=== PATIENT | male | born 1950 | race Two or more races ===

== ENCOUNTER 2020-03-29 15:58 | Inpatient (IN) | payer OTHER ==
[~2020-03-29] VITALS: Ht 185.4 cm; Wt 78.9 kg
[2020-03-29] MEDS ORDERED: SODIUM CHLORIDE 0.9% 500 ML IVB ONE (16:30)
[2020-03-29] MEDS ORDERED: PANTOPRAZOLE 40 MG/10 ML VIAL INJ IV ONE (16:30)
[2020-03-29 17:29] LABS: Basophils # (auto) 0.1 10 ^3/uL (0-0.2); Basophils % (auto) 0.7 % (0.0-2.0); Eosinophils # (auto) 0.1 10 ^3/uL (0-0.8); Eosinophils % (auto) 0.5 % (0.0-7.0); Hematocrit 28.4 % (41.0-53.0); Hemoglobin 9.3 g/dL (13.5-17.5); Lymphocytes % (auto) 16.5 % (10.0-50.0); Mean Corpuscular Hemoglobin 28.7 pg (28.0-32.0); Mean Corpuscular Hgb Conc. 32.9 g/dL (32.0-36.0); Mean Corpuscular Volume 87.1 fL (80.0-100.0); Monocytes # (auto) 0.8 10 ^3/uL (0-1.3); Monocytes % (auto) 6.4 % (0.0-12.0); Neutrophils % (auto) 75.9 % (37.0-80.0); Nucleated Red Blood Cells % 0.1 %; Platelet Count (auto) 258 10^3/uL (140-450); Red Blood Cells 3.26 10^6/uL (4.5-5.90); Red Cell Distribution Width 14.3 % (11.8-14.3); White Blood Cell 11.9 10^3/uL (4.4-10.8)
[2020-03-29 18:20] LABS: Albumin 2.9 g/dL (3.4-5.0); Calcium 10.2 mg/dL (8.5-10.1); Potassium 3.1 mmol/L (3.5-5.1)
[2020-03-29 18:24] LABS: BUN/Creatinine Ratio 24.5; Bilirubin, Total 0.5 mg/dL (0.2-1.0); Total Protein 7.7 g/dL (6.4-8.2)
[2020-03-29] MEDS ORDERED: NITROGLYCERIN 0.4 MG SL TAB SL PRN (20:30)
[2020-03-29] MEDS ORDERED: LABETALOL HCL 5 MG/ML 4ML SYRINGE IV PRN (20:30)
[2020-03-29] MEDS ORDERED: LORazepam 2MG/ML-1ML VIAL IV PRN (20:30)
[2020-03-29] MEDS ORDERED: ONDANSETRON HCL 4 MG/2 ML VIAL IV PRN (20:30)
[2020-03-29] MEDS ORDERED: MORPHINE SULF INJ 2 MG/ML SYRINGE 1ML IV PRN (20:30)
[2020-03-29] MEDS: SODIUM CHLORIDE 0.9% 1,000 ML IV SCH (21:46)
[2020-03-29] MEDS ORDERED: PANTOPRAZOLE 40 MG/10 ML VIAL INJ IV SCH (22:00)
[2020-03-29] MEDS: POTASSIUM CHL 20MEQ/100ML 100 ML IV SCH (23:03)
[2020-03-30 00:32] LABS: Hematocrit 23.9 % (41.0-53.0)
[2020-03-30] MEDS: POTASSIUM CHL 20MEQ/100ML 100 ML IV SCH (01:03)
[2020-03-30 02:29] LABS: Hemoglobin 7.7 g/dL (13.5-17.5)
[2020-03-30 02:31] LABS: Hematocrit 22.4 % (41.0-53.0)
[2020-03-30 03:52] VITALS: BP 142/78
[2020-03-30] MEDS ORDERED: ATOR20TA50 PO (05:06)
[2020-03-30] MEDS ORDERED: LISI-646 PO (05:06)
[2020-03-30] MEDS ORDERED: MELO1TAB56 PO (05:06)
[2020-03-30] MEDS ORDERED: MULT-228 PO (05:06)
[2020-03-30] MEDS ORDERED: METF-370 PO (05:06)
[2020-03-30] MEDS ORDERED: GLIP10TA9 PO (05:06)
[2020-03-30] MEDS ORDERED: PILO7.5T3 PO (05:06)
[2020-03-30] MEDS: SODIUM CHLORIDE 0.9% 1,000 ML IV SCH ×2 (06:30→18:00)
[2020-03-30 07:56] LABS: Eosinophils # (auto) 0.1 10 ^3/uL (0-0.8); Eosinophils % (auto) 0.8 % (0.0-7.0); Monocytes # (auto) 0.8 10 ^3/uL (0-1.3); Monocytes % (auto) 8.5 % (0.0-12.0); Nucleated Red Blood Cells % 0.1 %; Red Blood Cells 2.67 10^6/uL (4.5-5.90)
[2020-03-30 07:57] LABS: Basophils # (auto) 0 10 ^3/uL (0-0.2); Basophils % (auto) 0.4 % (0.0-2.0); Hemoglobin 7.8 g/dL (13.5-17.5); Lymphocytes # (auto) 3.7 10 ^3/uL (0.4-5.4); Lymphocytes % (auto) 38.8 % (10.0-50.0); Mean Corpuscular Hemoglobin 29.2 pg (28.0-32.0); Mean Corpuscular Volume 85.9 fL (80.0-100.0); Neutrophils # (auto) 4.9 10 ^3/uL (1.6-8.6); Neutrophils % (auto) 51.5 % (37.0-80.0); Platelet Count (auto) 203 10^3/uL (140-450); Red Cell Distribution Width 14.4 % (11.8-14.3); White Blood Cell 9.5 10^3/uL (4.4-10.8)
[2020-03-30 08:12] LABS: Potassium 3.6 mmol/L (3.5-5.1)
[2020-03-30 08:24] LABS: Albumin 2.7 g/dL (3.4-5.0); BUN/Creatinine Ratio 43.8; Bilirubin, Total 0.3 mg/dL (0.2-1.0); Calcium 9.4 mg/dL (8.5-10.1); Total Protein 7.1 g/dL (6.4-8.2)
[2020-03-30 08:25] LABS: INR 1.08 (0.9-1.15); Partial Thromboplastin Time 24.2 sec (23.0-31.2)
[2020-03-30 08:37] LABS: Urine Bacteria FEW /hpf (None Seen); Urine Blood Negative /uL (Negative); Urine Hyaline Cast FEW /lpf (0 - 2); Urine Specific Gravity 1.017 (1.001-1.035); Urine WBC <1 /hpf (0 - 3)
[2020-03-30 09:00] VITALS: BP 137/74
[2020-03-30] MEDS ORDERED: DEXTROSE (50%) 50ML SYRG IV PRN (09:00)
[2020-03-30] MEDS: ACCU-CHEK COMFORT CURVE STRIP VI SCH ×2 (11:40→18:00)
[2020-03-30] MEDS: InsuLIN REG 1unit/0.01ml Soln (100units/ml) SC SCH ×2 (11:41→18:00)
[2020-03-30 13:00] LABS: Hematocrit 22.2 % (41.0-53.0); Hemoglobin 7.4 g/dL (13.5-17.5)
[2020-03-30 16:00] VITALS: BP 118/71
[2020-03-30 21:23] LABS: Hemoglobin 7.1 g/dL (13.5-17.5)
[2020-03-30 21:25] LABS: Hematocrit 21.5 % (41.0-53.0)
[2020-03-30 22:00] VITALS: BP 124/70
[2020-03-31] MEDS: ACCU-CHEK COMFORT CURVE STRIP VI SCH ×5 (00:01→23:14)
[2020-03-31] MEDS: InsuLIN REG 1unit/0.01ml Soln (100units/ml) SC SCH ×5 (00:02→23:15)
[2020-03-31] MEDS ORDERED: CHOL20007 PO (01:38)
[2020-03-31] MEDS ORDERED: VITA100T3 PO (01:38)
[2020-03-31] MEDS: SODIUM CHLORIDE 0.9% 1,000 ML IV SCH ×3 (02:30→22:30)
[2020-03-31 05:35] VITALS: BP 122/70
[2020-03-31 07:17] LABS: Basophils # (auto) 0 10 ^3/uL (0-0.2); Basophils % (auto) 0.6 % (0.0-2.0); Eosinophils # (auto) 0.2 10 ^3/uL (0-0.8); Hemoglobin 7.2 g/dL (13.5-17.5)
[2020-03-31 07:20] LABS: Eosinophils % (auto) 2.2 % (0.0-7.0); Hematocrit 21.3 % (41.0-53.0); Lymphocytes # (auto) 2.4 10 ^3/uL (0.4-5.4); Lymphocytes % (auto) 35.1 % (10.0-50.0); Mean Corpuscular Hemoglobin 29.3 pg (28.0-32.0); Mean Corpuscular Hgb Conc. 33.6 g/dL (32.0-36.0); Mean Corpuscular Volume 87.3 fL (80.0-100.0); Monocytes # (auto) 0.6 10 ^3/uL (0-1.3); Monocytes % (auto) 8.1 % (0.0-12.0); Neutrophils # (auto) 3.8 10 ^3/uL (1.6-8.6); Platelet Count (auto) 202 10^3/uL (140-450); Red Blood Cells 2.44 10^6/uL (4.5-5.90); Red Cell Distribution Width 14.3 % (11.8-14.3)
[2020-03-31 08:00] VITALS: BP 147/79
[2020-03-31] MEDS ORDERED: LIDOCAINE VISCOUS 2% 15ML UD ONE (13:13)
[2020-03-31] MEDS ORDERED: diphenhdrAMINE HCL 50 MG/1 ML VL ONE (13:13)
[2020-03-31] MEDS ORDERED: SODIUM CHLORIDE LOCK 10 ML ONE (13:14)
[2020-03-31] MEDS: fentaNYL CITRATE 100 MCG/2 ML VL ONE ×2 (13:31→13:34)
[2020-03-31] MEDS: MIDAZOLAM HCL 5 MG/ML-1ML VIAL ONE ×3 (13:31→13:37)
[2020-03-31 16:26] VITALS: BP 150/83
[2020-03-31 18:24] LABS: Hemoglobin 7.8 g/dL (13.5-17.5)
[2020-03-31 18:25] LABS: Hematocrit 23.1 % (41.0-53.0)
[2020-03-31 21:50] VITALS: BP 150/73
[2020-04-01] MEDS: MORPHINE SULF INJ 2 MG/ML SYRINGE 1ML IV PRN ×2 (03:55→10:46)
[2020-04-01] MEDS: ACCU-CHEK COMFORT CURVE STRIP VI SCH ×4 (05:03→21:52)
[2020-04-01] MEDS: InsuLIN REG 1unit/0.01ml Soln (100units/ml) SC SCH ×4 (05:07→21:51)
[2020-04-01 05:08] VITALS: BP 164/73
[2020-04-01 08:00] VITALS: BP 158/82
[2020-04-01] MEDS: SODIUM CHLORIDE 0.9% 1,000 ML IV SCH (08:30)
[2020-04-01 12:42] LABS: Basophils # (auto) 0 10 ^3/uL (0-0.2); Eosinophils # (auto) 0.1 10 ^3/uL (0-0.8); Eosinophils % (auto) 1.3 % (0.0-7.0); Hemoglobin 7.7 g/dL (13.5-17.5); Lymphocytes # (auto) 1.9 10 ^3/uL (0.4-5.4); Mean Corpuscular Volume 87.5 fL (80.0-100.0); Monocytes # (auto) 0.7 10 ^3/uL (0-1.3)
[2020-04-01 12:45] LABS: Basophils % (auto) 0.4 % (0.0-2.0); Hematocrit 23.1 % (41.0-53.0); Lymphocytes % (auto) 29.5 % (10.0-50.0); Mean Corpuscular Hemoglobin 29.4 pg (28.0-32.0); Mean Corpuscular Hgb Conc. 33.6 g/dL (32.0-36.0); Monocytes % (auto) 10.5 % (0.0-12.0); Neutrophils # (auto) 3.9 10 ^3/uL (1.6-8.6); Neutrophils % (auto) 58.3 % (37.0-80.0); Platelet Count (auto) 198 10^3/uL (140-450); Red Blood Cells 2.63 10^6/uL (4.5-5.90); Red Cell Distribution Width 14.3 % (11.8-14.3); White Blood Cell 6.6 10^3/uL (4.4-10.8)
[2020-04-01] MEDS ORDERED: LISINOPRIL 20 MG TAB PO ONE (14:45)
[2020-04-01] MEDS ORDERED: DEXTROSE (50%) 50ML SYRG IV PRN (14:45)
[2020-04-01] MEDS ORDERED: hydrALAZINE HCL 20 MG/ML VL IV PRN (14:45)
[2020-04-01 16:00] VITALS: BP 163/89
[2020-04-01 16:02] LABS: Potassium 3.2 mmol/L (3.5-5.1)
[2020-04-01 16:11] LABS: BUN/Creatinine Ratio 8.2; Calcium 7.8 mg/dL (8.5-10.1)
[2020-04-01] MEDS: SUCRALFATE 1 GM/10 ML ORAL SUSP PO SCH ×2 (19:05→21:46)
[2020-04-01 20:00] VITALS: BP 131/61
[2020-04-01 23:49] VITALS: BP 131/61
[2020-04-02] MEDS: MORPHINE SULF INJ 2 MG/ML SYRINGE 1ML IV PRN (04:06)
[2020-04-02 05:00] VITALS: BP 163/88
[2020-04-02] MEDS: SUCRALFATE 1 GM/10 ML ORAL SUSP PO SCH ×4 (05:37→21:05)
[2020-04-02 05:56] LABS: Basophils # (auto) 0 10 ^3/uL (0-0.2); Basophils % (auto) 0.4 % (0.0-2.0); Eosinophils # (auto) 0.1 10 ^3/uL (0-0.8); Eosinophils % (auto) 1.3 % (0.0-7.0); Hematocrit 26.8 % (41.0-53.0); Lymphocytes # (auto) 1.9 10 ^3/uL (0.4-5.4); Lymphocytes % (auto) 21.2 % (10.0-50.0); Mean Corpuscular Hemoglobin 29.4 pg (28.0-32.0); Mean Corpuscular Hgb Conc. 33.7 g/dL (32.0-36.0); Mean Corpuscular Volume 87.1 fL (80.0-100.0); Monocytes # (auto) 0.7 10 ^3/uL (0-1.3); Monocytes % (auto) 8.6 % (0.0-12.0); Neutrophils % (auto) 68.5 % (37.0-80.0); Nucleated Red Blood Cells % 0.1 %; Platelet Count (auto) 255 10^3/uL (140-450); Red Blood Cells 3.07 10^6/uL (4.5-5.90); Red Cell Distribution Width 14.4 % (11.8-14.3); White Blood Cell 8.7 10^3/uL (4.4-10.8)
[2020-04-02] MEDS: InsuLIN REG 1unit/0.01ml Soln (100units/ml) SC SCH ×4 (06:04→21:03)
[2020-04-02] MEDS: ACCU-CHEK COMFORT CURVE STRIP VI SCH ×4 (06:04→21:05)
[2020-04-02 06:23] LABS: INR 1.05 (0.9-1.15); Partial Thromboplastin Time 25.7 sec (23.0-31.2)
[2020-04-02 06:25] LABS: Potassium 3.7 mmol/L (3.5-5.1)
[2020-04-02 06:38] LABS: BUN/Creatinine Ratio 4.5; Calcium 8.2 mg/dL (8.5-10.1); Magnesium 1.3 mg/dL (1.6-2.6)
[2020-04-02 09:00] VITALS: BP 151/91
[2020-04-02] MEDS ORDERED: EZ-GAS II GRANULES (RADIOLOGY USE) PO ONE ×3 (10:17→14:35)
[2020-04-02] MEDS ORDERED: READI-CAT 2 (BARIUM SULF)(VANILLA SMOOTHIE) 450ML ONE (10:17)
[2020-04-02] MEDS ORDERED: BARIUM SULFATE 98% 340 GM PWDR ONE (10:19)
[2020-04-02] MEDS ORDERED: GASTROGRAFIN 120 ML SOL ONE ×2 (11:14→14:30)
[2020-04-02 12:00] VITALS: BP 151/87
[2020-04-02] MEDS: LISINOPRIL 20 MG TAB PO SCH (12:15)
[2020-04-02 17:00] VITALS: BP 158/82
[2020-04-02 22:00] VITALS: BP 148/88
[2020-04-03 05:00] VITALS: BP 151/92
[2020-04-03] MEDS: SUCRALFATE 1 GM/10 ML ORAL SUSP PO SCH ×2 (05:57→10:01)
[2020-04-03] MEDS: InsuLIN REG 1unit/0.01ml Soln (100units/ml) SC SCH (06:08)
[2020-04-03] MEDS: ACCU-CHEK COMFORT CURVE STRIP VI SCH (06:08)
[2020-04-03] MEDS: MORPHINE SULF INJ 2 MG/ML SYRINGE 1ML IV PRN (07:02)
[2020-04-03 07:56] LABS: Basophils # (auto) 0 10 ^3/uL (0-0.2); Basophils % (auto) 0.4 % (0.0-2.0); Eosinophils # (auto) 0.1 10 ^3/uL (0-0.8); Eosinophils % (auto) 0.9 % (0.0-7.0); Hematocrit 27.3 % (41.0-53.0); Hemoglobin 9.2 g/dL (13.5-17.5); Lymphocytes # (auto) 1.3 10 ^3/uL (0.4-5.4); Lymphocytes % (auto) 17.4 % (10.0-50.0); Mean Corpuscular Hemoglobin 29.4 pg (28.0-32.0); Mean Corpuscular Hgb Conc. 33.8 g/dL (32.0-36.0); Monocytes # (auto) 1.1 10 ^3/uL (0-1.3); Monocytes % (auto) 14.2 % (0.0-12.0); Neutrophils % (auto) 67.1 % (37.0-80.0); Platelet Count (auto) 281 10^3/uL (140-450); Red Blood Cells 3.14 10^6/uL (4.5-5.90); Red Cell Distribution Width 14.8 % (11.8-14.3); White Blood Cell 7.4 10^3/uL (4.4-10.8)
[2020-04-03 08:00] VITALS: BP 145/86
[2020-04-03] MEDS: LISINOPRIL 20 MG TAB PO SCH (10:07)
[2020-04-03 10:26] VITALS: BP 145/81
== END 2020-04-03 12:30 | disposition home or self-care (01) | DRG 378 ==
LOC: ER 15:58 → EDBD 15:58 → TELE 15:59 → TELE-CENTR 03-30 03:52
PROVIDERS: ADMIT Family Medicine; ATTEND Internal Medicine Geriatric Medicine
PROC: 0DB88ZX Excision of Small Intestine, Via Natural or Artificial Opening Endoscopic, Diagnostic (ICD-10-PCS; 2020-03-31)
PROC: 0DB68ZX Excision of Stomach, Via Natural or Artificial Opening Endoscopic, Diagnostic (ICD-10-PCS; principal; 2020-03-31 13:23)
PROC: BD15YZZ Fluoroscopy of Upper GI using Other Contrast (ICD-10-PCS; 2020-04-02)
DX: K25.4 Chronic or unspecified gastric ulcer with hemorrhage (principal); N17.9 Acute kidney failure, unspecified; D62 Acute posthemorrhagic anemia; K29.80 Duodenitis without bleeding; K29.70 Gastritis, unspecified, without bleeding; K44.9 Diaphragmatic hernia without obstruction or gangrene; K80.20 Calculus of gallbladder without cholecystitis without obstruction; E11.65 Type 2 diabetes mellitus with hyperglycemia; Z20.822 Contact with and (suspected) exposure to COVID-19; K26.9 Duodenal ulcer, unspecified as acute or chronic, without hemorrhage or perforation; E87.6 Hypokalemia; I10 Essential (primary) hypertension; K21.9 Gastro-esophageal reflux disease without esophagitis; B96.81 Helicobacter pylori [H. pylori] as the cause of diseases classified elsewhere; F17.210 Nicotine dependence, cigarettes, uncomplicated; Z90.49 Acquired absence of other specified parts of digestive tract; I95.89 Other hypotension
CPT/HCPCS: 36415; 71045; 74176; 74246; 80048; 80053; 81001; 82962; 83036; 83690; 83735; 85014; 85018; 85025; 85610; 85730; 86850; 86900; 86901; 87086; 87426; 93005; 96360; 96361; G0378; J1815; J2250; J2405; J3480; J3490

== ENCOUNTER 2024-06-04 05:40 | Inpatient (IN) | payer OTHER ==
[~2024-06-04] VITALS: Ht 185.4 cm; Wt 81.8 kg
[2024-06-04] VITALS (16 sets, daily range): BP systolic 68–125; BP diastolic 38–64; PULSE 78–100; RESP 13–24; TEMP 95.9–98.1; O2SAT 100
[2024-06-04] MEDS: OCTREOTIDE ACETATE 100 MCG/ML VL ONE (05:31)
[~2024-06-04 05:40] MED LIST: ATOR20TA50 PO; CEPH500C PO; CHOL20007 PO; GLIP10TA9 PO; LISI20TA56 PO; MELO15TA29 PO; METF-370 PO; MULT-228 PO; PILO7.5T3 PO; VITA100T3 PO
[2024-06-04] MEDS ORDERED: SODIUM CHLORIDE 0.9% 500 ML IV ONE (06:00)
--- NOTE | 2024-06-04 06:01 | PRN ---
Misceleneous Note Note Note RAPID MEDICAL ASSESSMENT NOTE: 73-year-old male presents with rectal bleeding. Possible history of liver cirrhosis. Physical exam: General: Awake, alert No acute distress. Skin: Skin appears jaundice. HEENT: The head is normocephalic and atraumatic. Conjunctivae are clear without exudates or hemorrhage. Sclera is non-icteric. Neck: Normal range of motion. No JVD. Cardiac: Regular rate Abdomen: Appears distended Respiratory: No signs of respiratory distress. No Stridor. Neurological: The patient is awake, alert Plan: Lab studies, stool occult Sign out to oncoming provider pending full evaluation and re-assessment. DARRELL KNOX MD Jun 04, 2024 06:01
[2024-06-04] MEDS: PANTOPRAZOLE 40 MG/10 ML VIAL INJ IV ONE (06:34)
[2024-06-04] MEDS: OCTREOTIDE ACETATE 100 MCG in SODIUM CHL 0.9% 50 ML IV ONE (06:37)
--- NOTE | 2024-06-04 06:39 | ED.PDOC ---
GI ASSESSMENT HPI Comments Vitals Temp: 98.4F BP: 74/45 HR: 93 RR: 16 spO2: 98% Past Medical History: DM, HTN, HLD, Gastric Ulcers Past Surgical History: Appendectomy, Tonsillectomy Social History: Smokes cigarettes, denies ETOH or drug use. Allergies: NKDA HPI: Poor Historian. 73 year old male WILLIAM presents to the ED with chief complaint of rectal bleeding and abdominal pain. Patient reports that he has been experiencing rectal bleeding for the past 6 hours with associated epigastric pain. Patient relays that he has history of gastric ulcers in the past. Patient states he has never been transfused with blood before. Patient denies any N/V/D, hematemesis, fever, chills, or dizziness. REVIEW OF SYSTEMS: CONSTITUTIONAL: Denies acute: fever, diaphoresis, chills, HEAD: Denies acute: headache, photophobia Eyes: Denies acute: Double vision, vision loss, eye pain, eye discharge. EARS: Denies acute: tinnitus, hearing loss, ear discharge, ear pain, THROAT: Denies acute: sore throat, swelling, difficulty swallowing , pain with swallowing, change in voice. NECK: Denies acute: neck pain, neck swelling, stiff neck. HEART: Denies acute : chest pain, palpitations, LUNGS: Denies acute: SOB, wheezing, cough, hemoptysis ABDOMEN: Denies acute: Nausea, Vomiting, diarrhea, melena , hematemesis, SKIN: Denies acute: rash, redness, lesions, itchiness. EXTREMITIES: Denies acute: calf pain, numbness, tingling, weakness, denies pain in extremity. Denies acute: Low back pain. Neuro: Denies acute: focal neurological deficit, motor or sensory focal neurological deficit, tremors, seizure like activity, confusion, dizziness, change in mental status, loss of bowel or bladder function, cauda equina like symptoms. : Denies acute: dysuria, hematuria, flank pain, increase in urinary frequency. PSYCH: Denies acute: hallucination, suicidal ideation, homicidal ideation. PHYSICAL EXAM: General: no acute distress, awake and alert. Head: normocephalic, atraumatic. Neck: supple, trachea is midline, no swelling. Throat: Normal phonation. Eyes:, no erythema, no purulent discharge, no proptosis, no icterus. Heart: regular rate, regular rhythm, no significant murmur appreciated. Lungs: no apparent respiratory distress, Able to speak in full sentences. No wheezing, no rhonchi, no crackles. No stridors Clear to auscultation bilaterally. Abdomen: Epigastric tender to palpation, non distended, soft, no guarding, no rebound, + bowel sounds. Neuro: Awake, Alert, oriented to name, self, situation, follows commands GCS=15. Speech is normal. Skin: no petechia, no purpura, no cyanosis, noted-pale, not jaundice. Lower extremities: --no - Pitting edema no deformity, no focal swelling, no calf TTP. Makes eye contact. moves all four extremities. Face: no apparent facial droop. ED COURSE: Chief Complaint: GI Bleed Time Seen by MD: 06:20 Primary Care Provider: MAYKEL Reviewed Notes: Nurses Notes, Medications, Allergies Allergies: Coded Allergies: NO KNOWN ALLERGIES (Unverified , 03/29/20) Home Meds Active Scripts Cephalexin Monohydrate (Cephalexin) 500 Mg Cap, 1 CAP PO QID, #32 CAP Prov:ESTEFANÍA JORDAN 06/18/23 Reported Medications Cholecalciferol (VITAMIN D3) 2,000 Unit Tab, 1 TAB PO DAILY, #30 TAB 5 Refills 03/31/20 Alpha Tocopheryl Acid Succinat (VITAMIN E) 100 Unit Tab, 670 MG PO, TAB 03/31/20 Pilocarpine HCl (Oral) (Pilocarpine Hydrochloride) 7.5 Mg Tab, 5 MG PO TID, TAB 03/30/20 Multiple Vitamin (Multi-Day Vitamins) Vitamins Tab, 1 TAB PO DAILY, #30 TAB 03/30/20 Meloxicam (Meloxicam) 15 Mg Tab, 1 TAB PO DAILY, #30 TAB 2 Refills 03/30/20 Glipizide (Glipizide) 10 Mg Tab, 10 MG PO BID for 30 Days, MG 03/30/20 Atorvastatin Calcium (ATORVASTATIN CALCIUM) 20 Mg Tab, 1 TAB PO HS, #30 TAB 5 Refills 03/30/20 Metformin Hydrochloride (Metformin Hcl) 500 Mg Tab, 1000 MG PO BID for 30 Days, MG 03/30/20 Lisinopril (Lisinopril) 20 Mg Tab, 20 MG PO DAILY for 30 Days, MG 03/30/20 Information Source: Patient Mode of Arrival: Ambulatory Was a procedure done? Was a procedure done?: No GI differential Dx Differential Diagnosis: Other (Diverticulitis, colitis, fistula, neoplasm, hemorrhoids, anal fissures, constipation, Crohn's disease, ulcerative colitis) X-Ray, Labs, Meds, VS Vital Signs Date Time Temp Pulse Resp B/P (MAP) Pulse Ox O2 Delivery O2 Flow Rate FiO2 06/04/24 16:45 98.0 78 16 130/59 (82) 98 98.0 06/04/24 14:45 98.2 81 12 124/58 (80) 98 98.2 06/04/24 12:45 98.0 83 12 122/59 (80) 98 98.0 06/04/24 12:30 98.0 82 13 118/64 98.0 06/04/24 10:45 97.1 81 20 104/45 (64) 98 97.1 06/04/24 10:35 97.1 84 18 104/45 97.1 06/04/24 10:30 84 20 113/49 (70) 98 06/04/24 10:15 84 20 103/50 (67) 97 06/04/24 10:09 97.1 83 18 103/50 97.1 06/04/24 10:07 97.0 82 18 102/47 97.0 06/04/24 10:00 78 20 98/47 (64) 97 06/04/24 09:57 97.1 81 16 106/51 97.1 06/04/24 09:45 97.1 83 20 98/48 (65) 94 97.1 06/04/24 09:14 98.6 87 20 92/68 (76) 94 98.6 06/04/24 09:00 82 14 80/28 (45) 100 06/04/24 08:46 96.3 80 24 68/44 96.3 06/04/24 08:30 80 15 80/47 (58) 100 06/04/24 08:24 95.9 82 20 80/47 95.9 06/04/24 08:15 96.6 82 15 76/37 (50) 100 96.6 06/04/24 08:01 98.1 93 18 87/50 (62) 94 98.1 06/04/24 08:00 80 16 59/35 (43) 100 06/04/24 07:30 96.6 82 16 87/45 (59) 100 96.6 06/04/24 07:30 82 16 100 Nasal Cannula* 4 36 06/04/24 05:40 98.4 93 16 74/45 (55) 98 98.4 Lab Test 06/04/24 14:13 06/04/24 14:00 06/04/24 07:23 06/04/24 06:08 Range/Units Troponin I High Sensitivity 502 *H 89 *H 82 *H </=54 ng/L Lactic Acid Level 1.3 0.4-2.0 mmol/L Hemoglobin 3.9 *L 4.4 *L 13.5-17.5 g/dL Hematocrit 12.5 #L 14.3 L 41.0-53.0 % White Blood Count 12.8 H 4.4-10.8 10^3/uL Red Blood Count 1.70 L 4.5-5.90 10^6/uL Mean Corpuscular Volume 83.7 80.0-100.0 fL Mean Corpuscular Hemoglobin 25.6 L 28.0-32.0 pg Mean Corpuscular Hemoglobin Concent 30.6 L 32.0-36.0 g/dL Red Cell Distribution Width 16.3 H 11.8-14.3 % Platelet Count 178 140-450 10^3/uL Mean Platelet Volume 7.1 6.9-10.8 fL Neutrophils (%) (Auto) 75.7 37.0-80.0 % Lymphocytes (%) (Auto) 14.6 10.0-50.0 % Monocytes (%) (Auto) 9.0 0.0-12.0 % Eosinophils (%) (Auto) 0.2 0.0-7.0 % Basophils (%) (Auto) 0.5 0.0-2.0 % Neutrophils # (Auto) 9.7 H 1.6-8.6 10 ^3/uL Lymphocytes # (Auto) 1.9 0.4-5.4 10 ^3/uL Monocytes # (Auto) 1.1 0-1.3 10 ^3/uL Eosinophils # (Auto) 0 0-0.8 10 ^3/uL Basophils # (Auto) 0.1 0-0.2 10 ^3/uL Nucleated Red Blood Cells 0.1 % Platelet Estimate Adequate Hypochromasia (manual) Slight Prothrombin Time 12.4 H 9.3-11.8 sec Prothrombin Time INR 1.19 H 0.9-1.15 Activated Partial Thromboplast Time 24.2 L 24.5-34.5 SEC Sodium Level 139 136-145 mmol/L Potassium Level 4.6 3.5-5.1 mmol/L Chloride Level 107 98-107 mmol/L Carbon Dioxide Level 15 L 20-31 mmol/L Anion Gap 17 H 5-15 Blood Urea Nitrogen 48 H 9-23 mg/dL Creatinine 1.67 H 0.700-1.30 mg/dL Glomerular Filtration Rate Calc 42 >90 mL/min BUN/Creatinine Ratio 28.7 H 10.0-20.0 Serum Glucose 133 H 74-106 mg/dL Calcium Level 8.5 L 8.7-10.4 mg/dL Magnesium Level 1.8 1.6-2.6 mg/dL Total Bilirubin 0.3 0.2-1.0 mg/dL Aspartate Amino Transferase (AST) 27 13-40 U/L Alanine Aminotransferase (ALT) 24 7-40 U/L Alkaline Phosphatase 76 46-116 U/L Ammonia 45 H 11-32 umol/L Total Protein 5.9 5.7-8.2 g/dL Albumin 2.6 L 3.2-4.8 g/dL Lipase 104 H 12-53 U/L Current Medications Medications (Trade) Dose Ordered Sig/Pj Route Start Time Stop Time Status Last Admin Pantoprazole Sodium (Protonix) 40 mg ONCE ONCE IV 06/04/24 06:30 06/04/24 06:31 DC 06/04/24 06:34 Octreotide Acetate 100 mcg/ Sodium Chloride 51 ml @ 204 mls/hr ONCE ONCE IV 06/04/24 06:30 06/04/24 06:44 DC 06/04/24 06:37 Albumin Human 100 ml @ 100 mls/hr ONCE ONCE IV 06/04/24 08:30 06/04/24 09:29 DC 06/04/24 09:35 Ceftriaxone Sodium/Dextrose 50 ml @ 50 mls/hr ONCE ONCE IV 06/04/24 10:00 06/04/24 10:59 DC 06/04/24 10:42 Octreotide Acetate 500 mcg/ Sodium Chloride 100 ml @ 10 mls/hr Q10H IV 06/04/24 10:00 06/04/24 12:39 Pantoprazole Sodium 50 ml @ 10 mls/hr Q5H ONCE IV 06/04/24 10:00 06/04/24 14:59 DC 06/04/24 11:47 [place] [id number] Ph: [phone] DIAGNOSTIC IMAGING Diagnostic Imaging Report : [id number] Signed PATIENT: YOSEPH LEI ACCT: [id number] UNIT: [id number] : 1950 LOC: ER ROOM / BED: / AGE / SEX: 73 / M ADM STATUS: REG ER SERVICE 0708 ORDERING PHYSICIAN: ABHIJIT JAMA DO PROCEDURE(s): ABPL - CT AB PEL WO CON-NO ORAL OR IV REASON: abd pain, gi bleed, ORDER NUMBER(s): [id number], ACCESSION NUMBER(s): [id number] EXAM: CT Abdomen and Pelvis Without Intravenous Contrast CLINICAL INDICATION: abd pain, gi bleed, TECHNIQUE: Axial computed tomography images of the abdomen and pelvis without intravenous contrast. This CT exam was performed using one or more of the following dose reduction techniques: automated exposure control, adjustment of the mA and/or kV according to patient size, and/or use of iterative reconstruct ion technique. CONTRAST: RADIATION DOSE: CTDIvol = 18.17 mGy, DLP = 1129.14 mGy-cm COMPARISON: CT ABD PELVIS WO CONTRAST on DOS: 03/29/20 FINDINGS: LUNG BASES: Lung emphysema. No consolidation. ABDOMEN: LIVER: Cirrhosis with ascites. GALLBLADDER AND BILE DUCTS: Cholelithiasis. No ductal dilation. PANCREAS: Unremarkable. No ductal dilation. SPLEEN: Unremarkable. No splenomegaly. ADRENALS: Unremarkable. No mass. KIDNEYS AND URETERS: Unremarkable. No obstructing stones. No hydronephrosis. STOMACH AND BOWEL: Unremarkable. No obstruction. No mucosal thickening. PELVIS: APPENDIX: No findings to suggest acute appendicitis. BLADDER: Unremarkable. No stones. REPRODUCTIVE: Unremarkable as visualized. ABDOMEN and PELVIS: INTRAPERITONEAL SPACE: See above. BONES/JOINTS: Severe degenerative changes and disc disease L3-4. No acute fracture. No dislocation. SOFT TISSUES: Unremarkable. VASCULATURE: Scattered calcified atherosclerotic disease of aorta. Descending aorta measures up to 3.6 cm in diameter. No abdominal aortic aneurysm. LYMPH NODES: Unremarkable. No enlarged lymph nodes. OTHER FINDINGS: . IMPRESSION: 1. Cirrhosis with ascites. 2. Cholelithiasis. ATED BY: NOHEMI MCNEIL MD DICTATED DATE/TIME: 06/04/24800 SIGNED BY: NOHEMI MCNEIL MD SIGNED DATE/TIME: 06/04/24800 CC: Images Reviewed?: Images reviewed and evaluated by me Time of 1ST Reevaluation: 07:20 Reevaluation 1ST: Unchanged Time of 2ND Reevaluation: 15:53 (The case was discussed with the cardiology team (HPI, physical exam, labs and diagnostic tests that were available at the time of disposition, ED course, treatment plan) on the phone. They agreed to follow up with the patient in consult. No further recommendations. Dr. Davey) Patient Education/Counseling: Diagnosis, Treatment Family Education/Counseling: No Family Present Comments Patient presented with the above HPI.---GI bleed---workup was initiated. patient was found with the above mentioned diagnosis. the following medications were ordered: please refer to order lists of meds and tests obtained by myself Dr. Jama. Patient ED course and VS have been stabilized. Patient has been reassessed in the ED and remained in a stable condition. Pertinent incidental findings were discussed with the patient and/or family. Patient/family voices understanding and is agreeable with plan. Patient has been observed in the ED adequate length of time to insure improvement/stability. Escalation of care considered: Consideration of escalation to observation or admission Patient was ADMITTED to the medicine team for further evaluation and treatment of their presentation. GI consult was placed. Cardiology was consulted. Patient has active GI bleeding. Anticoagulation is contraindicated. The elevated troponin is likely demand ischemia. Patient was consented for blood transfusion received at least 2 units of packed red blood cells. Patient was hypotensive but improved significantly with blood transfusion and albumin. Sepsis protocol was initiated. All the reports of any imaging studies that were ordered by myself were reviewed by myself. Departure 1 Departure Time of Disposition: 06:40 Impression: Primary Impression: GI bleed Additional Impressions: Symptomatic anemia Elevated troponin Elevated lipase Hemorrhagic shock Hypoalbuminemia Liver cirrhosis Ascites Disposition: ADMITTED INPATIENT Admit to: Tele Condition: Guarded Discharged With: Self Critical Care Note Critical Care Time?: Yes (90 min-critical care time only) I personally scribed for ABHIJIT JAMA DO ([email or web address]) on 06/04/24 at 06:39. Electronically submitted by Royer Sheikh ([email or web address]). I personally scribed for ABHIJIT JAMA DO ([email or web address]) on 06/04/24 at 06:47. Electronically submitted by Royer Sheikh ([email or web address]). I personally scribed for ABHIJIT JAMA DO ([email or web address]) on 06/04/24 at 08:18. Electronically submitted by Royer Sheikh ([email or web address]). ABHIJIT JAMA DO Jun 04, 2024 06:39
[2024-06-04 06:50] LABS: INR 1.19 (0.9-1.15); Magnesium 1.8 mg/dL (1.6-2.6); Partial Thromboplastin Time 24.2 SEC (24.5-34.5); Prothrombin Time 12.4 sec (9.3-11.8)
[2024-06-04 07:01] LABS: Basophils # (auto) 0.1 10 ^3/uL (0-0.2); Basophils % (auto) 0.5 % (0.0-2.0); Eosinophils # (auto) 0 10 ^3/uL (0-0.8); Eosinophils % (auto) 0.2 % (0.0-7.0); Hematocrit 14.3 % (41.0-53.0); Lymphocytes # (auto) 1.9 10 ^3/uL (0.4-5.4); Lymphocytes % (auto) 14.6 % (10.0-50.0); Mean Corpuscular Hemoglobin 25.6 pg (28.0-32.0); Mean Corpuscular Hgb Conc. 30.6 g/dL (32.0-36.0); Mean Corpuscular Volume 83.7 fL (80.0-100.0); Monocytes # (auto) 1.1 10 ^3/uL (0-1.3); Neutrophils # (auto) 9.7 10 ^3/uL (1.6-8.6); Neutrophils % (auto) 75.7 % (37.0-80.0); Nucleated Red Blood Cells % 0.1 %; Platelet Count (auto) 178 10^3/uL (140-450); Red Cell Distribution Width 16.3 % (11.8-14.3); White Blood Cell 12.8 10^3/uL (4.4-10.8)
[2024-06-04 07:05] LABS: Hemoglobin 4.4 g/dL (13.5-17.5)
[2024-06-04 07:42] LABS: Hematocrit 12.5 % (41.0-53.0)
[2024-06-04 07:48] LABS: Hemoglobin 3.9 g/dL (13.5-17.5)
[2024-06-04 07:58] LABS: Alanine Aminotransferase 24 U/L (7-40); Alkaline Phosphatase 76 U/L (46-116); Anion Gap 17 (5-15); Potassium 4.6 mmol/L (3.5-5.1); Sodium 139 mmol/L (136-145); Total Protein 5.9 g/dL (5.7-8.2)
[2024-06-04 07:59] LABS: Aspartate Aminotransferase 27 U/L (13-40); BUN/Creatinine Ratio 28.7 (10.0-20.0); Bilirubin, Total 0.3 mg/dL (0.2-1.0)
[2024-06-04] MEDS: NOREPINEPHRINE 8 MG/250ML KIT 250 ML IV SCH (08:00)
[2024-06-04 08:02] LABS: Albumin 2.6 g/dL (3.2-4.8); Blood Urea Nitrogen 48 mg/dL (9-23); Calcium 8.5 mg/dL (8.7-10.4); Carbon Dioxide 15 mmol/L (20-31); Chloride 107 mmol/L (98-107); Glucose 133 mg/dL (74-106)
--- NOTE | 2024-06-04 08:04 | DVH ---
EXAM: CT Abdomen and Pelvis Without Intravenous Contrast CLINICAL INDICATION: abd pain, gi bleed, TECHNIQUE: Axial computed tomography images of the abdomen and pelvis without intravenous contrast. This CT exam was performed using one or more of the following dose reduction techniques: automated exposure control, adjustment of the mA and/or kV according to patient size, and/or use of iterative r econstruction technique. CONTRAST: RADIATION DOSE: CTDIvol = 18.17 mGy, DLP = 1129.14 mGy-cm COMPARISON: CT ABD PELVIS WO CONTRAST on DOS: 03/29/20 FINDINGS: LUNG BASES: Lung emphysema. No consolidation. ABDOMEN: LIVER: Cirrhosis with ascites. GALLBLADDER AND BILE DUCTS: Cholelithiasis. No ductal dilation. PANCREAS: Unremarkable. No ductal dilation. SPLEEN: Unremarkable. No splenomegaly. ADRENALS: Unremarkable. No mass. KIDNEYS AND URETERS: Unremarkable. No obstructing stones. No hydronephrosis. STOMACH AND BOWEL: Unremarkable. No obstruction. No mucosal thickening. PELVIS: APPENDIX: No findings to suggest acute appendicitis. BLADDER: Unremarkable. No stones. REPRODUCTIVE: Unremarkable as visualized. ABDOMEN and PELVIS: INTRAPERITONEAL SPACE: See above. BONES/JOINTS: Severe degenerative changes and disc disease L3-4. No acute fracture. No dislocatio n. SOFT TISSUES: Unremarkable. VASCULATURE: Scattered calcified atherosclerotic disease of aorta. Descending aorta measures up to 3.6 cm in diameter. No abdominal aortic aneurysm. LYMPH NODES: Unremarkable. No enlarged lymph nodes. OTHER FINDINGS: . IMPRESSION: 1. Cirrhosis with ascites. 2. Cholelithiasis.
[2024-06-04 09:19] LABS: Platelet Estimate Adequate
[2024-06-04 09:20] LABS: Hypochromia Slight
[2024-06-04] MEDS: ALBUMIN 25% 100 ML IV ONE (09:35)
[2024-06-04] MEDS: cefTRIAXone 2GM/50ML D5W 50 ML IV ONE (10:42)
[2024-06-04] MEDS: PANTOPRAZOLE 40mg/50ML NS AE 50 ML IV ONE (11:47)
[2024-06-04] MEDS: OCTREOTIDE ACETATE 500 MCG in SODIUM CHL 0.9% 99 ML IV SCH (12:39)
--- NOTE | 2024-06-04 18:18 | DVHSR ---
APPROVED REPORT EXAM: Two-dimensional and M-mode echocardiogram with Doppler and color Doppler. Blood Pressure: 124/58 mmHg INDICATION Elevated trop RISK FACTORS Height: 6'1", Weight: 169 DIMENSIONS LVDd4.6 (3.8-5.7cm)LA (2D)4.3 (1.9-4.0cm)Aortic Root4.3 (2.0-3.7cm) LVDs3.3 (2.5-4.0cm)LA (MM) (1.9-4.0cm)Aortic Cusp Exc0.9 (1.5-2.0cm) EF (%) 60.0 (55-70%)Rt. Atrium4.2 (1.9-4.0cm)Asc. Aorta3.6 cm IVSd1.4 (0.7-1.1cm)RV (D)3.5 (1.8-2.4cm) PWd1.4 (0.7-1.1cm) Mitral Valve MitralMitral Stenosis E wave1.10m/sMV Mean GR.4mmHg A wave1.48m/sMV Peak GR.9mmHg E/A ratio0.72D MVAcm2 DECEL [id number] 1/2 [id number] IVRTmsDop MVA1.74cm2 Aortic Valve Aortic ValveAortic Stenosis V11.07m/Cyndie Mean GR.20mmHg V23.03m/Cyndie Peak GR.37mmHg LVOT Diameter2.4 (1.8-2.4cm)Doppler AVA1.60cm2 2D AVA1.76cm2 AI P 1/2 Tgrq286.77ms Pulmonic Valve V21.36m/s Tricuspid Valve TR Velocity2.86m/s [id number] Other Information Technically limited study due to body habitus. Conclusion 1. MILD LVH AND MILD LV DIASTOLIC DYSFUNCTION LV EJECTION FRACTION IS 65% 2. MODERATELY DILATED DILATED LA 3. POSTERIOR MV CALCIFIED 4. MODERATE DEGREE MR 5. MODERATE DEGREE AORTIC STENOSIS PEAK GRADIENT ACROSS AORTIC VALVE IS 37 MM OF HG MODERATE DEGREE AORTIC REGURGITATION 6. MODERATE DEGREE MR 7. NO EFFUSION 8.SLIGHTLY DILATED RV AND RA 9. MILD PULMONARY HYPERTENSION
[2024-06-04] MEDS ORDERED: ACETAMINOPHEN 325 MG TAB PO PRN (19:00)
[2024-06-04] MEDS ORDERED: ONDANSETRON HCL 4 MG/2 ML VIAL IV PRN (19:00)
[2024-06-04] MEDS ORDERED: DEXTROSE (50%) 50ML SYRG IV PRN (19:00)
[2024-06-04] MEDS ORDERED: HYDROcodone-ACET 5/325MG TAB PO PRN (19:00)
[2024-06-04] MEDS ORDERED: HYDROmorphone HCL 2 MG/ML VL/or syr IV PRN (19:00)
--- NOTE | 2024-06-04 19:06 | DVHHP2 ---
History of Present Illness HPI: Poor Historian. 73 year old male WILLIAM presents to the ED with chief complaint of rectal bleeding and abdominal pain. Patient reports that he has been experiencing rectal bleeding for the past 6 hours with associated epigastric pain. Patient relays that he has history of gastric ulcers in the past. Patient states he has never been transfused with blood before. Patient denies any N/V/D, hematemesis, fever, chills, or dizziness. Past Medical History: DM, HTN, HLD, Gastric Ulcers Past Surgical History: Appendectomy, Tonsillectomy Social History: Smokes cigarettes, denies ETOH or drug use. Allergies: NKDA REVIEW OF SYSTEMS: CONSTITUTIONAL: Denies acute: fever, diaphoresis, chills, HEAD: Denies acute: headache, photophobia Eyes: Denies acute: Double vision, vision loss, eye pain, eye discharge. EARS: Denies acute: tinnitus, hearing loss, ear discharge, ear pain, THROAT: Denies acute: sore throat, swelling, difficulty swallowing , pain with swallow ing, change in voice. NECK: Denies acute: neck pain, neck swelling, stiff neck. HEART: Denies acute : chest pain, palpitations, LUNGS: Denies acute: SOB, wheezing, cough, hemoptysis ABDOMEN: Denies acute: Nausea, Vomiting, diarrhea, melena , hematemesis, SKIN: Denies acute: rash, redness, lesions, itchiness. EXTREMITIES: Denies acute: calf pain, numbness, tingling, weakness, denies pain in extremity. Denies acute: Low back pain. Neuro: Denies acute: focal neurological deficit, motor or sensory focal neurological deficit, tremors, seizure like activity, confusion, dizziness, change in mental status, loss of bowel or bladder function, cauda equina like symptoms. : Denies acute: dysuria, hematuria, flank pain, increase in urinary frequency. PSYCH: Denies acute: hallucination, suicidal ideation, homicidal ideation. Patient Family History: Patient reports no known family medical history. Allergies: Coded Allergies: NO KNOWN ALLERGIES (Unverified , 03/29/20) Home Meds Active Scripts Cephalexin Monohydrate (Cephalexin) 500 Mg Cap, 1 CAP PO QID, #32 CAP Prov:ESTEFANÍA JORDAN 06/18/23 Reported Medications Cholecalciferol (VITAMIN D3) 2,000 Unit Tab, 1 TAB PO DAILY, #30 TAB 5 Refills 03/31/20 Alpha Tocopheryl Acid Succinat (VITAMIN E) 100 Unit Tab, 670 MG PO, TAB 03/31/20 Pilocarpine HCl (Oral) (Pilocarpine Hydrochloride) 7.5 Mg Tab, 5 MG PO TID, TAB 03/30/20 Multiple Vitamin (Multi-Day Vitamins) Vitamins Tab, 1 TAB PO DAILY, #30 TAB 03/30/20 Meloxicam (Meloxicam) 15 Mg Tab, 1 TAB PO DAILY, #30 TAB 2 Refills 03/30/20 Glipizide (Glipizide) 10 Mg Tab, 10 MG PO BID for 30 Days, MG 03/30/20 Atorvastatin Calcium (ATORVASTATIN CALCIUM) 20 Mg Tab, 1 TAB PO HS, #30 TAB 5 Refills 03/30/20 Metformin Hydrochloride (Metformin Hcl) 500 Mg Tab, 1000 MG PO BID for 30 Days, MG 03/30/20 Lisinopril (Lisinopril) 20 Mg Tab, 20 MG PO DAILY for 30 Days, MG 03/30/20 Current Medications Current Medications Medications (Trade) Dose Ordered Sig/Pj Route PRN Reason Start Time Stop Time Status Last Admin Norepinephrine Bitartrate 250 ml @ 3.75 mls/hr Q24H IV 06/04/24 08:00 Octreotide Acetate 500 mcg/ Sodium Chloride 100 ml @ 10 mls/hr Q10H IV 06/04/24 10:00 06/04/24 12:39 Vital Signs Vital Signs Date Time Temp Pulse Resp B/P (MAP) Pulse Ox O2 Delivery O2 Flow Rate FiO2 06/04/24 18:00 98.3 78 17 132/57 (82) 100 98.3 06/04/24 07:30 Nasal Cannula* 4 36 Physical Exam 73 years old male, well nourished well developed. No apparent distress HEENT-atraumatic normocephalic . Sclera anicteric Heart-regular rate and rhythm Lungs clear to auscultate Abdomen soft, tender epigastrium, nondistended Musculoskeletal-plus two edema bilateral lower extremity. Left lateral foot ulcer. Neuro-AO x3, no focal deficits Results Labs Test 06/04/24 19:00 06/04/24 14:13 06/04/24 14:00 06/04/24 06:08 Range/Units Troponin I High Sensitivity 502 *H </=54 ng/L Lactic Acid Level 1.3 0.4-2.0 mmol/L Eosinophils (%) (Auto) 0.2 0.0-7.0 % Eosinophils # (Auto) 0 0-0.8 10 ^3/uL Basophils # (Auto) 0.1 0-0.2 10 ^3/uL Nucleated Red Blood Cells 0.1 % Platelet Estimate Adequate Hypochromasia (manual) Slight Prothrombin Time 12.4 H 9.3-11.8 sec Prothrombin Time INR 1.19 H 0.9-1.15 Activated Partial Thromboplast Time 24.2 L 24.5-34.5 SEC Magnesium Level 1.8 1.6-2.6 mg/dL Ammonia 45 H 11-32 umol/L Lipase 104 H 12-53 U/L Primary Diagnosis Severe symptomatic anemia Upper GI bleed Liver cirrhosis Elevated troponin rule out ACS CULLEN on CKD versus CULLEN Plan Hypotensive on admission Started on Levophed map goal greater than 65 Vanco and Zosyn for GI bleed and left lower extremity cellulitis Wound care consult Check blood culture, wound culture GI consulted for upper GI bleed Protonix drip, octreotide drip Elevated troponin. Trend troponin until plateau Cardiology consult in ED. Check echo of the heart rule out ACS Nephrology consult for CULLEN on CKD versus CKD Check urine sodium, urine creatinine Renal ultrasound Trend hemoglobin Hemoglobin goal greater than seven Monitor pain Monitor for BM Full code SCD for DVT prophylaxis PPI for GI prophylaxis NPO except meds Plan discussed with: Patient Date of Service: Jun 04, 2024 Billing Provider: SHERI AVILA MD Common Visit Codes: 86124-[id number] CARE 30-74 MIN, [id number] CARE-EACH +30MIN SHERI AVILA MD Jun 04, 2024 19:06
[2024-06-04 19:14] LABS: Basophils # (auto) 0 10 ^3/uL (0-0.2); Eosinophils # (auto) 0 10 ^3/uL (0-0.8); Hematocrit 19.5 % (41.0-53.0); Mean Corpuscular Volume 81.9 fL (80.0-100.0); Neutrophils # (auto) 7.1 10 ^3/uL (1.6-8.6); Red Blood Cells 2.39 10^6/uL (4.5-5.90)
[2024-06-04 19:15] LABS: Basophils % (auto) 0.3 % (0.0-2.0); Eosinophils % (auto) 0.3 % (0.0-7.0); Lymphocytes % (auto) 19.5 % (10.0-50.0); Mean Corpuscular Hemoglobin 27.8 pg (28.0-32.0); Mean Corpuscular Hgb Conc. 33.9 g/dL (32.0-36.0); Monocytes % (auto) 9.9 % (0.0-12.0); Nucleated Red Blood Cells % 0.1 %; Platelet Count (auto) 156 10^3/uL (140-450); Red Cell Distribution Width 15.4 % (11.8-14.3); White Blood Cell 10.2 10^3/uL (4.4-10.8)
[2024-06-04 19:33] LABS: Alanine Aminotransferase 26 U/L (7-40); Alkaline Phosphatase 65 U/L (46-116); Anion Gap 7 (5-15); BUN/Creatinine Ratio 36.6 (10.0-20.0); Bilirubin, Total 0.5 mg/dL (0.2-1.0); Carbon Dioxide 21 mmol/L (20-31); Hemoglobin 6.6 g/dL (13.5-17.5); Potassium 4.7 mmol/L (3.5-5.1); Sodium 141 mmol/L (136-145); Total Protein 6.1 g/dL (5.7-8.2)
[2024-06-04 19:40] LABS: Albumin 2.9 g/dL (3.2-4.8); Aspartate Aminotransferase 45 U/L (13-40); Blood Urea Nitrogen 53 mg/dL (9-23); Calcium 8.4 mg/dL (8.7-10.4); Chloride 113 mmol/L (98-107); Glucose 155 mg/dL (74-106)
[2024-06-04] MEDS: PIPERACILLIN-TAZOB 3.375GM 100 ML IV SCH (19:48)
--- NOTE | 2024-06-04 19:55 | DVH ---
EXAM: US KIDNEY INDICATION: shantelle vs shantelle on ckd TECHNIQUE: Multiple real-time sonographic images of the kidneys and bladder were obtained. COMPARISON: None Findings: Right kidney measures 9.1 cm with normal contours, increased echotexture, and normal cortical thickne ss. No evidence of hydronephrosis, calculi, cystic or solid lesions. Left kidney measures 11.0 cm with normal contours, increased echotexture, and normal cortical thickne ss. No evidence of hydronephrosis, calculi, cystic or solid lesions. Urinary bladder is unremarkable without evidence of abnormal wall thickening, mass, or calculi. Prevo id volume 921 mL. Postvoid volume was not obtained. Bilateral upper quadrant ascites. Impression: 1. Unremarkable sonographic study of the urinary bladder. 2. Mildly increased echogenicity of bilateral kidneys. Correlate for medical renal disease. 3. Bilateral upper quadrant ascites.
[2024-06-04] MEDS: PANTOPRAZOLE 40mg/50ML NS AE 50 ML IV SCH (20:40)
[2024-06-04] MEDS: OCTREOTIDE ACETATE 500 MCG/ML VL ONE (21:47)
[2024-06-04] MEDS: InsuLIN REG 1unit/0.01ml Soln (100units/ml) SC SCH (22:00)
[2024-06-04] MEDS: SODIUM CHLOR 0.9% PF (SALINE LOCK) 10ML VIAL/SYR IV SCH (22:10)
[2024-06-04] MEDS: ACCU-CHEK COMFORT CURVE STRIP VI SCH (22:12)
[2024-06-04] MEDS: ATORVASTATIN 20 MG TAB PO SCH (22:17)
--- NOTE | 2024-06-04 23:27 | DVHINCON2 ---
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 Patient states he has never received a blood transfusion. HGB 434. HCT 14.3, WBC 12.8, CO2 15, BUN 48, [employer] 1.67, CA 8.5, Ammonia 45, lipase 104. Troponin 82 > 89 > 502 > 987. CT ABD PEL shows cirrhosis with ascites and cholelithiasis. Renal US showed unremarkable sonographic study of the urinary bladder. Mildly increased echogenicity of bilateral kidneys. Bilateral upper quadrant ascites. Patient was admitted to the hospital. I am asked to consult on this patient. Family History: Patient reports no known family medical history. Allergies: Coded Allergies: NO KNOWN ALLERGIES (Unverified , 03/29/20) Home Meds Active Scripts Cephalexin Monohydrate (Cephalexin) 500 Mg Cap, 1 CAP PO QID, #32 CAP Prov:ESTEFANÍA JORDAN 06/18/23 Reported Medications Cholecalciferol (VITAMIN D3) 2,000 Unit Tab, 1 TAB PO DAILY, #30 TAB 5 Refills 03/31/20 Alpha Tocopheryl Acid Succinat (VITAMIN E) 100 Unit Tab, 670 MG PO, TAB 03/31/20 Pilocarpine HCl (Oral) (Pilocarpine Hydrochloride) 7.5 Mg Tab, 5 MG PO TID, TAB 03/30/20 Multiple Vitamin (Multi-Day Vitamins) Vitamins Tab, 1 TAB PO DAILY, #30 TAB 03/30/20 Meloxicam (Meloxicam) 15 Mg Tab, 1 TAB PO DAILY, #30 TAB 2 Refills 03/30/20 Glipizide (Glipizide) 10 Mg Tab, 10 MG PO BID for 30 Days, MG 03/30/20 Atorvastatin Calcium (ATORVASTATIN CALCIUM) 20 Mg Tab, 1 TAB PO HS, #30 TAB 5 Refills 03/30/20 Metformin Hydrochloride (Metformin Hcl) 500 Mg Tab, 1000 MG PO BID for 30 Days, MG 03/30/20 Lisinopril (Lisinopril) 20 Mg Tab, 20 MG PO DAILY for 30 Days, MG 03/30/20 Current Medications Current Medications Medications (Trade) Dose Ordered Sig/Pj Route PRN Reason Start Time Stop Time Status Last Admin Norepinephrine Bitartrate 250 ml @ 3.75 mls/hr Q24H IV 06/04/24 08:00 Octreotide Acetate 500 mcg/ Sodium Chloride 100 ml @ 10 mls/hr Q10H IV 06/04/24 10:00 06/04/24 21:45 Atorvastatin Calcium (Lipitor) 20 mg HS PO 06/04/24 22:00 06/04/24 22:17 Multivitamins (Mvi Tab) 1 tab DAILY PO 06/05/24 10:00 Cholecalciferol (Vitamin D3 Tablet) 2,000 unit DAILY PO 06/05/24 10:00 Diagnostic Test (Pha) (Accu-Chek Comfort Curve T) 1 strip ACHS 06/04/24 22:00 06/04/24 22:12 Insulin Human Regular (InsuLIN R) ACHS SC 06/04/24 22:00 Dextrose 50 ml UD PRN IV Blood Sugar LESS THAN 60 06/04/24 19:00 Piperacillin Sod/ Tazobactam Sod 100 ml @ 100 mls/hr Q8H IV 06/04/24 19:00 06/04/24 19:48 Pantoprazole Sodium 50 ml @ 10 mls/hr Q5H IV 06/04/24 19:00 06/04/24 20:40 Sodium Chloride (Saline Lock Ns) 10 ml Q8HR IV 06/04/24 22:00 06/04/24 22:10 Acetaminophen (Tylenol Tablet) 650 mg Q6HP PRN PO PAIN SCALE 1-3 OR TEMP>100.4 06/04/24 19:00 Acetaminophen/ Hydrocodone Bitart ([place] 5/325MG Tab) 1 tab Q4HP PRN PO MODERATE PAIN (4-6 PAIN SCALE) 06/04/24 19:00 Hydromorphone HCl (Dilaudid Injection) 0.5 mg Q4HP PRN IV SEVERE PAIN (7-10 PAIN SCALE) 06/04/24 19:00 Ondansetron HCl (Zofran) 4 mg Q4HP PRN IV NAUSEA / VOMITING 06/04/24 19:00 Review of Systems CONSTITUTIONAL: Denies acute: fever, diaphoresis, chills, HEAD:Denies acute: headache, photophobia Eyes:Denies acute: Double vision, vision loss, eye pain, eye discharge. EARS: Denies acute: tinnitus, hearing loss, ear discharge, ear pain, THROAT: Denies acute: sore throat, swelling, difficulty swallowing , pain with swallowing, change in voice. NECK:Denies acute: neck pain, neck swelling, stiff neck. HEART:Denies acute : chest pain, palpitations, LUNGS:Denies acute: SOB, wheezing, cough, hemoptysis ABDOMEN:Denies acute: Nausea, Vomiting, diarrhea, melena , hematemesis, SKIN:Denies acute: rash, redness, lesions, itchiness. EXTREMITIES:Denies acute: calf pain, numbness, tingling, weakness, denies pain in extremity.Denies acute: Low back pain. Neuro:Denies acute: focal neurological deficit, motor or sensory focal neurological deficit, tremors, seizure like activity, confusion, dizziness, change in mental status, loss of bowel or bladder function, cauda equina like symptoms. : Denies acute: dysuria, hematuria, flank pain, increase in urinary frequency. PSYCH: Denies acute: hallucination, suicidal ideation, homicidal ideation. Vital Signs Vital Signs Date Time Temp Pulse Resp B/P (MAP) Pulse Ox O2 Delivery O2 Flow Rate FiO2 06/04/24 22:30 98.0 83 18 101/39 98.0 06/04/24 22:00 100 06/04/24 19:30 Nasal Cannula* 2 28 Physical Exam GENERAL: Awake, alert, oriented. HEENT: Sclera anicteric. LUNGS: Clear. CARDIOVASCULAR: Heart sounds are good. ABDOMEN: Soft. Epigastric TTP. EXT: BLE edema. Left lateral foot ulcer. Labs/Diagnostic Data Labs Test 06/04/24 22:14 06/04/24 19:26 06/04/24 19:00 06/04/24 06:08 Range/Units POC Glucose 134 H 70-106 mg/dl Lactic Acid Level 1.1 0.4-2.0 mmol/L Troponin I High Sensitivity 987 *H </=54 ng/L White Blood Count 10.2 4.4-10.8 10^3/uL Red Blood Count 2.39 L 4.5-5.90 10^6/uL Hemoglobin 6.6 #*L 13.5-17.5 g/dL Hematocrit 19.5 #L 41.0-53.0 % Mean Corpuscular Volume 81.9 80.0-100.0 fL Mean Corpuscular Hemoglobin 27.8 L 28.0-32.0 pg Mean Corpuscular Hemoglobin Concent 33.9 32.0-36.0 g/dL Red Cell Distribution Width 15.4 H 11.8-14.3 % Platelet Count 156 140-450 10^3/uL Mean Platelet Volume 6.4 L 6.9-10.8 fL Neutrophils (%) (Auto) 70.0 37.0-80.0 % Lymphocytes (%) (Auto) 19.5 10.0-50.0 % Monocytes (%) (Auto) 9.9 0.0-12.0 % Eosinophils (%) (Auto) 0.3 0.0-7.0 % Basophils (%) (Auto) 0.3 0.0-2.0 % Neutrophils # (Auto) 7.1 1.6-8.6 10 ^3/uL Lymphocytes # (Auto) 2.0 0.4-5.4 10 ^3/uL Monocytes # (Auto) 1.0 0-1.3 10 ^3/uL Eosinophils # (Auto) 0 0-0.8 10 ^3/uL Basophils # (Auto) 0 0-0.2 10 ^3/uL Nucleated Red Blood Cells 0.1 % Sodium Level 141 136-145 mmol/L Potassium Level 4.7 3.5-5.1 mmol/L Chloride Level 113 H 98-107 mmol/L Carbon Dioxide Level 21 20-31 mmol/L Anion Gap 7 5-15 Blood Urea Nitrogen 53 H 9-23 mg/dL Creatinine 1.45 H 0.700-1.30 mg/dL Glomerular Filtration Rate Calc 50 >90 mL/min BUN/Creatinine Ratio 36.6 H 10.0-20.0 Serum Glucose 155 H 74-106 mg/dL Calcium Level 8.4 L 8.7-10.4 mg/dL Total Bilirubin 0.5 0.2-1.0 mg/dL Aspartate Amino Transferase (AST) 45 H 13-40 U/L Alanine Aminotransferase (ALT) 26 7-40 U/L Alkaline Phosphatase 65 46-116 U/L Total Protein 6.1 5.7-8.2 g/dL Albumin 2.9 L 3.2-4.8 g/dL Platelet Estimate Adequate Hypochromasia (manual) Slight Prothrombin Time 12.4 H 9.3-11.8 sec Prothrombin Time INR 1.19 H 0.9-1.15 Activated Partial Thromboplast Time 24.2 L 24.5-34.5 SEC Magnesium Level 1.8 1.6-2.6 mg/dL Ammonia 45 H 11-32 umol/L Lipase 104 H 12-53 U/L Assessment Severe symptomatic anemia. Upper GI bleed. Liver cirrhosis. Elevated troponin. CULLEN. Plan/Recommendation I agree with your ongoing assessment and care of plan. Echocardiogram. Dilaudid and [place] for pain management. Lipitor. Vasopressors for hemodynamic support. IV antibiotics as ordered. GI prophylactics. Additional plan as per the hospital course. Critical care time of 90 minutes provided to include time spent evaluation of patient at bedside, when appropriate patient/family education for diagnosis, treatment plan, review of pertinent medical information and discussion of care with specialty providers and PCP. Plan discussed with: Patient RAJI MARTIN MD Jun 04, 2024 23:02
[2024-06-05 00:15] VITALS: BP 107/58; PULSE 84; RESP 18; TEMP 98
[2024-06-05 01:41] VITALS: BP 112/68; PULSE 77; RESP 16; TEMP 99
[2024-06-05 02:30] VITALS: BP 110/66; PULSE 83; RESP 18; TEMP 98.4
[2024-06-05 02:40] VITALS: BP 110/72; PULSE 80; RESP 18; TEMP 98.2
[2024-06-05 03:29] VITALS: BP 119/51; PULSE 86; RESP 18; TEMP 98
[2024-06-05 05:26] LABS: Eosinophils # (auto) 0.1 10 ^3/uL (0-0.8); Hemoglobin 8.3 g/dL (13.5-17.5); Lymphocytes # (auto) 1.8 10 ^3/uL (0.4-5.4); Monocytes # (auto) 0.9 10 ^3/uL (0-1.3); Nucleated Red Blood Cells % 0.1 %
[2024-06-05 05:29] LABS: Basophils # (auto) 0 10 ^3/uL (0-0.2); Basophils % (auto) 0.6 % (0.0-2.0); Eosinophils % (auto) 1.3 % (0.0-7.0); Hematocrit 24.6 % (41.0-53.0); Lymphocytes % (auto) 23.1 % (10.0-50.0); Mean Corpuscular Hemoglobin 27.8 pg (28.0-32.0); Mean Corpuscular Hgb Conc. 33.7 g/dL (32.0-36.0); Mean Corpuscular Volume 82.5 fL (80.0-100.0); Monocytes % (auto) 11.3 % (0.0-12.0); Neutrophils % (auto) 63.7 % (37.0-80.0); Platelet Count (auto) 142 10^3/uL (140-450); Red Blood Cells 2.98 10^6/uL (4.5-5.90); Red Cell Distribution Width 15.6 % (11.8-14.3); White Blood Cell 7.8 10^3/uL (4.4-10.8)
[2024-06-05 05:40] LABS: Urine Bacteria None Seen /hpf (None Seen)
[2024-06-05 05:41] LABS: Alanine Aminotransferase 32 U/L (7-40); Alkaline Phosphatase 63 U/L (46-116); Anion Gap 7 (5-15); BUN/Creatinine Ratio 38.5 (10.0-20.0); Bilirubin, Total 0.7 mg/dL (0.2-1.0); Carbon Dioxide 22 mmol/L (20-31); Magnesium 1.7 mg/dL (1.6-2.6); Potassium 4.6 mmol/L (3.5-5.1); Sodium 142 mmol/L (136-145)
[2024-06-05 05:49] LABS: Albumin 2.7 g/dL (3.2-4.8); Aspartate Aminotransferase 47 U/L (13-40); Blood Urea Nitrogen 55 mg/dL (9-23); Calcium 8.1 mg/dL (8.7-10.4); Chloride 113 mmol/L (98-107); Glucose 127 mg/dL (74-106); Total Protein 5.7 g/dL (5.7-8.2)
[2024-06-05 06:11] LABS: Urine Blood Negative /uL (Negative); Urine Clarity Clear (Clear); Urine Color Light-Yellow (Yellow); Urine Mucus FEW (None Seen); Urine Protein, UAD Negative (Negative); Urine Specific Gravity 1.018 (1.001-1.035); Urine Squamous Epithelial Cell None Seen /hpf (<5); Urine Urobilinogen Normal (Negative); Urine WBC 1 /HPF (0-3); Urine pH 5.5 (5.0-9.0)
[2024-06-05] MEDS: OCTREOTIDE ACETATE 500 MCG/ML VL ONE (06:13)
[2024-06-05 06:18] LABS: Creatinine, Urine 73.56 mg/dL (30.0-125.0)
--- NOTE | 2024-06-05 06:21 | ECG ---
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
[2024-06-05 08:34] VITALS: PULSE 74; RESP 14; O2SAT 100
[2024-06-05] MEDS ORDERED: VANCOMYCIN PER PHARMACY 0 MG IV SCH (08:45)
[2024-06-05] MEDS ORDERED: VANCOMYCIN 1.25GM/250ML 250 ML IV ONE (09:00)
[2024-06-05] MEDS: VANCOMYCIN 1GM/250ML KIT 250 ML IV ONE (09:49)
[2024-06-05] MEDS: MULTIPLE VITAMIN TAB PO SCH (10:14)
[2024-06-05] MEDS: CHOLECALCIFEROL (VITD3) 1,000UNIT=25mCg TAB PO SCH (10:14)
--- NOTE | 2024-06-05 10:31 | DVHINCON2 ---
Date of service: Jun 05, [address] Tillman Reason for Consultation Acute kidney injury History of Present Illness Mr. Camilo is a 73-year-old male with presentation in the hospital notable for melena. He was noted to be profoundly anemic and has received packed RBC transfusions. Current consultation requested due to elevated serum creatinine to the mid to upper one range. He was seen in the emergency department awake alert conversant and in no acute distress. He states that his will be in a little bit later today. His primary care physician is Dr. Chao Zaragoza per his report. Past Medical History DM, HTN, HLD, Gastric Ulcers Past Surgical History Appendectomy, Tonsillectomy Allergies: Coded Allergies: NO KNOWN ALLERGIES (Unverified , 03/29/20) Home Meds Active Scripts Cephalexin Monohydrate (Cephalexin) 500 Mg Cap, 1 CAP PO QID, #32 CAP Prov:ESTEFANÍA JORDAN 06/18/23 Reported Medications Cholecalciferol (VITAMIN D3) 2,000 Unit Tab, 1 TAB PO DAILY, #30 TAB 5 Refills 03/31/20 Alpha Tocopheryl Acid Succinat (VITAMIN E) 100 Unit Tab, 670 MG PO, TAB 03/31/20 Pilocarpine HCl (Oral) (Pilocarpine Hydrochloride) 7.5 Mg Tab, 5 MG PO TID, TAB 03/30/20 Multiple Vitamin (Multi-Day Vitamins) Vitamins Tab, 1 TAB PO DAILY, #30 TAB 03/30/20 Meloxicam (Meloxicam) 15 Mg Tab, 1 TAB PO DAILY, #30 TAB 2 Refills 03/30/20 Glipizide (Glipizide) 10 Mg Tab, 10 MG PO BID for 30 Days, MG 03/30/20 Atorvastatin Calcium (ATORVASTATIN CALCIUM) 20 Mg Tab, 1 TAB PO HS, #30 TAB 5 Refills 03/30/20 Metformin Hydrochloride (Metformin Hcl) 500 Mg Tab, 1000 MG PO BID for 30 Days, MG 03/30/20 Lisinopril (Lisinopril) 20 Mg Tab, 20 MG PO DAILY for 30 Days, MG 03/30/20 Current Medications Current Medications Medications (Trade) Dose Ordered Sig/Jp Route PRN Reason Start Time Stop Time Status Last Admin Atorvastatin Calcium (Lipitor) 20 mg HS PO 06/04/24 22:00 06/04/24 22:17 Multivitamins (Mvi Tab) 1 tab DAILY PO 06/05/24 10:00 06/05/24 10:14 Cholecalciferol (Vitamin D3 Tablet) 2,000 unit DAILY PO 06/05/24 10:00 06/05/24 10:14 Diagnostic Test (Pha) (Accu-Chek Comfort Curve T) 1 strip ACHS 06/04/24 22:00 06/05/24 07:06 Insulin Human Regular (InsuLIN R) ACHS SC 06/04/24 22:00 Dextrose 50 ml UD PRN IV Blood Sugar LESS THAN 60 06/04/24 19:00 Piperacillin Sod/ Tazobactam Sod 100 ml @ 100 mls/hr Q8H IV 06/04/24 19:00 06/05/24 04:00 Pantoprazole Sodium 50 ml @ 10 mls/hr Q5H IV 06/04/24 19:00 06/05/24 10:00 Sodium Chloride (Saline Lock Ns) 10 ml Q8HR IV 06/04/24 22:00 06/05/24 06:04 Acetaminophen (Tylenol Tablet) 650 mg Q6HP PRN PO PAIN SCALE 1-3 OR TEMP>100.4 06/04/24 19:00 Acetaminophen/ Hydrocodone Bitart ([place] 5/325MG Tab) 1 tab Q4HP PRN PO MODERATE PAIN (4-6 PAIN SCALE) 06/04/24 19:00 Hydromorphone HCl (Dilaudid Injection) 0.5 mg Q4HP PRN IV SEVERE PAIN (7-10 PAIN SCALE) 06/04/24 19:00 Ondansetron HCl (Zofran) 4 mg Q4HP PRN IV NAUSEA / VOMITING 06/04/24 19:00 Vancomycin HCl 0 ml @ 0 mls/hr UD IV 06/05/24 08:45 UNV Family History: Patient reports no known family medical history. Review of Systems As per history of present illness otherwise all systems were reviewed and are noncontributory H&P Exam Vital Signs/I&O Vital Sign Date Time Temp Pulse Resp B/P (MAP) Pulse Ox O2 Delivery O2 Flow Rate FiO2 06/05/24 08:34 74 14 100 Nasal Cannula* 3 32 06/05/24 08:00 98.1 118/58 (78) 98.1 Intake and Output 06/04/24 06/05/24 19:00 07:00 Intake Total 1500 ml 1650 ml Output Total 0 ml 0 ml Balance 1500 ml 1650 ml Intake Oral 0 ml 0 ml IV Total 450 ml Tube Feeding 0 ml Blood Product 1200 ml 1200 ml Other 300 ml 0 ml Output Urine Total 0 ml 0 ml Physical Exam Gen: nad, thin heent: nc/at, mmm lungs: cta anteriorly cvs: no rub abd: soft, bowel sounds audible ext: no edema skin: no rash neuro: alert and oriented Labs/Diagnostic Data Labs/Diagnostic Data Laboratory Tests Test 06/05/24 07:10 06/05/24 05:38 06/05/24 05:15 06/04/24 22:14 Range/Units Troponin I High Sensitivity 931 *H 916 *H </=54 ng/L Urine Color Light-yellow Yellow Urine Clarity Clear Clear Urine pH 5.5 5.0-9.0 Urine Specific [place] 1.018 1.001-1.035 Urine Protein Negative Negative Urine Ketones Negative Negative Urine Blood Negative Negative /uL Urine Nitrite Negative Negative Urine Bilirubin Negative Negative Urine Urobilinogen Normal Negative mg/dL Urine Leukocyte Esterase Negative Negative /uL Urine RBC None seen 0 - 3 /hpf Urine Microscopic WBC 1 0-3 /HPF Urine Squamous Epithelial Cells None seen <5 /hpf Urine Bacteria None seen None Seen /hpf Urine Mucus Few None Seen Urine Creatinine 73.56 30.0-125.0 mg/dL Urine Sodium 42 40-220 mmol/L Urine Glucose Normal Normal mg/dL White Blood Count 7.8 4.4-10.8 10^3/uL Red Blood Count 2.98 L 4.5-5.90 10^6/uL Hemoglobin 8.3 #L 13.5-17.5 g/dL Hematocrit 24.6 #L 41.0-53.0 % Mean Corpuscular Volume 82.5 80.0-100.0 fL Mean Corpuscular Hemoglobin 27.8 L 28.0-32.0 pg Mean Corpuscular Hemoglobin Concent 33.7 32.0-36.0 g/dL Red Cell Distribution Width 15.6 H 11.8-14.3 % Platelet Count 142 140-450 10^3/uL Mean Platelet Volume 6.2 L 6.9-10.8 fL Neutrophils (%) (Auto) 63.7 37.0-80.0 % Lymphocytes (%) (Auto) 23.1 10.0-50.0 % Monocytes (%) (Auto) 11.3 0.0-12.0 % Eosinophils (%) (Auto) 1.3 0.0-7.0 % Basophils (%) (Auto) 0.6 0.0-2.0 % Neutrophils # (Auto) 5.0 1.6-8.6 10 ^3/uL Lymphocytes # (Auto) 1.8 0.4-5.4 10 ^3/uL Monocytes # (Auto) 0.9 0-1.3 10 ^3/uL Eosinophils # (Auto) 0.1 0-0.8 10 ^3/uL Basophils # (Auto) 0 0-0.2 10 ^3/uL Nucleated Red Blood Cells 0.1 % Sodium Level 142 136-145 mmol/L Potassium Level 4.6 3.5-5.1 mmol/L Chloride Level 113 H 98-107 mmol/L Carbon Dioxide Level 22 20-31 mmol/L Anion Gap 7 5-15 Blood Urea Nitrogen 55 H 9-23 mg/dL Creatinine 1.43 H 0.700-1.30 mg/dL Glomerular Filtration Rate Calc 51 >90 mL/min BUN/Creatinine Ratio 38.5 H 10.0-20.0 Serum Glucose 127 H 74-106 mg/dL Calcium Level 8.1 L 8.7-10.4 mg/dL Magnesium Level 1.7 1.6-2.6 mg/dL Total Bilirubin 0.7 0.2-1.0 mg/dL Aspartate Amino Transferase (AST) 47 H 13-40 U/L Alanine Aminotransferase (ALT) 32 7-40 U/L Alkaline Phosphatase 63 46-116 U/L Total Protein 5.7 5.7-8.2 g/dL Albumin 2.7 L 3.2-4.8 g/dL POC Glucose 134 H 70-106 mg/dl Test 06/04/24 19:26 06/04/24 19:00 06/04/24 14:13 06/04/24 14:00 Range/Units Lactic Acid Level 1.1 1.3 0.4-2.0 mmol/L Troponin I High Sensitivity 987 *H 502 *H </=54 ng/L White Blood Count 10.2 4.4-10.8 10^3/uL Red Blood Count 2.39 L 4.5-5.90 10^6/uL Hemoglobin 6.6 #*L 13.5-17.5 g/dL Hematocrit 19.5 #L 41.0-53.0 % Mean Corpuscular Volume 81.9 80.0-100.0 fL Mean Corpuscular Hemoglobin 27.8 L 28.0-32.0 pg Mean Corpuscular Hemoglobin Concent 33.9 32.0-36.0 g/dL Red Cell Distribution Width 15.4 H 11.8-14.3 % Platelet Count 156 140-450 10^3/uL Mean Platelet Volume 6.4 L 6.9-10.8 fL Neutrophils (%) (Auto) 70.0 37.0-80.0 % Lymphocytes (%) (Auto) 19.5 10.0-50.0 % Monocytes (%) (Auto) 9.9 0.0-12.0 % Eosinophils (%) (Auto) 0.3 0.0-7.0 % Basophils (%) (Auto) 0.3 0.0-2.0 % Neutrophils # (Auto) 7.1 1.6-8.6 10 ^3/uL Lymphocytes # (Auto) 2.0 0.4-5.4 10 ^3/uL Monocytes # (Auto) 1.0 0-1.3 10 ^3/uL Eosinophils # (Auto) 0 0-0.8 10 ^3/uL Basophils # (Auto) 0 0-0.2 10 ^3/uL Nucleated Red Blood Cells 0.1 % Sodium Level 141 136-145 mmol/L Potassium Level 4.7 3.5-5.1 mmol/L Chloride Level 113 H 98-107 mmol/L Carbon Dioxide Level 21 20-31 mmol/L Anion Gap 7 5-15 Blood Urea Nitrogen 53 H 9-23 mg/dL Creatinine 1.45 H 0.700-1.30 mg/dL Glomerular Filtration Rate Calc 50 >90 mL/min BUN/Creatinine Ratio 36.6 H 10.0-20.0 Serum Glucose 155 H 74-106 mg/dL Calcium Level 8.4 L 8.7-10.4 mg/dL Total Bilirubin 0.5 0.2-1.0 mg/dL Aspartate Amino Transferase (AST) 45 H 13-40 U/L Alanine Aminotransferase (ALT) 26 7-40 U/L Alkaline Phosphatase 65 46-116 U/L Total Protein 6.1 5.7-8.2 g/dL Albumin 2.9 L 3.2-4.8 g/dL Test 06/04/24 07:23 06/04/24 06:08 Range/Units Hemoglobin 3.9 *L 4.4 *L 13.5-17.5 g/dL Hematocrit 12.5 #L 14.3 L 41.0-53.0 % Troponin I High Sensitivity 89 *H 82 *H </=54 ng/L White Blood Count 12.8 H 4.4-10.8 10^3/uL Red Blood Count 1.70 L 4.5-5.90 10^6/uL Mean Corpuscular Volume 83.7 80.0-100.0 fL Mean Corpuscular Hemoglobin 25.6 L 28.0-32.0 pg Mean Corpuscular Hemoglobin Concent 30.6 L 32.0-36.0 g/dL Red Cell Distribution Width 16.3 H 11.8-14.3 % Platelet Count 178 140-450 10^3/uL Mean Platelet Volume 7.1 6.9-10.8 fL Neutrophils (%) (Auto) 75.7 37.0-80.0 % Lymphocytes (%) (Auto) 14.6 10.0-50.0 % Monocytes (%) (Auto) 9.0 0.0-12.0 % Eosinophils (%) (Auto) 0.2 0.0-7.0 % Basophils (%) (Auto) 0.5 0.0-2.0 % Neutrophils # (Auto) 9.7 H 1.6-8.6 10 ^3/uL Lymphocytes # (Auto) 1.9 0.4-5.4 10 ^3/uL Monocytes # (Auto) 1.1 0-1.3 10 ^3/uL Eosinophils # (Auto) 0 0-0.8 10 ^3/uL Basophils # (Auto) 0.1 0-0.2 10 ^3/uL Nucleated Red Blood Cells 0.1 % Platelet Estimate Adequate Hypochromasia (manual) Slight Prothrombin Time 12.4 H 9.3-11.8 sec Prothrombin Time INR 1.19 H 0.9-1.15 Activated Partial Thromboplast Time 24.2 L 24.5-34.5 SEC Sodium Level 139 136-145 mmol/L Potassium Level 4.6 3.5-5.1 mmol/L Chloride Level 107 98-107 mmol/L Carbon Dioxide Level 15 L 20-31 mmol/L Anion Gap 17 H 5-15 Blood Urea Nitrogen 48 H 9-23 mg/dL Creatinine 1.67 H 0.700-1.30 mg/dL Glomerular Filtration Rate Calc 42 >90 mL/min BUN/Creatinine Ratio 28.7 H 10.0-20.0 Serum Glucose 133 H 74-106 mg/dL Calcium Level 8.5 L 8.7-10.4 mg/dL Magnesium Level 1.8 1.6-2.6 mg/dL Total Bilirubin 0.3 0.2-1.0 mg/dL Aspartate Amino Transferase (AST) 27 13-40 U/L Alanine Aminotransferase (ALT) 24 7-40 U/L Alkaline Phosphatase 76 46-116 U/L Ammonia 45 H 11-32 umol/L Total Protein 5.9 5.7-8.2 g/dL Albumin 2.6 L 3.2-4.8 g/dL Lipase 104 H 12-53 U/L Assessment IMP: 1) Hemodynamically mediated CULLEN/VMN in setting of hypotension, outpatient NSAIDs, concurrent NICK inhibition. 2) CKD stage IIIa? 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 - discontinuation of outpatient NSAIDs - gastroenterology evaluation - IV fluids at maintenance during time course of patient being NPO - we will continue to follow closely with you. Thank you for the consultation. Plan discussed with: Patient TY QUINN MD Jun 05, 2024 10:31
[2024-06-05] MEDS: SOD CHL 0.45% 1,000 ML IV SCH (12:56)
--- NOTE | 2024-06-05 15:18 | DVHINCON2 ---
Date of service: Jun 05, [address] Tillman Reason for Consultation This 72-year-old female with complaints of rectal bleeding abdominal pain History of Present Illness This 72-year-old male presented to the emergency room with complaints of rectal bleeding abdominal pain. Patient the pain was in the epigastric area and some nausea no hemato but had some blood in the stools Patient was found to be hypotensive and anemic and has getting transfused and was on vasopressors till now when the blood pressure slightly better in the hemoglobin is staying good at around 8.6 Patient has history of gastric ulcers apparently He is currently on octreotide and Protonix Past Medical History History of diabetes hypertension hyperlipidemia gastric ulcers Past Surgical History Appendectomy tonsillectomy Family History: Patient reports no known family medical history. Social History Denies smoking drinking Allergies: Coded Allergies: NO KNOWN ALLERGIES (Unverified , 03/29/20) Home Meds Active Scripts Cephalexin Monohydrate (Cephalexin) 500 Mg Cap, 1 CAP PO QID, #32 CAP Prov:ESTEFANÍA JORDAN 06/18/23 Reported Medications Cholecalciferol (VITAMIN D3) 2,000 Unit Tab, 1 TAB PO DAILY, #30 TAB 5 Refills 03/31/20 Alpha Tocopheryl Acid Succinat (VITAMIN E) 100 Unit Tab, 670 MG PO, TAB 03/31/20 [place] HCl (Oral) ([place] Hydrochloride) 7.5 Mg Tab, 5 MG PO TID, TAB 03/30/20 Multiple Vitamin (Multi-Day Vitamins) Vitamins Tab, 1 TAB PO DAILY, #30 TAB 03/30/20 Meloxicam (Meloxicam) 15 Mg Tab, 1 TAB PO DAILY, #30 TAB 2 Refills 03/30/20 Glipizide (Glipizide) 10 Mg Tab, 10 MG PO BID for 30 Days, MG 03/30/20 Atorvastatin Calcium (ATORVASTATIN CALCIUM) 20 Mg Tab, 1 TAB PO HS, #30 TAB 5 Refills 03/30/20 Metformin Hydrochloride (Metformin Hcl) 500 Mg Tab, 1000 MG PO BID for 30 Days, MG 03/30/20 Lisinopril (Lisinopril) 20 Mg Tab, 20 MG PO DAILY for 30 Days, MG 03/30/20 Current Medications Current Medications Medications (Trade) Dose Ordered Sig/Pj Route PRN Reason Start Time Stop Time Status Last Admin Atorvastatin Calcium (Lipitor) 20 mg HS PO 06/04/24 22:00 06/04/24 22:17 Multivitamins (Mvi Tab) 1 tab DAILY PO 06/05/24 10:00 06/05/24 10:14 Cholecalciferol (Vitamin D3 Tablet) 2,000 unit DAILY PO 06/05/24 10:00 06/05/24 10:14 Diagnostic Test (Pha) (Accu-Chek Comfort Curve T) 1 strip ACHS 06/04/24 22:00 06/05/24 11:30 Insulin Human Regular (InsuLIN R) ACHS SC 06/04/24 22:00 Dextrose 50 ml UD PRN IV Blood Sugar LESS THAN 60 06/04/24 19:00 Piperacillin Sod/ Tazobactam Sod 100 ml @ 100 mls/hr Q8H IV 06/04/24 19:00 06/05/24 12:06 Pantoprazole Sodium 50 ml @ 10 mls/hr Q5H IV 06/04/24 19:00 06/05/24 10:00 Sodium Chloride (Saline Lock Ns) 10 ml Q8HR IV 06/04/24 22:00 06/05/24 14:03 Acetaminophen (Tylenol Tablet) 650 mg Q6HP PRN PO PAIN SCALE 1-3 OR TEMP>100.4 06/04/24 19:00 Acetaminophen/ Hydrocodone Bitart ([place] 5/325MG Tab) 1 tab Q4HP PRN PO MODERATE PAIN (4-6 PAIN SCALE) 06/04/24 19:00 Hydromorphone HCl (Dilaudid Injection) 0.5 mg Q4HP PRN IV SEVERE PAIN (7-10 PAIN SCALE) 06/04/24 19:00 Ondansetron HCl (Zofran) 4 mg Q4HP PRN IV NAUSEA / VOMITING 06/04/24 19:00 Vancomycin HCl 0 ml @ 0 mls/hr UD IV 06/05/24 08:45 UNV Sodium Chloride 1,000 ml @ 75 mls/hr [id number] IV 06/05/24 10:45 06/05/24 12:56 Review of Systems Noncontributory Vital Signs Vital Signs Date Time Temp Pulse Resp B/P (MAP) Pulse Ox O2 Delivery O2 Flow Rate FiO2 06/05/24 14:00 67 15 133/58 (83) 100 06/05/24 12:00 97.9 97.9 06/05/24 08:34 Nasal Cannula* 3 32 Physical Exam Originally built and nourished male in no acute distress vitals are stable now blood pressure slightly low HEENT examination mild pallor no icterus Lungs clear Vascular unremarkable Abdomen soft mild nonspecific tenderness tenderness upper quadrants no rigidity no guarding no masses Neurological grossly intact Extremities edema with a small little food ulcer in the left leg Labs/Diagnostic Data Labs Test 06/05/24 12:03 06/05/24 07:10 06/05/24 05:38 06/05/24 05:15 Range/Units POC Glucose 127 H 70-106 mg/dl Troponin I High Sensitivity 931 *H </=54 ng/L Urine Color Light-yellow Yellow Urine Clarity Clear Clear Urine pH 5.5 5.0-9.0 Urine Specific [place] 1.018 1.001-1.035 Urine Protein Negative Negative Urine Ketones Negative Negative Urine Blood Negative Negative /uL Urine Nitrite Negative Negative Urine Bilirubin Negative Negative Urine Urobilinogen Normal Negative mg/dL Urine Leukocyte Esterase Negative Negative /uL Urine RBC None seen 0 - 3 /hpf Urine Microscopic WBC 1 0-3 /HPF Urine Squamous Epithelial Cells None seen <5 /hpf Urine Bacteria None seen None Seen /hpf Urine Mucus Few None Seen Urine Creatinine 73.56 30.0-125.0 mg/dL Urine Sodium 42 40-220 mmol/L Urine Glucose Normal Normal mg/dL White Blood Count 7.8 4.4-10.8 10^3/uL Red Blood Count 2.98 L 4.5-5.90 10^6/uL Hemoglobin 8.3 #L 13.5-17.5 g/dL Hematocrit 24.6 #L 41.0-53.0 % Mean Corpuscular Volume 82.5 80.0-100.0 fL Mean Corpuscular Hemoglobin 27.8 L 28.0-32.0 pg Mean Corpuscular Hemoglobin Concent 33.7 32.0-36.0 g/dL Red Cell Distribution Width 15.6 H 11.8-14.3 % Platelet Count 142 140-450 10^3/uL Mean Platelet Volume 6.2 L 6.9-10.8 fL Neutrophils (%) (Auto) 63.7 37.0-80.0 % Lymphocytes (%) (Auto) 23.1 10.0-50.0 % Monocytes (%) (Auto) 11.3 0.0-12.0 % Eosinophils (%) (Auto) 1.3 0.0-7.0 % Basophils (%) (Auto) 0.6 0.0-2.0 % Neutrophils # (Auto) 5.0 1.6-8.6 10 ^3/uL Lymphocytes # (Auto) 1.8 0.4-5.4 10 ^3/uL Monocytes # (Auto) 0.9 0-1.3 10 ^3/uL Eosinophils # (Auto) 0.1 0-0.8 10 ^3/uL Basophils # (Auto) 0 0-0.2 10 ^3/uL Nucleated Red Blood Cells 0.1 % Sodium Level 142 136-145 mmol/L Potassium Level 4.6 3.5-5.1 mmol/L Chloride Level 113 H 98-107 mmol/L Carbon Dioxide Level 22 20-31 mmol/L Anion Gap 7 5-15 Blood Urea Nitrogen 55 H 9-23 mg/dL Creatinine 1.43 H 0.700-1.30 mg/dL Glomerular Filtration Rate Calc 51 >90 mL/min BUN/Creatinine Ratio 38.5 H 10.0-20.0 Serum Glucose 127 H 74-106 mg/dL Calcium Level 8.1 L 8.7-10.4 mg/dL Magnesium Level 1.7 1.6-2.6 mg/dL Total Bilirubin 0.7 0.2-1.0 mg/dL Aspartate Amino Transferase (AST) 47 H 13-40 U/L Alanine Aminotransferase (ALT) 32 7-40 U/L Alkaline Phosphatase 63 46-116 U/L Total Protein 5.7 5.7-8.2 g/dL Albumin 2.7 L 3.2-4.8 g/dL Test 06/04/24 19:26 06/04/24 06:08 Range/Units Lactic Acid Level 1.1 0.4-2.0 mmol/L Platelet Estimate Adequate Hypochromasia (manual) Slight Prothrombin Time 12.4 H 9.3-11.8 sec Prothrombin Time INR 1.19 H 0.9-1.15 Activated Partial Thromboplast Time 24.2 L 24.5-34.5 SEC Ammonia 45 H 11-32 umol/L Lipase 104 H 12-53 U/L Microbiology Date/Time Source Procedure Growth Status 06/04/24 14:13 Blood Blood Culture - Preliminary NO GROWTH AFTER 24 HOURS OF INCUBATION. Resulted Assessment 72-year-old with complaints of abdominal pain so rectal bleeding abdominal discomfort is mostly in the epigastric area with history of gastric ulcers in the past patient was found to be anemic and has been transfused he was hypotensive and he is getting better with the Protonix octreotide as well as vasopressors Patient had history of ulcers in the past apparently no gross hematemesis and the bleeding apparently has stopped today Hemoglobin Stable around 8.6 Lipase is high ammonia level is borderline high Clinical impression possible ulcer disease other etiology like varices or other pathology also can not be excluded Plan/Recommendation We will recommend to follow the hemoglobin closely and the blood pressure If he is stabilized later may need EGD evaluation to evaluate the source of the bleeding and further workup accordingly We will recommend to follow the liver enzymes and lipase which were high as well as ammonia level We will be away tomorrow and Dr. Webb will be covering and will discuss because Dr. Webb to arrange for the same when convenient for her If there is any emergency GI bleeding we will need emergency endoscopic evaluation Thank you D Plan discussed with: Patient KAR CENTENO MD Jun 05, 2024 15:18
--- NOTE | 2024-06-05 15:35 | DVHPN2 ---
Subjective The patient is seen and examined at bedside. No complaint today. No vomiting blood or melena. Reviewed: Care Plan, H&P, Labs, Medications, Previous Orders, Radiology Changes from previous H/P or p: No Changes Objective Vitals Vital Signs Date Time Temp Pulse Resp B/P (MAP) Pulse Ox O2 Delivery O2 Flow Rate FiO2 06/05/24 14:00 67 15 133/58 (83) 100 06/05/24 12:00 97.9 97.9 06/05/24 08:34 Nasal Cannula* 3 32 Intake/Output Intake and Output 06/05/24 07:00 Intake Total 3150 ml Output Total 0 ml Balance 3150 ml Intake Oral 0 ml IV Total 450 ml Tube Feeding 0 ml Blood Product 2400 ml Other 300 ml Output Urine Total 0 ml General Appearance: Alert, Cooperative, No acute distress HEENT: Atraumatic, PERRLA, EOMI, Mucous membr. moist/pink Neck: Supple Lungs: Clear to auscultation, Normal air movement Cardiovascular: Regular rate, Normal S1, Normal S2, No murmurs, Gallops, Rubs Abdomen: Normal bowel sounds, Soft, No tenderness Neuro: Cranial nerves 3-12 NL Psych/Mental Status: Mental status NL Medications Current Medications Medications Dose Ordered Sig/Jp Route Start Time Stop Time Status Last Admin Dose Admin Octreotide Acetate 500 mcg/ Sodium Chloride 100 ml @ 10 mls/hr Q10H IV 06/04/24 10:00 06/05/24 06:12 10 MLS/HR Atorvastatin Calcium 20 mg HS PO 06/04/24 22:00 06/04/24 22:17 20 MG Multivitamins 1 tab DAILY PO 06/05/24 10:00 06/05/24 10:14 1 TAB Cholecalciferol 2,000 unit DAILY PO 06/05/24 10:00 06/05/24 10:14 2,000 UNIT Diagnostic Test (Pha) 1 strip ACHS 06/04/24 22:00 06/05/24 11:30 1 STRIP Insulin Human Regular ACHS SC 06/04/24 22:00 Dextrose 50 ml UD PRN IV 06/04/24 19:00 Piperacillin Sod/ Tazobactam Sod 100 ml @ 100 mls/hr Q8H IV 06/04/24 19:00 06/05/24 12:06 100 MLS/HR Pantoprazole Sodium 50 ml @ 10 mls/hr Q5H IV 06/04/24 19:00 06/05/24 10:00 10 MLS/HR Sodium Chloride 10 ml Q8HR IV 06/04/24 22:00 06/05/24 14:03 10 ML Acetaminophen 650 mg Q6HP PRN PO 06/04/24 19:00 Acetaminophen/ Hydrocodone Bitart 1 tab Q4HP PRN PO 06/04/24 19:00 Hydromorphone HCl 0.5 mg Q4HP PRN IV 06/04/24 19:00 Ondansetron HCl 4 mg Q4HP PRN IV 06/04/24 19:00 Vancomycin HCl 0 ml @ 0 mls/hr UD IV 06/05/24 08:45 UNV Sodium Chloride 1,000 ml @ 75 mls/hr [id number] IV 06/05/24 10:45 06/05/24 12:56 75 MLS/HR Laboratory Results Laboratory Tests 06/05/24 05:15 Chemistry Test 06/04/24 19:00 06/05/24 05:15 Albumin 2.9 g/dL (3.2-4.8) L 2.7 g/dL (3.2-4.8) L Calcium Level 8.4 mg/dL (8.7-10.4) L 8.1 mg/dL (8.7-10.4) L Total Protein 6.1 g/dL (5.7-8.2) 5.7 g/dL (5.7-8.2) Magnesium Level 1.7 mg/dL (1.6-2.6) LFT Test 06/04/24 19:00 06/05/24 05:15 Alanine Aminotransferase (ALT) 26 U/L (7-40) 32 U/L (7-40) Alkaline Phosphatase 65 U/L (46-116) 63 U/L (46-116) Aspartate Amino Transferase (AST) 45 U/L (13-40) H 47 U/L (13-40) H Total Bilirubin 0.5 mg/dL (0.2-1.0) 0.7 mg/dL (0.2-1.0) Urinalysis Test 06/05/24 05:38 Urine Color Light-yellow (Yellow) Urine Clarity Clear (Clear) Urine pH 5.5 (5.0-9.0) Urine Specific [place] 1.018 (1.001-1.035) Urine Protein Negative (Negative) Urine Ketones Negative (Negative) Urine Blood Negative /uL (Negative) Urine Nitrite Negative (Negative) Urine Bilirubin Negative (Negative) Urine Urobilinogen Normal mg/dL (Negative) Urine Leukocyte Esterase Negative /uL (Negative) Urine RBC None seen /hpf (0 - 3) Urine Microscopic WBC 1 /HPF (0-3) Urine Squamous Epithelial Cells None seen /hpf (<5) Urine Bacteria None seen /hpf (None Seen) Urine Mucus Few (None Seen) Urine Creatinine 73.56 mg/dL (30.0-125.0) Urine Sodium 42 mmol/L (40-220) Urine Glucose Normal mg/dL (Normal) Microbiology Microbiology Date/Time Source Procedure Growth Status 06/04/24 14:13 Blood Blood Culture - Preliminary NO GROWTH AFTER 24 HOURS OF INCUBATION. Resulted Labs and/or images reviewed: Labs reviewed by me Assessment/Plan Assessment/Plan Severe symptomatic anemia Upper GI bleed Liver cirrhosis Elevated troponin rule out ACS CULLEN on CKD versus CULLEN Nonhealing wound on the left lower extremity Elevation of troponin level Plan Continuing current management. Continuing with Levophed map goal greater than 65 Vanco and Zosyn for left lower extremity cellulitis Waiting for Wound care consult We will follow up blood culture, wound culture Waiting for GI consulted for upper GI bleed Continuing Protonix drip, octreotide drip Waiting for Cardiology . Check echo of the heart rule out ACS Waiting for Nephrology consult for CULLEN on CKD versus CKD Check urine sodium, urine creatinine Renal ultrasound Trend hemoglobin Hemoglobin goal greater than seven Monitor pain Monitor for BM Full code SCD for DVT prophylaxis PPI for GI prophylaxis NPO except meds This medical document was created using an electronic medical record system with [employer] direct computerized dictation system. Although this document has been carefully reviewed, there may still be some phonetic and typographical errors. These areas are purely typographical due to imperfections of the software programs, and do not reflect any compromise in the patient's medical care. Plan discussed with: Patient, Spouse My Orders Orders - CONSTANTINO CISSE MD Procedure Category Date Status Time Cleanse Wound With RIGO 06/05/24 In Process Wound Clean 11:36 Date of Service: Jun 05, 2024 Billing Provider: CONSTANTINO CISSE MD Common Visit Codes: [id number] INP/OBS CARE(HIGH) CONSTANTINO CISSE MD Jun 05, 2024 15:35
--- NOTE | 2024-06-05 19:41 | DVHPN2 ---
Progress Note - Dictate Date Seen: Jun 05, 2024 Medical Necessity Reason Pt with a Central, PICC or Fol: No Subjective Patient was seen and evaluated in follow up in the ICU. Patient is complaining of LLE pain. HGB 8.3, HCT 24.6, BUN 55, AIRWORTH[employer] SAF[employer]Y INSPECTOR 1.43, CA 8.1. Troponin 916 > 931. Patient on Octreotide drip. UA is negative for infection.Echocardiogram shows an EF of 65%, mild LVH and LV diastolic dysfunction, moderately dilatated LA, moderate degree MR, moderate degree aortic sclerosis, moderate degree aortic regurgitation, mild pulmonary HTN. vital signs Vital Sign Date Time Temp Pulse Resp B/P (MAP) Pulse Ox O2 Delivery O2 Flow Rate FiO2 06/05/24 18:02 69 14 150/55 (86) 100 06/05/24 16:01 98.2 98.2 06/05/24 08:34 Nasal Cannula* 3 32 Total Intake and Output 06/04/24 06/04/24 06/05/24 15:00 23:00 07:00 Intake Total 1500 ml 530 ml 1120 ml Output Total 0 ml 0 ml Balance 1500 ml 530 ml 1120 ml medications Current Medications Medications Dose Ordered Sig/Pj Route Start Time Stop Time Status Last Admin Dose Admin Octreotide Acetate 500 mcg/ Sodium Chloride 100 ml @ 10 mls/hr Q10H IV 06/04/24 10:00 06/05/24 16:50 10 MLS/HR Atorvastatin Calcium 20 mg HS PO 06/04/24 22:00 06/04/24 22:17 20 MG Multivitamins 1 tab DAILY PO 06/05/24 10:00 06/05/24 10:14 1 TAB Cholecalciferol 2,000 unit DAILY PO 06/05/24 10:00 06/05/24 10:14 2,000 UNIT Diagnostic Test (Pha) 1 strip ACHS 06/04/24 22:00 06/05/24 17:04 1 STRIP Insulin Human Regular ACHS SC 06/04/24 22:00 Dextrose 50 ml UD PRN IV 06/04/24 19:00 Piperacillin Sod/ Tazobactam Sod 100 ml @ 100 mls/hr Q8H IV 06/04/24 19:00 06/05/24 12:06 100 MLS/HR Pantoprazole Sodium 50 ml @ 10 mls/hr Q5H IV 06/04/24 19:00 06/05/24 15:37 10 MLS/HR Sodium Chloride 10 ml Q8HR IV 06/04/24 22:00 06/05/24 14:03 10 ML Acetaminophen 650 mg Q6HP PRN PO 06/04/24 19:00 Acetaminophen/ Hydrocodone Bitart 1 tab Q4HP PRN PO 06/04/24 19:00 Hydromorphone HCl 0.5 mg Q4HP PRN IV 06/04/24 19:00 Ondansetron HCl 4 mg Q4HP PRN IV 06/04/24 19:00 Vancomycin HCl 0 ml @ 0 mls/hr UD IV 06/05/24 08:45 Sodium Chloride 1,000 ml @ 75 mls/hr [id number] IV 06/05/24 10:45 06/05/24 12:56 75 MLS/HR objective GENERAL: Awake, alert, oriented. HEENT: Sclera anicteric. LUNGS: Clear. CARDIOVASCULAR: Heart sounds are good. ABDOMEN: Soft. Epigastric TTP. EXT: BLE edema. Left lateral foot ulcer. laboratory and microbiology Laboratory Tests 06/05/24 05:15 Test 06/05/24 05:15 Range/Units Serum Glucose 127 H 74-106 mg/dL Problem List Severe symptomatic anemia. Upper GI bleed. Liver cirrhosis. Elevated troponin. CULLEN. Assessment/Plan Continued all current supportive medical care. Dilaudid and [place] for pain management. Lipitor. IV antibiotics as ordered. GI prophylactics. Additional plan as per the hospital course. Critical care time of 45 minutes provided to include time spent evaluation of patient at bedside, when appropriate patient/family education for diagnosis, treatment plan, review of pertinent medical information and discussion of care with specialty providers and PCP. Dietary Evaluation Review Comments: 1) If patient is NPO for > 7 days, consider EN/TPN to meet at least 75% estimated daily needs 2) Initiate vitamin C @ 500 mg bid and zinc sulfate @ 220 mg qd for 7-10 days 3) Advance to clear liquid diet and upgrade to 60g CCHO 2g Na hepatic diet order when medically feasible, pending MANAGER RESPIRATORY approval 4) F/u with gastroenterology, hepatology, and nephrology Expected Outcomes/Goals: 1) patient to receive nutrition within 7 days 2) diet to advance 3) labs to improve 4) f/u in 3 days Plan discussed with: Patient CC Plasma Assessment Blood Product Administration S: [id number] RAJI MARTIN MD Jun 05, 2024 18:23
[2024-06-06] VITALS (16 sets, daily range): BP systolic 116–169; BP diastolic 59–81; PULSE 62–78; RESP 12–17; TEMP 97.8–98.5; O2SAT 95–100
[2024-06-06] MEDS: OCTREOTIDE ACETATE 500 MCG/ML VL ONE (01:36)
[2024-06-06 04:01] LABS: Basophils # (auto) 0.1 10 ^3/uL (0-0.2); Basophils % (auto) 0.9 % (0.0-2.0); Eosinophils # (auto) 0.2 10 ^3/uL (0-0.8); Eosinophils % (auto) 2.8 % (0.0-7.0); Hematocrit 25.3 % (41.0-53.0); Hemoglobin 8.5 g/dL (13.5-17.5); Lymphocytes # (auto) 1.4 10 ^3/uL (0.4-5.4); Lymphocytes % (auto) 19.8 % (10.0-50.0); Mean Corpuscular Hemoglobin 27.9 pg (28.0-32.0); Mean Corpuscular Hgb Conc. 33.8 g/dL (32.0-36.0); Mean Corpuscular Volume 82.6 fL (80.0-100.0); Monocytes # (auto) 0.8 10 ^3/uL (0-1.3); Monocytes % (auto) 11.8 % (0.0-12.0); Neutrophils # (auto) 4.6 10 ^3/uL (1.6-8.6); Neutrophils % (auto) 64.7 % (37.0-80.0); Platelet Count (auto) 126 10^3/uL (140-450); Red Blood Cells 3.06 10^6/uL (4.5-5.90); Red Cell Distribution Width 15.8 % (11.8-14.3); White Blood Cell 7.1 10^3/uL (4.4-10.8)
[2024-06-06 04:20] LABS: Alanine Aminotransferase 31 U/L (7-40); Alkaline Phosphatase 64 U/L (46-116); Anion Gap 8 (5-15); BUN/Creatinine Ratio 30.2 (10.0-20.0); Bilirubin, Total 0.9 mg/dL (0.2-1.0); Carbon Dioxide 21 mmol/L (20-31); Sodium 141 mmol/L (136-145)
[2024-06-06 04:23] LABS: Albumin 2.8 g/dL (3.2-4.8); Aspartate Aminotransferase 45 U/L (13-40); Blood Urea Nitrogen 35 mg/dL (9-23); Calcium 8.3 mg/dL (8.7-10.4); Chloride 112 mmol/L (98-107); Glucose 126 mg/dL (74-106); Magnesium 1.5 mg/dL (1.6-2.6)
[2024-06-06] MEDS ORDERED: VANCOMYCIN 1GM/250ML KIT 250 ML IV SCH (10:00)
[2024-06-06] MEDS ORDERED: METF-370 PO (10:06)
[2024-06-06] MEDS ORDERED: MAGN400T40 PO (10:06)
[2024-06-06] MEDS ORDERED: FAMO-12 PO (10:06)
[2024-06-06] MEDS ORDERED: VITA200C27 PO (10:06)
[2024-06-06] MEDS ORDERED: GLIP10TA9 PO (10:06)
[2024-06-06] MEDS ORDERED: ATOR10TA PO (10:06)
[2024-06-06] MEDS ORDERED: CHOL25CH3 PO (10:06)
[2024-06-06] MEDS ORDERED: FINA5TAB4 PO (10:06)
[2024-06-06] MEDS ORDERED: VITALIQ10 XX (10:06)
[2024-06-06] MEDS ORDERED: SITA100T7 PO (10:06)
[2024-06-06 10:09] LABS: Hematocrit 25.9 % (41.0-53.0); Hemoglobin 8.6 g/dL (13.5-17.5)
--- NOTE | 2024-06-06 10:22 | DVHPN2 ---
Progress Note Date Seen: Jun 06, 2024 Resident Creating Document: DAISHA VASQUEZ RESIDENT Medical Necessity Reason Pt with a Central, PICC or Fol: No Subjective Review of Systems history of ulcers in the past no gross hematemesis bleeding apparently has stopped today Per patient last bowel movement was 2 weeks ago Hemoglobin Stable around 9.1 Lipase is high ammonia level is borderline high Objective vital signs Vital Sign Date Time Temp Pulse Resp B/P (MAP) Pulse Ox O2 Delivery O2 Flow Rate FiO2 06/06/24 09:42 68 06/06/24 07:29 15 98 Room Air* 0 21 06/06/24 07:00 121/67 (85) 06/05/24 20:00 98.3 98.3 Total Intake and Output 06/05/24 06/05/24 06/06/24 15:00 23:00 07:00 Intake Total 430 ml 295 ml 665 ml Output Total 400 ml 900 ml 425 ml Balance 30 ml -605 ml 240 ml medications Current Medications Medications Dose Ordered Sig/Pj Route Start Time Stop Time Status Last Admin Dose Admin Octreotide Acetate 500 mcg/ Sodium Chloride 100 ml @ 10 mls/hr Q10H IV 06/04/24 10:00 06/06/24 02:42 10 MLS/HR Atorvastatin Calcium 20 mg HS PO 06/04/24 22:00 06/05/24 21:53 20 MG Multivitamins 1 tab DAILY PO 06/05/24 10:00 06/05/24 10:14 1 TAB Cholecalciferol 2,000 unit DAILY PO 06/05/24 10:00 06/05/24 10:14 2,000 UNIT Diagnostic Test (Pha) 1 strip ACHS 06/04/24 22:00 06/06/24 06:45 1 STRIP Insulin Human Regular ACHS SC 06/04/24 22:00 Dextrose 50 ml UD PRN IV 06/04/24 19:00 Piperacillin Sod/ Tazobactam Sod 100 ml @ 100 mls/hr Q8H IV 06/04/24 19:00 06/06/24 03:08 100 MLS/HR Pantoprazole Sodium 50 ml @ 10 mls/hr Q5H IV 06/04/24 19:00 06/06/24 08:24 10 MLS/HR Sodium Chloride 10 ml Q8HR IV 06/04/24 22:00 06/06/24 05:57 10 ML Acetaminophen 650 mg Q6HP PRN PO 06/04/24 19:00 Acetaminophen/ Hydrocodone Bitart 1 tab Q4HP PRN PO 06/04/24 19:00 Hydromorphone HCl 0.5 mg Q4HP PRN IV 06/04/24 19:00 Ondansetron HCl 4 mg Q4HP PRN IV 06/04/24 19:00 Vancomycin HCl 0 ml @ 0 mls/hr UD IV 06/05/24 08:45 Sodium Chloride 1,000 ml @ 75 mls/hr [id number] IV 06/05/24 10:45 06/06/24 00:09 75 MLS/HR Examination General Appearance: Alert, Cooperative, No acute distress HEENT: Atraumatic, slightly icteric conjunctiva, EOMI, Mucous membr. moist/pink Neck: Supple Lungs: Clear to auscultation, Normal air movement Cardiovascular: Regular rate, Normal S1, Normal S2, No murmurs, Gallops, Rubs Abdomen: Normal bowel sounds, Soft but distended abdomen, midepigastric tenderness to palpation Neuro: Cranial nerves 3-12 NL Psych/Mental Status: Mental status NL Extremities: Left foot ulcer noted on the lateral aspect laboratory and microbiology Laboratory Tests 06/06/24 09:47 06/06/24 03:43 Test 06/06/24 03:43 Range/Units Serum Glucose 126 H 74-106 mg/dL Microbiology Date/Time Source Procedure Growth Status 06/04/24 14:13 Blood Blood Culture - Preliminary NO GROWTH AFTER 24 HOURS OF INCUBATION. Resulted Labs and/or images reviewed: Labs reviewed by me, Image(s) reviewed by me Problem List/Assessment/Plan Problem List/Assessment/Plan Anemia. s/p 4 pRBC transfusion rectal bleeding History of gastric ulcers on EGD performed 4 years ago other etiology like variceal bleed cannot be excluded Left lower extremity ulcer, possible cellulitis Plan/Recommendation Scheduled for EGD tomorrow Taper and discontinue octreotide We will recommend to follow H&H Continue to follow the liver enzymes, lipase and ammonia level clear liquid diet Plan discussed with Dr. Webb Plan discussed with: Patient, Other (RN) Dietary Evaluation Review Comments: 1) If patient is NPO for > 7 days, consider EN/TPN to meet at least 75% estimated daily needs 2) Initiate vitamin C @ 500 mg bid and zinc sulfate @ 220 mg qd for 7-10 days 3) Advance to clear liquid diet and upgrade to 60g CCHO 2g Na hepatic diet order when medically feasible, pending ELECT[employer]SEMBLER approval 4) F/u with gastroenterology, hepatology, and nephrology Expected Outcomes/Goals: 1) patient to receive nutrition within 7 days 2) diet to advance 3) labs to improve 4) f/u in 3 days CC Plasma Assessment Blood Product Administration S: 23:30 DAISHA VASQUEZ RESIDENT Jun 06, 2024 10:22
--- NOTE | 2024-06-06 10:36 | DVHINCON2 ---
Date Seen: Jun 06, 2024 Reason for Consultation Left leg wound History of Present Illness Poor Historian. 73 year old male WILLIAM presents to the ED with chief complaint of rectal bleeding and abdominal pain. Patient reports that he has been experiencing rectal bleeding for the past 6 hours with associated epigastric p ain. Patient relays that he has history of gastric ulcers in the past. Patient states he has never been transfused with blood before. Patient denies any N/V/D, hematemesis, fever, chills, or dizziness. Past Medical History See H&P Past Surgical History See H&P Family History: Patient reports no known family medical history. Allergies: Coded Allergies: NO KNOWN ALLERGIES (Unverified , 03/29/20) Home Meds Active Scripts Cephalexin Monohydrate (Cephalexin) 500 Mg Cap, 1 CAP PO QID, #32 CAP Prov:ESTEFANÍA JORDAN PA 06/18/23 Reported Medications Cholecalciferol (D3) 25 Mcg Chw, 25 MCG PO DAILY, TAB.CHEW 06/06/24 Magnesium Oxide (MAGNESIUM OXIDE) 400 Mg Tab, 1 TAB PO DAILY, #30 TAB 5 Refills 06/06/24 Tocopheryl Acetate, Dl-Alpha ( (Vitamin E) 90 Mg Cap, 1000 MG PO DAILY, CAP 06/06/24 Tocopherol, Dl-Alpha (Vitamin E) Liq, 1 XX, LIQ 06/06/24 Atorvastatin Calcium (Lipitor) 10 Mg Tab, 1 MG PO DAILY, #90 TAB 1 Refill 06/06/24 Glipizide (Glipizide) 10 Mg Tab, 10 MG PO DAILY for 30 Days, MG 06/06/24 Famotidine (Famotidine) 20 Mg Tab, 20 MG PO DAILY for 30 Days, MG 06/06/24 Finasteride (Finasteride) 5 Mg Tab, 5 MG PO DAILY for 30 Days, MG 06/06/24 Sitagliptin Phosphate (Januvia) 100 Mg Tab, 1 TAB PO DAILY, #30 TAB 5 Refills 06/06/24 Metformin Hydrochloride (Metformin Hcl) 500 Mg Tab, 1000 MG PO DAILY for 30 Days, MG 06/06/24 Lisinopril (Lisinopril) 20 Mg Tab, 20 MG PO DAILY for 30 Days, MG 06/06/24 Multiple Vitamin (Multi-Day Vitamins) Vitamins Tab, 1 TAB PO DAILY, #30 TAB 03/30/20 Discontinued Reported Medications Cholecalciferol (VITAMIN D3) 2,000 Unit Tab, 1 TAB PO DAILY, #30 TAB 5 Refills 03/31/20 Alpha Tocopheryl Acid Succinat (VITAMIN E) 100 Unit Tab, 670 MG PO, TAB 03/31/20 [place] HCl (Oral) (P[place] Hydrochloride) 7.5 Mg Tab, 5 MG PO TID, TAB 03/30/20 Meloxicam (Meloxicam) 15 Mg Tab, 1 TAB PO DAILY, #30 TAB 2 Refills 03/30/20 Glipizide (Glipizide) 10 Mg Tab, 10 MG PO BID for 30 Days, MG 03/30/20 Atorvastatin Calcium (ATORVASTATIN CALCIUM) 20 Mg Tab, 1 TAB PO HS, #30 TAB 5 Refills 03/30/20 Metformin Hydrochloride (Metformin Hcl) 500 Mg Tab, 1000 MG PO BID for 30 Days, MG 03/30/20 Lisinopril (Lisinopril) 20 Mg Tab, 20 MG PO DAILY for 30 Days, MG 03/30/20 Current Medications Current Medications Medications (Trade) Dose Ordered Sig/Pj Route PRN Reason Start Time Stop Time Status Last Admin Sodium Chloride 1,000 ml @ 75 mls/hr [id number] IV 06/05/24 10:45 06/06/24 00:09 Vancomycin HCl 250 ml @ 250 mls/hr DAILY IV 06/06/24 10:00 06/05/24 17:44 DC Vital Signs Vital Signs Date Time Temp Pulse Resp B/P (MAP) Pulse Ox O2 Delivery O2 Flow Rate FiO2 06/06/24 09:42 68 06/06/24 07:29 15 98 Room Air* 0 21 06/06/24 07:00 121/67 (85) 06/05/24 20:00 98.3 98.3 Physical Exam DERMATOLOGIC EXAM: - Skin is dry and cool to the touch dry bilaterally. - Nails 1-5 of the bilateral foot are thickened, discolored, dystrophic, and tender to palpate with subungual debris - Hair loss noted to bilateral feet - left lateral leg wound with mixed fibrotic granular tissue VASCULAR EXAM: - DP and PT pulses are palpable bilaterally. 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 - Feet are cool to touch compared to lower legs bilaterally. NEUROLOGIC EXAM: - Normal light touch sensation to the superficial peroneal, deep peroneal, sural, saphenous, and tibial nerve branches. - Protective sensation is diminished as tested with a 5.07 10g [place] bilaterally. MUSCULOSKELETAL EXAM: - No gross deformities - Muscle strength is 5/5 and active motion is pain-free and symmetrical bilaterally - No pain or crepitation with passive range of motion bilaterally to all major pedal joints Labs/Diagnostic Data Labs Test 06/06/24 09:47 06/06/24 06:44 06/06/24 03:43 06/05/24 07:10 Range/Units Hemoglobin 8.6 L 13.5-17.5 g/dL Hematocrit 25.9 L 41.0-53.0 % POC Glucose 114 H 70-106 mg/dl White Blood Count 7.1 4.4-10.8 10^3/uL Red Blood Count 3.06 L 4.5-5.90 10^6/uL Mean Corpuscular Volume 82.6 80.0-100.0 fL Mean Corpuscular Hemoglobin 27.9 L 28.0-32.0 pg Mean Corpuscular Hemoglobin Concent 33.8 32.0-36.0 g/dL Red Cell Distribution Width 15.8 H 11.8-14.3 % Platelet Count 126 L 140-450 10^3/uL Mean Platelet Volume 6.0 L 6.9-10.8 fL Neutrophils (%) (Auto) 64.7 37.0-80.0 % Lymphocytes (%) (Auto) 19.8 10.0-50.0 % Monocytes (%) (Auto) 11.8 0.0-12.0 % Eosinophils (%) (Auto) 2.8 0.0-7.0 % Basophils (%) (Auto) 0.9 0.0-2.0 % Neutrophils # (Auto) 4.6 1.6-8.6 10 ^3/uL Lymphocytes # (Auto) 1.4 0.4-5.4 10 ^3/uL Monocytes # (Auto) 0.8 0-1.3 10 ^3/uL Eosinophils # (Auto) 0.2 0-0.8 10 ^3/uL Basophils # (Auto) 0.1 0-0.2 10 ^3/uL Nucleated Red Blood Cells 0.0 % Sodium Level 141 136-145 mmol/L Potassium Level 4.0 3.5-5.1 mmol/L Chloride Level 112 H 98-107 mmol/L Carbon Dioxide Level 21 20-31 mmol/L Anion Gap 8 5-15 Blood Urea Nitrogen 35 #H 9-23 mg/dL Creatinine 1.16 0.700-1.30 mg/dL Glomerular Filtration Rate Calc 66 >90 mL/min BUN/Creatinine Ratio 30.2 H 10.0-20.0 Serum Glucose 126 H 74-106 mg/dL Calcium Level 8.3 L 8.7-10.4 mg/dL Magnesium Level 1.5 L 1.6-2.6 mg/dL Total Bilirubin 0.9 0.2-1.0 mg/dL Aspartate Amino Transferase (AST) 45 H 13-40 U/L Alanine Aminotransferase (ALT) 31 7-40 U/L Alkaline Phosphatase 64 46-116 U/L Total Protein 6.0 5.7-8.2 g/dL Albumin 2.8 L 3.2-4.8 g/dL Random Vancomycin Level 9.0 5-10 ug/mL Troponin I High Sensitivity 931 *H </=54 ng/L Test 06/05/24 05:38 06/04/24 19:26 06/04/24 06:08 Range/Units Urine Color Light-yellow Yellow Urine Clarity Clear Clear Urine pH 5.5 5.0-9.0 Urine Specific [place] 1.018 1.001-1.035 Urine Protein Negative Negative Urine Ketones Negative Negative Urine Blood Negative Negative /uL Urine Nitrite Negative Negative Urine Bilirubin Negative Negative Urine Urobilinogen Normal Negative mg/dL Urine Leukocyte Esterase Negative Negative /uL Urine RBC None seen 0 - 3 /hpf Urine Microscopic WBC 1 0-3 /HPF Urine Squamous Epithelial Cells None seen <5 /hpf Urine Bacteria None seen None Seen /hpf Urine Mucus Few None Seen Urine Creatinine 73.56 30.0-125.0 mg/dL Urine Sodium 42 40-220 mmol/L Urine Glucose Normal Normal mg/dL Lactic Acid Level 1.1 0.4-2.0 mmol/L Platelet Estimate Adequate Hypochromasia (manual) Slight Prothrombin Time 12.4 H 9.3-11.8 sec Prothrombin Time INR 1.19 H 0.9-1.15 Activated Partial Thromboplast Time 24.2 L 24.5-34.5 SEC Ammonia 45 H 11-32 umol/L Lipase 104 H 12-53 U/L Microbiology Date/Time Source Procedure Growth Status 06/04/24 14:13 Blood Blood Culture - Preliminary NO GROWTH AFTER 24 HOURS OF INCUBATION. Resulted Problems(with codes): (1) Cholelithiasis (2) Anemia (3) Generalized weakness (4) Hypotension (5) Intractable abdominal pain (6) Blister of right thumb (7) Ascites (8) Liver cirrhosis (9) Hemorrhagic shock (10) Hypoalbuminemia (11) GI bleed (12) Elevated troponin (13) Elevated lipase (14) Symptomatic anemia Plan/Recommendation ASSESSMENT: Patient is a 73-year-old male seen in the ER for a worsening leg wound PLAN: - The patients chart was reviewed, clinical findings were discussed with the patient, the etiologies of the conditions were discussed in detail, and a treatment plan was agreed to at this time, with both oral and written ins tructions provided. - recommend that we get an x-ray as well as CT of the left lower extremity to rule out any deeper infection - keep the wound clean dry and intact - can use Betadine gauze on the wound - we will take the patient to the OR if concern for deeper infection - if not patient can benefit from wound care All questions were answered and concerns addressed to the patient's satisfaction. The patient was given the phone number to the clinic and was told how to make contact with the clinic should any concerns or questions arise. Patient understands that if any questions or concerns arise prior to the next appointment, we should be contacted immediately. FOLLOW-UP: Continue to follow while inpatient Plan discussed with: Patient Date of Service: Jun 06, 2024 Billing Provider: ANYI ADKINS DPM Common Visit Codes: CONSULT ONLY Consultation Codes: [id number] CONSULT <80MIN ANYI ADKINS DPM Jun 06, 2024 10:36
--- NOTE | 2024-06-06 11:49 | DVHPN2 ---
Progress Note - Dictate Date Seen: Jun 06, 2024 Medical Necessity Reason Pt with a Central, PICC or Fol: No Subjective Patient was seen and evaluated in follow up in the ICU. Patient is complaining of left lower ext pain. Patient is continued on Octreotide drip. Patient is scheduled for EGD tomorrow. CT LLE is pending. HGB 8.6, HCT 25.9, BUN 35, MG 1.5, AST 45. Prelim blood cultures show no growth. vital signs Vital Sign Date Time Temp Pulse Resp B/P (MAP) Pulse Ox O2 Delivery O2 Flow Rate FiO2 06/06/24 10:00 62 06/06/24 07:29 15 98 Room Air* 0 21 06/06/24 07:00 121/67 (85) 06/05/24 20:00 98.3 98.3 Total Intake and Output 06/05/24 06/05/24 06/06/24 15:00 23:00 07:00 Intake Total 430 ml 295 ml 665 ml Output Total 400 ml 900 ml 425 ml Balance 30 ml -605 ml 240 ml medications Current Medications Medications Dose Ordered Sig/Pj Route Start Time Stop Time Status Last Admin Dose Admin Octreotide Acetate 500 mcg/ Sodium Chloride 100 ml @ 10 mls/hr Q10H IV 06/04/24 10:00 06/06/24 02:42 10 MLS/HR Atorvastatin Calcium 20 mg HS PO 06/04/24 22:00 06/05/24 21:53 20 MG Multivitamins 1 tab DAILY PO 06/05/24 10:00 06/06/24 10:49 1 TAB Cholecalciferol 2,000 unit DAILY PO 06/05/24 10:00 06/06/24 10:49 2,000 UNIT Diagnostic Test (Pha) 1 strip ACHS 06/04/24 22:00 06/06/24 06:45 1 STRIP Insulin Human Regular ACHS SC 06/04/24 22:00 Dextrose 50 ml UD PRN IV 06/04/24 19:00 Piperacillin Sod/ Tazobactam Sod 100 ml @ 100 mls/hr Q8H IV 06/04/24 19:00 06/06/24 10:50 100 MLS/HR Pantoprazole Sodium 50 ml @ 10 mls/hr Q5H IV 06/04/24 19:00 06/06/24 08:24 10 MLS/HR Sodium Chloride 10 ml Q8HR IV 06/04/24 22:00 06/06/24 05:57 10 ML Acetaminophen 650 mg Q6HP PRN PO 06/04/24 19:00 Acetaminophen/ Hydrocodone Bitart 1 tab Q4HP PRN PO 06/04/24 19:00 Hydromorphone HCl 0.5 mg Q4HP PRN IV 06/04/24 19:00 Ondansetron HCl 4 mg Q4HP PRN IV 06/04/24 19:00 Vancomycin HCl 0 ml @ 0 mls/hr UD IV 06/05/24 08:45 Sodium Chloride 1,000 ml @ 75 mls/hr [id number] IV 06/05/24 10:45 06/06/24 00:09 75 MLS/HR objective GENERAL: Awake, alert, oriented. HEENT: Sclera anicteric. LUNGS: Clear. CARDIOVASCULAR: Heart sounds are good. ABDOMEN: Soft. Epigastric TTP. EXT: BLE edema. Left lateral foot ulcer. laboratory and microbiology Laboratory Tests 06/06/24 09:47 06/06/24 03:43 Test 06/06/24 03:43 Range/Units Serum Glucose 126 H 74-106 mg/dL Problem List Severe symptomatic anemia. Upper GI bleed. Liver cirrhosis. Elevated troponin. CULLEN. Assessment/Plan Continued all current supportive medical care. Dilaudid and [place] for pain management. Lipitor. IV antibiotics as ordered. GI prophylactics. Additional plan as per the hospital course. Critical care time of 45 minutes provided to include time spent evaluation of patient at bedside, when appropriate patient/family education for diagnosis, treatment plan, review of pertinent medical information and discussion of care with specialty providers and PCP. Dietary Evaluation Review Comments: 1) If patient is NPO for > 7 days, consider EN/TPN to meet at least 75% estimated daily needs 2) Initiate vitamin C @ 500 mg bid and zinc sulfate @ 220 mg qd for 7-10 days 3) Advance to clear liquid diet and upgrade to 60g CCHO 2g Na hepatic diet order when medically feasible, pending LIFTER/DRIVER approval 4) F/u with gastroenterology, hepatology, and nephrology Expected Outcomes/Goals: 1) patient to receive nutrition within 7 days 2) diet to advance 3) labs to improve 4) f/u in 3 days Plan discussed with: Patient CC Plasma Assessment Blood Product Administration S: 23:30 RAJI MARTIN MD Jun 06, 2024 11:49
--- NOTE | 2024-06-06 11:53 | DVH ---
INDICATION: r/o abscess / OM COMPARISON: None TECHNIQUE: CT of the left lower extremity was performed without contrast. Volume transverse images we re obtained and reconstructed in multiple planes using bone and soft tissue algorithms. Radiation Dose Information: CT Dose: CTDI volume is 7.75 mGy. Dose-length product is 281.69 mGy*cm FINDINGS: The alignment is normal. The joint spaces are normal. There is no fracture, dislocation or aggressive osseous lesion. There is no joint effusion. Diffuse subcutaneous soft-tissue edema and swelling. Soft-tissue ulceration at the distal lateral ej f. IMPRESSION: Probable cellulitis and possible soft-tissue ulceration at the lateral aspect of the distal calf. No fluid collection or abscess. No acute fracture or dislocation. All CT scans at this medical facility are performed using dose modulation techniques as appropriate t o a performed exam including the following: Automated exposure control was utilized; adjustment of th e MA and/or KV according to patient size; and use of iterative reconstruction technique.
[2024-06-06] MEDS ORDERED: DEXTROSE (50%) 50ML SYRG IV PRN (12:30)
--- NOTE | 2024-06-06 12:32 | DVHPN2 ---
Progress Note Date Seen: Jun 06, 2024 Medical Necessity Reason Pt with a Central, PICC or Fol: No Subjective Patient reports: No new complaints Review of Systems: HEENT:Normal, CVS:Normal, RESPIRATORY:Normal, GI:Normal, :Normal, MSK:Normal, NEURO:Normal Objective vital signs Vital Sign Date Time Temp Pulse Resp B/P (MAP) Pulse Ox O2 Delivery O2 Flow Rate FiO2 06/06/24 11:00 77 14 162/75 (104) 97 06/06/24 08:00 97.8 97.8 06/06/24 07:29 Room Air* 0 21 Total Intake and Output 06/05/24 06/05/24 06/06/24 15:00 23:00 07:00 Intake Total 430 ml 295 ml 665 ml Output Total 400 ml 900 ml 425 ml Balance 30 ml -605 ml 240 ml medications Current Medications Medications Dose Ordered Sig/Pj Route Start Time Stop Time Status Last Admin Dose Admin Octreotide Acetate 500 mcg/ Sodium Chloride 100 ml @ 10 mls/hr Q10H IV 06/04/24 10:00 06/06/24 02:42 10 MLS/HR Atorvastatin Calcium 20 mg HS PO 06/04/24 22:00 06/05/24 21:53 20 MG Multivitamins 1 tab DAILY PO 06/05/24 10:00 06/06/24 10:49 1 TAB Cholecalciferol 2,000 unit DAILY PO 06/05/24 10:00 06/06/24 10:49 2,000 UNIT Diagnostic Test (Pha) 1 strip ACHS 06/04/24 22:00 06/06/24 06:45 1 STRIP Insulin Human Regular ACHS SC 06/04/24 22:00 Dextrose 50 ml UD PRN IV 06/04/24 19:00 Piperacillin Sod/ Tazobactam Sod 100 ml @ 100 mls/hr Q8H IV 06/04/24 19:00 06/06/24 10:50 100 MLS/HR Pantoprazole Sodium 50 ml @ 10 mls/hr Q5H IV 06/04/24 19:00 06/06/24 08:24 10 MLS/HR Sodium Chloride 10 ml Q8HR IV 06/04/24 22:00 06/06/24 05:57 10 ML Acetaminophen 650 mg Q6HP PRN PO 06/04/24 19:00 Acetaminophen/ Hydrocodone Bitart 1 tab Q4HP PRN PO 06/04/24 19:00 Hydromorphone HCl 0.5 mg Q4HP PRN IV 06/04/24 19:00 Ondansetron HCl 4 mg Q4HP PRN IV 06/04/24 19:00 Vancomycin HCl 0 ml @ 0 mls/hr UD IV 06/05/24 08:45 Sodium Chloride 1,000 ml @ 75 mls/hr [id number] IV 06/05/24 10:45 06/06/24 00:09 75 MLS/HR Examination: GENERAL:Normal, HEENT:Normal, NECK:Normal, LUNGS:Normal, CVS:Normal, ABDOMEN:Normal, ABDOMEN:Abnormal (?ASCITES), MSK:Normal, SKIN:Normal, NEURO:Normal, :Normal laboratory and microbiology Laboratory Tests 06/06/24 09:47 06/06/24 03:43 Test 06/06/24 03:43 Range/Units Serum Glucose 126 H 74-106 mg/dL Microbiology Date/Time Source Procedure Growth Status 06/04/24 14:13 Blood Blood Culture - Preliminary NO GROWTH AFTER 24 HOURS OF INCUBATION. Resulted Problem List/Assessment/Plan Problem List/Assessment/Plan #1 gi bleed s/p multiple transfusions: gi eval, ppi drip, egd in am #2 liver cirrhosis: check hep panel #3 dm: ssi #4 acute renal failure ?vasomotor nephropathy #5 h/o gastric ulcers #6 gallstones #7 left leg ulcer/cellulitis ?sepsis #8 thrombocytopenia Plan discussed with: Patient My Orders My Orders Orders - LANDRY MACDONALD MD Procedure Category Date Status Time Glucose Blood PHA 06/06/24 Logged (Accu-Chek Comfort 18:00 Insulin R (Human) PHA 06/06/24 Logged (Insulin R) 18:00 Dextrose 50% Syringe PHA 06/06/24 Logged 12:30 Complete Blood Count LAB 06/07/24 Verified 06:00 Comprehensive LAB 06/07/24 Verified Metabolic Panel 06:00 Acute Hepatitis Panel LAB 06/06/24 Logged 12:22 Chest Portable XY 06/06/24 Logged 12:22 Transfer Orders XFER 06/06/24 Transmitted 12:22 Dietary Evaluation Review Comments: 1) If patient is NPO for > 7 days, consider EN/TPN to meet at least 75% estimated daily needs 2) Initiate vitamin C @ 500 mg bid and zinc sulfate @ 220 mg qd for 7-10 days 3) Advance to clear liquid diet and upgrade to 60g CCHO 2g Na hepatic diet order when medically feasible, pending SLOT MACHINE KEY PERSON approval 4) F/u with gastroenterology, hepatology, and nephrology Expected Outcomes/Goals: 1) patient to receive nutrition within 7 days 2) diet to advance 3) labs to improve 4) f/u in 3 days Critical Care Time (mins): 37 (critical care time 37 mins) Date of Service: Jun 06, 2024 Billing Provider: LANDRY MACDONALD MD Common Visit Codes: [id number] CARE 30-74 MIN CC Plasma Assessment Blood Product Administration S: 23:30 LANDRY MACDONALD MD Jun 06, 2024 12:32
[2024-06-06 13:32] LABS: Hepatitis A Ab IgM Negative; Hepatitis B Core IgM Negative (Negative); Hepatitis B Surface Antigen Negative (Negative); Hepatitis C Antibody Negative (Negative)
--- NOTE | 2024-06-06 13:35 | DVH ---
EXAM: XY CHEST PORTABLE Indication: HTN, pain Technique: Single frontal view of the chest was obtained Comparison: CHEST PORTABLE on DOS: 03/29/20 FINDINGS: Lines and Tubes: None Lungs: No focal consolidation. Mild pulmonary vascular congestion. Pleura: No effusion. No pneumothorax. Cardiomediastinal contours: Unremarkable. Atherosclerotic vascular calcifications of the thoracic ao rta are noted. Bones: No acute osseous abnormality. IMPRESSION: No acute cardiopulmonary disease.
[2024-06-06 15:25] LABS: Hematocrit 27.6 % (41.0-53.0); Hemoglobin 9.1 g/dL (13.5-17.5)
[2024-06-06] MEDS: VANCOMYCIN 1.25GM/250ML 250 ML IV SCH (17:02)
[2024-06-06] MEDS: InsuLIN REG 1unit/0.01ml Soln (100units/ml) SC SCH (18:00)
[2024-06-06] MEDS: ACCU-CHEK COMFORT CURVE STRIP VI SCH (18:18)
--- NOTE | 2024-06-06 19:45 | DVHPN2 ---
Progress Note Date Seen: Jun 06, 2024 Medical Necessity Reason Pt with a Central, PICC or Fol: No Subjective Patient reports: No new complaints, Feels better Review of Systems: Deferred Objective vital signs Vital Sign Date Time Temp Pulse Resp B/P (MAP) Pulse Ox O2 Delivery O2 Flow Rate FiO2 06/06/24 18:24 73 06/06/24 18:00 12 153/75 (101) 96 06/06/24 16:00 98.5 98.5 06/06/24 07:29 Room Air* 0 21 Total Intake and Output 06/05/24 06/05/24 06/06/24 15:00 23:00 07:00 Intake Total 430 ml 295 ml 760 ml Output Total 400 ml 900 ml 425 ml Balance 30 ml -605 ml 335 ml medications Current Medications Medications Dose Ordered Sig/Pj Route Start Time Stop Time Status Last Admin Dose Admin Piperacillin Sod/ Tazobactam Sod 100 ml @ 100 mls/hr Q8H IV 06/04/24 19:00 06/06/24 10:50 100 MLS/HR Pantoprazole Sodium 50 ml @ 10 mls/hr Q5H IV 06/04/24 19:00 06/06/24 13:51 10 MLS/HR Sodium Chloride 10 ml Q8HR IV 06/04/24 22:00 06/06/24 16:01 10 ML Acetaminophen 650 mg Q6HP PRN PO 06/04/24 19:00 Acetaminophen/ Hydrocodone Bitart 1 tab Q4HP PRN PO 06/04/24 19:00 Hydromorphone HCl 0.5 mg Q4HP PRN IV 06/04/24 19:00 Ondansetron HCl 4 mg Q4HP PRN IV 06/04/24 19:00 Vancomycin HCl 0 ml @ 0 mls/hr UD IV 06/05/24 08:45 Sodium Chloride 1,000 ml @ 75 mls/hr [id number] IV 06/05/24 10:45 06/06/24 00:09 75 MLS/HR Diagnostic Test (Pha) 1 strip Q6HR 06/06/24 18:00 06/06/24 18:18 1 STRIP Insulin Human Regular Q6HR SC 06/06/24 18:00 Dextrose 50 ml UD PRN IV 06/06/24 12:30 Vancomycin HCl 250 ml @ 200 mls/hr Q24H IV 06/06/24 17:00 06/06/24 17:02 200 MLS/HR Examination: GENERAL:Normal, HEENT:Normal, NECK:Normal, LUNGS:Normal, CVS:Normal, ABDOMEN:Normal, MSK:Normal, SKIN:Normal, NEURO:Normal, :Normal laboratory and microbiology Laboratory Tests 06/06/24 14:52 06/06/24 03:43 Test 06/06/24 03:43 Range/Units Serum Glucose 126 H 74-106 mg/dL Microbiology Date/Time Source Procedure Growth Status 06/05/24 11:42 Leg Left Gram Stain Pending Resulted 06/05/24 11:42 Leg Left Wound Culture - Preliminary Resulted 06/04/24 14:13 Blood Blood Culture - Preliminary NO GROWTH AFTER 48 HOURS OF INCUBATION. Resulted Problem List/Assessment/Plan Problem List/Assessment/Plan 1) Hemodynamically mediated CULLEN/VMN in setting of lowhb/gi bleed /hypotension, ++outpatient NSAIDs, concurrent NICK . 2) CKD stage IIIa? Baseline creatinine unknown to this casualty underwriter 3) acute blood loss anemia/ GI hemorrhage 4) hypertension recs Improved renal function On half NS GI eval Plan discussed with: Patient Dietary Evaluation Review Comments: 1) If patient is NPO for > 7 days, consider EN/TPN to meet at least 75% estimated daily needs 2) Initiate vitamin C @ 500 mg bid and zinc sulfate @ 220 mg qd for 7-10 days 3) Advance to clear liquid diet and upgrade to 60g CCHO 2g Na hepatic diet order when medically feasible, pending CHEESEMAKING LABORER approval 4) F/u with gastroenterology, hepatology, and nephrology Expected Outcomes/Goals: 1) patient to receive nutrition within 7 days 2) diet to advance 3) labs to improve 4) f/u in 3 days CC Plasma Assessment Blood Product Administration S: 23:30 PARISH PERKINS MD Jun 06, 2024 19:44
[2024-06-06] MEDS: cloNIDine HCL 0.1 MG TAB PO ONE (20:18)
[2024-06-07] VITALS (8 sets, daily range): BP systolic 117–158; BP diastolic 63–83; PULSE 62–72; RESP 15–19; TEMP 97.8–98.2; O2SAT 94–100
[2024-06-07 05:58] LABS: Basophils # (auto) 0.1 10 ^3/uL (0-0.2); Basophils % (auto) 0.9 % (0.0-2.0); Eosinophils # (auto) 0.2 10 ^3/uL (0-0.8); Eosinophils % (auto) 2.8 % (0.0-7.0); Hematocrit 25.5 % (41.0-53.0); Hemoglobin 8.5 g/dL (13.5-17.5); Lymphocytes # (auto) 1.2 10 ^3/uL (0.4-5.4); Lymphocytes % (auto) 19.2 % (10.0-50.0); Mean Corpuscular Hemoglobin 27.8 pg (28.0-32.0); Mean Corpuscular Hgb Conc. 33.3 g/dL (32.0-36.0); Mean Corpuscular Volume 83.5 fL (80.0-100.0); Monocytes # (auto) 0.7 10 ^3/uL (0-1.3); Monocytes % (auto) 10.8 % (0.0-12.0); Neutrophils # (auto) 4.1 10 ^3/uL (1.6-8.6); Neutrophils % (auto) 66.3 % (37.0-80.0); Nucleated Red Blood Cells % 0.1 %; Platelet Count (auto) 118 10^3/uL (140-450); Red Blood Cells 3.05 10^6/uL (4.5-5.90); Red Cell Distribution Width 15.8 % (11.8-14.3); White Blood Cell 6.2 10^3/uL (4.4-10.8)
[2024-06-07 06:14] LABS: INR 1.15 (0.9-1.15); Partial Thromboplastin Time 27.6 SEC (24.5-34.5)
[2024-06-07 06:17] LABS: Alanine Aminotransferase 27 U/L (7-40); Alkaline Phosphatase 65 U/L (46-116); Anion Gap 7 (5-15); BUN/Creatinine Ratio 17.9 (10.0-20.0); Blood Urea Nitrogen 20 mg/dL (9-23); Carbon Dioxide 22 mmol/L (20-31); Potassium 3.9 mmol/L (3.5-5.1); Sodium 139 mmol/L (136-145); Total Protein 5.9 g/dL (5.7-8.2)
[2024-06-07 06:19] LABS: Bilirubin, Total 0.9 mg/dL (0.2-1.0)
[2024-06-07 06:31] LABS: Albumin 2.6 g/dL (3.2-4.8); Aspartate Aminotransferase 40 U/L (13-40); Calcium 8.2 mg/dL (8.7-10.4); Chloride 110 mmol/L (98-107); Glucose 106 mg/dL (74-106); Magnesium 1.4 mg/dL (1.6-2.6)
[2024-06-07] MEDS ORDERED: LIDOCAINE VISCOUS 2% 15ML UD ONE (08:43)
[2024-06-07] MEDS ORDERED: SODIUM CHLORIDE LOCK 0 ML ONE (08:43)
[2024-06-07] MEDS ORDERED: diphenhdrAMINE HCL 50 MG/1 ML VL ONE (08:44)
[2024-06-07] MEDS ORDERED: MIDAZOLAM HCL 5 MG/ML-1ML VIAL ONE (08:44)
[2024-06-07] MEDS ORDERED: fentaNYL CITRATE 100 MCG/2 ML VL ONE ×2 (08:44→15:25)
--- NOTE | 2024-06-07 12:48 | DVHPN2 ---
Progress Note Date Seen: Jun 07, 2024 Medical Necessity Reason Pt with a Central, PICC or Fol: No Subjective Patient reports: No new complaints Review of Systems: HEENT:Normal, CVS:Normal, RESPIRATORY:Normal, GI:Normal, :Normal, MSK:Normal, NEURO:Normal Objective vital signs Vital Sign Date Time Temp Pulse Resp B/P (MAP) Pulse Ox O2 Delivery O2 Flow Rate FiO2 06/07/24 09:00 97.8 65 15 126/70 (88) 99 97.8 06/07/24 08:00 Room Air* 0 21 Total Intake and Output 06/06/24 06/06/24 06/07/24 15:00 23:00 07:00 Intake Total 1020 ml 1140 ml 650 ml Output Total 650 ml Balance 1020 ml 490 ml 650 ml medications Current Medications Medications Dose Ordered Sig/Pj Route Start Time Stop Time Status Last Admin Dose Admin Piperacillin Sod/ Tazobactam Sod 100 ml @ 100 mls/hr Q8H IV 06/04/24 19:00 06/07/24 03:00 100 MLS/HR Pantoprazole Sodium 50 ml @ 10 mls/hr Q5H IV 06/04/24 19:00 06/07/24 06:23 10 MLS/HR Sodium Chloride 10 ml Q8HR IV 06/04/24 22:00 06/07/24 05:59 10 ML Acetaminophen 650 mg Q6HP PRN PO 06/04/24 19:00 Acetaminophen/ Hydrocodone Bitart 1 tab Q4HP PRN PO 06/04/24 19:00 Hydromorphone HCl 0.5 mg Q4HP PRN IV 06/04/24 19:00 Ondansetron HCl 4 mg Q4HP PRN IV 06/04/24 19:00 Vancomycin HCl 0 ml @ 0 mls/hr UD IV 06/05/24 08:45 Sodium Chloride 1,000 ml @ 75 mls/hr [id number] IV 06/05/24 10:45 06/07/24 03:03 75 MLS/HR Diagnostic Test (Pha) 1 strip Q6HR 06/06/24 18:00 06/07/24 05:59 1 STRIP Insulin Human Regular Q6HR SC 06/06/24 18:00 06/06/24 23:35 3 UNITS Dextrose 50 ml UD PRN IV 06/06/24 12:30 Vancomycin HCl 250 ml @ 200 mls/hr Q24H IV 06/06/24 17:00 06/06/24 17:02 200 MLS/HR Examination: GENERAL:Normal, HEENT:Normal, NECK:Normal, LUNGS:Normal, CVS:Normal, ABDOMEN:Normal, MSK:Normal, SKIN:Normal, NEURO:Normal, :Normal laboratory and microbiology Laboratory Tests 06/07/24 05:44 Test 06/07/24 05:44 Range/Units Serum Glucose 106 74-106 mg/dL Microbiology Date/Time Source Procedure Growth Status 06/05/24 11:42 Leg Left Gram Stain Pending Resulted 06/05/24 11:42 Wound Culture - Preliminary Escherichia coli Resulted 06/04/24 14:13 Blood Blood Culture - Preliminary NO GROWTH AFTER 48 HOURS OF INCUBATION. Resulted Problem List/Assessment/Plan Problem List/Assessment/Plan #1 gi bleed s/p multiple transfusions: ppi drip, egd today #2 liver cirrhosis: check hep panel #3 dm: ssi #4 acute renal failure ?vasomotor nephropathy #5 h/o gastric ulcers #6 gallstones #7 left leg ulcer/cellulitis ?sepsis #8 thrombocytopenia advance care planning- full code- time spent 19 mins Plan discussed with: Patient My Orders My Orders Orders - LANDRY MACDONALD MD Procedure Category Date Status Time Basic Metabolic Panel LAB 06/08/24 Verified 06:00 Complete Blood Count LAB 06/08/24 Verified 06:00 Dietary Evaluation Review Comments: 1) If patient is NPO for > 7 days, consider EN/TPN to meet at least 75% estimated daily needs 2) Initiate vitamin C @ 500 mg bid and zinc sulfate @ 220 mg qd for 7-10 days 3) Advance to clear liquid diet and upgrade to 60g CCHO 2g Na hepatic diet order when medically feasible, pending [employer] approval 4) F/u with gastroenterology, hepatology, and nephrology Expected Outcomes/Goals: 1) patient to receive nutrition within 7 days 2) diet to advance 3) labs to improve 4) f/u in 3 days Date of Service: Jun 07, 2024 Billing Provider: LANDRY MACDONALD MD Common Visit Codes: [id number] INP/OBS CARE(HIGH) Secondary Visit Codes: [id number] CARE PLAN 30 MINUTES CC Plasma Assessment Blood Product Administration S: 23:30 LANDRY MACDONALD MD Jun 07, 2024 12:48
[2024-06-07] MEDS ORDERED: MIDAZOLAM HCL 2MG/2ML 2ml VIAL (1mg/ml) ONE (15:25)
--- NOTE | 2024-06-07 15:28 | DVHPN2 ---
Progress Note Date Seen: Jun 07, 2024 Medical Necessity Reason Pt with a Central, PICC or Fol: No Subjective Patient reports: No new complaints, Feels better Review of Systems: HEENT:Normal, CVS:Normal, RESPIRATORY:Normal, GI:Normal, :Normal, MSK:Normal, NEURO:Normal Objective vital signs Vital Sign Date Time Temp Pulse Resp B/P (MAP) Pulse Ox O2 Delivery O2 Flow Rate FiO2 06/07/24 13:00 98.0 63 17 158/83 (108) 97 98.0 06/07/24 08:00 Room Air* 0 21 Total Intake and Output 06/06/24 06/06/24 06/07/24 15:00 23:00 07:00 Intake Total 1020 ml 1140 ml 650 ml Output Total 650 ml Balance 1020 ml 490 ml 650 ml medications Current Medications Medications Dose Ordered Sig/Pj Route Start Time Stop Time Status Last Admin Dose Admin Piperacillin Sod/ Tazobactam Sod 100 ml @ 100 mls/hr Q8H IV 06/04/24 19:00 06/07/24 13:30 100 MLS/HR Pantoprazole Sodium 50 ml @ 10 mls/hr Q5H IV 06/04/24 19:00 06/07/24 13:30 10 MLS/HR Sodium Chloride 10 ml Q8HR IV 06/04/24 22:00 06/07/24 05:59 10 ML Acetaminophen 650 mg Q6HP PRN PO 06/04/24 19:00 Acetaminophen/ Hydrocodone Bitart 1 tab Q4HP PRN PO 06/04/24 19:00 Hydromorphone HCl 0.5 mg Q4HP PRN IV 06/04/24 19:00 Ondansetron HCl 4 mg Q4HP PRN IV 06/04/24 19:00 Vancomycin HCl 0 ml @ 0 mls/hr UD IV 06/05/24 08:45 Sodium Chloride 1,000 ml @ 75 mls/hr [id number] IV 06/05/24 10:45 06/07/24 03:03 75 MLS/HR Diagnostic Test (Pha) 1 strip Q6HR 06/06/24 18:00 06/07/24 05:59 1 STRIP Insulin Human Regular Q6HR SC 06/06/24 18:00 06/06/24 23:35 3 UNITS Dextrose 50 ml UD PRN IV 06/06/24 12:30 Vancomycin HCl 250 ml @ 200 mls/hr Q24H IV 06/06/24 17:00 06/06/24 17:02 200 MLS/HR laboratory and microbiology Laboratory Tests 06/07/24 05:44 Test 06/07/24 05:44 Range/Units Serum Glucose 106 74-106 mg/dL Microbiology Date/Time Source Procedure Growth Status 06/05/24 11:42 Leg Left Gram Stain - Final Resulted 06/05/24 11:42 Wound Culture - Preliminary Escherichia coli Resulted 06/04/24 14:13 Blood Blood Culture - Preliminary NO GROWTH AFTER 72 HOURS OF INCUBATION. Resulted Problem List/Assessment/Plan Problem List/Assessment/Plan 1) Hemodynamically mediated CULLEN/VMN in setting of lowhb/gi bleed /hypotension, ++outpatient NSAIDs, concurrent NICK . 2) CKD stage IIIa? 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 3) acute blood loss anemia/ GI hemorrhage 4) hypertension recs Improved renal function dc half NS GI eval-egd today Plan discussed with: Patient Dietary Evaluation Review Comments: 1) If patient is NPO for > 7 days, consider EN/TPN to meet at least 75% estimated daily needs 2) Initiate vitamin C @ 500 mg bid and zinc sulfate @ 220 mg qd for 7-10 days 3) Advance to clear liquid diet and upgrade to 60g CCHO 2g Na hepatic diet order when medically feasible, pending [facility] approval 4) F/u with gastroenterology, hepatology, and nephrology Expected Outcomes/Goals: 1) patient to receive nutrition within 7 days 2) diet to advance 3) labs to improve 4) f/u in 3 days CC Plasma Assessment Blood Product Administration S: 23:30 PARISH PERKINS MD Jun 07, 2024 15:28
[2024-06-07] MEDS ORDERED: PROPOFOL 10 MG/ML 20 ML IV ONE (15:31)
[2024-06-07] MEDS ORDERED: DexAMETHasone SOD PHOS 10MG/1ML VIAL INJ ONE (15:31)
--- NOTE | 2024-06-07 16:56 | DVHOP2 ---
Operative Report DATE OF OPERATION: 06/07/24 PROCEDURE: Upper Endoscopy with biopsy. PREOPERATIVE INDICATION: The patient is a 73 -year-old male undergoing endoscopy for GI bleed and melena and anemia POSTOPERATIVE DIAGNOSES: 1. Patient had a large 3 cm pyloroduodenal channel ulcer with two visible red dots but no visible vessel and no active GI bleeding. There was some surrounding ntwzslyu-xl-voxano duodenitis 2. Patient had teoggzyb-sb-kdicbj gastropathy with hyperemia erythema more prominent in the proximal stomach 3. Trace to 1+ distal esophageal varices which flattened with insufflation and did not have any stigmata of recent bleeding 4. Otherwise essentially completely normal endoscopy examination up to the 2nd and 3rd part of the duodenum with no fresh or old blood in the upper GI tract at this time PROCEDURE PERFORMED BY: Bev Webb GI NURSE: Josue SCOPE: Olympus videoendoscope. ASA CLASS: 3. PREOPERATIVE MEDICATIONS: Mac Dr. Bor miller PROCEDURE IN DETAIL: After obtaining an informed consent, the patient was placed on left lateral decubitus position. The patient was then sedated with the above medications. A bite block was placed between his teeth. The endoscope was then passed through the oropharynx, into the esophagus, and through the stomach and pylorus up to the second and third part of the duodenum. The endoscope was then withdrawn. The 2nd and 3rd part of the duodenal were normal and the duodenal bulb and postbulbar area were abnormal with severe duodenitis There was a large 3 cm pyloroduodenal channel ulcer on the anterior superior surface of the duodenal bulb with two visible red dots but no visible vessel or active bleeding There was no fresh or old blood in the upper GI tract. Duodenal biopsies were obtained. The pre-pyloric area antrum and body showed moderate gastritis with hyperemia erythema On retroflexion there was lhanlcxi-qs-gfpspt gastropathy involving the proximal stomach . Gastric biopsies were obtained. The endoscope was then withdrawn into the distal esophagus Patient had a slightly irregular squamocolumnar junction and grade 1 distal esophageal varices which flattened with insufflation The patient tolerated the procedure well without difficulty. COMPLICATIONS : None SPECIMENS: Duodenal biopsies Gastric biopsies DISPOSITION: Transfer back to the floor Stable PLAN: 1. Await for biopsy result 2. Will place pt on Protonix 40 mg bid IV 3. Carafate 1 g p.o. 4 times a day 4. DC aspirin NSAIDs smoking alcohol 5. Start clear liquid diet advance to full liquid BEV WEBB MD Jun 07, 2024 16:56
[2024-06-07] MEDS: SUCRALFATE 1 GM/10 ML ORAL SUSP PO SCH (17:48)
--- NOTE | 2024-06-07 22:16 | DVHPN2 ---
Progress Note - Dictate Date Seen: Jun 07, 2024 Medical Necessity Reason Pt with a Central, PICC or Fol: No Subjective Patient was seen and evaluated in follow up. The patient has been downgraded. Patient reported feeling better today. Patient underwent EGD which showed large 3 cm pyloroduodenal channel ulcer with two visible red dots but no visible vessel and no active GI bleeding, surrounding wcsvcnfi-fl-kwdefk duodenitis, imvocjoq-fn-qtrueb gastropathy with hyperemia erythema more prominent in the proximal stomach, trace to 1+ distal esophageal varices which flattened with insufflation and did not have any stigmata of recent bleeding. Otherwise essentially completely normal endoscopy examination up to the 2nd and 3rd part of the duodenum with no fresh or old blood in the upper GI tract at this time. HGB 8.5, HCT 25.5, MG 1.4. Telemetry reviewed. vital signs Vital Sign Date Time Temp Pulse Resp B/P (MAP) Pulse Ox O2 Delivery O2 Flow Rate FiO2 06/07/24 21:00 98.1 65 18 147/68 (94) 98 98.1 06/07/24 08:00 Room Air* 0 21 Total Intake and Output 06/06/24 06/06/24 06/07/24 15:00 23:00 07:00 Intake Total 1020 ml 1140 ml 650 ml Output Total 650 ml Balance 1020 ml 490 ml 650 ml medications Current Medications Medications Dose Ordered Sig/Pj Route Start Time Stop Time Status Last Admin Dose Admin Piperacillin Sod/ Tazobactam Sod 100 ml @ 100 mls/hr Q8H IV 06/04/24 19:00 06/07/24 19:47 100 MLS/HR Pantoprazole Sodium 50 ml @ 10 mls/hr Q5H IV 06/04/24 19:00 06/07/24 21:17 10 MLS/HR Sodium Chloride 10 ml Q8HR IV 06/04/24 22:00 06/07/24 21:19 10 ML Acetaminophen 650 mg Q6HP PRN PO 06/04/24 19:00 Acetaminophen/ Hydrocodone Bitart 1 tab Q4HP PRN PO 06/04/24 19:00 Hydromorphone HCl 0.5 mg Q4HP PRN IV 06/04/24 19:00 Ondansetron HCl 4 mg Q4HP PRN IV 06/04/24 19:00 Vancomycin HCl 0 ml @ 0 mls/hr UD IV 06/05/24 08:45 Diagnostic Test (Pha) 1 strip Q6HR 06/06/24 18:00 06/07/24 18:44 1 STRIP Insulin Human Regular Q6HR SC 06/06/24 18:00 06/06/24 23:35 3 UNITS Dextrose 50 ml UD PRN IV 06/06/24 12:30 Vancomycin HCl 250 ml @ 200 mls/hr Q24H IV 06/06/24 17:00 06/07/24 17:47 200 MLS/HR Sucralfate 1 gm QID@0600,1130,1700,2200 PO 06/07/24 17:00 06/07/24 21:17 1 GM objective GENERAL: Awake, alert, oriented. HEENT: Sclera anicteric. LUNGS: Clear. CARDIOVASCULAR: Heart sounds are good. ABDOMEN: Soft. Epigastric TTP. EXT: BLE edema. Left lateral foot ulcer. laboratory and microbiology Laboratory Tests 06/07/24 05:44 Test 06/07/24 05:44 Range/Units Serum Glucose 106 74-106 mg/dL Problem List Severe symptomatic anemia. Upper GI bleed. Liver cirrhosis. Elevated troponin. CULLEN. Assessment/Plan Continued all current supportive medical care. Dilaudid and [place] for pain management. Lipitor. IV antibiotics as ordered. GI prophylactics. Additional plan as per the hospital course. Dietary Evaluation Review Comments: 1) If patient is NPO for > 7 days, consider EN/TPN to meet at least 75% estimated daily needs 2) Initiate vitamin C @ 500 mg bid and zinc sulfate @ 220 mg qd for 7-10 days 3) Advance to clear liquid diet and upgrade to 60g CCHO 2g Na hepatic diet order when medically feasible, pending [employer] approval 4) F/u with gastroenterology, hepatology, and nephrology Expected Outcomes/Goals: 1) patient to receive nutrition within 7 days 2) diet to advance 3) labs to improve 4) f/u in 3 days Plan discussed with: Patient CC Plasma Assessment Blood Product Administration S: 23:30 RAJI MARTIN MD Jun 07, 2024 22:16
[2024-06-08] VITALS (7 sets, daily range): BP systolic 113–146; BP diastolic 54–81; PULSE 61–70; RESP 15–18; TEMP 97.5–98.5; O2SAT 98–99
[2024-06-08 07:03] LABS: Alanine Aminotransferase 26 U/L (7-40); Alkaline Phosphatase 60 U/L (46-116); Anion Gap 7 (5-15); Aspartate Aminotransferase 36 U/L (13-40); BUN/Creatinine Ratio 16.8 (10.0-20.0); Blood Urea Nitrogen 17 mg/dL (9-23); Carbon Dioxide 21 mmol/L (20-31); Potassium 4.1 mmol/L (3.5-5.1); Sodium 138 mmol/L (136-145)
[2024-06-08 07:04] LABS: Bilirubin, Total 0.7 mg/dL (0.2-1.0)
[2024-06-08 07:06] LABS: Albumin 2.7 g/dL (3.2-4.8); Calcium 8.3 mg/dL (8.7-10.4); Chloride 110 mmol/L (98-107); Glucose 165 mg/dL (74-106); Magnesium 1.4 mg/dL (1.6-2.6)
[2024-06-08 07:15] LABS: Basophils # (auto) 0 10 ^3/uL (0-0.2); Basophils % (auto) 0.3 % (0.0-2.0); Eosinophils # (auto) 0 10 ^3/uL (0-0.8); Eosinophils % (auto) 0.1 % (0.0-7.0); Hematocrit 24.5 % (41.0-53.0); Hemoglobin 8.2 g/dL (13.5-17.5); Lymphocytes # (auto) 0.8 10 ^3/uL (0.4-5.4); Lymphocytes % (auto) 17.5 % (10.0-50.0); Mean Corpuscular Hemoglobin 28.2 pg (28.0-32.0); Mean Corpuscular Hgb Conc. 33.5 g/dL (32.0-36.0); Mean Corpuscular Volume 84.3 fL (80.0-100.0); Monocytes # (auto) 0.4 10 ^3/uL (0-1.3); Neutrophils # (auto) 3.2 10 ^3/uL (1.6-8.6); Neutrophils % (auto) 73.1 % (37.0-80.0); Platelet Count (auto) 102 10^3/uL (140-450); Red Cell Distribution Width 16.3 % (11.8-14.3); White Blood Cell 4.4 10^3/uL (4.4-10.8)
--- NOTE | 2024-06-08 10:41 | DVHPN2 ---
Subjective Poor Historian. 73 year old male WILLIAM presents to the ED with chief complaint of rectal bleeding and abdominal pain. Patient reports that he has been experiencing rectal bleeding for the past 6 hours with associated epigastric pain. Patient relays that he has history of gastric ulcers in the past. Patient states he has never been transfused with blood before. Patient denies any N/V/D, hematemesis, fever, chills, or dizziness. Reviewed: Care Plan, H&P, Labs, Medications, Previous Orders, Radiology Changes from previous H/P or p: No Changes Objective Vitals Vital Signs Date Time Temp Pulse Resp B/P (MAP) Pulse Ox O2 Delivery O2 Flow Rate FiO2 06/08/24 09:00 97.8 64 16 119/79 (92) 99 97.8 06/07/24 20:00 Room Air* 0 21 Intake/Output Intake and Output 06/08/24 07:00 Intake Total 990 ml Balance 990 ml Intake Oral 490 ml IV Total 500 ml # Voids 5 Exam DERMATOLOGIC EXAM: - Skin is dry and cool to the touch dry bilaterally. - Nails 1-5 of the bilateral foot are thickened, discolored, dystrophic, and tender to palpate with subungual debris - Hair loss noted to bilateral feet - left lateral leg wound with mixed fibrotic granular tissue VASCULAR EXAM: - DP and PT pulses are palpable bilaterally. - TECHNICAL FELLOW is brisk to all digits. - Feet are cool to touch compared to lower legs bilaterally. NEUROLOGIC EXAM: - Normal light touch sensation to the superficial peroneal, deep peroneal, sural, saphenous, and tibial nerve branches. - Protective sensation is diminished as tested with a 5.07 10g [place] bilaterally. MUSCULOSKELETAL EXAM: - No gross deformities - Muscle strength is 5/5 and active motion is pain-free and symmetrical bilaterally - No pain or crepitation with passive range of motion bilaterally to all major pedal joints General Appearance: Alert, Cooperative, No acute distress HEENT: Atraumatic, PERRLA, EOMI, Mucous membr. moist/pink Neck: Supple Lungs: Clear to auscultation, Normal air movement Cardiovascular: Regular rate, Normal S1, Normal S2, No murmurs, Gallops, Rubs Abdomen: Normal bowel sounds, Soft, No tenderness Neuro: Cranial nerves 3-12 NL Psych/Mental Status: Mental status NL Medications Current Medications Medications Dose Ordered Sig/Pj Route Start Time Stop Time Status Last Admin Dose Admin Piperacillin Sod/ Tazobactam Sod 100 ml @ 100 mls/hr Q8H IV 06/04/24 19:00 06/08/24 02:57 100 MLS/HR Pantoprazole Sodium 50 ml @ 10 mls/hr Q5H IV 06/04/24 19:00 06/08/24 10:17 10 MLS/HR Sodium Chloride 10 ml Q8HR IV 06/04/24 22:00 06/08/24 05:44 10 ML Acetaminophen 650 mg Q6HP PRN PO 06/04/24 19:00 Acetaminophen/ Hydrocodone Bitart 1 tab Q4HP PRN PO 06/04/24 19:00 Hydromorphone HCl 0.5 mg Q4HP PRN IV 06/04/24 19:00 Ondansetron HCl 4 mg Q4HP PRN IV 06/04/24 19:00 Vancomycin HCl 0 ml @ 0 mls/hr UD IV 06/05/24 08:45 Diagnostic Test (Pha) 1 strip Q6HR 06/06/24 18:00 06/08/24 05:54 1 STRIP Insulin Human Regular Q6HR SC 06/06/24 18:00 06/08/24 05:53 3 UNITS Dextrose 50 ml UD PRN IV 06/06/24 12:30 Vancomycin HCl 250 ml @ 200 mls/hr Q24H IV 06/06/24 17:00 06/07/24 17:47 200 MLS/HR Sucralfate 1 gm QID@0600,1130,1700,2200 PO 06/07/24 17:00 06/08/24 05:50 1 GM Laboratory Results Laboratory Tests 06/08/24 05:03 Chemistry Test 06/08/24 05:03 Albumin 2.7 g/dL (3.2-4.8) L Calcium Level 8.3 mg/dL (8.7-10.4) L Magnesium Level 1.4 mg/dL (1.6-2.6) L Total Protein 6.0 g/dL (5.7-8.2) LFT Test 06/08/24 05:03 Alanine Aminotransferase (ALT) 26 U/L (7-40) Alkaline Phosphatase 60 U/L (46-116) Aspartate Amino Transferase (AST) 36 U/L (13-40) Total Bilirubin 0.7 mg/dL (0.2-1.0) Urinalysis Test 06/05/24 05:38 Urine Color Light-yellow (Yellow) Urine Clarity Clear (Clear) Urine pH 5.5 (5.0-9.0) Urine Specific [place] 1.018 (1.001-1.035) Urine Protein Negative (Negative) Urine Ketones Negative (Negative) Urine Blood Negative /uL (Negative) Urine Nitrite Negative (Negative) Urine Bilirubin Negative (Negative) Urine Urobilinogen Normal mg/dL (Negative) Urine Leukocyte Esterase Negative /uL (Negative) Urine RBC None seen /hpf (0 - 3) Urine Microscopic WBC 1 /HPF (0-3) Urine Squamous Epithelial Cells None seen /hpf (<5) Urine Bacteria None seen /hpf (None Seen) Urine Mucus Few (None Seen) Urine Creatinine 73.56 mg/dL (30.0-125.0) Urine Sodium 42 mmol/L (40-220) Urine Glucose Normal mg/dL (Normal) Microbiology Microbiology Date/Time Source Procedure Growth Status 06/05/24 11:42 Leg Left Gram Stain - Final Complete 06/05/24 11:42 Wound Culture - Final Staphylococcus aureus Escherichia coli Complete 06/04/24 14:13 Blood Blood Culture - Preliminary NO GROWTH AFTER 72 HOURS OF INCUBATION. Resulted Assessment/Plan Assessment/Plan ASSESSMENT: Patient is a 73-year-old male seen on the floor for a worsening leg wound PLAN: - The patients chart was reviewed, clinical findings were discussed with the patient, the etiologies of the conditions were discussed in detail, and a treatment plan was agreed to at this time, with both oral and written instructions provided. - reviewed the CT of the lower extremity - does not appear to be a deeper infection - wound care can manage at this point - if patient has been seeing a wig stylist can follow up with me in a week after discharge - wound appears to be stable at this point All questions were answered and concerns addressed to the patient's satisfaction. The patient was given the phone number to the clinic and was told how to make contact with the clinic should any concerns or questions arise. Patient understands that if any questions or concerns arise prior to the next appointment, we should be contacted immediately. FOLLOW-UP: Continue to follow while inpatient Plan discussed with: Patient Problem List: (1) Ascites (2) Liver cirrhosis (3) Hemorrhagic shock (4) Hypoalbuminemia (5) GI bleed (6) Elevated troponin (7) Elevated lipase (8) Symptomatic anemia (9) Cholelithiasis (10) Anemia (11) Generalized weakness (12) Hypotension (13) Intractable abdominal pain (14) Blister of right thumb Date of Service: Jun 08, 2024 Billing Provider: ANYI ADKINS DPM Common Visit Codes: [id number] INP/OBS CARE(MOD) ANYI ADKINS DPM Jun 08, 2024 10:41
[2024-06-08] MEDS: DOCUSATE SOD 100 MG CAP PO ONE (11:45)
[2024-06-08] MEDS: POLYETHYLENE GLYCOL 17 GM PWDR PO ONE (11:45)
--- NOTE | 2024-06-08 12:23 | DVHPN2 ---
Progress Note Date Seen: Jun 08, 2024 Resident Creating Document: DAISHA VASQUEZ RESIDENT Medical Necessity Reason Pt with a Central, PICC or Fol: No Subjective Review of Systems Denies any further bleeding since being admitted to the hospital Denies any nausea or vomiting Reports good appetite Last bowel movement at 2:00 p.m., watery Objective vital signs Vital Sign Date Time Temp Pulse Resp B/P (MAP) Pulse Ox O2 Delivery O2 Flow Rate FiO2 06/08/24 09:00 97.8 64 16 119/79 (92) 99 97.8 06/07/24 20:00 Room Air* 0 21 Total Intake and Output 06/07/24 06/07/24 06/08/24 15:00 23:00 07:00 Intake Total 630 ml 360 ml Balance 630 ml 360 ml medications Current Medications Medications Dose Ordered Sig/Pj Route Start Time Stop Time Status Last Admin Dose Admin Piperacillin Sod/ Tazobactam Sod 100 ml @ 100 mls/hr Q8H IV 06/04/24 19:00 06/08/24 11:45 100 MLS/HR Pantoprazole Sodium 50 ml @ 10 mls/hr Q5H IV 06/04/24 19:00 06/08/24 10:17 10 MLS/HR Sodium Chloride 10 ml Q8HR IV 06/04/24 22:00 06/08/24 11:48 10 ML Acetaminophen 650 mg Q6HP PRN PO 06/04/24 19:00 Acetaminophen/ Hydrocodone Bitart 1 tab Q4HP PRN PO 06/04/24 19:00 Hydromorphone HCl 0.5 mg Q4HP PRN IV 06/04/24 19:00 Ondansetron HCl 4 mg Q4HP PRN IV 06/04/24 19:00 Vancomycin HCl 0 ml @ 0 mls/hr UD IV 06/05/24 08:45 Diagnostic Test (Pha) 1 strip Q6HR 06/06/24 18:00 06/08/24 11:56 1 STRIP Insulin Human Regular Q6HR SC 06/06/24 18:00 06/08/24 12:08 3 UNITS Dextrose 50 ml UD PRN IV 06/06/24 12:30 Vancomycin HCl 250 ml @ 200 mls/hr Q24H IV 06/06/24 17:00 06/07/24 17:47 200 MLS/HR Sucralfate 1 gm QID@0600,1130,1700,2200 PO 06/07/24 17:00 06/08/24 11:46 1 GM Examination General Appearance: Alert, Cooperative, No acute distress HEENT: Atraumatic, slightly icteric conjunctiva, EOMI, Mucous membr. moist/pink Neck: Supple Lungs: Clear to auscultation, Normal air movement Cardiovascular: Regular rate, Normal S1, Normal S2, No murmurs, Gallops, Rubs Abdomen: Normal bowel sounds, Soft but distended abdomen, midepigastric tenderness to palpation Neuro: Cranial nerves 3-12 NL Psych/Mental Status: Mental status NL Extremities: Left foot ulcer noted on the lateral aspect laboratory and microbiology Laboratory Tests 06/08/24 05:03 Test 06/08/24 05:03 Range/Units Serum Glucose 165 H 74-106 mg/dL Microbiology Date/Time Source Procedure Growth Status 06/05/24 11:42 Leg Left Gram Stain - Final Complete 06/05/24 11:42 Wound Culture - Final Staphylococcus aureus Escherichia coli Complete 06/04/24 14:13 Blood Blood Culture - Preliminary NO GROWTH AFTER 72 HOURS OF INCUBATION. Resulted Labs and/or images reviewed: Labs reviewed by me, Image(s) reviewed by me Problem List/Assessment/Plan Problem List/Assessment/Plan Anemia. s/p 4 pRBC transfusion rectal bleeding Large 3 cm pyloroduodenal channel ulcer with 2 visible red dots but no visible vessels and no active GI bleeding Moderate to severe duodenitis Moderate to severe gastropathy with hyperemia erythema more prominent in the proximal stomach Trace to 1+ distal esophageal varices History of gastric ulcers on EGD performed 4 years ago other etiology like variceal bleed cannot be excluded Left lower extremity ulcer, possible cellulitis Constipation, improving Plan/Recommendation Patient completed EGD yesterday; await for biopsy result Protonix 40 mg IV b.i.d. Carafate 1 g p.o. q.i.d. Discontinue aspirin, NSAIDs, smoking and alcohol Taper and discontinue octreotide clear liquid diet, advance as tolerated to full liquid diet Colace, MiraLax Follow up with GI in the outpatient clinic in 4-6 weeks Plan discussed with Dr. Webb Plan discussed with: Patient, Other (RN) Dietary Evaluation Review Comments: 1) If patient is NPO for > 7 days, consider EN/TPN to meet at least 75% estimated daily needs 2) Initiate vitamin C @ 500 mg bid and zinc sulfate @ 220 mg qd for 7-10 days 3) Advance to clear liquid diet and upgrade to 60g CCHO 2g Na hepatic diet order when medically feasible, pending [employer] approval 4) F/u with gastroenterology, hepatology, and nephrology Expected Outcomes/Goals: 1) patient to receive nutrition within 7 days 2) diet to advance 3) labs to improve 4) f/u in 3 days CC Plasma Assessment Blood Product Administration S: 23:30 DAISHA VASQUEZ RESIDENT Jun 08, 2024 12:23
--- NOTE | 2024-06-08 12:53 | ECG ---
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
--- NOTE | 2024-06-08 15:40 | DVHPN2 ---
Progress Note - Dictate Date Seen: Jun 08, 2024 Medical Necessity Reason Pt with a Central, PICC or Fol: No Subjective Patient was seen and evaluated in follow up. Patient had a watery BM this afternoon. HGB 8.2, HCT 24.5, CL 110, CA 8.3. Per Dr. Shehean, the patient is unstable for transfer at this time. Telemetry reviewed. vital signs Vital Sign Date Time Temp Pulse Resp B/P (MAP) Pulse Ox O2 Delivery O2 Flow Rate FiO2 06/08/24 09:00 97.8 64 16 119/79 (92) 99 97.8 06/07/24 20:00 Room Air* 0 21 Total Intake and Output 06/07/24 06/07/24 06/08/24 15:00 23:00 07:00 Intake Total 630 ml 360 ml Balance 630 ml 360 ml medications Current Medications Medications Dose Ordered Sig/Pj Route Start Time Stop Time Status Last Admin Dose Admin Piperacillin Sod/ Tazobactam Sod 100 ml @ 100 mls/hr Q8H IV 06/04/24 19:00 06/08/24 11:45 100 MLS/HR Pantoprazole Sodium 50 ml @ 10 mls/hr Q5H IV 06/04/24 19:00 06/08/24 10:17 10 MLS/HR Sodium Chloride 10 ml Q8HR IV 06/04/24 22:00 06/08/24 11:48 10 ML Acetaminophen 650 mg Q6HP PRN PO 06/04/24 19:00 Acetaminophen/ Hydrocodone Bitart 1 tab Q4HP PRN PO 06/04/24 19:00 Hydromorphone HCl 0.5 mg Q4HP PRN IV 06/04/24 19:00 Ondansetron HCl 4 mg Q4HP PRN IV 06/04/24 19:00 Vancomycin HCl 0 ml @ 0 mls/hr UD IV 06/05/24 08:45 Diagnostic Test (Pha) 1 strip Q6HR 06/06/24 18:00 06/08/24 11:56 1 STRIP Insulin Human Regular Q6HR SC 06/06/24 18:00 06/08/24 12:08 3 UNITS Dextrose 50 ml UD PRN IV 06/06/24 12:30 Vancomycin HCl 250 ml @ 200 mls/hr Q24H IV 06/06/24 17:00 06/07/24 17:47 200 MLS/HR Sucralfate 1 gm QID@0600,1130,1700,2200 PO 06/07/24 17:00 06/08/24 11:46 1 GM objective GENERAL: Awake, alert, oriented. HEENT: Sclera anicteric. LUNGS: Clear. CARDIOVASCULAR: Heart sounds are good. ABDOMEN: Soft. Epigastric TTP. EXT: BLE edema. Left lateral foot ulcer. laboratory and microbiology Laboratory Tests 06/08/24 05:03 Test 06/08/24 05:03 Range/Units Serum Glucose 165 H 74-106 mg/dL Problem List Severe symptomatic anemia. Upper GI bleed. Liver cirrhosis. Elevated troponin. CULLEN. Assessment/Plan Continued all current supportive medical care. Dilaudid and [place] for pain management. Lipitor. IV antibiotics as ordered. GI prophylactics. Additional plan as per the hospital course. Dietary Evaluation Review Comments: 1) If patient is NPO for > 7 days, consider EN/TPN to meet at least 75% estimated daily needs 2) Initiate vitamin C @ 500 mg bid and zinc sulfate @ 220 mg qd for 7-10 days 3) Advance to clear liquid diet and upgrade to 60g CCHO 2g Na hepatic diet order when medically feasible, pending MATERNITY FLOOR SUPERVISOR approval 4) F/u with gastroenterology, hepatology, and nephrology Expected Outcomes/Goals: 1) patient to receive nutrition within 7 days 2) diet to advance 3) labs to improve 4) f/u in 3 days Plan discussed with: Patient CC Plasma Assessment Blood Product Administration S: 23:30 RAJI MARTIN MD Jun 08, 2024 14:07
--- NOTE | 2024-06-08 15:50 | DVHDS2 ---
Discharge Summary Date of Admission Jun 04, 2024 at 18:59 Date of Discharge: Jun 08, 2024 Labs/Diagnostic Data: Laboratory Results Test 06/08/24 11:58 06/08/24 05:03 06/07/24 05:44 06/06/24 03:43 POC Glucose 162 mg/dl (70-106) White Blood Count 4.4 10^3/uL (4.4-10.8) Red Blood Count 2.90 10^6/uL (4.5-5.90) Hemoglobin 8.2 g/dL (13.5-17.5) Hematocrit 24.5 % (41.0-53.0) Mean Corpuscular Volume 84.3 fL (80.0-100.0) Mean Corpuscular Hemoglobin 28.2 pg (28.0-32.0) Mean Corpuscular Hemoglobin Concent 33.5 g/dL (32.0-36.0) Red Cell Distribution Width 16.3 % (11.8-14.3) Platelet Count 102 10^3/uL (140-450) Mean Platelet Volume 6.7 fL (6.9-10.8) Neutrophils (%) (Auto) 73.1 % (37.0-80.0) Lymphocytes (%) (Auto) 17.5 % (10.0-50.0) Monocytes (%) (Auto) 9.0 % (0.0-12.0) Eosinophils (%) (Auto) 0.1 % (0.0-7.0) Basophils (%) (Auto) 0.3 % (0.0-2.0) Neutrophils # (Auto) 3.2 10 ^3/uL (1.6-8.6) Lymphocytes # (Auto) 0.8 10 ^3/uL (0.4-5.4) Monocytes # (Auto) 0.4 10 ^3/uL (0-1.3) Eosinophils # (Auto) 0 10 ^3/uL (0-0.8) Basophils # (Auto) 0 10 ^3/uL (0-0.2) Nucleated Red Blood Cells 0.0 % Sodium Level 138 mmol/L (136-145) Potassium Level 4.1 mmol/L (3.5-5.1) Chloride Level 110 mmol/L (98-107) Carbon Dioxide Level 21 mmol/L (20-31) Anion Gap 7 (5-15) Blood Urea Nitrogen 17 mg/dL (9-23) Creatinine 1.01 mg/dL (0.700-1.30) Glomerular Filtration Rate Calc 78 mL/min (>90) BUN/Creatinine Ratio 16.8 (10.0-20.0) Serum Glucose 165 mg/dL (74-106) Calcium Level 8.3 mg/dL (8.7-10.4) Magnesium Level 1.4 mg/dL (1.6-2.6) Total Bilirubin 0.7 mg/dL (0.2-1.0) Aspartate Amino Transferase (AST) 36 U/L (13-40) Alanine Aminotransferase (ALT) 26 U/L (7-40) Alkaline Phosphatase 60 U/L (46-116) Total Protein 6.0 g/dL (5.7-8.2) Albumin 2.7 g/dL (3.2-4.8) Prothrombin Time 12.0 sec (9.3-11.8) Prothrombin Time INR 1.15 (0.9-1.15) Activated Partial Thromboplast Time 27.6 SEC (24.5-34.5) Random Vancomycin Level 9.0 ug/mL (5-10) Hepatitis A IgM Antibody Negative Hepatitis B Surface Antigen Negative (Negative) Hepatitis B Core IgM Antibody Negative (Negative) Hepatitis C Antibody Negative (Negative) Test 06/05/24 07:10 06/05/24 05:38 06/04/24 19:26 06/04/24 06:08 Troponin I High Sensitivity 931 ng/L (</=54) Urine Color Light-yellow (Yellow) Urine Clarity Clear (Clear) Urine pH 5.5 (5.0-9.0) Urine Specific [place] 1.018 (1.001-1.035) Urine Protein Negative (Negative) Urine Ketones Negative (Negative) Urine Blood Negative /uL (Negative) Urine Nitrite Negative (Negative) Urine Bilirubin Negative (Negative) Urine Urobilinogen Normal mg/dL (Negative) Urine Leukocyte Esterase Negative /uL (Negative) Urine RBC None seen /hpf (0 - 3) Urine Microscopic WBC 1 /HPF (0-3) Urine Squamous Epithelial Cells None seen /hpf (<5) Urine Bacteria None seen /hpf (None Seen) Urine Mucus Few (None Seen) Urine Creatinine 73.56 mg/dL (30.0-125.0) Urine Sodium 42 mmol/L (40-220) Urine Glucose Normal mg/dL (Normal) Lactic Acid Level 1.1 mmol/L (0.4-2.0) Platelet Estimate Adequate Hypochromasia (manual) Slight Ammonia 45 umol/L (11-32) Lipase 104 U/L (12-53) Other Laboratory Tests 06/08/24 05:03 Brief Hx & Hospital Course: see dictated note Condition at Discharge: Fair Final Diagnosis/Problems List gi bleed Discharge Disposition: Acute Care Facility Discharge Instruct/Medications Diet: See Comment Diet comment: clear liquid diet Activity: No Restrictions, As Tolerated Follow [facility] Medications: per may Discharge Statement: "Patient was advised to return to the ER or call 911 if any headaches, dizziness, shortness of breath, chest pain, abdominal pain, bleeding, fevers, or worsening of medical condition. Patient was counseled about treatment plan, medications, possible side effects, patientverbalized understanding. All questions were answered to the best of my ability. This discharge took greater then 30 minutes in planning, reviewing documentation, counseling the patient, and discussing with other team members." ASSESSMENT ASSESSMENT Assessment gi bleed Date of Service: Jun 08, 2024 Billing Provider: LANDRY MACDONALD MD Common Visit Codes: 41329-ORL/OBS DISCH DAY >30min LANDRY MACDONALD MD Jun 08, 2024 15:50
--- NOTE | 2024-06-08 16:16 | DVHDS ---
DATE OF DISCHARGE: 06/08/2024 TRANSFER SUMMARY DATE OF TRANSFER: 06/08/2024 HISTORY OF PRESENT ILLNESS: The patient is a 73-year-old gentleman who was admitted with history of rectal bleeding and abdominal pain and has history of gastric ulcers, diabetes, hypertension, and hyperlipidemia. HOSPITAL COURSE: The patient had a CT of abdomen and pelvis that showed evidence of liver cirrhosis with ascites and cholelithiasis. He was transfused a total of 4 units of blood. The patient's hemoglobin was 3.9 at admission. He was seen in GI consult by Dr. Jessica Webb. The patient underwent upper endoscopy that showed evidence of a 3 cm pyloric duodenal channel ulcer as well as moderate to severe gastropathy, 1+ distal esophageal varices. Biopsies were obtained. The patient had a wound culture on the left side that grew Staphylococcus aureus and Escherichia coli. The patient's hemoglobin at the time of transfer is 8.2 with a platelet of 102. He will be transferred to the [facility] for further management. FINAL DIAGNOSES: Therefore, * Gastrointestinal bleeding with a gastric ulcer and gastropathy, status post multiple transfusions. * Liver cirrhosis. * Diabetes mellitus. * Acute renal failure, questionable vasomotor nephropathy. * Gallstones. * Left leg ulcer with cellulitis secondary to Staphylococcus aureus and Escherichia coli. * Thrombocytopenia. * Moderate protein malnutrition. Time spent in discharge planning and review of plan with the patient, nursing and paperwork was 41 minutes. MD JOSEPH Trevino/CYNTHIA TID: [id number] RECEIPT: [id number]
--- NOTE | 2024-06-08 17:23 | DVHPN2 ---
Progress Note Date Seen: Jun 08, 2024 Medical Necessity Reason Pt with a Central, PICC or Fol: No Subjective Patient reports: No new complaints Review of Systems: Deferred Objective vital signs Vital Sign Date Time Temp Pulse Resp B/P (MAP) Pulse Ox O2 Delivery O2 Flow Rate FiO2 06/08/24 09:00 97.8 64 16 119/79 (92) 99 97.8 06/07/24 20:00 Room Air* 0 21 Total Intake and Output 06/07/24 06/07/24 06/08/24 15:00 23:00 07:00 Intake Total 630 ml 360 ml Balance 630 ml 360 ml medications Current Medications Medications Dose Ordered Sig/Pj Route Start Time Stop Time Status Last Admin Dose Admin Sodium Chloride 10 ml Q8HR IV 06/04/24 22:00 06/08/24 11:48 10 ML Acetaminophen 650 mg Q6HP PRN PO 06/04/24 19:00 Acetaminophen/ Hydrocodone Bitart 1 tab Q4HP PRN PO 06/04/24 19:00 Hydromorphone HCl 0.5 mg Q4HP PRN IV 06/04/24 19:00 Ondansetron HCl 4 mg Q4HP PRN IV 06/04/24 19:00 Diagnostic Test (Pha) 1 strip Q6HR 06/06/24 18:00 06/08/24 11:56 1 STRIP Insulin Human Regular Q6HR SC 06/06/24 18:00 06/08/24 12:08 3 UNITS Dextrose 50 ml UD PRN IV 06/06/24 12:30 Sucralfate 1 gm QID@0600,1130,1700,2200 PO 06/07/24 17:00 06/08/24 11:46 1 GM Pantoprazole Sodium 40 mg BID IV 06/08/24 22:00 Cefazolin Sodium 50 ml @ 100 mls/hr Q8HR IV 06/08/24 22:00 laboratory and microbiology Laboratory Tests 06/08/24 05:03 Test 06/08/24 05:03 Range/Units Serum Glucose 165 H 74-106 mg/dL Microbiology Date/Time Source Procedure Growth Status 06/05/24 11:42 Leg Left Gram Stain - Final Complete 06/05/24 11:42 Wound Culture - Final Staphylococcus aureus Escherichia coli Complete 06/04/24 14:13 Blood Blood Culture - Preliminary NO GROWTH AFTER 72 HOURS OF INCUBATION. Resulted Problem List/Assessment/Plan Problem List/Assessment/Plan 1) Hemodynamically mediated CULLEN/VMN in setting of lowhb/gi bleed /hypotension, ++outpatient NSAIDs, concurrent NICK . 2) CKD stage IIIa? Baseline creatinine unknown to this writer technical publications 3) acute blood loss anemia/ GI hemorrhage 4) hypertension recs Improved renal function dc half NS WILL SIGN OFF THE CASE/OUTPT F/U Plan discussed with: Patient Dietary Evaluation Review Comments: 1) If patient is NPO for > 7 days, consider EN/TPN to meet at least 75% estimated daily needs 2) Initiate vitamin C @ 500 mg bid and zinc sulfate @ 220 mg qd for 7-10 days 3) Advance to clear liquid diet and upgrade to 60g CCHO 2g Na hepatic diet order when medically feasible, pending STEEL POST INSTALLER approval 4) F/u with gastroenterology, hepatology, and nephrology Expected Outcomes/Goals: 1) patient to receive nutrition within 7 days 2) diet to advance 3) labs to improve 4) f/u in 3 days CC Plasma Assessment Blood Product Administration S: 23:30 PARISH PERKINS MD Jun 08, 2024 17:23
[2024-06-08] MEDS: PANTOPRAZOLE 40 MG/10 ML VIAL INJ IV SCH (22:27)
[2024-06-08] MEDS: ceFAZolin 1GM/50ML 50 ML IV SCH (22:27)
[2024-06-09] VITALS (7 sets, daily range): BP systolic 119–140; BP diastolic 65–82; PULSE 67–89; RESP 16–18; TEMP 97.7–99.1; O2SAT 97–100
[2024-06-09 06:17] LABS: Basophils # (auto) 0 10 ^3/uL (0-0.2); Basophils % (auto) 0.5 % (0.0-2.0); Eosinophils # (auto) 0.3 10 ^3/uL (0-0.8); Eosinophils % (auto) 3.4 % (0.0-7.0); Hematocrit 25.6 % (41.0-53.0); Hemoglobin 8.5 g/dL (13.5-17.5); Lymphocytes % (auto) 27.5 % (10.0-50.0); Mean Corpuscular Hemoglobin 27.9 pg (28.0-32.0); Mean Corpuscular Hgb Conc. 33.4 g/dL (32.0-36.0); Mean Corpuscular Volume 83.5 fL (80.0-100.0); Monocytes # (auto) 0.8 10 ^3/uL (0-1.3); Monocytes % (auto) 11.2 % (0.0-12.0); Neutrophils # (auto) 4.2 10 ^3/uL (1.6-8.6); Neutrophils % (auto) 57.4 % (37.0-80.0); Nucleated Red Blood Cells % 0.1 %; Platelet Count (auto) 123 10^3/uL (140-450); Red Blood Cells 3.07 10^6/uL (4.5-5.90); Red Cell Distribution Width 16.4 % (11.8-14.3); White Blood Cell 7.3 10^3/uL (4.4-10.8)
[2024-06-09 06:44] LABS: Alanine Aminotransferase 38 U/L (7-40); Alkaline Phosphatase 66 U/L (46-116); Anion Gap 7 (5-15); BUN/Creatinine Ratio 10.3 (10.0-20.0); Blood Urea Nitrogen 10 mg/dL (9-23); Carbon Dioxide 23 mmol/L (20-31); Glucose 84 mg/dL (74-106); Sodium 139 mmol/L (136-145)
[2024-06-09 06:46] LABS: Bilirubin, Total 0.5 mg/dL (0.2-1.0)
[2024-06-09 06:47] LABS: Albumin 2.7 g/dL (3.2-4.8); Aspartate Aminotransferase 56 U/L (13-40); Calcium 8.3 mg/dL (8.7-10.4); Chloride 109 mmol/L (98-107); Magnesium 1.4 mg/dL (1.6-2.6); Potassium 3.3 mmol/L (3.5-5.1)
--- NOTE | 2024-06-09 11:20 | DVHPN2 ---
Progress Note Date Seen: Jun 09, 2024 Resident Creating Document: DAISHA VASQUEZ RESIDENT Medical Necessity Reason Pt with a Central, PICC or Fol: No Subjective Review of Systems Patient is a 73-year-old male with past medical history of HTN, HLD, DM, gastric ulcers, who was brought in by ambulance to the ED due to rectal bleeding and abdominal pain. Per patient, he has been experiencing rectal bleeding for the last 6 hours associated with the epigastric pain. Patient received 4 PRBC transfusions. Denies any active ongoing bleeding since being hospitalized. Completed EGD on 06/08/2024. Denies any nausea or vomiting. Reports good appetite Last bowel movement at 2:00 p.m., watery. Per patient, BM was black, however. H&H remains stable. Objective vital signs Vital Sign Date Time Temp Pulse Resp B/P (MAP) Pulse Ox O2 Delivery O2 Flow Rate FiO2 06/09/24 09:30 97.7 70 18 140/73 (95) 98 97.7 06/08/24 20:00 Room Air* 0 21 Total Intake and Output 06/08/24 06/08/24 06/09/24 15:00 23:00 07:00 Intake Total 100 ml 675 ml 600 ml Balance 100 ml 675 ml 600 ml medications Current Medications Medications Dose Ordered Sig/Pj Route Start Time Stop Time Status Last Admin Dose Admin Sodium Chloride 10 ml Q8HR IV 06/04/24 22:00 06/09/24 05:57 10 ML Acetaminophen 650 mg Q6HP PRN PO 06/04/24 19:00 Acetaminophen/ Hydrocodone Bitart 1 tab Q4HP PRN PO 06/04/24 19:00 Hydromorphone HCl 0.5 mg Q4HP PRN IV 06/04/24 19:00 Ondansetron HCl 4 mg Q4HP PRN IV 06/04/24 19:00 Diagnostic Test (Pha) 1 strip Q6HR 06/06/24 18:00 06/09/24 00:29 1 STRIP Insulin Human Regular Q6HR SC 06/06/24 18:00 06/09/24 00:29 2 UNITS Dextrose 50 ml UD PRN IV 06/06/24 12:30 Sucralfate 1 gm QID@0600,1130,1700,2200 PO 06/07/24 17:00 06/09/24 10:58 1 GM Pantoprazole Sodium 40 mg BID IV 06/08/24 22:00 06/09/24 10:58 40 MG Cefazolin Sodium 50 ml @ 100 mls/hr Q8HR IV 06/08/24 22:00 06/09/24 05:57 100 MLS/HR Examination General Appearance: Alert, Cooperative, No acute distress HEENT: Atraumatic, slightly icteric conjunctiva, EOMI, Mucous membr. moist/pink Neck: Supple Lungs: Clear to auscultation, Normal air movement Cardiovascular: Regular rate, Normal S1, Normal S2, No murmurs, Gallops, Rubs Abdomen: Normal bowel sounds, Soft but distended abdomen, midepigastric tenderness to palpation Neuro: Cranial nerves 3-12 NL Psych/Mental Status: Mental status NL Extremities: Left foot ulcer noted on the lateral aspect laboratory and microbiology Laboratory Tests 06/09/24 04:27 Test 06/09/24 04:27 Range/Units Serum Glucose 84 74-106 mg/dL Microbiology Date/Time Source Procedure Growth Status 06/05/24 11:42 Leg Left Gram Stain - Final Complete 06/05/24 11:42 Wound Culture - Final Staphylococcus aureus Escherichia coli Complete 06/04/24 14:13 Blood Blood Culture - Preliminary NO GROWTH AFTER 72 HOURS OF INCUBATION. Resulted Problem List/Assessment/Plan Problem List/Assessment/Plan Anemia. s/p 4 pRBC transfusion rectal bleeding Large 3 cm pyloroduodenal channel ulcer with 2 visible red dots but no visible vessels and no active GI bleeding Moderate to severe duodenitis Moderate to severe gastropathy with hyperemia erythema more prominent in the proximal stomach Trace to 1+ distal esophageal varices History of gastric ulcers on EGD performed 4 years ago other etiology like variceal bleed cannot be excluded Left lower extremity ulcer, possible cellulitis Constipation, improving Plan/Recommendation Patient completed EGD yesterday; await for biopsy result Protonix 40 mg IV b.i.d. Carafate 1 g p.o. q.i.d. Stable H&H Discontinue aspirin, NSAIDs, smoking and alcohol Taper and discontinue octreotide Placed on full liquid diet, advanced to pureed diet as tolerated Colace, MiraLax Follow up with GI in the outpatient clinic in 4-6 weeks Cleared for discharge from GI perspective Plan discussed with Dr. Webb Plan discussed with: Patient, Other (RN) Dietary Evaluation Review Comments: 1) If patient is NPO for > 7 days, consider EN/TPN to meet at least 75% estimated daily needs 2) Initiate vitamin C @ 500 mg bid and zinc sulfate @ 220 mg qd for 7-10 days 3) Advance to clear liquid diet and upgrade to 60g CCHO 2g Na hepatic diet order when medically feasible, pending PROCUREMENT BUYER approval 4) F/u with gastroenterology, hepatology, and nephrology Expected Outcomes/Goals: 1) patient to receive nutrition within 7 days 2) diet to advance 3) labs to improve 4) f/u in 3 days CC Plasma Assessment Blood Product Administration S: 23:30 DAISHA VASQUEZ RESIDENT Jun 09, 2024 11:20
[2024-06-09 14:21] LABS: Hematocrit 28.7 % (41.0-53.0); Hemoglobin 9.3 g/dL (13.5-17.5)
[2024-06-09] MEDS: POTASSIUM CHL 20 Meq TABLET PO ONE (17:34)
[2024-06-09] MEDS: CEPHALEXIN 250 MG CAP PO SCH (21:47)
[2024-06-10 01:00] VITALS: BP 115/71; PULSE 74; RESP 18; TEMP 98.1; O2SAT 97
[2024-06-10 05:00] VITALS: BP 133/79; PULSE 81; RESP 17; TEMP 98; O2SAT 98
[2024-06-10 06:03] LABS: Basophils # (auto) 0.1 10 ^3/uL (0-0.2); Basophils % (auto) 0.9 % (0.0-2.0); Eosinophils # (auto) 0.2 10 ^3/uL (0-0.8); Eosinophils % (auto) 2.6 % (0.0-7.0); Hematocrit 26.3 % (41.0-53.0); Hemoglobin 8.7 g/dL (13.5-17.5); Lymphocytes # (auto) 1.3 10 ^3/uL (0.4-5.4); Lymphocytes % (auto) 22.2 % (10.0-50.0); Mean Corpuscular Hemoglobin 27.7 pg (28.0-32.0); Mean Corpuscular Volume 84.1 fL (80.0-100.0); Monocytes # (auto) 0.7 10 ^3/uL (0-1.3); Monocytes % (auto) 11.9 % (0.0-12.0); Neutrophils # (auto) 3.7 10 ^3/uL (1.6-8.6); Neutrophils % (auto) 62.4 % (37.0-80.0); Nucleated Red Blood Cells % 0.1 %; Platelet Count (auto) 121 10^3/uL (140-450); Red Blood Cells 3.13 10^6/uL (4.5-5.90); Red Cell Distribution Width 17.1 % (11.8-14.3); White Blood Cell 5.9 10^3/uL (4.4-10.8)
[2024-06-10 06:34] LABS: Carbon Dioxide 22 mmol/L (20-31)
[2024-06-10 06:35] LABS: Calcium 8.8 mg/dL (8.7-10.4)
[2024-06-10 06:40] LABS: BUN/Creatinine Ratio 7.2 (10.0-20.0); Glucose 93 mg/dL (74-106)
[2024-06-10 06:41] LABS: Blood Urea Nitrogen 6 mg/dL (9-23)
[2024-06-10 06:42] LABS: Anion Gap 9 (5-15); Chloride 109 mmol/L (98-107); Potassium 3.3 mmol/L (3.5-5.1); Sodium 140 mmol/L (136-145)
[2024-06-10 08:00] VITALS: PULSE 93
[2024-06-10 09:00] VITALS: BP 143/81; PULSE 96; RESP 17; TEMP 97.4; O2SAT 97
--- NOTE | 2024-06-10 11:22 | DVHPN2 ---
Progress Note - Dictate Date Seen: Jun 09, 2024 Medical Necessity Reason Pt with a Central, PICC or Fol: No Subjective Patient was seen and evaluated in follow up. Patient is having copious amounts of sanguinous drainage from his left ankle wound. Patient had BM this afternoon, per patient was dark in color. HGB 8.5, HCT 25.6, K 3.3, CL 109, AST 56. Telemetry reviewed. vital signs Vital Sign Date Time Temp Pulse Resp B/P (MAP) Pulse Ox O2 Delivery O2 Flow Rate FiO2 06/09/24 09:30 97.7 70 18 140/73 (95) 98 97.7 06/08/24 20:00 Room Air* 0 21 Total Intake and Output 06/08/24 06/08/24 06/09/24 15:00 23:00 07:00 Intake Total 100 ml 675 ml 600 ml Balance 100 ml 675 ml 600 ml medications Current Medications Medications Dose Ordered Sig/Pj Route Start Time Stop Time Status Last Admin Dose Admin Sodium Chloride 10 ml Q8HR IV 06/04/24 22:00 06/09/24 05:57 10 ML Acetaminophen 650 mg Q6HP PRN PO 06/04/24 19:00 Acetaminophen/ Hydrocodone Bitart 1 tab Q4HP PRN PO 06/04/24 19:00 Hydromorphone HCl 0.5 mg Q4HP PRN IV 06/04/24 19:00 Ondansetron HCl 4 mg Q4HP PRN IV 06/04/24 19:00 Diagnostic Test (Pha) 1 strip Q6HR 06/06/24 18:00 06/09/24 11:27 1 STRIP Insulin Human Regular Q6HR SC 06/06/24 18:00 06/09/24 11:35 2 UNITS Dextrose 50 ml UD PRN IV 06/06/24 12:30 Sucralfate 1 gm QID@0600,1130,1700,2200 PO 06/07/24 17:00 06/09/24 10:58 1 GM Pantoprazole Sodium 40 mg BID IV 06/08/24 22:00 06/09/24 10:58 40 MG Cefazolin Sodium 50 ml @ 100 mls/hr Q8HR IV 06/08/24 22:00 06/09/24 05:57 100 MLS/HR objective GENERAL: Awake, alert, oriented. HEENT: Sclera anicteric. LUNGS: Clear. CARDIOVASCULAR: Heart sounds are good. ABDOMEN: Soft. Epigastric TTP. EXT: BLE edema. Left lateral foot ulcer. laboratory and microbiology Laboratory Tests 06/09/24 04:27 Test 06/09/24 04:27 Range/Units Serum Glucose 84 74-106 mg/dL Problem List Severe symptomatic anemia. Upper GI bleed. Liver cirrhosis. Elevated troponin. CULLEN. Assessment/Plan Continued all current supportive medical care. Dilaudid and [place] for pain management. Lipitor. IV antibiotics as ordered. GI prophylactics. Additional plan as per the hospital course. Dietary Evaluation Review Comments: 1) If patient is NPO for > 7 days, consider EN/TPN to meet at least 75% estimated daily needs 2) Initiate vitamin C @ 500 mg bid and zinc sulfate @ 220 mg qd for 7-10 days 3) Advance to clear liquid diet and upgrade to 60g CCHO 2g Na hepatic diet order when medically feasible, pending OIL SEAL ASSEMBLER approval 4) F/u with gastroenterology, hepatology, and nephrology Expected Outcomes/Goals: 1) patient to receive nutrition within 7 days 2) diet to advance 3) labs to improve 4) f/u in 3 days Plan discussed with: Patient CC Plasma Assessment Blood Product Administration S: 23:30 RAJI MARTIN MD Jun 09, 2024 13:11
--- NOTE | 2024-06-10 11:53 | DVHPN2 ---
Reviewed: Care Plan, H&P, Labs, Medications, Previous Orders, Radiology Changes from previous H/P or p: No Changes Objective Vitals Vital Signs Date Time Temp Pulse Resp B/P (MAP) Pulse Ox O2 Delivery O2 Flow Rate FiO2 06/10/24 09:00 97.4 96 17 143/81 (101) 97 97.4 06/10/24 08:00 Room Air* 0 21 Intake/Output Intake and Output 06/10/24 07:00 Intake Total 1300 ml Balance 1300 ml Intake Oral 1300 ml # Voids 4 General Appearance: Alert, Cooperative, No acute distress HEENT: Atraumatic, PERRLA, EOMI, Mucous membr. moist/pink Neck: Supple Lungs: Clear to auscultation, Normal air movement Cardiovascular: Regular rate, Normal S1, Normal S2, No murmurs, Gallops, Rubs Abdomen: Normal bowel sounds, Soft, No tenderness Neuro: Cranial nerves 3-12 NL Psych/Mental Status: Mental status NL Medications Current Medications Medications Dose Ordered Sig/Pj Route Start Time Stop Time Status Last Admin Dose Admin Sodium Chloride 10 ml Q8HR IV 06/04/24 22:00 06/10/24 05:52 10 ML Acetaminophen 650 mg Q6HP PRN PO 06/04/24 19:00 Acetaminophen/ Hydrocodone Bitart 1 tab Q4HP PRN PO 06/04/24 19:00 Hydromorphone HCl 0.5 mg Q4HP PRN IV 06/04/24 19:00 Ondansetron HCl 4 mg Q4HP PRN IV 06/04/24 19:00 Diagnostic Test (Pha) 1 strip Q6HR 06/06/24 18:00 06/10/24 11:19 1 STRIP Insulin Human Regular Q6HR SC 06/06/24 18:00 06/10/24 11:33 2 UNITS Dextrose 50 ml UD PRN IV 06/06/24 12:30 Sucralfate 1 gm QID@0600,1130,1700,2200 PO 06/07/24 17:00 06/10/24 10:37 1 GM Pantoprazole Sodium 40 mg BID IV 06/08/24 22:00 06/10/24 10:37 40 MG Cephalexin 500 mg TID PO 06/09/24 22:00 06/10/24 06:22 500 MG Laboratory Results Laboratory Tests 06/10/24 05:10 Chemistry Test 06/10/24 05:10 Calcium Level 8.8 mg/dL (8.7-10.4) Urinalysis Test 06/05/24 05:38 Urine Color Light-yellow (Yellow) Urine Clarity Clear (Clear) Urine pH 5.5 (5.0-9.0) Urine Specific [place] 1.018 (1.001-1.035) Urine Protein Negative (Negative) Urine Ketones Negative (Negative) Urine Blood Negative /uL (Negative) Urine Nitrite Negative (Negative) Urine Bilirubin Negative (Negative) Urine Urobilinogen Normal mg/dL (Negative) Urine Leukocyte Esterase Negative /uL (Negative) Urine RBC None seen /hpf (0 - 3) Urine Microscopic WBC 1 /HPF (0-3) Urine Squamous Epithelial Cells None seen /hpf (<5) Urine Bacteria None seen /hpf (None Seen) Urine Mucus Few (None Seen) Urine Creatinine 73.56 mg/dL (30.0-125.0) Urine Sodium 42 mmol/L (40-220) Urine Glucose Normal mg/dL (Normal) Microbiology Microbiology Date/Time Source Procedure Growth Status 06/05/24 11:42 Leg Left Gram Stain - Final Complete 06/05/24 11:42 Wound Culture - Final Staphylococcus aureus Escherichia coli Complete 06/04/24 14:13 Blood Blood Culture - Final NO GROWTH AFTER 5 DAYS OF INCUBATION. Complete Labs and/or images reviewed: Labs reviewed by me, Image(s) reviewed by me Assessment/Plan Assessment/Plan GI bleed Hemoglobin mproved from 3.9 to 8.0 after 4 units of blood transfusion [place] discharge the patient Patient is examined today stable Willing to go home Plan discussed with: Patient My Orders Orders - KELLY RICHARD MD Procedure Category Date Status Time Discharge DISCHARGE 06/10/24 Verified 11:50 Date of Service: Jun 10, 2024 Billing Provider: KELLY RICHARD MD Common Visit Codes: [id number] INP/OBS CARE(HIGH) KELLY RICHARD MD Jun 10, 2024 11:53
[2024-06-10] MEDS ORDERED: SUCR1TAB31 PO (12:29)
[2024-06-10] MEDS ORDERED: PANT40T PO (12:29)
[2024-06-10] MEDS ORDERED: CEPH500C PO (12:29)
[2024-06-10 12:49] VITALS: BP 143/81; PULSE 96; RESP 17; TEMP 97.4; O2SAT 97
[2024-06-10 12:57] VITALS: BP 150/82; PULSE 83; RESP 17; TEMP 98; O2SAT 98
--- NOTE | 2024-06-10 13:33 | DVHPN2 ---
Progress Note Date Seen: Jun 10, 2024 Resident Creating Document: DAISHA VASQUEZ RESIDENT Medical Necessity Reason Pt with a Central, PICC or Fol: No Subjective Review of Systems Patient is a 73-year-old male with past medical history of HTN, HLD, DM, gastric ulcers, who was brought in by ambulance to the ED due to rectal bleeding and abdominal pain. Per patient, he has been experiencing rectal bleeding for the last 6 hours associated with the epigastric pain. Patient received 4 PRBC transfusions. Denies any active ongoing bleeding since being hospitalized. Completed EGD on 06/08/2024. Denies any nausea or vomiting. Reports good appetite Last bowel movement was yesterday at 2:00 p.m., watery. Per patient, BM was black, however. H&H remains stable. Currently reports feeling well, denies any nausea vomiting, melena or hematochezia. Objective vital signs Vital Sign Date Time Temp Pulse Resp B/P (MAP) Pulse Ox O2 Delivery O2 Flow Rate FiO2 06/10/24 12:57 98.0 83 17 150/82 (104) 98 98.0 06/10/24 08:00 Room Air* 0 21 Total Intake and Output 06/09/24 06/09/24 06/10/24 15:00 23:00 07:00 Intake Total 50 ml 600 ml 700 ml Balance 50 ml 600 ml 700 ml medications Current Medications Medications Dose Ordered Sig/Pj Route Start Time Stop Time Status Last Admin Dose Admin Sodium Chloride 10 ml Q8HR IV 06/04/24 22:00 06/10/24 05:52 10 ML Acetaminophen 650 mg Q6HP PRN PO 06/04/24 19:00 Acetaminophen/ Hydrocodone Bitart 1 tab Q4HP PRN PO 06/04/24 19:00 Hydromorphone HCl 0.5 mg Q4HP PRN IV 06/04/24 19:00 Ondansetron HCl 4 mg Q4HP PRN IV 06/04/24 19:00 Diagnostic Test (Pha) 1 strip Q6HR 06/06/24 18:00 06/10/24 11:19 1 STRIP Insulin Human Regular Q6HR SC 06/06/24 18:00 06/10/24 11:33 2 UNITS Dextrose 50 ml UD PRN IV 06/06/24 12:30 Sucralfate 1 gm QID@0600,1130,1700,2200 PO 06/07/24 17:00 06/10/24 10:37 1 GM Pantoprazole Sodium 40 mg BID IV 06/08/24 22:00 06/10/24 10:37 40 MG Cephalexin 500 mg TID PO 06/09/24 22:00 06/10/24 06:22 500 MG Examination General Appearance: Alert, Cooperative, No acute distress HEENT: Atraumatic, slightly icteric conjunctiva, EOMI, Mucous membr. moist/pink Neck: Supple Lungs: Clear to auscultation, Normal air movement Cardiovascular: Regular rate, Normal S1, Normal S2, No murmurs, Gallops, Rubs Abdomen: Normal bowel sounds, Soft but distended abdomen, midepigastric tenderness to palpation Neuro: Cranial nerves 3-12 NL Psych/Mental Status: Mental status NL Extremities: Left foot ulcer noted on the lateral aspect laboratory and microbiology Laboratory Tests 06/10/24 05:10 Test 06/10/24 05:10 Range/Units Serum Glucose 93 74-106 mg/dL Microbiology Date/Time Source Procedure Growth Status 06/05/24 11:42 Leg Left Gram Stain - Final Complete 06/05/24 11:42 Wound Culture - Final Staphylococcus aureus Escherichia coli Complete 06/04/24 14:13 Blood Blood Culture - Final NO GROWTH AFTER 5 DAYS OF INCUBATION. Complete Problem List/Assessment/Plan Problem List/Assessment/Plan Anemia. s/p 4 pRBC transfusion rectal bleeding Large 3 cm pyloroduodenal channel ulcer with 2 visible red dots but no visible vessels and no active GI bleeding Moderate to severe duodenitis Moderate to severe gastropathy with hyperemia erythema more prominent in the proximal stomach Trace to 1+ distal esophageal varices History of gastric ulcers on EGD performed 4 years ago other etiology like variceal bleed cannot be excluded Left lower extremity ulcer, possible cellulitis Constipation, improving Plan/Recommendation Patient completed EGD yesterday; await for biopsy result Protonix 40 mg IV b.i.d. Carafate 1 g p.o. q.i.d. Stable H&H Discontinue aspirin, NSAIDs, smoking and alcohol Taper and discontinue octreotide Placed on full liquid diet, advanced to pureed diet as tolerated Colace, MiraLax Follow up with GI in the outpatient clinic in 4-6 weeks Cleared for discharge from GI perspective Plan discussed with Dr. Webb Plan discussed with: Patient, Other (RN) Dietary Evaluation Review Comments: 1) If patient is NPO for > 7 days, consider EN/TPN to meet at least 75% estimated daily needs 2) Initiate vitamin C @ 500 mg bid and zinc sulfate @ 220 mg qd for 7-10 days 3) Advance to clear liquid diet and upgrade to 60g CCHO 2g Na hepatic diet order when medically feasible, pending TRIAGE NURSE approval 4) F/u with gastroenterology, hepatology, and nephrology Expected Outcomes/Goals: 1) patient to receive nutrition within 7 days 2) diet to advance 3) labs to improve 4) f/u in 3 days CC Plasma Assessment Blood Product Administration S: 23:30 DAISHA VASQUEZ RESIDENT Jun 10, 2024 13:33
--- NOTE | 2024-06-10 15:35 | DVHPN2 ---
Progress Note - Dictate Date Seen: Jun 10, 2024 Medical Necessity Reason Pt with a Central, PICC or Fol: No Subjective Patient was seen and evaluated in follow up. HGB 8.7, HCT 26.3, K 3.3, CL 109. Patient denies any cardiac symptoms. Patient is cardiac stable for discharge. Telemetry reviewed. vital signs Vital Sign Date Time Temp Pulse Resp B/P (MAP) Pulse Ox O2 Delivery O2 Flow Rate FiO2 06/10/24 09:00 97.4 96 17 143/81 (101) 97 97.4 06/10/24 08:00 Room Air* 0 21 Total Intake and Output 06/09/24 06/09/24 06/10/24 15:00 23:00 07:00 Intake Total 50 ml 600 ml 700 ml Balance 50 ml 600 ml 700 ml medications Current Medications Medications Dose Ordered Sig/Pj Route Start Time Stop Time Status Last Admin Dose Admin Sodium Chloride 10 ml Q8HR IV 06/04/24 22:00 06/10/24 05:52 10 ML Acetaminophen 650 mg Q6HP PRN PO 06/04/24 19:00 Acetaminophen/ Hydrocodone Bitart 1 tab Q4HP PRN PO 06/04/24 19:00 Hydromorphone HCl 0.5 mg Q4HP PRN IV 06/04/24 19:00 Ondansetron HCl 4 mg Q4HP PRN IV 06/04/24 19:00 Diagnostic Test (Pha) 1 strip Q6HR 06/06/24 18:00 06/10/24 11:19 1 STRIP Insulin Human Regular Q6HR SC 06/06/24 18:00 06/10/24 11:33 2 UNITS Dextrose 50 ml UD PRN IV 06/06/24 12:30 Sucralfate 1 gm QID@0600,1130,1700,2200 PO 06/07/24 17:00 06/10/24 10:37 1 GM Pantoprazole Sodium 40 mg BID IV 06/08/24 22:00 06/10/24 10:37 40 MG Cephalexin 500 mg TID PO 06/09/24 22:00 06/10/24 06:22 500 MG objective GENERAL: Awake, alert, oriented. HEENT: Sclera anicteric. LUNGS: Clear. CARDIOVASCULAR: Heart sounds are good. ABDOMEN: Soft. Epigastric TTP. EXT: BLE edema. Left lateral foot ulcer. laboratory and microbiology Laboratory Tests 06/10/24 05:10 Test 06/10/24 05:10 Range/Units Serum Glucose 93 74-106 mg/dL Problem List Severe symptomatic anemia. Upper GI bleed. Liver cirrhosis. Elevated troponin. CULLEN. Assessment/Plan Continued all current supportive medical care. Dilaudid and [place] for pain management. Lipitor. IV antibiotics as ordered. GI prophylactics. Additional plan as per the hospital course. Dietary Evaluation Review Comments: 1) If patient is NPO for > 7 days, consider EN/TPN to meet at least 75% estimated daily needs 2) Initiate vitamin C @ 500 mg bid and zinc sulfate @ 220 mg qd for 7-10 days 3) Advance to clear liquid diet and upgrade to 60g CCHO 2g Na hepatic diet order when medically feasible, pending PROFESSOR OF ECONOMICS approval 4) F/u with gastroenterology, hepatology, and nephrology Expected Outcomes/Goals: 1) patient to receive nutrition within 7 days 2) diet to advance 3) labs to improve 4) f/u in 3 days Plan discussed with: Patient CC Plasma Assessment Blood Product Administration S: 23:30 RAJI MARTIN MD Jun 10, 2024 12:48
== END 2024-06-10 13:55 | disposition home or self-care (01) | DRG 377 ==
LOC: EDBD 05:40 → ER 05:40 → OVERFLOW 18:59 → TELE-WESTW 06-06 18:36
PROVIDERS: ADMIT Family Medicine; ATTEND Family Medicine
PROC: 30233N1 Transfusion of Nonautologous Red Blood Cells into Peripheral Vein, Percutaneous Approach (ICD-10-PCS; principal; 2024-06-04)
PROC: 0DB98ZX Excision of Duodenum, Via Natural or Artificial Opening Endoscopic, Diagnostic (ICD-10-PCS; 2024-06-07)
PROC: 0DB68ZX Excision of Stomach, Via Natural or Artificial Opening Endoscopic, Diagnostic (ICD-10-PCS; 2024-06-07)
DX: K25.4 Chronic or unspecified gastric ulcer with hemorrhage (principal); I21.A1 Myocardial infarction type 2; N17.0 Acute kidney failure with tubular necrosis; R57.8 Other shock; D62 Acute posthemorrhagic anemia; L03.116 Cellulitis of left lower limb; R18.8 Other ascites; E44.0 Moderate protein-calorie malnutrition; L97.929 Non-pressure chronic ulcer of unspecified part of left lower leg with unspecified severity; I85.10 Secondary esophageal varices without bleeding; K74.60 Unspecified cirrhosis of liver; K80.20 Calculus of gallbladder without cholecystitis without obstruction; E88.09 Other disorders of plasma-protein metabolism, not elsewhere classified; F17.210 Nicotine dependence, cigarettes, uncomplicated; I12.9 Hypertensive chronic kidney disease with stage 1 through stage 4 chronic kidney disease, or unspecified chronic kidney disease; E11.22 Type 2 diabetes mellitus with diabetic chronic kidney disease; N18.9 Chronic kidney disease, unspecified; K31.9 Disease of stomach and duodenum, unspecified; B96.20 Unspecified Escherichia coli [E. coli] as the cause of diseases classified elsewhere; E78.5 Hyperlipidemia, unspecified; K29.70 Gastritis, unspecified, without bleeding; K29.80 Duodenitis without bleeding; D69.6 Thrombocytopenia, unspecified; Z79.2 Long term (current) use of antibiotics; Z79.899 Other long term (current) drug therapy; Z79.84 Long term (current) use of oral hypoglycemic drugs; Z68.22 Body mass index [BMI] 22.0-22.9, adult
CPT/HCPCS: 36415; 36430; 71045; 73700; 74176; 76775; 80048; 80053; 80074; 80202; 81001; 82140; 82570; 82962; 83605; 83690; 83735; 84300; 84484; 85014; 85018; 85025; 85610; 85730; 86850; 86900; 86901; 86920; 87040; 87077; 87186; 87205; 93005; 93306; 96365; 96375; 97163; 99291; 99292; G0378; J1100; J1815; J2250; J2470; J2543; J2704; P9047

== ENCOUNTER 2024-06-20 18:36 | Inpatient (IN) | payer OTHER ==
[~2024-06-20] VITALS: Ht 185.4 cm; Wt 80.6 kg
[~2024-06-20 18:36] MED LIST changes: +ATOR10TA PO; -ATOR20TA50 PO; -CHOL20007 PO; +CHOL25CH3 PO; +FAMO-12 PO; +FINA5TAB4 PO; +MAGN400T40 PO; -MELO15TA29 PO; +PANT40T PO; -PILO7.5T3 PO; +SITA100T7 PO; +SUCR1TAB31 PO; -VITA100T3 PO; +VITA200C27 PO; +VITALIQ10 XX
[2024-06-20 19:35] LABS: Basophils # (auto) 0 10 ^3/uL (0-0.2); Basophils % (auto) 0.7 % (0.0-2.0); Eosinophils # (auto) 0.1 10 ^3/uL (0-0.8); Eosinophils % (auto) 1.3 % (0.0-7.0); Hematocrit 29.2 % (41.0-53.0); Hemoglobin 9.5 g/dL (13.5-17.5); Lymphocytes # (auto) 0.8 10 ^3/uL (0.4-5.4); Lymphocytes % (auto) 14.4 % (10.0-50.0); Mean Corpuscular Hgb Conc. 32.7 g/dL (32.0-36.0); Mean Corpuscular Volume 82.6 fL (80.0-100.0); Monocytes # (auto) 0.5 10 ^3/uL (0-1.3); Monocytes % (auto) 9.5 % (0.0-12.0); Neutrophils % (auto) 74.1 % (37.0-80.0); Platelet Count (auto) 115 10^3/uL (140-450); Red Blood Cells 3.53 10^6/uL (4.5-5.90); Red Cell Distribution Width 16.7 % (11.8-14.3); White Blood Cell 5.4 10^3/uL (4.4-10.8)
[2024-06-20 19:58] LABS: Alanine Aminotransferase 21 U/L (7-40); Alkaline Phosphatase 97 U/L (46-116); Anion Gap 7 (5-15); BUN/Creatinine Ratio 5.3 (10.0-20.0); Bilirubin, Total 0.6 mg/dL (0.2-1.0); Carbon Dioxide 23 mmol/L (20-31); Chloride 106 mmol/L (98-107); Sodium 136 mmol/L (136-145); Total Protein 7.3 g/dL (5.7-8.2)
[2024-06-20 20:02] LABS: Albumin 3.2 g/dL (3.2-4.8); Aspartate Aminotransferase 49 U/L (13-40); Blood Urea Nitrogen 5 mg/dL (9-23); Calcium 8.6 mg/dL (8.7-10.4); Glucose 126 mg/dL (74-106); Potassium 3.4 mmol/L (3.5-5.1)
--- NOTE | 2024-06-20 20:12 | DVH ---
CHEST RADIOGRAPH Indication: altered Technique: Single frontal view of the chest was obtained Comparison: XY CHEST PORTABLE on DOS: 06/06/24, CHEST PORTABLE on DOS: 03/29/20 lung windows from prior CT examination of the abdomen of June 04, 2024 Heart size is normal. There is interstitial prominence suggesting interstitial edema or possibly octavio y chronic interstitial lung disease prior CT examination lung windows demonstrates pulmonary vascular congestion and interstitial prominence. IMPRESSION: 1. Interstitial prominence with which appears to be a combination of mild pulmonary vascular congesti on and generalized interstitial process. Follow-up CT examination of the chest is suggested for marcelo r assessment
--- NOTE | 2024-06-20 20:33 | ED.PDOC ---
History of Present Illness HPI Comments 73 y/o M, with a history of acute renal failure, gastrointestinal bleeding with a gastric ulcer and gastropathy s/p multiple transfusions, DM, HTN, liver cirrhosis, and tobacco abuse, is BIBA for c/o ALOC w/confusion, today. Per EMS report, family called after finding the patient altered, this evening. He was noted to have been found with an initial blood glucose of 39 on scene and was given D10 en route with positive improvement at a later remeasured value of 134. Upon arrival to ED, patient is stated to be back to his normal alert and oriented baseline and reports being compliant with his medications and no recent changes, with exception of liquid diet placement following recent EGD by his GI doctor. Patient elaborates further in receiving notification, today, by said GI doctor's office to ceased his metformin, which he has been taking alongside his other diabetic medications since diet placement. He denies any symptoms at this time. Chief Complaint: Hypoglycemia Time Seen by MD: 18:45 Primary Care Provider: MAYKEL Reviewed Notes: Nurses Notes, Group Director Experience Notes, Medications, Allergies Allergies: Coded Allergies: NO KNOWN ALLERGIES (Unverified , 03/29/20) Home Meds Active Scripts Cephalexin Monohydrate (Cephalexin) 500 Mg Cap, 1 CAP PO QID, #40 CAP Prov:KELLY RICHARD MD 06/10/24 Sucralfate (CARAFATE) 1 Gm Tab, 1 GM PO QID, #120 TAB Prov:KELLY RICHARD MD 06/10/24 Pantoprazole Sodium Sesquihydr (Pantoprazole Sodium) 40 Mg Tab, 40 MG PO BID, #60 TAB Prov:KELLY RICHARD MD 06/10/24 Cephalexin Monohydrate (Cephalexin) 500 Mg Cap, 1 CAP PO QID, #32 CAP Prov:ESTEFANÍA JORDAN 06/18/23 Reported Medications Cholecalciferol (D3) 25 Mcg Chw, 25 MCG PO DAILY, TAB.CHEW 06/06/24 Magnesium Oxide (MAGNESIUM OXIDE) 400 Mg Tab, 1 TAB PO DAILY, #30 TAB 5 Refills 06/06/24 Tocopheryl Acetate, Dl-Alpha ( (Vitamin E) 90 Mg Cap, 1000 MG PO DAILY, CAP 06/06/24 Tocopherol, Dl-Alpha (Vitamin E) Liq, 1 XX, LIQ 06/06/24 Atorvastatin Calcium (Lipitor) 10 Mg Tab, 1 MG PO DAILY, #90 TAB 1 Refill 06/06/24 Glipizide (Glipizide) 10 Mg Tab, 10 MG PO DAILY for 30 Days, MG 06/06/24 Famotidine (Famotidine) 20 Mg Tab, 20 MG PO DAILY for 30 Days, MG 06/06/24 Finasteride (Finasteride) 5 Mg Tab, 5 MG PO DAILY for 30 Days, MG 06/06/24 Sitagliptin Phosphate (Januvia) 100 Mg Tab, 1 TAB PO DAILY, #30 TAB 5 Refills 06/06/24 Metformin Hydrochloride (Metformin Hcl) 500 Mg Tab, 1000 MG PO DAILY for 30 Days, MG 06/06/24 Lisinopril (Lisinopril) 20 Mg Tab, 20 MG PO DAILY for 30 Days, MG 06/06/24 Multiple Vitamin (Multi-Day Vitamins) Vitamins Tab, 1 TAB PO DAILY, #30 TAB 03/30/20 Information Source: Patient, Emergency Med Personnel Mode of Arrival: EMS Past Medical History PAST MEDICAL HISTORY: DM, Gallstones, HTN, Liver (Liver cirrhosis) Past Medical History (Other): Gastrointestinal bleeding with a gastric ulcer and gastropathy, status post multiple transfusions Acute renal failure Left leg ulcer with cellulitis secondary to Staphylococcus aureus and Escherichia coli Thrombocytopenia Surgical History: Appendectomy, Tonsillectomy Family History Family History: Reviewed,noncontributory to illness Social History Smoker: Cigarettes, Less Than 1 Pack/Day Alcohol: Denies ETOH Use Drugs: Denies Drug Use Lives In: Home All Other Systems: Reviewed and Negative (Comprehensive systems review obtained and negative except for what is stated in the HPI.) Physical Exam General Appearance: No Apparent Distress, Normal HEENT: Normal ENT Inspection, Pharynx Normal, TMs Normal Neck: Full Range of Motion, Non-Tender, Normal, Normal Inspection Respiratory: Chest Non-Tender, Lungs Clear, No Accessory Muscle Use, No Respiratory Distress, Normal Breath Sounds Cardiovascular: No Edema, No JVD, No Murmur, No Gallop, Normal Peripheral Pulses, Regular Rate/Rhythm Breast Exam: Deferred Gastrointestinal: No Organomegaly, Non Tender, No Pulsatile Mass, Normal Bowel Sounds, Soft, Other (ascites, caput medusa) Genitalia: Deferred Pelvic: Deferred Rectal: Deferred Extremities: No calf tenderness, Normal capillary refill, Normal inspection, Normal range of motion, Non-tender, Pedal edema (1+pedal edema) Musculoskeletal : Apperance: Normal Neurologic: Alert, roll on worker II-XII nml as Tested, No Motor Deficits, Normal Affect, Normal Mood, No Sensory Deficits Cerebellar Function: Normal Reflexes: Normal Skin: Dry, Normal Color, Warm Lymphatic: No Adenopathy Was a procedure done? Was a procedure done?: No Differential Dx Considerations may include: hypoglycemia, inappropriate medication dosage, encephalopathy, dietary changes. recurrent hypoglycemia, sulfonylurea overdose, insulinoma X-Ray, Labs, Meds, VS Vital Signs Date Time Temp Pulse Resp B/P (MAP) Pulse Ox O2 Delivery O2 Flow Rate FiO2 06/20/24 20:32 99.1 75 16 140/79 (99) 97 99.1 06/20/24 18:43 98.4 82 16 169/69 (102) 97 98.4 Lab Test 06/20/24 20:38 06/20/24 18:56 Range/Units POC Glucose 53 L 70-106 mg/dl White Blood Count 5.4 4.4-10.8 10^3/uL Red Blood Count 3.53 L 4.5-5.90 10^6/uL Hemoglobin 9.5 L 13.5-17.5 g/dL Hematocrit 29.2 L 41.0-53.0 % Mean Corpuscular Volume 82.6 80.0-100.0 fL Mean Corpuscular Hemoglobin 27.0 L 28.0-32.0 pg Mean Corpuscular Hemoglobin Concent 32.7 32.0-36.0 g/dL Red Cell Distribution Width 16.7 H 11.8-14.3 % Platelet Count 115 L 140-450 10^3/uL Mean Platelet Volume 7.0 6.9-10.8 fL Neutrophils (%) (Auto) 74.1 37.0-80.0 % Lymphocytes (%) (Auto) 14.4 10.0-50.0 % Monocytes (%) (Auto) 9.5 0.0-12.0 % Eosinophils (%) (Auto) 1.3 0.0-7.0 % Basophils (%) (Auto) 0.7 0.0-2.0 % Neutrophils # (Auto) 4.0 1.6-8.6 10 ^3/uL Lymphocytes # (Auto) 0.8 0.4-5.4 10 ^3/uL Monocytes # (Auto) 0.5 0-1.3 10 ^3/uL Eosinophils # (Auto) 0.1 0-0.8 10 ^3/uL Basophils # (Auto) 0 0-0.2 10 ^3/uL Nucleated Red Blood Cells 0.0 % Sodium Level 136 136-145 mmol/L Potassium Level 3.4 L 3.5-5.1 mmol/L Chloride Level 106 98-107 mmol/L Carbon Dioxide Level 23 20-31 mmol/L Anion Gap 7 5-15 Blood Urea Nitrogen 5 L 9-23 mg/dL Creatinine 0.95 0.700-1.30 mg/dL Glomerular Filtration Rate Calc 83 >90 mL/min BUN/Creatinine Ratio 5.3 L 10.0-20.0 Serum Glucose 126 H 74-106 mg/dL Calcium Level 8.6 L 8.7-10.4 mg/dL Total Bilirubin 0.6 0.2-1.0 mg/dL Aspartate Amino Transferase (AST) 49 H 13-40 U/L Alanine Aminotransferase (ALT) 21 7-40 U/L Alkaline Phosphatase 97 46-116 U/L Troponin I High Sensitivity 11 </=54 ng/L Total Protein 7.3 5.7-8.2 g/dL Albumin 3.2 3.2-4.8 g/dL [place] [address] Ph: [phone] DIAGNOSTIC IMAGING Diagnostic Imaging Report : [id number] Signed PATIENT: YOSEPH LEI ACCT: [id number] UNIT: [id number] : 1950 LOC: ER ROOM / BED: / AGE / SEX: 73 / M ADM STATUS: REG ER SERVICE 184 ORDERING PHYSICIAN: SAMI CESPEDES MD PROCEDURE(s): CXRP - CHEST PORTABLE REASON: altered ORDER NUMBER(s): [id number], ACCESSION NUMBER(s): [id number] CHEST RADIOGRAPH Indication: altered Technique: Single frontal view of the chest was obtained Comparison: XY CHEST PORTABLE on DOS: 06/06/24, CHEST PORTABLE on DOS: 03/29/20 lung windows from prior CT examination of the abdomen of June 04, 2024 Heart size is normal. There is interstitial prominence suggesting interstitial edema or possibly early chronic interstitial lung disease prior CT examination lung windows demonstrates pulmonary vascular congestion and interstitial prominence. IMPRESSION: 1. Interstitial prominence with which appears to be a combination of mild pulmonary vascular congestion and generalized interstitial process. Follow-up CT examination of the chest is suggested for better assessment ATED BY: LEONARD COONEY MD DICTATED DATE/TIME: 06/20/242009 SIGNED BY: LEONARD COONEY MD SIGNED DATE/TIME: 06/20/242009 CC: Time of 1ST Reevaluation: 19:15 Reevaluation 1ST: Unchanged Time of 2ND Reevaluation: 21:15 Reevaluation 2ND: Unchanged Patient Education/Counseling: Diagnosis, Treatment, Prognosis, Need For Follow Up Family Education/Counseling: No Family Present Additional Information Previous medical encounters reviewed: June 04, 2024 encounter for liver cirrhosis, upper GI bleed The following tests were ordered, and results were reviewed by me: EKG, accucheck, troponin, UA, CXR, CMP.,CBC Additional Information was gathered from interviewing the following independent historians: EMS I reviewed and agreed with the following test results read by other providers: CXR I discussed treatment and results with medical personnel and: Patient pt has recurrent hypoglycemia. he will be admitted for close monitoring and treatment. pt attributes the dietary change to this, which we will evaluate Departure 1 Departure Time of Disposition: 21:14 Impression: Primary Impression: Hypoglycemia Additional Impression: Altered awareness, transient Disposition: ADMITTED INPATIENT Admit to: Tele Condition: Serious Discharged With: Self Critical Care Note Critical Care Time?: Yes (55 min-critical care time only) Critical care comment: Due to concerns for patients condition deteriorating, the care required my highest level of attention and readiness to intervene. I assessed the patient, reviewed the medical records, ordered the appropriate tests and treatments, then reassessed for results and responsiveness. I communicated with medical personnel and consultants and formulated a plan of care. Total critical care time excludes any procedures Stability Stability form required: No Heart Score Heart Score: Heart Score Response (Comments) Value History N/A 0 EKG N/A 0 Age N/A 0 Risk Factors N/A 0 Troponin N/A 0 Total 0 I personally scribed for SAMI CESPEDES MD ([email or web address]) on 06/20/24 at 20:33. Electronically submitted by Hugh Conley ([email or web address]). SAMI CESPEDES MD Jun 20, 2024 20:33
[2024-06-21] MEDS ORDERED: ONDANSETRON HCL 4 MG/2 ML VIAL IV PRN (01:30)
[2024-06-21] MEDS ORDERED: DEXTROSE (50%) 50ML SYRG IV PRN (01:30)
--- NOTE | 2024-06-21 01:32 | DVHHP2 ---
History of Present Illness Reason for Visit: Altered mental status History of Present Illness 73-year-old male presents for evaluation of confusion today. Patient was noted to be progressively more altered by family and when they checked his blood sugar it was reading 39. Patient was given multiple doses of dextrose in the em ergency department. Currently patient is on D 10 and last blood sugar was 82. He is alert and oriented. Denies unilateral weakness or slurred speech. No cardiac or respiratory symptoms. Past Medical History Liver disease, hypertension, diabetes mellitus Past Surgical History Tonsillectomy and appendectomy Family History Noncontributory Smoke: No ALCOHOL: none Drugs: None Lives: with Family Review of Systems Review of Systems Review of systems are currently negative otherwise addressed in HPI. Allergies: Coded Allergies: NO KNOWN ALLERGIES (Unverified , 03/29/20) Exam Vital Signs Vital Signs Date Time Temp Pulse Resp B/P (MAP) Pulse Ox O2 Delivery O2 Flow Rate FiO2 06/20/24 20:32 99.1 75 16 140/79 (99) 97 99.1 Exam Gen: 73-year-old male in mild distress Skin: Warm, dry, normal color and texture, no rash. HEENT: Normocephalic atraumatic, mucous membranes moist and pink. Neck: Cervical and supraclavicular nodes normal without enlargement, trachea is midline, thyroid gland is normal without masses. Pulmonary: Clear to auscultation and percussion bilaterally. Cardiac: Regular rate and rhythm. No murmur Abdomen: Soft, nontender, nondistended, bowel sounds present all 4 quadrants, no guarding, no rigidity, no organomegaly. Extremities: No cyanosis, clubbing, no edema Neuro: Cranial nerves II through XII grossly intact, normal affect and speech, no focal motor deficits. Labs/Xrays ORDERING PHYSICIAN: SAMI CESPEDES MD PROCEDURE(s): CXRP - CHEST PORTABLE REASON: altered ORDER NUMBER(s): [id number], ACCESSION NUMBER(s): [id number] CHEST RADIOGRAPH Indication: altered Technique: Single frontal view of the chest was obtained Comparison: XY CHEST PORTABLE on DOS: 06/06/24, CHEST PORTABLE on DOS: 03/29/20 lung windows from prior CT examination of the abdomen of June 04, 2024 Heart size is normal. There is interstitial prominence suggesting interstitial edema or possibly early chronic interstitial lung disease prior CT examination lung windows demonstrates pulmonary vascular congestion and interstitial prominence. IMPRESSION: 1. Interstitial prominence with which appears to be a combination of mild pulmonary vascular congestion and generalized interstitial process. Follow-up CT examination of the chest is suggested for better assessment Labs Test 06/20/24 22:17 06/20/24 18:56 Range/Units POC Glucose 133 H 70-106 mg/dl White Blood Count 5.4 4.4-10.8 10^3/uL Red Blood Count 3.53 L 4.5-5.90 10^6/uL Hemoglobin 9.5 L 13.5-17.5 g/dL Hematocrit 29.2 L 41.0-53.0 % Mean Corpuscular Volume 82.6 80.0-100.0 fL Mean Corpuscular Hemoglobin 27.0 L 28.0-32.0 pg Mean Corpuscular Hemoglobin Concent 32.7 32.0-36.0 g/dL Red Cell Distribution Width 16.7 H 11.8-14.3 % Platelet Count 115 L 140-450 10^3/uL Mean Platelet Volume 7.0 6.9-10.8 fL Neutrophils (%) (Auto) 74.1 37.0-80.0 % Lymphocytes (%) (Auto) 14.4 10.0-50.0 % Monocytes (%) (Auto) 9.5 0.0-12.0 % Eosinophils (%) (Auto) 1.3 0.0-7.0 % Basophils (%) (Auto) 0.7 0.0-2.0 % Neutrophils # (Auto) 4.0 1.6-8.6 10 ^3/uL Lymphocytes # (Auto) 0.8 0.4-5.4 10 ^3/uL Monocytes # (Auto) 0.5 0-1.3 10 ^3/uL Eosinophils # (Auto) 0.1 0-0.8 10 ^3/uL Basophils # (Auto) 0 0-0.2 10 ^3/uL Nucleated Red Blood Cells 0.0 % Sodium Level 136 136-145 mmol/L Potassium Level 3.4 L 3.5-5.1 mmol/L Chloride Level 106 98-107 mmol/L Carbon Dioxide Level 23 20-31 mmol/L Anion Gap 7 5-15 Blood Urea Nitrogen 5 L 9-23 mg/dL Creatinine 0.95 0.700-1.30 mg/dL Glomerular Filtration Rate Calc 83 >90 mL/min BUN/Creatinine Ratio 5.3 L 10.0-20.0 Serum Glucose 126 H 74-106 mg/dL Calcium Level 8.6 L 8.7-10.4 mg/dL Total Bilirubin 0.6 0.2-1.0 mg/dL Aspartate Amino Transferase (AST) 49 H 13-40 U/L Alanine Aminotransferase (ALT) 21 7-40 U/L Alkaline Phosphatase 97 46-116 U/L Troponin I High Sensitivity 11 </=54 ng/L Total Protein 7.3 5.7-8.2 g/dL Albumin 3.2 3.2-4.8 g/dL Assessment/Plan Assessment/Plan Assessment Symptomatic hypoglycemia Metabolic encephalopathy Diabetes mellitus Hypertension Electrolyte imbalance Plan Admit the patient to Med surge to the hospitalist T10 maintenance IV fluids with q.4 hour Accu-Cheks Replete electrolytes Resume home medications Continue treatment per orders. Plan discussed with: Patient Date of Service: Jun 21, 2024 Billing Provider: LANDRY JHA Common Visit Codes: 58090-VBNBBSF INP/OBS CARE (HIGH) LANDRY JHA Jun 21, 2024 01:32
[2024-06-21] MEDS: DEXTROSE 10% 1,000 ML IV ONE (02:04)
[2024-06-21] MEDS: POTASSIUM CHL 20 Meq TABLET PO ONE (02:04)
[2024-06-21] MEDS: InsuLIN REG 1unit/0.01ml Soln (100units/ml) SC SCH (04:00)
[2024-06-21] MEDS: ACCU-CHEK COMFORT CURVE STRIP VI SCH (05:05)
[2024-06-21] MEDS: LISINOPRIL 20 MG TAB PO SCH (09:01)
[2024-06-21] MEDS: D5W/SOD CHLO 0.9% 1,000 ML IV ONE (11:57)
--- NOTE | 2024-06-21 16:32 | DVHPN2 ---
Subjective I am assuming the care of the patient from today onwards who was under the care of the hospitalist team. Detailed sign out obtained. Patient is currently on D10 drip. Reviewed: Care Plan Changes from previous H/P or p: No Changes Objective Vitals Vital Signs Date Time Temp Pulse Resp B/P (MAP) Pulse Ox O2 Delivery O2 Flow Rate FiO2 06/21/24 12:00 98.6 73 14 144/71 (95) 98 98.6 06/21/24 07:58 Room Air Intake/Output Intake and Output 06/21/24 07:00 Intake Total 200 ml Balance 200 ml Intake IV Total 200 ml Exam HEENT pupils are reactive Neck is supple CV is S1-S2 regular rate and rhythm Respiratory bilateral clear GI positive bowel sound Extremity no edema [employer]IST[employer] COMM[employer] DIRECT[employer] no motor deficit Medications Current Medications Medications Dose Ordered Sig/Pj Route Start Time Stop Time Status Last Admin Dose Admin Lisinopril 20 mg DAILY PO 06/21/24 10:00 06/21/24 09:01 20 MG Atorvastatin Calcium 10 mg HS PO 06/21/24 22:00 Tamsulosin HCl 0.4 mg QPM PO 06/21/24 18:00 Diagnostic Test (Pha) 1 strip IQ4HR 06/21/24 04:00 06/21/24 16:06 1 STRIP Insulin Human Regular IQ4HR SC 06/21/24 04:00 Dextrose 50 ml UD PRN IV 06/21/24 01:30 Ondansetron HCl 4 mg Q4HP PRN IV 06/21/24 01:30 Laboratory Results Laboratory Tests 06/20/24 18:56 Chemistry Test 06/20/24 18:56 Albumin 3.2 g/dL (3.2-4.8) Calcium Level 8.6 mg/dL (8.7-10.4) L Total Protein 7.3 g/dL (5.7-8.2) LFT Test 06/20/24 18:56 Alanine Aminotransferase (ALT) 21 U/L (7-40) Alkaline Phosphatase 97 U/L (46-116) Aspartate Amino Transferase (AST) 49 U/L (13-40) H Total Bilirubin 0.6 mg/dL (0.2-1.0) HgA1c, TSH Test 06/21/24 15:25 Hemoglobin A1c 5.1 % A1C (<5.7) Assessment/Plan Assessment/Plan 73-year-old male with a known history of diabetes mellitus type 2 who initially presented to the hospital with altered mental status and low blood sugar status post multiple units of D50 along with a D10 drip found to have 1. Acute metabolic/hypoglycemic encephalopathy currently improved 2. Symptomatic hypoglycemia 3. Diabetes mellitus type 2, currently on metformin and glipizide at home -continue Accu-Cheks a.c. HS, turn off the D10 drip -physical therapy evaluation and treatment -check hemoglobin A1c, discharge plan. Plan discussed with: Patient Date of Service: Jun 21, 2024 Billing Provider: PARKER VAN MD Common Visit Codes: NOT BILLABLE PARKER VAN MD Jun 21, 2024 16:32
[2024-06-21 18:56] VITALS: RESP 16
[2024-06-21] MEDS: TAMSULOSIN HYDROCHLORIDE 0.4 MG CAP PO SCH (19:12)
[2024-06-21 20:00] VITALS: PULSE 81; RESP 19; O2SAT 100
[2024-06-21 20:58] VITALS: BP 161/68; PULSE 81; RESP 19; TEMP 97.6; O2SAT 100
[2024-06-21 21:00] VITALS: BP 146/68; PULSE 75
[2024-06-21] MEDS: ATORVASTATIN 20 MG TAB PO SCH (21:14)
[2024-06-22 01:00] VITALS: BP 107/40; PULSE 101; RESP 17; TEMP 98.2; O2SAT 100
[2024-06-22 04:58] VITALS: BP 118/62; PULSE 81; RESP 20; TEMP 98.3; O2SAT 95
[2024-06-22 07:40] LABS: Anion Gap 6 (5-15); Carbon Dioxide 25 mmol/L (20-31); Chloride 106 mmol/L (98-107); Potassium 3.8 mmol/L (3.5-5.1); Sodium 137 mmol/L (136-145)
[2024-06-22 07:41] LABS: Calcium 8.9 mg/dL (8.7-10.4)
[2024-06-22 07:46] LABS: BUN/Creatinine Ratio 7.5 (10.0-20.0); Glucose 100 mg/dL (74-106)
[2024-06-22 07:49] LABS: Blood Urea Nitrogen 6 mg/dL (9-23)
[2024-06-22 08:32] VITALS: BP 99/49; PULSE 100; RESP 20; TEMP 97.9; O2SAT 99
[2024-06-22 13:20] VITALS: BP 132/75; PULSE 80; RESP 18; TEMP 98.7; O2SAT 93
--- NOTE | 2024-06-22 15:41 | DVHDS2 ---
Discharge Summary Date of Admission Jun 21, 2024 at 01:28 Date of Discharge: Jun 22, 2024 Labs/Diagnostic Data: Laboratory Results Test 06/22/24 11:31 06/22/24 06:13 06/21/24 15:25 06/21/24 01:50 POC Glucose 189 mg/dl (70-106) Sodium Level 137 mmol/L (136-145) Potassium Level 3.8 mmol/L (3.5-5.1) Chloride Level 106 mmol/L (98-107) Carbon Dioxide Level 25 mmol/L (20-31) Anion Gap 6 (5-15) Blood Urea Nitrogen 6 mg/dL (9-23) Creatinine 0.80 mg/dL (0.700-1.30) Glomerular Filtration Rate Calc 92 mL/min (>90) BUN/Creatinine Ratio 7.5 (10.0-20.0) Serum Glucose 100 mg/dL (74-106) Calcium Level 8.9 mg/dL (8.7-10.4) Hemoglobin A1c 5.1 % A1C (<5.7) Ammonia 11 umol/L (11-32) Test 06/20/24 18:56 White Blood Count 5.4 10^3/uL (4.4-10.8) Red Blood Count 3.53 10^6/uL (4.5-5.90) Hemoglobin 9.5 g/dL (13.5-17.5) Hematocrit 29.2 % (41.0-53.0) Mean Corpuscular Volume 82.6 fL (80.0-100.0) Mean Corpuscular Hemoglobin 27.0 pg (28.0-32.0) Mean Corpuscular Hemoglobin Concent 32.7 g/dL (32.0-36.0) Red Cell Distribution Width 16.7 % (11.8-14.3) Platelet Count 115 10^3/uL (140-450) Mean Platelet Volume 7.0 fL (6.9-10.8) Neutrophils (%) (Auto) 74.1 % (37.0-80.0) Lymphocytes (%) (Auto) 14.4 % (10.0-50.0) Monocytes (%) (Auto) 9.5 % (0.0-12.0) Eosinophils (%) (Auto) 1.3 % (0.0-7.0) Basophils (%) (Auto) 0.7 % (0.0-2.0) Neutrophils # (Auto) 4.0 10 ^3/uL (1.6-8.6) Lymphocytes # (Auto) 0.8 10 ^3/uL (0.4-5.4) Monocytes # (Auto) 0.5 10 ^3/uL (0-1.3) Eosinophils # (Auto) 0.1 10 ^3/uL (0-0.8) Basophils # (Auto) 0 10 ^3/uL (0-0.2) Nucleated Red Blood Cells 0.0 % Total Bilirubin 0.6 mg/dL (0.2-1.0) Aspartate Amino Transferase (AST) 49 U/L (13-40) Alanine Aminotransferase (ALT) 21 U/L (7-40) Alkaline Phosphatase 97 U/L (46-116) Troponin I High Sensitivity 11 ng/L (</=54) Total Protein 7.3 g/dL (5.7-8.2) Albumin 3.2 g/dL (3.2-4.8) Other Laboratory Tests 06/22/24 06:13 06/20/24 18:56 Brief Hx & Hospital Course: 73-year-old male with a known history of diabetes mellitus type 2 who initially presented to the hospital with altered mental status and low blood sugar status post multiple units of D50 along with a D10 drip found to have acute metabolic and hypoglycemic encephalopathy. Patient was treated with D10 drip and later on it was discontinued. Patient's blood sugars are better. Patient has a A1c which is 5.1. Patient's glipizide has been discontinued patient's may continue on metformin. Patient is being discharged under stable condition. Condition at Discharge: Stable Final Diagnosis/Problems List 1.Metabolic/hypoglycemic encephalopathy, resolved 2. Symptomatic hypoglycemia 3. Diabetes mellitus type 2, A1c is 5.0, resume only metformin, discontinue glipizide. Discharge Disposition: Home with Health Services SNF Discharge Will this Physician continue t: No Discharge Instruct/Medications Diet: Cardiac 2g Na,low cholest Diet comment: Two thousand ADA diet Activity: No Restrictions, As Tolerated Follow Up/Referral: Follow up with the PCP in 1-2 weeks Medications: Resume metformin, discontinue glipizide and Januvia if he is taking Discharge Statement: "Patient was advised to return to the ER or call 911 if any headaches, dizziness, shortness of breath, chest pain, abdominal pain, bleeding, fevers, or worsening of medical condition. Patient was counseled about treatment plan, medications, possible side effects, patientverbalized understanding. All questions were answered to the best of my ability. This discharge took greater then 30 minutes in planning, reviewing documentation, counseling the patient, and discussing with other team members." ASSESSMENT ASSESSMENT Assessment 1.Metabolic/hypoglycemic encephalopathy, resolved 2. Symptomatic hypoglycemia 3. Diabetes mellitus type 2, A1c is 5.0, resume only metformin, discontinue glipizide. Date of Service: Jun 22, 2024 Billing Provider: PARKER VAN MD Common Visit Codes: NOT BILLABLE PARKER VAN MD Jun 22, 2024 15:41
== END 2024-06-22 16:00 | disposition home or self-care (01) | DRG 637 ==
LOC: EDUNIT# 18:36 → EDBD 18:36 → ER 18:36 → OVERFLOW 06-21 01:28 → WEST WING 06-21 18:40
PROVIDERS: ADMIT Internal Medicine; ATTEND Internal Medicine
DX: E11.649 Type 2 diabetes mellitus with hypoglycemia without coma (principal); G93.41 Metabolic encephalopathy; I10 Essential (primary) hypertension; E87.8 Other disorders of electrolyte and fluid balance, not elsewhere classified; F17.210 Nicotine dependence, cigarettes, uncomplicated; Z79.84 Long term (current) use of oral hypoglycemic drugs; Z79.2 Long term (current) use of antibiotics; Z79.899 Other long term (current) drug therapy
CPT/HCPCS: 36415; 71045; 80048; 80053; 82140; 82962; 83036; 84484; 85025; 87081; 99291; G0378; J1815

== ENCOUNTER 2025-02-04 16:11 | Inpatient (IN) | payer OTHER ==
[~2025-02-04] VITALS: Ht 182.9 cm; Wt 73.1 kg
[~2025-02-04 16:11] MED LIST changes: -CEPH500C PO; -GLIP10TA9 PO; -SITA100T7 PO
--- NOTE | 2025-02-04 16:33 | ECG ---
[facility] Test Date: 2025-02-04 Test Time: 16:24:08 Pat Name: YOSEPH LEI Department: ED Room: 0274T Gender: M Client Relationship Executive: CHAVA : 1950 Requested By: EMERGENCY EMERGENCY Order Number: [id number] Reading MD: Dannie Nuñez Measurements Intervals [place] Rate: 106 P: 14 [place]: 139 QRS: 6 QRSD: 88 T: -30 QT: 332 QTc: 441 Interpretive Statements Sinus tachycardia Low voltage, precordial leads LVH with secondary repolarization abnormality Anterior Q waves, possibly due to LVH Electronically Signed On 02-07-2025 17:53:32 PST by Dannie Nuñez Please click the below link to view image of tracing.
[2025-02-04 17:42] LABS: Hematocrit 27.4 % (41.0-53.0); Hemoglobin 8.9 g/dL (13.5-17.5); Mean Corpuscular Hemoglobin 28.8 pg (28.0-32.0); Mean Corpuscular Volume 88.8 fL (80.0-100.0); Nucleated Red Blood Cells % 0.1 %
--- NOTE | 2025-02-04 17:53 | ED.PDOC ---
History of Present Illness HPI Comments 74-year-old male presents to the ER in a wheelchair being pushed by spouse and with prior medical history of liver cirrhosis, CKF, ID, CHF, two bleeding ulcers: Surgical history of appendectomy, tonsillectomy and the chief complaint of GI bleed. The spouse reports on the patient having had a GI bleed two days ago associated with the abdomen distention and umbilical pain. Spouse notes that the patient has drainage of fluid in the abdomen at [facility]. Denies any other symptoms at this time. Denies chills, fever, N/V/D, SOB, CP. No other associated symptoms, modifiers, recent injuries or sick contacts present at this time. Chief Complaint: GI Bleed Time Seen by MD: 17:20 Primary Care Provider: MAYKEL Reviewed Notes: Nurses Notes, Medications, Allergies Allergies: Coded Allergies: NO KNOWN ALLERGIES (Unverified , 03/29/20) Home Meds Active Scripts Sucralfate (CARAFATE) 1 Gm Tab, 1 GM PO QID, #120 TAB Prov:KELLY RICHARD MD 06/10/24 Pantoprazole Sodium Sesquihydr (Pantoprazole Sodium) 40 Mg Tab, 40 MG PO BID, #60 TAB Prov:KELLY RICHARD MD 06/10/24 Reported Medications Cholecalciferol (D3) 25 Mcg Chw, 25 MCG PO DAILY, TAB.CHEW 06/06/24 Magnesium Oxide (MAGNESIUM OXIDE) 400 Mg Tab, 1 TAB PO DAILY, #30 TAB 5 Refills 06/06/24 Tocopheryl Acetate, Dl-Alpha ( (Vitamin E) 90 Mg Cap, 1000 MG PO DAILY, CAP 06/06/24 Tocopherol, Dl-Alpha (Vitamin E) Liq, 1 XX, LIQ 06/06/24 Atorvastatin Calcium (Lipitor) 10 Mg Tab, 1 MG PO DAILY, #90 TAB 1 Refill 06/06/24 Famotidine (Famotidine) 20 Mg Tab, 20 MG PO DAILY for 30 Days, MG 06/06/24 Finasteride (Finasteride) 5 Mg Tab, 5 MG PO DAILY for 30 Days, MG 06/06/24 Metformin Hydrochloride (Metformin Hcl) 500 Mg Tab, 1000 MG PO DAILY for 30 Days, MG 06/06/24 Lisinopril (Lisinopril) 20 Mg Tab, 20 MG PO DAILY for 30 Days, MG 06/06/24 Multiple Vitamin (Multi-Day Vitamins) Vitamins Tab, 1 TAB PO DAILY, #30 TAB 03/30/20 Information Source: Patient, Spouse Mode of Arrival: Ambulatory Severity: Moderate Timing: Hours Duration: Since onset, Hours Prehospital treatment: None Past Medical History PAST MEDICAL HISTORY: CHF, CKF, Liver (Liver cirrhosis), ID Past Medical History (Other): Bleeding ulcers x2 Surgical History: Appendectomy, Tonsillectomy Family History Family History: Reviewed,noncontributory to illness, Unknown Social History Smoker: Cigarettes, Less Than 1 Pack/Day Alcohol: Denies ETOH Use Drugs: Denies Drug Use Lives In: Home Constitutional: denies: chills, diaphoresis, fatigue, fever, malaise, sweats, weakness, others EENTM: denies: blurred vision, double vision, ear bleeding, ear discharge, ear drainage, ear pain, ear ringing, eye pain, eye redness, hearing loss, mouth pain, mouth swelling, nasal discharge, nose bleeding, nose congestion, nose pain, photophobia, tearing, throat pain, throat swelling, voice changes, others Respiratory: denies: cough, hemoptysis, orthopnea, SOB at rest, shortness of breath, SOB with excertion, stridor, wheezing, others Cardiovascular: denies: chest pain, dizzy spells, diaphoresis, Dyspnea on exertion, edema, irregular heart beat, left arm pain, lightheadedness, palpitations, PND, syncope, others Gastrointestinal: reports: abdomen distended, abdominal pain, rectal bleeding; denies: blood streaked bowels, constipated, diarrhea, dysphagia, difficulty swallowing, hematemesis, melena, nausea, poor appetite, poor fluid intake, rectal pain, vomiting, others Genitourinary: denies: burning, dysuria, flank pain, frequency, hematuria, incontinence, penile discharge, penile sore, pain, testicle pain, testicle swelling, urgency, others Neurological: denies: dizziness, fainting, headache, left sided numbness, left sided weakness, numbness, paresthesia, pre-existing deficit, right sided numbness, right sided weakness, seizure, speech problems, tingling, tremors, weakness, others Musculoskeletal: denies: back pain, gout, joint pain, joint swelling, muscle pain, muscle stiffness, neck pain, others Integumetry: denies: bruises, change in color, change in hair/nails, dryness, laceration, lesions, lumps, rash, wounds, others Allergic/Immunocompromised: denies: Difficulty Healing, Frequent Infections, Hives, Itching, others Hematologic/Lymphatic: denies: anemia, blood clots, easy bleeding, easy bruising, swollen glands, others Endocrine: denies: excessive hunger, excessive sweating, excessive thirst, excessive urination, flushing, intolerance to cold, intolerance to heat, unexplained weight gain, unexplained weight loss, others Psychiatric: denies: anxiety, bipolar disorder, depression, hopeless, panic disorder, schizophrenia, sleepless, suicidal, others All Other Systems: Reviewed and Negative Physical Exam Exam Comments Adamant distention, umbilical pain General Appearance: No Apparent Distress, Normal HEENT: Normal ENT Inspection, Pharynx Normal, TMs Normal Neck: Full Range of Motion, Non-Tender, Normal, Normal Inspection Respiratory: Chest Non-Tender, Lungs Clear, No Accessory Muscle Use, No Respiratory Distress, Normal Breath Sounds Cardiovascular: No Edema, No JVD, No Murmur, No Gallop, Normal Peripheral Pulses, Regular Rate/Rhythm Breast Exam: Deferred Gastrointestinal: No Organomegaly, Non Tender, No Pulsatile Mass, Normal Bowel Sounds, Soft Genitalia: Deferred Pelvic: Deferred Rectal: Deferred Extremities: No calf tenderness, Normal capillary refill, Normal inspection, Normal range of motion, Non-tender, No pedal edema Musculoskeletal : Apperance: Normal Neurologic: Alert, pet food deboner II-XII nml as Tested, No Motor Deficits, Normal Affect, Normal Mood, No Sensory Deficits Cerebellar Function: Normal Reflexes: Normal Skin: Dry, Normal Color, Warm Lymphatic: No Adenopathy Was a procedure done? Was a procedure done?: No EKG EKG : Pulse Rate (adult): 106 Dyke: Normal Cardiac Rhythm: ST Block: None Hypertrophy: None ST: Normal Differential Dx Considerations may include: Lower GI bleed, ACS, viral syndrome, electrolyte abnormality, infectious etiology X-Ray, Labs, Meds, VS Vital Signs Date Time Temp Pulse Resp B/P (MAP) Pulse Ox O2 Delivery O2 Flow Rate FiO2 02/04/25 18:59 81 20 115/52 02/04/25 18:06 97.8 96 18 115/81 (92) 100 97.8 02/04/25 18:00 96 18 115/81 02/04/25 17:53 106 02/04/25 16:24 106 02/04/25 16:13 97.9 111 125/80 96 97.9 Lab Test 02/04/25 17:20 Range/Units White Blood Count 6.3 4.4-10.8 10^3/uL Red Blood Count 3.09 L 4.5-5.90 10^6/uL Hemoglobin 8.9 L 13.5-17.5 g/dL Hematocrit 27.4 L 41.0-53.0 % Mean Corpuscular Volume 88.8 80.0-100.0 fL Mean Corpuscular Hemoglobin 28.8 28.0-32.0 pg Mean Corpuscular Hemoglobin Concent 32.5 32.0-36.0 g/dL Red Cell Distribution Width 15.0 H 11.8-14.3 % Platelet Count 186 140-450 10^3/uL Mean Platelet Volume 6.2 L 6.9-10.8 fL Neutrophils (%) (Auto) 73.4 37.0-80.0 % Lymphocytes (%) (Auto) 14.2 10.0-50.0 % Monocytes (%) (Auto) 10.8 0.0-12.0 % Eosinophils (%) (Auto) 1.0 0.0-7.0 % Basophils (%) (Auto) 0.6 0.0-2.0 % Neutrophils # (Auto) 4.7 1.6-8.6 10 ^3/uL Lymphocytes # (Auto) 0.9 0.4-5.4 10 ^3/uL Monocytes # (Auto) 0.7 0-1.3 10 ^3/uL Eosinophils # (Auto) 0.1 0-0.8 10 ^3/uL Basophils # (Auto) 0 0-0.2 10 ^3/uL Nucleated Red Blood Cells 0.1 % Sodium Level 137 136-145 mmol/L Potassium Level 4.5 3.5-5.1 mmol/L Chloride Level 107 98-107 mmol/L Carbon Dioxide Level 20 20-31 mmol/L Anion Gap 10 5-15 Blood Urea Nitrogen 53 H 9-23 mg/dL Creatinine 2.81 H 0.700-1.30 mg/dL Glomerular Filtration Rate Calc 23 >90 mL/min BUN/Creatinine Ratio 18.9 10.0-20.0 Serum Glucose 168 H 74-106 mg/dL Calcium Level 8.4 L 8.7-10.4 mg/dL Current Medications Medications (Trade) Dose Ordered Sig/Pj Route Start Time Stop Time Status Last Admin Pantoprazole Sodium (Protonix) 80 mg ONCE ONCE IV 02/04/25 17:30 02/04/25 17:31 DC 02/04/25 17:59 Ondansetron HCl (Zofran) 4 mg ONCE ONCE IV 02/04/25 17:30 02/04/25 17:31 DC 02/04/25 18:00 Morphine Sulfate 4 mg ONCE ONCE IV 02/04/25 17:30 02/04/25 17:31 DC 02/04/25 18:00 Time of 1ST Reevaluation: 17:50 Reevaluation 1ST: Unchanged Patient Education/Counseling: Diagnosis, Treatment, Prognosis Family Education/Counseling: Diagnosis, Treatment, Prognosis SEPSIS Sepsis Screen Date sepsis recognized/suspect: Feb 04, 2025 Time Sepsis recognized/suspect: 1613 Recent Procedure: No On Antibiotic Therapy: No Respiratory Rate >20: No Heart Rate >90: Yes Temp<36 C (96.8 F) or >38.3 C: No SBP <90 or MAP <65 mmHG: No New Acute Mental Status Change: No Is the patient on CPAP, BIPAP,: No Physician Orders Ct Ab Pel Wo Con-No Oral Or Iv (02/04/25 17:08) Vital Signs Date Time Temp Pulse Resp B/P (MAP) Pulse Ox O2 Delivery O2 Flow Rate FiO2 02/04/25 18:59 81 20 115/52 02/04/25 18:06 97.8 96 18 115/81 (92) 100 97.8 02/04/25 18:00 96 18 115/81 02/04/25 17:53 106 02/04/25 16:24 106 02/04/25 16:13 97.9 111 125/80 96 97.9 Laboratory Tests Test 02/04/25 17:20 White Blood Count 6.3 10^3/uL (4.4-10.8) Medications Medications Dose Ordered Sig/Jp Route Start Time Stop Time Status Last Admin Dose Admin Morphine Sulfate 4 mg ONCE ONCE IV 02/04/25 17:30 11/15/25 17:31 DC 02/04/25 18:00 Ondansetron HCl 4 mg ONCE ONCE IV 02/04/25 17:30 02/04/25 17:31 DC 02/04/25 18:00 Pantoprazole Sodium 80 mg ONCE ONCE IV 02/04/25 17:30 02/04/25 17:31 DC 02/04/25 17:59 Departure 1 Departure Time of Disposition: 19:00 (Patient presented with abdominal pain that was concerning for possible appendicits, gastritis, cholecystitis, colitis, gastroenteritis, sbo, or orther possible surgical emergency. Data: 1. I ordered and reviewed the result of at least 3 labs including a CBC, BMP, and Urinalysis. 2. I independently interpreted the following tests: CT Abdomen and Pelvis is concerning for chronic abdominal problems .Risk:This patient has a high risk of morbidity due to further diagnostic testing or treatment and may suffer from an acute abdominal process disorder. Workup reveals concern for GI bleed intractable abdominal pain and patient should be admitted for further workup. and possible expert consultation. ) Impression: Primary Impression: Intractable abdominal pain Additional Impression: Bright red blood per rectum Disposition: ADMITTED INPATIENT Admit to: Tele Condition: Guarded Critical Care Note Critical Care Time?: Yes Critical care comment: Intractable abdominal pain Authorized and Performed by: Justin Mustafa MD Total critical care time: Approximately 39 minutes Due to a high probability of clinically significant, life threatening deterioration, the patient required my highest level of preparedness to intervene emergently and I personally spent this critical care time directly and personally managing the patient. This critical care time included obtaining a history; examining the patient; pulse oximetry; ordering and review of studies; arranging urgent treatment with development of a management plan; evaluation of patient's response to treatment; frequent reassessment; and, discussions with other providers. This critical care time was performed to assess and manage the high probability of imminent, life-threatening deterioration that could result in multi-organ failure. It was exclusive of separately billable procedures and treating other patients and teaching time. Please see my other sections and the rest of the note for further information on patient assessment and treatment. Stability Stability form required: No I personally scribed for JUSTIN MUSTAFA MD ([email or web address]) on 02/04/25 at 17:53. Electronically submitted by Deshawn De Leon ([email or web address]). JUSTIN MUSTAFA MD Feb 04, 2025 17:53
[2025-02-04 17:54] LABS: Chloride 107 mmol/L (98-107); Potassium 4.5 mmol/L (3.5-5.1); Sodium 137 mmol/L (136-145)
[2025-02-04 17:57] LABS: Anion Gap 10 (5-15); Calcium 8.4 mg/dL (8.7-10.4); Carbon Dioxide 20 mmol/L (20-31)
[2025-02-04] MEDS: PANTOPRAZOLE 40 MG/10 ML VIAL INJ IV ONE (17:59)
[2025-02-04 18:00] LABS: BUN/Creatinine Ratio 18.9 (10.0-20.0)
[2025-02-04] MEDS: MORPHINE SULFATE 4 MG/ML SYR/VIAL IV ONE (18:00)
[2025-02-04] MEDS: ONDANSETRON HCL 4 MG/2 ML VIAL IV ONE (18:00)
[2025-02-04 18:03] LABS: Blood Urea Nitrogen 53 mg/dL (9-23); Glucose 168 mg/dL (74-106)
--- NOTE | 2025-02-04 19:06 | DVH ---
Exam: CT CT AB PEL WO CON-NO ORAL OR IV History: gi bleed Comparison Study: CT CT AB PEL WO CON-NO ORAL OR IV on DOS: 06/04/24, CT ABD PELVIS WO CONTRAST on DOS: 03/29/20 TECHNIQUE: Multidetector CT of the abdomen AND PELVIS without IV contrast. Axial, coronal and sagittal multiplanar reformats were obtained from the axial data set by the technologist. Radiation Dose Information: CT Dose: CTDI volume is 18.15 mGy. Dose-length product is 1136.96 mGy*cm FINDINGS: Bibasilar atelectasis/scarring. Partially visualized heart is unremarkable. Cirrhotic appearing liver with large volume ascites. Spleen, and adrenal glands unremarkable. Limited evaluation of the pancreas due to surrounding ascites. Cholelithiasis with Limited evaluation for acute cholecystitis due to surrounding ascites. There is posterior displacement of the Kidneys mid to Large ascites. Otherwise, kidneys, and ureters unremarkable. Urinary bladder is unremarkable. Prostate is unremarkable. Stomach is unremarkable. Mild Wall thickening of proximal and mid small bowel loops which are be from the surrounding ascites. The remainder of the small bowel loops unremarkable. Appendix is not definitely visualized. Small to moderate amount of fecal material within the colon. No evidence of intraperitoneal free air. Heavy atherosclerotic calcification of the aorta and bilateral iliacs with dilatation of the descending aorta up to 3.5 cm mild dilatation of the right common iliac artery up to 2.1 cm. Limited evaluation for lymphadenopathy. Moderate body wall edema. Small fat containing left inguinal hernia. Small ascitic fluid containing umbilical hernia. No evidence of acute osseous abnormalities. IMPRESSION: Cirrhotic appearing liver with large volume ascites. Wall thickening of proximal and mid small bowel loops which are be from the surrounding ascites versus portal hypertensive enteropathy with enteritis not completely excluded. 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 Heavy atherosclerotic calcification of the aorta and bilateral iliacs. Cholelithiasis with Limited evaluation for acute cholecystitis given surrounding ascites.
[2025-02-04] MEDS ORDERED: MELATONIN 5 MG TAB PO PRN (21:45)
[2025-02-04] MEDS ORDERED: HYDROcodone-ACET 5/325MG TAB PO PRN ×2 (21:45→22:00)
[2025-02-04] MEDS ORDERED: ACETAMINOPHEN 325 MG TAB PO PRN (21:45)
[2025-02-04] MEDS ORDERED: ONDANSETRON HCL 4 MG/2 ML VIAL IV PRN (21:45)
[2025-02-04] MEDS: PANTOPRAZOLE 40 MG/10 ML VIAL INJ IV SCH (22:40)
[2025-02-04 22:47] VITALS: PULSE 91; RESP 18; O2SAT 98
[2025-02-04 23:20] VITALS: BP 111/66; PULSE 98; RESP 18; TEMP 98; O2SAT 99
[2025-02-04 23:46] VITALS: BP 111/66; PULSE 98; RESP 18; TEMP 98; O2SAT 99
[2025-02-05] VITALS (9 sets, daily range): BP systolic 104–133; BP diastolic 73–79; PULSE 85–103; RESP 17–20; TEMP 97.8–98.5; O2SAT 98–99
[2025-02-05 00:02] LABS: Alanine Aminotransferase 15 U/L (7-40); Alkaline Phosphatase 98 U/L (46-116); Anion Gap 10 (5-15); BUN/Creatinine Ratio 19.1 (10.0-20.0); Bilirubin, Total 0.6 mg/dL (0.2-1.0); Chloride 106 mmol/L (98-107); Potassium 4.7 mmol/L (3.5-5.1); Sodium 136 mmol/L (136-145); Total Protein 7.6 g/dL (5.7-8.2)
[2025-02-05 00:17] LABS: Albumin 2.8 g/dL (3.2-4.8); Blood Urea Nitrogen 54 mg/dL (9-23); Calcium 8.3 mg/dL (8.7-10.4); Carbon Dioxide 20 mmol/L (20-31); Glucose 133 mg/dL (74-106)
[2025-02-05 00:45] LABS: Hematocrit 27.5 % (41.0-53.0); Hemoglobin 9.0 g/dL (13.5-17.5)
--- NOTE | 2025-02-05 01:23 | DVHHP2 ---
Admitting Diagnosis: GI Bleed, Ascites History of Present Illness History Source: Patient, Spouse/Significant Other Exam Limitations: No limitations HPI Mr. Piero Camilo is a 74-year-old male with a history of liver cirrhosis, CKF, VA, CHF, appendectomy who presents with a chief complaint of GI bleed and abdominal distention. The spouse reports on the patient having had a GI bleed two days ago associated with the abdomen distention and umbilical pain. Denies any other symptoms at this time. Denies chills, fever, N/V/D, SOB, CP. No other associated symptoms, modifiers, recent injuries or sick contacts present at this time. Home Meds Active Scripts Sucralfate (CARAFATE) 1 Gm Tab, 1 GM PO QID, #120 TAB Prov:KELLY RICHARD MD 06/10/24 Pantoprazole Sodium Sesquihydr (Pantoprazole Sodium) 40 Mg Tab, 40 MG PO BID, #60 TAB Prov:KELLY RICHARD MD 06/10/24 Reported Medications Cholecalciferol (D3) 25 Mcg Chw, 25 MCG PO DAILY, TAB.CHEW 06/06/24 Magnesium Oxide (MAGNESIUM OXIDE) 400 Mg Tab, 1 TAB PO DAILY, #30 TAB 5 Refills 06/06/24 Tocopheryl Acetate, Dl-Alpha ( (Vitamin E) 90 Mg Cap, 1000 MG PO DAILY, CAP 06/06/24 Tocopherol, Dl-Alpha (Vitamin E) Liq, 1 XX, LIQ 06/06/24 Atorvastatin Calcium (Lipitor) 10 Mg Tab, 1 MG PO DAILY, #90 TAB 1 Refill 06/06/24 Famotidine (Famotidine) 20 Mg Tab, 20 MG PO DAILY for 30 Days, MG 06/06/24 Finasteride (Finasteride) 5 Mg Tab, 5 MG PO DAILY for 30 Days, MG 06/06/24 Metformin Hydrochloride (Metformin Hcl) 500 Mg Tab, 1000 MG PO DAILY for 30 Days, MG 06/06/24 Lisinopril (Lisinopril) 20 Mg Tab, 20 MG PO DAILY for 30 Days, MG 06/06/24 Multiple Vitamin (Multi-Day Vitamins) Vitamins Tab, 1 TAB PO DAILY, #30 TAB 03/30/20 Past Medical History Cardiac: CHF, VA Pulmonary: No pertinent Hx Central Nervous System: No pertinent Hx GI: No pertinent Hx Hemotology/Oncology: No pertinent Hx Hepatobiliary: Cirrhosis Psychiatric: No pertinent Hx Musculoskeletal: No pertinent Hx Rheumotologic: No pertinent Hx Infectious Disease: No peritnent Hx ENT: No pertinent Hx Renal/: CKD Endocrine: No pertinent Hx Dermatology: No pertinent Hx Past Surgical History: Appendectomy, Tonsillectomy Patient Family History: FH: cancer G8 SISTER Smoker: No Hx (Negative) Alocohol: None Drugs: None Lives with: With family Domestic Violence: Neg Review of Systems Constitutional: No symptom reported Ears, Nose, & Throat: No symptom reported Eyes: No symptom reported Pulmonary/Respiratory: No symptom reported Cardiovascular: No symptom reported Gastrointestinal: Abdominal Pain (with distention ), Hematochezia Genitourinary: No symptom reported Musculoskeletal: No symptom reported Skin: No symptom reported Psychiatric: No symptom reported Endocrine: No symptom reported Hemotologic/Lymphatic: No symptom reported H&P Exam Vital Signs Vital Signs Date Time Temp Pulse Resp B/P (MAP) Pulse Ox O2 Delivery O2 Flow Rate FiO2 02/05/25 00:42 97.8 94 18 133/78 (96) 99 97.8 02/04/25 23:46 Room Air* 0 21 General Appeara: Well developed, Well nourished, Other (ill appearing) Head Exam: Normal inspection Neck Exam: Normal inspection, Non-tender, Normal alignment Eye Exam: bilateral eye Normal inspection, bilateral eye PERRL, bilateral eye EOMI Ear Exam: bilateral ear Auricle normal Nasal Exam: Normal inspection Mouth: Normal Inspection Pulmonary/Respiratory: Normal inspection, Normal breath sounds, Chest non- tender, Lungs clear Cardiovascular/Chest: Normal inspection, Regular rate, Normal Rhythm Peripheral Pulses: 2+ dorsalis pedis (R), 2+ dorsalis pedis (L), 2+ Radial (R), 2+ Radial (L) Abdominal Exam: Normal bowel sounds, Other (distention ) Back Exam: Normal inspection [employer] Exam: Normal hearing, Normal speech, PERRL Motor/Sensory: Normal sensory function, Normal motor function Neuro/Mental St: Alert, Oriented Appearance: Appropriate appearance, Appropriate insight Eye contact/ Speech: Cooperative, Good eye contact, Normal speech Skin Exam: Normal inspection, Normal color, Warm/dry SEPSIS Sepsis Screen Date sepsis recognized/suspect: Feb 04, 2025 Time Sepsis recognized/suspect: 2246 Recent Procedure: No On Antibiotic Therapy: No Respiratory Rate >20: No Heart Rate >90: Yes Temp<36 C (96.8 F) or >38.3 C: No SBP <90 or MAP <65 mmHG: No New Acute Mental Status Change: No Is the patient on CPAP, BIPAP,: No Physician Orders Hemoglobin & Hematocrit (02/05/25 12:00) Hemoglobin & Hematocrit (02/05/25 18:00) Admit (02/04/25 21:45) Complete Blood Count (02/05/25 05:00) Complete Blood Count (02/06/25 05:00) Complete Blood Count (02/07/25 05:00) Basic Metabolic Panel (02/05/25 05:00) Basic Metabolic Panel (02/06/25 05:00) Basic Metabolic Panel (02/07/25 05:00) * Radiologist Consult (02/04/25 21:45) * Gi Dvh Artist Consultant (02/04/25 21:45) Clear Liq Diet (02/05/25 Breakfast) Stat Ekg For Chest Pain (02/04/25 21:45) Notify Md Of Changes From Base (02/04/25 21:45) Corporate Development Officer For 24 Hours (02/04/25 21:45) Emergency Dysrhythmia Protocol (02/04/25 21:45) Rhythm Strips Once Every Shift (02/04/25 21:45) Oxygen By Nasal Cannula (02/04/25 21:45) Pantoprazole (Protonix) (02/04/25 22:00) Ondansetron Hcl (Zofran) (02/04/25 21:45) Acetaminophen Tablet (Tylenol Tablet) (02/04/25 21:45) Melatonin (Melatonin) (02/04/25 21:45) Stool Occult Blood (02/04/25 21:45) *[facility] (02/04/25 21:51) Hydrocodone-Acet 5/325mg Tab ([place] 5/32 (02/04/25 22:00) Mrsa Screen (02/05/25 01:06) Prothrombin Time W/ Inr (02/05/25 04:00) Vital Signs Date Time Temp Pulse Resp B/P (MAP) Pulse Ox O2 Delivery O2 Flow Rate FiO2 02/05/25 00:42 97.8 94 18 133/78 (96) 99 97.8 02/04/25 23:46 98 18 99 Room Air* 0 21 02/04/25 23:46 98.0 98 111/66 (81) 99 98.0 02/04/25 23:20 98.0 98 18 111/66 (81) 99 98.0 02/04/25 22:47 97.7 91 18 108/71 (83) 98 97.7 02/04/25 22:47 97.7 91 18 108/71 (83) 97 97.7 02/04/25 22:47 91 18 98 Room Air* 0 21 02/04/25 21:34 98.9 97 18 111/67 (82) 99 98.9 02/04/25 18:59 81 20 115/52 02/04/25 18:06 97.8 96 18 115/81 (92) 100 97.8 02/04/25 18:00 96 18 115/81 02/04/25 17:53 106 Laboratory Tests Test 02/04/25 17:20 02/04/25 22:47 White Blood Count 6.3 10^3/uL (4.4-10.8) Lactic Acid Level 1.2 mmol/L (0.4-2.0) Medications Medications Dose Ordered Sig/Pj Route Start Time Stop Time Status Last Admin Dose Admin Morphine Sulfate 4 mg ONCE ONCE IV 02/04/25 17:30 02/04/25 17:31 DC 02/04/25 18:00 4 MG Ondansetron HCl 4 mg ONCE ONCE IV 02/04/25 17:30 02/04/25 17:31 DC 02/04/25 18:00 4 MG Pantoprazole Sodium 80 mg ONCE ONCE IV 02/04/25 17:30 02/04/25 17:31 DC 02/04/25 17:59 80 MG Labs/Xrays Labs Test 02/05/25 00:24 02/04/25 22:47 02/04/25 17:20 Range/Units Hemoglobin 9.0 L 13.5-17.5 g/dL Hematocrit 27.5 L 41.0-53.0 % Sodium Level 136 136-145 mmol/L Potassium Level 4.7 3.5-5.1 mmol/L Chloride Level 106 98-107 mmol/L Carbon Dioxide Level 20 20-31 mmol/L Anion Gap 10 5-15 Blood Urea Nitrogen 54 H 9-23 mg/dL Creatinine 2.83 H 0.700-1.30 mg/dL Glomerular Filtration Rate Calc 22 >90 mL/min BUN/Creatinine Ratio 19.1 10.0-20.0 Serum Glucose 133 H 74-106 mg/dL Lactic Acid Level 1.2 0.4-2.0 mmol/L Calcium Level 8.3 L 8.7-10.4 mg/dL Total Bilirubin 0.6 0.2-1.0 mg/dL Aspartate Amino Transferase (AST) 23 13-40 U/L Alanine Aminotransferase (ALT) 15 7-40 U/L Alkaline Phosphatase 98 46-116 U/L Total Protein 7.6 5.7-8.2 g/dL Albumin 2.8 L 3.2-4.8 g/dL White Blood Count 6.3 4.4-10.8 10^3/uL Red Blood Count 3.09 L 4.5-5.90 10^6/uL Mean Corpuscular Volume 88.8 80.0-100.0 fL Mean Corpuscular Hemoglobin 28.8 28.0-32.0 pg Mean Corpuscular Hemoglobin Concent 32.5 32.0-36.0 g/dL Red Cell Distribution Width 15.0 H 11.8-14.3 % Platelet Count 186 140-450 10^3/uL Mean Platelet Volume 6.2 L 6.9-10.8 fL Neutrophils (%) (Auto) 73.4 37.0-80.0 % Lymphocytes (%) (Auto) 14.2 10.0-50.0 % Monocytes (%) (Auto) 10.8 0.0-12.0 % Eosinophils (%) (Auto) 1.0 0.0-7.0 % Basophils (%) (Auto) 0.6 0.0-2.0 % Neutrophils # (Auto) 4.7 1.6-8.6 10 ^3/uL Lymphocytes # (Auto) 0.9 0.4-5.4 10 ^3/uL Monocytes # (Auto) 0.7 0-1.3 10 ^3/uL Eosinophils # (Auto) 0.1 0-0.8 10 ^3/uL Basophils # (Auto) 0 0-0.2 10 ^3/uL Nucleated Red Blood Cells 0.1 % Assessment/Plan Problem List: (1) GI bleed (2) Ascites (3) Liver cirrhosis Plan This is a 74 yo male with known history of liver cirrhosis, CKF, VA, CHF, appendectomy, tonsillectomy who presents to the hospital with gi bleed, abdominal distention. Patient found to have 1. GI Bleed 2. Ascites 3. Liver cirrhosis 4. CULLEN 5. CHF without exacerbation 6. VA hx Plan Admit Telemetry GI consultation, H&H every 6 hours, occult stool blood Interventional Radiology Paracentesis Nephrology consultation Monitor BMP GI ppx Protonix IV Discussed all above with patient and patient significant other in the ED. Both verbalized agreement and understanding of care plan. All questions were answered. Discussed with supervising MD. Plan discussed with: Patient, Other Code Visit Code Visit Total Time (mins): 45 Additional Comments Additional Comments Additional Comments Patient's chart is reviewed and discussed with the nurse practitioner. Patient is seen evaluated and admitted by SCREENER AND BLENDER. I agree with the nurse practitioner's evaluation, documentation, assessment and care plan as outlined. CHARLES SPANGLER Feb 05, 2025 01:23 TERRANCE SAM MD Feb 05, 2025 12:46
[2025-02-05 06:48] LABS: Hematocrit 26.0 % (41.0-53.0); Hemoglobin 8.3 g/dL (13.5-17.5); Mean Corpuscular Hemoglobin 29.0 pg (28.0-32.0); Mean Corpuscular Volume 91.4 fL (80.0-100.0); Nucleated Red Blood Cells % 0.1 %
[2025-02-05 06:50] LABS: Potassium 5.0 mmol/L (3.5-5.1); Sodium 137 mmol/L (136-145)
[2025-02-05 06:51] LABS: Anion Gap 11 (5-15)
[2025-02-05 06:52] LABS: Calcium 7.8 mg/dL (8.7-10.4); Carbon Dioxide 17 mmol/L (20-31); Chloride 109 mmol/L (98-107)
[2025-02-05 06:57] LABS: BUN/Creatinine Ratio 23.5 (10.0-20.0)
[2025-02-05 07:03] LABS: Blood Urea Nitrogen 65 mg/dL (9-23); Glucose 111 mg/dL (74-106)
[2025-02-05 13:00] LABS: Hematocrit 26.7 % (41.0-53.0); Hemoglobin 8.8 g/dL (13.5-17.5)
[2025-02-05] MEDS ORDERED: ALBUMIN 25% 50 ML IV SCH (13:30)
[2025-02-05 14:14] LABS: INR 1.01 (0.9-1.15); Prothrombin Time 10.7 sec (9.3-11.8)
[2025-02-05] MEDS ORDERED: FURO20TA3 PO (15:23)
[2025-02-05] MEDS ORDERED: SPIR50TA5 PO (15:24)
--- NOTE | 2025-02-05 16:23 | DVHINCON2 ---
Date of service: Feb 05, 2025 Reason for Consultation cullen History of Present Illness 74 years old male with past medical history of liver cirrhosis, Chronic kidney disease, mi, Congestive heart failure, presented with chief complaints of bright red blood per rectum and abdominal distention he denies any urinary complaints Past Medical History As per HPI Allergies: Coded Allergies: NO KNOWN ALLERGIES (Unverified , 03/29/20) Home Meds Active Scripts Sucralfate (CARAFATE) 1 Gm Tab, 1 GM PO QID, #120 TAB Prov:KELLY RICHARD MD 06/10/24 Pantoprazole Sodium Sesquihydr (Pantoprazole Sodium) 40 Mg Tab, 40 MG PO BID, #60 TAB Prov:KELLY RICHARD MD 06/10/24 Reported Medications Spironolactone (Spironolactone) 50 Mg Tab, 1 TAB PO DAILY, #30 TAB 5 Refills 02/05/25 Furosemide (Furosemide) 20 Mg Tab, 20 MG PO DAILY for 30 Days, MG 02/05/25 Cholecalciferol (D3) 25 Mcg Chw, 25 MCG PO DAILY, TAB.CHEW 06/06/24 Magnesium Oxide (MAGNESIUM OXIDE) 400 Mg Tab, 1 TAB PO DAILY, #30 TAB 5 Refills 06/06/24 Tocopheryl Acetate, Dl-Alpha ( (Vitamin E) 90 Mg Cap, 1000 MG PO DAILY, CAP 06/06/24 Tocopherol, Dl-Alpha (Vitamin E) Liq, 1 XX, LIQ 06/06/24 Atorvastatin Calcium (Lipitor) 10 Mg Tab, 1 MG PO DAILY, #90 TAB 1 Refill 06/06/24 Famotidine (Famotidine) 20 Mg Tab, 20 MG PO DAILY for 30 Days, MG 06/06/24 Finasteride (Finasteride) 5 Mg Tab, 5 MG PO DAILY for 30 Days, MG 06/06/24 Metformin Hydrochloride (Metformin Hcl) 500 Mg Tab, 1000 MG PO DAILY for 30 Days, MG 06/06/24 Lisinopril (Lisinopril) 20 Mg Tab, 20 MG PO DAILY for 30 Days, MG 06/06/24 Multiple Vitamin (Multi-Day Vitamins) Vitamins Tab, 1 TAB PO DAILY, #30 TAB 03/30/20 Current Medications Current Medications Medications (Trade) Dose Ordered Sig/Pj Route PRN Reason Start Time Stop Time Status Last Admin Pantoprazole Sodium (Protonix) 40 mg BID IV 02/04/25 22:00 02/05/25 10:15 Ondansetron HCl (Zofran) 4 mg Q6HPRN PRN IV NAUSEA OR VOMITING 02/04/25 21:45 Acetaminophen (Tylenol Tablet) 650 mg Q6HPRN PRN PO PAIN SCALE 1-3 OR TEMP>100.4 02/04/25 21:45 Acetaminophen/ Hydrocodone Bitart ([place] 5/325MG Tab) 1 tab Q6HPRN PRN PO PAIN SCALE 1 THRU 6 02/04/25 21:45 02/04/25 21:56 DC Melatonin (Melatonin) 5 mg ONCE@2200 PRN PO FOR INSOMNIA 02/04/25 21:45 Acetaminophen/ Hydrocodone Bitart ([place] 5/325MG Tab) 1 tab Q6HPRN PRN PO MODERATE PAIN (4-6 PAIN SCALE) 02/04/25 22:00 Albumin Human 50 ml @ 100 mls/hr Q8H IV 02/05/25 13:30 02/06/25 05:59 Furosemide (Lasix Injection) 40 mg BIDD IV 02/05/25 18:00 UNV Family History: FH: cancer G8 SISTER Review of Systems HEENT-denies headache, denies vision changes, no hearing issue, denies neck complaints, denies throat issues Respiratory system-denies cough, denies shortness of breath Cardiovascular system-denies chest pain, denies palpitations Abdomen-positive abdominal distention,, positive blood per rectum Musculoskeletal-positive swelling in the legs, denies pain in the extremities Genitourinary-denies urinary symptoms like dysuria, stream issues Neuro-denies dizziness, denies seizures Psychiatric-denies psychiatric history H&P Exam Vital Signs/I&O Vital Sign Date Time Temp Pulse Resp B/P (MAP) Pulse Ox O2 Delivery O2 Flow Rate FiO2 02/05/25 13:00 98.5 92 17 114/75 (88) 99 98.5 02/05/25 08:00 Room Air* 0 21 Intake and Output 02/04/25 02/05/25 19:00 07:00 Intake Total 200 ml Balance 200 ml Intake Oral 200 ml Physical Exam General-not in any distress HEENT-normocephalic, no icterus, no pallor, neck supple Respiratory-fair air entry bilateral, no rhonchi, no wheeze [id number] heard, no murmurs appreciated Abdominal-positive distention Musculoskeletal-positive pedal edema, no calf tenderness Genitourinary-deferred Neuro-awake alert oriented x3, Psychiatric-not agitated, cooperative, Labs/Diagnostic Data Labs/Diagnostic Data Laboratory Tests Test 02/05/25 13:32 02/05/25 12:30 02/05/25 04:45 02/05/25 00:24 Range/Units Prothrombin Time 10.7 9.3-11.8 sec Prothrombin Time INR 1.01 0.9-1.15 Hemoglobin 8.8 L 8.3 L 9.0 L 13.5-17.5 g/dL Hematocrit 26.7 L 26.0 L 27.5 L 41.0-53.0 % White Blood Count 6.0 4.4-10.8 10^3/uL Red Blood Count 2.84 L 4.5-5.90 10^6/uL Mean Corpuscular Volume 91.4 80.0-100.0 fL Mean Corpuscular Hemoglobin 29.0 28.0-32.0 pg Mean Corpuscular Hemoglobin Concent 31.8 L 32.0-36.0 g/dL Red Cell Distribution Width 15.2 H 11.8-14.3 % Platelet Count 146 140-450 10^3/uL Mean Platelet Volume 6.0 L 6.9-10.8 fL Neutrophils (%) (Auto) 74.4 37.0-80.0 % Lymphocytes (%) (Auto) 14.3 10.0-50.0 % Monocytes (%) (Auto) 10.3 0.0-12.0 % Eosinophils (%) (Auto) 0.4 0.0-7.0 % Basophils (%) (Auto) 0.6 0.0-2.0 % Neutrophils # (Auto) 4.4 1.6-8.6 10 ^3/uL Lymphocytes # (Auto) 0.9 0.4-5.4 10 ^3/uL Monocytes # (Auto) 0.6 0-1.3 10 ^3/uL Eosinophils # (Auto) 0 0-0.8 10 ^3/uL Basophils # (Auto) 0 0-0.2 10 ^3/uL Nucleated Red Blood Cells 0.1 % Sodium Level 137 136-145 mmol/L Potassium Level 5.0 3.5-5.1 mmol/L Chloride Level 109 H 98-107 mmol/L Carbon Dioxide Level 17 L 20-31 mmol/L Anion Gap 11 5-15 Blood Urea Nitrogen 65 #H 9-23 mg/dL Creatinine 2.77 H 0.700-1.30 mg/dL Glomerular Filtration Rate Calc 23 >90 mL/min BUN/Creatinine Ratio 23.5 H 10.0-20.0 Serum Glucose 111 H 74-106 mg/dL Calcium Level 7.8 L 8.7-10.4 mg/dL Test 02/04/25 22:47 02/04/25 17:20 Range/Units Sodium Level 136 137 136-145 mmol/L Potassium Level 4.7 4.5 3.5-5.1 mmol/L Chloride Level 106 107 98-107 mmol/L Carbon Dioxide Level 20 20 20-31 mmol/L Anion Gap 10 10 5-15 Blood Urea Nitrogen 54 H 53 H 9-23 mg/dL Creatinine 2.83 H 2.81 H 0.700-1.30 mg/dL Glomerular Filtration Rate Calc 22 23 >90 mL/min BUN/Creatinine Ratio 19.1 18.9 10.0-20.0 Serum Glucose 133 H 168 H 74-106 mg/dL Lactic Acid Level 1.2 0.4-2.0 mmol/L Calcium Level 8.3 L 8.4 L 8.7-10.4 mg/dL Total Bilirubin 0.6 0.2-1.0 mg/dL Aspartate Amino Transferase (AST) 23 13-40 U/L Alanine Aminotransferase (ALT) 15 7-40 U/L Alkaline Phosphatase 98 46-116 U/L Total Protein 7.6 5.7-8.2 g/dL Albumin 2.8 L 3.2-4.8 g/dL White Blood Count 6.3 4.4-10.8 10^3/uL Red Blood Count 3.09 L 4.5-5.90 10^6/uL Hemoglobin 8.9 L 13.5-17.5 g/dL Hematocrit 27.4 L 41.0-53.0 % Mean Corpuscular Volume 88.8 80.0-100.0 fL Mean Corpuscular Hemoglobin 28.8 28.0-32.0 pg Mean Corpuscular Hemoglobin Concent 32.5 32.0-36.0 g/dL Red Cell Distribution Width 15.0 H 11.8-14.3 % Platelet Count 186 140-450 10^3/uL Mean Platelet Volume 6.2 L 6.9-10.8 fL Neutrophils (%) (Auto) 73.4 37.0-80.0 % Lymphocytes (%) (Auto) 14.2 10.0-50.0 % Monocytes (%) (Auto) 10.8 0.0-12.0 % Eosinophils (%) (Auto) 1.0 0.0-7.0 % Basophils (%) (Auto) 0.6 0.0-2.0 % Neutrophils # (Auto) 4.7 1.6-8.6 10 ^3/uL Lymphocytes # (Auto) 0.9 0.4-5.4 10 ^3/uL Monocytes # (Auto) 0.7 0-1.3 10 ^3/uL Eosinophils # (Auto) 0.1 0-0.8 10 ^3/uL Basophils # (Auto) 0 0-0.2 10 ^3/uL Nucleated Red Blood Cells 0.1 % Microbiology Date/Time Source Procedure Growth Status 02/05/25 00:59 Nose MRSA Screen - Final Complete Assessment CULLEN hemodynamic in the setting of diuretics r/o hepatorenal syndrome Bright red blood per rectum GI bleed Cirrhosis decompensated Anemia Recommendations Lasix 40 mg IV b.i.d. Albumin IV as ordered Urine workup Strict Is&Os Plan discussed with: Patient PARISH PERKINS MD Feb 05, 2025 16:23
[2025-02-05] MEDS ORDERED: ALBUMIN 25% 100 ML IV SCH (16:30)
[2025-02-05] MEDS: FUROSEMIDE 40 MG/4 ML VIAL IV SCH (17:06)
[2025-02-05 19:13] LABS: Hematocrit 26.9 % (41.0-53.0); Hemoglobin 8.9 g/dL (13.5-17.5)
[2025-02-05 20:27] LABS: Urine Protein, UAD Negative (Negative)
[2025-02-05 20:33] LABS: Protein, Urine 16.6 mg/dL (1-14)
[2025-02-06] VITALS (7 sets, daily range): BP systolic 96–119; BP diastolic 62–85; PULSE 82–110; RESP 16–18; TEMP 97.3–98.6; O2SAT 96–100
[2025-02-06 06:02] LABS: Mean Corpuscular Volume 90.5 fL (80.0-100.0)
[2025-02-06 06:03] LABS: Potassium 4.6 mmol/L (3.5-5.1)
[2025-02-06 06:04] LABS: Anion Gap 8 (5-15); Carbon Dioxide 20 mmol/L (20-31); Hematocrit 22.9 % (41.0-53.0); Hemoglobin 7.4 g/dL (13.5-17.5); Mean Corpuscular Hemoglobin 29.2 pg (28.0-32.0); Nucleated Red Blood Cells % 0.1 %
[2025-02-06 06:09] LABS: Glucose 105 mg/dL (74-106)
[2025-02-06 06:10] LABS: BUN/Creatinine Ratio 16.8 (10.0-20.0)
[2025-02-06 06:13] LABS: Blood Urea Nitrogen 50 mg/dL (9-23); Calcium 7.7 mg/dL (8.7-10.4); Chloride 107 mmol/L (98-107); Sodium 135 mmol/L (136-145)
[2025-02-06 06:23] LABS: INR 1.03 (0.9-1.15); Partial Thromboplastin Time 31.5 SEC (24.5-34.5); Prothrombin Time 10.9 sec (9.3-11.8)
[2025-02-06] MEDS: FUROSEMIDE 40 MG/4 ML VIAL IV SCH (08:00)
--- NOTE | 2025-02-06 08:46 | DVH ---
ULTRASOUND ABDOMEN limited, 4 QUADRANTS INDICATION: possible paracentesis Evaluate for ascites. TECHNIQUE: The four quadrants of the abdomen were scanned in ahn-scale to assess for the presence of ascites. No solid organ assessment was performed. FINDINGS: Moderate ascites. IMPRESSIONS: 1. Moderate ascites.
[2025-02-06] MEDS: ALBUMIN 25% 50 ML IV SCH (12:05)
--- NOTE | 2025-02-06 16:02 | DVHPN2 ---
Progress Note Date Seen: Feb 06, 2025 Medical Necessity Reason Pt with a Central, PICC or Fol: No Subjective Patient reports: Feels better Objective vital signs Vital Sign Date Time Temp Pulse Resp B/P (MAP) Pulse Ox O2 Delivery O2 Flow Rate FiO2 02/06/25 13:00 97.7 85 17 109/82 (91) 100 97.7 02/06/25 08:10 Room Air* 0 21 Total Intake and Output 02/05/25 02/05/25 02/06/25 15:00 23:00 07:00 Intake Total 400 ml 800 ml Output Total 420 ml 200 ml Balance -20 ml 600 ml medications Current Medications Medications Dose Ordered Sig/Pj Route Start Time Stop Time Status Last Admin Dose Admin Pantoprazole Sodium 40 mg BID IV 02/04/25 22:00 02/06/25 09:07 40 MG Ondansetron HCl 4 mg Q6HPRN PRN IV 02/04/25 21:45 Acetaminophen 650 mg Q6HPRN PRN PO 02/04/25 21:45 Melatonin 5 mg ONCE@2200 PRN PO 02/04/25 21:45 Acetaminophen/ Hydrocodone Bitart 1 tab Q6HPRN PRN PO 02/04/25 22:00 Albumin Human 50 ml @ 100 mls/hr Q8H IV 02/06/25 11:45 02/07/25 04:14 02/06/25 12:05 100 MLS/HR Furosemide 40 mg DAILY IV 02/07/25 10:00 Examination: GENERAL:Abnormal, CVS:Normal, ABDOMEN:Abnormal laboratory and microbiology Laboratory Tests 02/06/25 04:46 Test 02/06/25 04:46 Range/Units Serum Glucose 105 74-106 mg/dL Microbiology Date/Time Source Procedure Growth Status 02/05/25 00:59 Nose MRSA Screen - Final Complete Problem List/Assessment/Plan Problem List/Assessment/Plan CULLEN hemodynamic in the setting of diuretics r/o hepatorenal syndrome Bright red blood per rectum GI bleed Cirrhosis decompensated Anemia Recommendations Lasix 40 mg IV b.i.d. Strict Is&Os s/p paracentesis today w/ large volume removed 6L, IV albumin Plan discussed with: Patient ANDREW BAER MD Feb 06, 2025 16:02
[2025-02-06] MEDS ORDERED: FURO20TA3 PO (16:15)
[2025-02-06] MEDS ORDERED: PANT40T PO (16:15)
[2025-02-06] MEDS ORDERED: SUCR1TAB31 PO (16:15)
--- NOTE | 2025-02-06 16:20 | DVHDS2 ---
Discharge Summary Date of Admission Feb 04, 2025 at 21:45 Date of Discharge: Feb 06, 2025 Labs/Diagnostic Data: Laboratory Results Test 02/06/25 11:00 02/06/25 04:46 02/05/25 20:00 02/04/25 22:47 Body Fluid Source Peritoneal fluid Body Fluid pH 7.0 Body Fluid WBC (Manual) 111 CUMM (0-200) Body Fluid RBC (Manual) 30 CUMM (0-2000) Body Fluid Mononuclear Cells 72 % Body Fluid Polymorphonuclear Cells 24 % (0-25) White Blood Count 5.4 10^3/uL (4.4-10.8) Red Blood Count 2.53 10^6/uL (4.5-5.90) Hemoglobin 7.4 g/dL (13.5-17.5) Hematocrit 22.9 % (41.0-53.0) Mean Corpuscular Volume 90.5 fL (80.0-100.0) Mean Corpuscular Hemoglobin 29.2 pg (28.0-32.0) Mean Corpuscular Hemoglobin Concent 32.2 g/dL (32.0-36.0) Red Cell Distribution Width 15.0 % (11.8-14.3) Platelet Count 153 10^3/uL (140-450) Mean Platelet Volume 6.1 fL (6.9-10.8) Neutrophils (%) (Auto) 68.4 % (37.0-80.0) Lymphocytes (%) (Auto) 16.3 % (10.0-50.0) Monocytes (%) (Auto) 11.9 % (0.0-12.0) Eosinophils (%) (Auto) 2.6 % (0.0-7.0) Basophils (%) (Auto) 0.8 % (0.0-2.0) Neutrophils # (Auto) 3.7 10 ^3/uL (1.6-8.6) Lymphocytes # (Auto) 0.9 10 ^3/uL (0.4-5.4) Monocytes # (Auto) 0.6 10 ^3/uL (0-1.3) Eosinophils # (Auto) 0.1 10 ^3/uL (0-0.8) Basophils # (Auto) 0 10 ^3/uL (0-0.2) Nucleated Red Blood Cells 0.1 % Prothrombin Time 10.9 sec (9.3-11.8) Prothrombin Time INR 1.03 (0.9-1.15) Activated Partial Thromboplast Time 31.5 SEC (24.5-34.5) Sodium Level 135 mmol/L (136-145) Potassium Level 4.6 mmol/L (3.5-5.1) Chloride Level 107 mmol/L (98-107) Carbon Dioxide Level 20 mmol/L (20-31) Anion Gap 8 (5-15) Blood Urea Nitrogen 50 mg/dL (9-23) Creatinine 2.98 mg/dL (0.700-1.30) Glomerular Filtration Rate Calc 21 mL/min (>90) BUN/Creatinine Ratio 16.8 (10.0-20.0) Serum Glucose 105 mg/dL (74-106) Calcium Level 7.7 mg/dL (8.7-10.4) Urine Color Yellow (Yellow) Urine Clarity Clear (Clear) Urine pH 5.0 (5.0-9.0) Urine Specific [place] 1.014 (1.001-1.035) Urine Protein Negative (Negative) Urine Ketones Negative (Negative) Urine Blood Negative /uL (Negative) Urine Nitrite Negative (Negative) Urine Bilirubin Negative (Negative) Urine Urobilinogen Normal mg/dL (Negative) Urine Leukocyte Esterase Negative /uL (Negative) Urine RBC <1 /hpf (0 - 3) Urine Microscopic WBC 1 /HPF (0-3) Urine Squamous Epithelial Cells Few /hpf (<5) Urine Bacteria None seen /hpf (None Seen) Urine Hyaline Casts Mod /lpf (0 - 2) Urine Creatinine 130.84 mg/dL (30.0-125.0) Urine Sodium 29 mmol/L (40-220) Urine Glucose Normal mg/dL (Normal) Urine Total Protein 16.6 mg/dL (1-14) Lactic Acid Level 1.2 mmol/L (0.4-2.0) Total Bilirubin 0.6 mg/dL (0.2-1.0) Aspartate Amino Transferase (AST) 23 U/L (13-40) Alanine Aminotransferase (ALT) 15 U/L (7-40) Alkaline Phosphatase 98 U/L (46-116) Total Protein 7.6 g/dL (5.7-8.2) Albumin 2.8 g/dL (3.2-4.8) Other Laboratory Tests 02/06/25 04:46 Brief Hx & Hospital Course: Mr. Piero Camilo is a 74-year-old male with a history of liver cirrhosis, CKF, MT, CHF, appendectomy who presents with a chief complaint of GI bleed and abdominal distention. The spouse reports on the patient having had a GI bleed two days ago associated with the abdomen distention and umbilical pain. Denies any other symptoms at this time. Denies chills, fever, N/V/D, SOB, CP. No other associated symptoms, modifiers, recent injuries or sick contacts present at this time. He is admitted and once again educated regarding close outpatient follow up with the primary care physician and referrals to GI and Nephrology. Patient had a paracentesis today about 5 L of fluid removed. Patient's hemoglobin relatively stable between seven and eight without any evidence of significant drop. He did not have any active GI bleeding. His stools are normal without any dark or red blood per rectum per patient. I have talked with the patient yesterday today along with the his son-in-law at bedside and patient reported having normal bowel movements. I have also talked with the son-in-law regarding his kidney and liver failure and anemia as well as other medical diagnosis and advised them to have close follow up as outpatient basis as mentioned. I have also discussed with the on-call [facility] machine adjuster leader case trim to have close follow up as an outpatient basis. Patient is advised to continue his outpatient paracentesis once a week as he is scheduled at [facility] with Dr.Rahul Vale. Given the patient is not having any acute problems or complaints having had paracentesis it is felt he could be safely discharged home with close outpatient follow up as mentioned. Patient is advised to continue proton pump inhibitor and Carafate as he is prescribed. He is advised to stop lisinopril metformin and Aldactone due to his kidney failure. Patient and family verbalized understanding his hospital diagnosis, treatment he received, discharge medications, discharge instructions and agree with the discharge follow-up plan of care as outlined Consults/Reason for consult Assessment CULLEN hemodynamic in the setting of diuretics r/o hepatorenal syndrome Bright red blood per rectum GI bleed Cirrhosis decompensated Anemia Recommendations Lasix 40 mg IV b.i.d. Albumin IV as ordered Urine workup Strict Is&Os Plan discussed with: Patient PARISH PERKINS MD Feb 05, 2025 16:23 Condition at Discharge: Stable Final Diagnosis/Problems List Recurrent ascites status post paracentesis, end-stage liver cirrhosis, hepatorenal syndrome, anemia of chronic disease, CKD iv Discharge Disposition: Home Discharge Instruct/Medications Diet: Consistent carbohydrate, Cardiac 2g Na,low cholest Activity: No Restrictions, As Tolerated Follow Up/Referral: Primary care physician next week and referral to corporate secretary and mirror fabrication supervisor for further management of advanced liver cirrhosis and renal failure. Follow up at [facility] urgent Care next Thursday to repeat labs for hemoglobin and kidney function. Medications: Stop taking metformin, Aldactone, spironolactone due to your kidney failure. Continue to take other home medications as per discharge med reconciliation list. Scheduled Atorvastatin Calcium (Lipitor), 1 MG PO DAILY, (Reported) Cholecalciferol (D3), 25 MCG PO DAILY, (Reported) Famotidine (Famotidine), 20 MG PO DAILY, (Reported) Finasteride (Finasteride), 5 MG PO DAILY, (Reported) Furosemide (Furosemide), 20 MG PO DAILY Lisinopril (Lisinopril), 20 MG PO DAILY, (Reported) Magnesium Oxide (Magnesium Oxide), 1 TAB PO DAILY, (Reported) Metformin Hydrochloride (Metformin Hcl), 1,000 MG PO DAILY, (Reported) Multiple Vitamin (Multi-Day Vitamins), 1 TAB PO DAILY, (Reported) Pantoprazole Sodium Sesquihydr (Pantoprazole Sodium), 40 MG PO BID Spironolactone (Spironolactone), 1 TAB PO DAILY, (Reported) Sucralfate (Carafate), 1 GM PO QID Tocopheryl Acetate, Dl-Alpha ( (Vitamin E), 1,000 MG PO DAILY, (Reported) Miscellaneous Medications Tocopherol, Dl-Alpha (Vitamin E), 1 XX, (Reported) Discharge Statement: "Patient was advised to return to the ER or call 911 if any headaches, dizziness, shortness of breath, chest pain, abdominal pain, bleeding, fevers, or worsening of medical condition. Patient was counseled about treatment plan, medications, possible side effects, patientverbalized understanding. All questions were answered to the best of my ability. This discharge took greater then 30 minutes in planning, reviewing documentation, counseling the patient, and discussing with other team members." ASSESSMENT ASSESSMENT Assessment Recurrent ascites status post paracentesis, end-stage liver cirrhosis, hepatorenal syndrome, anemia of chronic disease, CKD iv TERRANCE SAM MD Feb 06, 2025 16:20
[2025-02-06] MEDS: ALBUMIN 25% 50 ML IV ONE (17:42)
[2025-02-06] MEDS: TAMSULOSIN HYDROCHLORIDE 0.4 MG CAP PO SCH (17:49)
--- NOTE | 2025-02-06 18:15 | DVHINCON2 ---
Date of service: Feb 04, [address] de Patient seen on February 04 but could not dictation did not come through apparent could not redictate till March 08 Reason for Consultation Abdominal pain liver cirrhosis congestive heart failure distention some mild hematemesis History of Present Illness 74-year-old male with a history of cirrhosis congestive heart failure admitted with complaints of abdominal distention and some mild coffee-ground emesis. No No melena no fever or other systemic symptoms Past Medical History Cirrhosis AL congestive heart failure Past Surgical History None Family History: FH: cancer G8 SISTER Family History None Social History Denies smoking but history of drinking Allergies: Coded Allergies: NO KNOWN ALLERGIES (Unverified , 03/29/20) Home Meds Active Scripts Furosemide (Furosemide) 20 Mg Tab, 20 MG PO DAILY, #30 TAB Prov:TERRANCE SAM MD 02/06/25 Sucralfate (CARAFATE) 1 Gm Tab, 1 GM PO QID, #120 TAB Prov:TERRANCE SAM MD 02/06/25 Pantoprazole Sodium Sesquihydr (Pantoprazole Sodium) 40 Mg Tab, 40 MG PO BID, #60 TAB Prov:TERRANCE SAM MD 02/06/25 Reported Medications Spironolactone (Spironolactone) 50 Mg Tab, 1 TAB PO DAILY, #30 TAB 5 Refills 02/05/25 Cholecalciferol (D3) 25 Mcg Chw, 25 MCG PO DAILY, TAB.CHEW 06/06/24 Magnesium Oxide (MAGNESIUM OXIDE) 400 Mg Tab, 1 TAB PO DAILY, #30 TAB 5 Refills 06/06/24 Tocopheryl Acetate, Dl-Alpha ( (Vitamin E) 90 Mg Cap, 1000 MG PO DAILY, CAP 06/06/24 Tocopherol, Dl-Alpha (Vitamin E) Liq, 1 XX, LIQ 06/06/24 Atorvastatin Calcium (Lipitor) 10 Mg Tab, 1 MG PO DAILY, #90 TAB 1 Refill 06/06/24 Famotidine (Famotidine) 20 Mg Tab, 20 MG PO DAILY for 30 Days, MG 06/06/24 Finasteride (Finasteride) 5 Mg Tab, 5 MG PO DAILY for 30 Days, MG 06/06/24 Metformin Hydrochloride (Metformin Hcl) 500 Mg Tab, 1000 MG PO DAILY for 30 Days, MG 06/06/24 Lisinopril (Lisinopril) 20 Mg Tab, 20 MG PO DAILY for 30 Days, MG 06/06/24 Multiple Vitamin (Multi-Day Vitamins) Vitamins Tab, 1 TAB PO DAILY, #30 TAB 03/30/20 Current Medications Current Medications Medications (Trade) Dose Ordered Sig/Pj Route PRN Reason Start Time Stop Time Status Last Admin Furosemide (Lasix Injection) 40 mg BIDD IV 02/06/25 08:00 02/06/25 15:05 DC Albumin Human 50 ml @ 100 mls/hr Q8H IV 02/06/25 11:45 02/06/25 17:34 DC 02/06/25 12:05 Furosemide (Lasix Injection) 40 mg DAILY IV 02/07/25 10:00 Tamsulosin HCl (Flomax) 0.4 mg QPM PO 02/06/25 18:00 02/06/25 17:49 Review of Systems Noncontributory Vital Signs Vital Signs Date Time Temp Pulse Resp B/P (MAP) Pulse Ox O2 Delivery O2 Flow Rate FiO2 02/06/25 13:00 97.7 85 17 109/82 (91) 100 97.7 02/06/25 08:10 Room Air* 0 21 Physical Exam Moderately built and nourished male in no acute distress Vitals stable Lungs are clear Cardiovascular unremarkable Abdomen is abdomen distended no tympany no rigidity no guarding Possible ascites Labs/Diagnostic Data Labs Test 02/06/25 11:00 02/06/25 04:46 02/05/25 20:00 02/04/25 22:47 Range/Units Body Fluid Source Peritoneal fluid Body Fluid pH 7.0 Body Fluid WBC (Manual) 111 0-200 CUMM Body Fluid RBC (Manual) 30 0-2000 CUMM Body Fluid Mononuclear Cells 72 % Body Fluid Polymorphonuclear Cells 24 0-25 % White Blood Count 5.4 4.4-10.8 10^3/uL Red Blood Count 2.53 L 4.5-5.90 10^6/uL Hemoglobin 7.4 #L 13.5-17.5 g/dL Hematocrit 22.9 #L 41.0-53.0 % Mean Corpuscular Volume 90.5 80.0-100.0 fL Mean Corpuscular Hemoglobin 29.2 28.0-32.0 pg Mean Corpuscular Hemoglobin Concent 32.2 32.0-36.0 g/dL Red Cell Distribution Width 15.0 H 11.8-14.3 % Platelet Count 153 140-450 10^3/uL Mean Platelet Volume 6.1 L 6.9-10.8 fL Neutrophils (%) (Auto) 68.4 37.0-80.0 % Lymphocytes (%) (Auto) 16.3 10.0-50.0 % Monocytes (%) (Auto) 11.9 0.0-12.0 % Eosinophils (%) (Auto) 2.6 0.0-7.0 % Basophils (%) (Auto) 0.8 0.0-2.0 % Neutrophils # (Auto) 3.7 1.6-8.6 10 ^3/uL Lymphocytes # (Auto) 0.9 0.4-5.4 10 ^3/uL Monocytes # (Auto) 0.6 0-1.3 10 ^3/uL Eosinophils # (Auto) 0.1 0-0.8 10 ^3/uL Basophils # (Auto) 0 0-0.2 10 ^3/uL Nucleated Red Blood Cells 0.1 % Prothrombin Time 10.9 9.3-11.8 sec Prothrombin Time INR 1.03 0.9-1.15 Activated Partial Thromboplast Time 31.5 24.5-34.5 SEC Sodium Level 135 L 136-145 mmol/L Potassium Level 4.6 3.5-5.1 mmol/L Chloride Level 107 98-107 mmol/L Carbon Dioxide Level 20 20-31 mmol/L Anion Gap 8 5-15 Blood Urea Nitrogen 50 #H 9-23 mg/dL Creatinine 2.98 H 0.700-1.30 mg/dL Glomerular Filtration Rate Calc 21 >90 mL/min BUN/Creatinine Ratio 16.8 10.0-20.0 Serum Glucose 105 74-106 mg/dL Calcium Level 7.7 L 8.7-10.4 mg/dL Urine Color Yellow Yellow Urine Clarity Clear Clear Urine pH 5.0 5.0-9.0 Urine Specific [place] 1.014 1.001-1.035 Urine Protein Negative Negative Urine Ketones Negative Negative Urine Blood Negative Negative /uL Urine Nitrite Negative Negative Urine Bilirubin Negative Negative Urine Urobilinogen Normal Negative mg/dL Urine Leukocyte Esterase Negative Negative /uL Urine RBC <1 0 - 3 /hpf Urine Microscopic WBC 1 0-3 /HPF Urine Squamous Epithelial Cells Few <5 /hpf Urine Bacteria None seen None Seen /hpf Urine Hyaline Casts Mod 0 - 2 /lpf Urine Creatinine 130.84 H 30.0-125.0 mg/dL Urine Sodium 29 L 40-220 mmol/L Urine Glucose Normal Normal mg/dL Urine Total Protein 16.6 H 1-14 mg/dL Lactic Acid Level 1.2 0.4-2.0 mmol/L Total Bilirubin 0.6 0.2-1.0 mg/dL Aspartate Amino Transferase (AST) 23 13-40 U/L Alanine Aminotransferase (ALT) 15 7-40 U/L Alkaline Phosphatase 98 46-116 U/L Total Protein 7.6 5.7-8.2 g/dL Albumin 2.8 L 3.2-4.8 g/dL Microbiology Date/Time Source Procedure Growth Status 02/05/25 00:59 Nose MRSA Screen - Final Complete Assessment 74-year-old with a history of liver cirrhosis congestive heart failure AL with complaints of some GI bleed and abdominal distention some hematemesis Hemoglobin is stable Patient is sitting paracentesis on a weekly basis for ascites No 70 gross bleeding to do any endoscopic workup at this time Plan/Recommendation We will recommend to follow the hemoglobin and crit And follow as an outpatient Thank you Dr. Pappas Plan discussed with: Patient KAR PAPPAS MD Feb 06, 2025 18:15
[2025-02-07] MEDS ORDERED: FUROSEMIDE 40 MG/4 ML VIAL IV SCH (10:00)
[2025-02-07 13:07] LABS: Glucose, Body Fluid 141.0 mg/dL (.)
--- NOTE | 2025-02-07 14:27 | DVH ---
PROCEDURE: ULTRASOUND GUIDED PARACENTESIS HISTORY: 74 Male requiring paracentesis. TECHNIQUE: The risks and benefits of the procedure including but not limited to bleeding, infection and injury to abdominal organs were explained to the patient and written informed consent was obtained. Optimal site for puncture was determined using ultrasound and the area sterilized and draped. Using a 5 Yi Yueh catheter, paracentesis was performed in the right lower quadrant abdomen. Approximately 6 liters of clear fluid was removed. The patient tolerated the procedure well. There were no immediate complications. IMPRESSION: 1. Ultrasound-guided paracentesis with no immediate complications. MUHAMMAD
== END 2025-02-06 19:00 | disposition home or self-care (01) | DRG 432 ==
LOC: ER 16:11 → OVERFLOW 21:45 → TELE-WESTW 22:00 → TELE-EAST 02-05 01:03 → TELE-WESTW 02-05 01:10
PROVIDERS: ADMIT Hospitalist; ATTEND Hospitalist
PROC: 0W9G3ZZ Drainage of Peritoneal Cavity, Percutaneous Approach (ICD-10-PCS; principal; 2025-02-06)
DX: K74.60 Unspecified cirrhosis of liver (principal); K76.7 Hepatorenal syndrome; K92.0 Hematemesis; N17.9 Acute kidney failure, unspecified; K92.2 Gastrointestinal hemorrhage, unspecified; N18.4 Chronic kidney disease, stage 4 (severe); D63.8 Anemia in other chronic diseases classified elsewhere; K92.1 Melena; I50.9 Heart failure, unspecified; R18.8 Other ascites; F17.210 Nicotine dependence, cigarettes, uncomplicated; Z90.49 Acquired absence of other specified parts of digestive tract; I25.2 Old myocardial infarction
CPT/HCPCS: 36415; 49083; 74176; 76705; 76942; 80048; 80053; 81001; 82570; 83605; 83986; 84156; 84300; 85014; 85018; 85025; 85610; 85730; 87071; 87081; 87205; 89051; 93005; 96365; 96366; 96375; 99291; G0378; J2405; J2470

== ENCOUNTER 2025-02-16 20:19 | Inpatient (IN) | payer OTHER ==
[~2025-02-16] VITALS: Ht 185.4 cm; Wt 63.5 kg
[2025-02-16] MEDS: CALCIUM GLUC 1,000mg/50ml-NS 50 ML IV ONE (00:45)
[~2025-02-16 20:19] MED LIST changes: -FAMO-12 PO; +FURO20TA3 PO; -LISI20TA56 PO; -METF-370 PO
--- NOTE | 2025-02-16 20:34 | ECG ---
[facility] Test Date: 2025-02-16 Test Time: 20:30:09 Pat Name: YOSEPH LEI Department: ED Room: 0245T Gender: M Retirement Assistant: KONG : 1950 Requested By: EMERGENCY EMERGENCY Order Number: [id number] Reading MD: Dannie Nuñez Measurements Intervals [place] Rate: 104 P: 73 WA: 177 QRS: -43 QRSD: 95 T: 61 QT: 322 QTc: 424 Interpretive Statements Sinus tachycardia Left axis deviation Probable anteroseptal infarct, recent Electronically Signed On 02-21-2025 14:51:44 PST by Dannie Nuñez Please click the below link to view image of tracing.
[2025-02-16 20:40] VITALS: PULSE 106; O2SAT 99
--- NOTE | 2025-02-16 20:58 | ED.PDOC ---
Altered Mental Status HPI Comments 74-year-old male who came to ER via EMS for altered level of consciousness. Patient was just discharged here 10 days ago, diagnosed with Recurrent ascites status post paracentesis, end-stage liver cirrhosis, hepatorenal syndrome, anemia of chronic disease, CKD iv. Was noted that patient has been acting altered and confused in the past 12 hours, states this usually happens when he is ammonia levels are high Chief Complaint: ALOC Time Seen by MD: 20:58 Primary Care Provider: MAYKEL Lopez Notes: Tariff Compiling Clerk Notes Allergies: Coded Allergies: NO KNOWN ALLERGIES (Unverified , 03/29/20) Home Meds Active Scripts Furosemide (Furosemide) 20 Mg Tab, 20 MG PO DAILY, #30 TAB Prov:TERRANCE SAM MD 02/06/25 Sucralfate (CARAFATE) 1 Gm Tab, 1 GM PO QID, #120 TAB Prov:TERRANCE SAM MD 02/06/25 Pantoprazole Sodium Sesquihydr (Pantoprazole Sodium) 40 Mg Tab, 40 MG PO BID, #60 TAB Prov:TERRANCE SAM MD 02/06/25 Reported Medications Cholecalciferol (D3) 25 Mcg Chw, 25 MCG PO DAILY, TAB.CHEW 06/06/24 Magnesium Oxide (MAGNESIUM OXIDE) 400 Mg Tab, 1 TAB PO DAILY, #30 TAB 5 Refills 06/06/24 Tocopheryl Acetate, Dl-Alpha ( (Vitamin E) 90 Mg Cap, 1000 MG PO DAILY, CAP 06/06/24 Tocopherol, Dl-Alpha (Vitamin E) Liq, 1 XX, LIQ 06/06/24 Atorvastatin Calcium (Lipitor) 10 Mg Tab, 1 MG PO DAILY, #90 TAB 1 Refill 06/06/24 Finasteride (Finasteride) 5 Mg Tab, 5 MG PO DAILY for 30 Days, MG 06/06/24 Multiple Vitamin (Multi-Day Vitamins) Vitamins Tab, 1 TAB PO DAILY, #30 TAB 03/30/20 Information Source: Emergency Med Personnel Mode of Arrival: EMS Past Medical History PAST MEDICAL HISTORY: CHF, CKF, Liver, [place] Past Medical History (Other): Liver cirrhosis Surgical History: Appendectomy, Tonsillectomy Family History Family History: Reviewed,noncontributory to illness, Unknown Social History Smoker: Cigarettes, Less Than 1 Pack/Day Alcohol: Denies ETOH Use Drugs: Denies Drug Use Lives In: Home Unable to Obtain due to: Altered Mental Status Physical Exam General Appearance: No Apparent Distress, Normal HEENT: Normal ENT Inspection, Pharynx Normal, TMs Normal Neck: Full Range of Motion, Non-Tender, Normal, Normal Inspection Respiratory: Chest Non-Tender, Lungs Clear, No Accessory Muscle Use, No Respiratory Distress, Normal Breath Sounds Cardiovascular: No Edema, No JVD, No Murmur, No Gallop, Normal Peripheral Pulses, Regular Rate/Rhythm Breast Exam: Deferred Gastrointestinal: No Organomegaly, Non Tender, No Pulsatile Mass, Normal Bowel Sounds, Soft Genitalia: Deferred Pelvic: Deferred Rectal: Deferred Extremities: No calf tenderness, Normal capillary refill, Normal inspection, Normal range of motion, Non-tender, No pedal edema Musculoskeletal : Apperance: Normal Neurologic: Alert, caregiver assisted living II-XII nml as Tested, No Motor Deficits, Normal Affect, Normal Mood, No Sensory Deficits Cerebellar Function: Normal Reflexes: Normal Skin: Dry, Normal Color, Warm Lymphatic: No Adenopathy Was a procedure done? Was a procedure done?: No Differential Diagnosis (ALOC) Differential Diagnosis: Hypoglycemia, Encephalopathy, Sepsis, Renal Failure, Other (Liver cirrhosis) X-Ray, Labs, Meds, VS Vital Signs Date Time Temp Pulse Resp B/P (MAP) Pulse Ox O2 Delivery O2 Flow Rate FiO2 02/16/25 22:00 102 12 121/74 (90) 94 02/16/25 20:40 97.6 106 14 133/51 (78) 14 97.6 02/16/25 20:40 106 99 Room Air* 0 21 02/16/25 20:30 104 02/16/25 20:22 96.6 103 16 121/65 98 96.6 Lab Test 02/16/25 21:20 02/16/25 20:42 Range/Units Ammonia 129 *H 11-32 umol/L White Blood Count 7.4 4.4-10.8 10^3/uL Red Blood Count 3.08 L 4.5-5.90 10^6/uL Hemoglobin 8.9 L 13.5-17.5 g/dL Hematocrit 26.9 L 41.0-53.0 % Mean Corpuscular Volume 87.4 80.0-100.0 fL Mean Corpuscular Hemoglobin 28.9 28.0-32.0 pg Mean Corpuscular Hemoglobin Concent 33.1 32.0-36.0 g/dL Red Cell Distribution Width 14.2 11.8-14.3 % Platelet Count 141 140-450 10^3/uL Mean Platelet Volume 6.3 L 6.9-10.8 fL Neutrophils (%) (Auto) 83.7 H 37.0-80.0 % Lymphocytes (%) (Auto) 7.7 L 10.0-50.0 % Monocytes (%) (Auto) 7.8 0.0-12.0 % Eosinophils (%) (Auto) 0.3 0.0-7.0 % Basophils (%) (Auto) 0.5 0.0-2.0 % Neutrophils # (Auto) 6.2 1.6-8.6 10 ^3/uL Lymphocytes # (Auto) 0.6 0.4-5.4 10 ^3/uL Monocytes # (Auto) 0.6 0-1.3 10 ^3/uL Eosinophils # (Auto) 0 0-0.8 10 ^3/uL Basophils # (Auto) 0 0-0.2 10 ^3/uL Nucleated Red Blood Cells 0.0 % Prothrombin Time 10.6 9.3-11.8 sec Prothrombin Time INR 1.00 0.9-1.15 Activated Partial Thromboplast Time 31.0 24.5-34.5 SEC Sodium Level 134 L 136-145 mmol/L Potassium Level 5.4 H 3.5-5.1 mmol/L Chloride Level 105 98-107 mmol/L Carbon Dioxide Level 20 20-31 mmol/L Anion Gap 9 5-15 Blood Urea Nitrogen 63 H 9-23 mg/dL Creatinine 2.95 H 0.700-1.30 mg/dL Glomerular Filtration Rate Calc 21 >90 mL/min BUN/Creatinine Ratio 21.4 H 10.0-20.0 Serum Glucose 166 H 74-106 mg/dL Calcium Level 8.2 L 8.7-10.4 mg/dL Magnesium Level 2.5 1.6-2.6 mg/dL Total Bilirubin 0.6 0.2-1.0 mg/dL Aspartate Amino Transferase (AST) 30 13-40 U/L Alanine Aminotransferase (ALT) 21 7-40 U/L Alkaline Phosphatase 91 46-116 U/L Total Protein 6.9 5.7-8.2 g/dL Albumin 2.6 L 3.2-4.8 g/dL Plasma/Serum Blood Alcohol < 3.0 <10 mg/dL Current Medications Medications (Trade) Dose Ordered Sig/Pj Route Start Time Stop Time Status Last Admin Sodium Chloride 500 ml @ 500 mls/hr Q1H ONCE IVB 02/16/25 21:00 02/16/25 21:59 DC 02/16/25 21:30 EXAM: CT HEAD WITHOUT CONTRAST INDICATION: ALOC TECHNIQUE: CT of the head without intravenous contrast. Radiation Dose Information: CT Dose: CTDI volume is 50.87 mGy. Dose-length product is 900.9 mGy*cm The dose indicators for CT are the volume Computed Tomography (CT) Dose Index (CTDIvol) and the Dose Length Product (DLP), and are measured in units of mGy and mGy-cm, respectively. These indicators are not patient dose, but values generated from the CT scanner acquisition factors. The report includes radiation exposure data for exposures received during this examination. COMPARISON: None FINDINGS: There is no evidence of acute intracranial hemorrhage, extra-axial collection, mass effect, midline shift, herniation or hydrocephalus. The ventricles, sulci and cisterns are age appropriate. The kingston-white differentiation is intact. Patchy periventricular and subcortical white matter hypoattenuation is nonspecific but may be related to small vessel ischemic disease. The visualized paranasal sinuses and mastoid air cells are clear. The surrounding soft tissues and osseous structures are unremarkable. IMPRESSION: No acute intracranial abnormality. T RADIOGRAPH Indication: SOB Technique: Single frontal view of the chest was obtained COMPARISON: XY CHEST PORTABLE on DOS: 06/20/24, XY CHEST PORTABLE on DOS: 06/06/24, CHEST PORTABLE on DOS: 03/29/20 FINDINGS: Lungs and pleural spaces are clear. Cardiac silhouette and ricki are within normal limits. Bones and soft tissues demonstrate no significant abnormality. IMPRESSION: No acute disease. Time of 1ST Reevaluation: 20:52 Reevaluation 1ST: Unchanged Patient Education/Counseling: Other (Altered level of consciousness) Family Education/Counseling: No Family Present SEPSIS Sepsis Screen Date sepsis recognized/suspect: Feb 16, 2025 Time Sepsis recognized/suspect: 2025 Recent Procedure: No On Antibiotic Therapy: No Respiratory Rate >20: No Heart Rate >90: Yes Temp<36 C (96.8 F) or >38.3 C: Yes SBP <90 or MAP <65 mmHG: No New Acute Mental Status Change: No Is the patient on CPAP, BIPAP,: No Physician Orders User Experience Lead (02/16/25 20:26) Urinalysis (02/16/25 20:50) Chest Portable (02/16/25 20:50) Head Without Contrast (02/16/25 20:50) Drug Screen (02/16/25 20:50) User Experience Lead (02/16/25 20:50) Vital Signs Date Time Temp Pulse Resp B/P (MAP) Pulse Ox O2 Delivery O2 Flow Rate FiO2 02/16/25 22:00 102 12 121/74 (90) 94 02/16/25 20:40 97.6 106 14 133/51 (78) 14 97.6 02/16/25 20:40 106 99 Room Air* 0 21 02/16/25 20:30 104 02/16/25 20:22 96.6 103 16 121/65 98 96.6 Laboratory Tests Test 02/16/25 20:42 White Blood Count 7.4 10^3/uL (4.4-10.8) Medications Medications Dose Ordered Sig/Pj Route Start Time Stop Time Status Last Admin Dose Admin Sodium Chloride 500 ml @ 500 mls/hr Q1H ONCE IVB 02/16/25 21:00 02/16/25 21:59 DC 02/16/25 21:30 Departure 1 Departure Time of Disposition: 23:00 Impression: Primary Impression: Liver cirrhosis Additional Impressions: Metabolic encephalopathy Hepatic encephalopathy Hepatorenal syndrome Disposition: ADMITTED INPATIENT Admit to: Tele Condition: Stable Discharged With: Self Comments 74-year-old male with a history of liver cirrhosis now with altered mental status. Ammonia level is high at 129. He has renal failure/acute renal injury with BUN creatinine high at 63 and 2.95. Patient will need to be admitted for supportive care and further workup. Critical Care Note Critical Care Time?: Yes (35 min-critical care time only) Critical care comment: ALOC Total critical care time: Approximately 36 minutes Due to a high probability of clinically significant, life threatening deterioration, the patient required my highest level of preparedness to intervene emergently and I personally spent this critical care time directly and personally managing the patient. This critical care time included obtaining a history; examining the patient; pulse oximetry; ordering and review of studies; arranging urgent treatment with development of a management plan; evaluation of patient's response to treatment; frequent reassessment; and, discussions with other providers. This critical care time was performed to assess and manage the high probability of imminent, life-threatening deterioration that could result in multi-organ failure. It was exclusive of separately billable procedures and treating other patients. Stability Stability form required: No Heart Score Heart Score: Heart Score Response (Comments) Value History N/A 0 EKG N/A 0 Age N/A 0 Risk Factors N/A 0 Troponin N/A 0 Total 0 I personally scribed for ROBERT CANAS MD ([email or web address]) on 02/16/25 at 20:58. Electronically submitted by Freddie Contreras ([email or web address]). I personally scribed for ROBERT CANAS MD ([email or web address]) on 02/16/25 at 22:05. Electronically submitted by Freddie Contreras ([email or web address]). ROBERT CANAS MD Feb 16, 2025 20:58
[2025-02-16 21:08] LABS: Hematocrit 26.9 % (41.0-53.0); Hemoglobin 8.9 g/dL (13.5-17.5); Mean Corpuscular Hemoglobin 28.9 pg (28.0-32.0); Mean Corpuscular Volume 87.4 fL (80.0-100.0); Nucleated Red Blood Cells % 0.0 %
[2025-02-16 21:22] LABS: INR 1.0 (0.9-1.15); Partial Thromboplastin Time 31.0 SEC (24.5-34.5); Prothrombin Time 10.6 sec (9.3-11.8)
[2025-02-16 21:25] LABS: Alanine Aminotransferase 21 U/L (7-40); Alkaline Phosphatase 91 U/L (46-116); Anion Gap 9 (5-15); BUN/Creatinine Ratio 21.4 (10.0-20.0); Bilirubin, Total 0.6 mg/dL (0.2-1.0); Chloride 105 mmol/L (98-107); Magnesium 2.5 mg/dL (1.6-2.6); Total Protein 6.9 g/dL (5.7-8.2)
[2025-02-16 21:29] LABS: Albumin 2.6 g/dL (3.2-4.8); Blood Urea Nitrogen 63 mg/dL (9-23); Calcium 8.2 mg/dL (8.7-10.4); Carbon Dioxide 20 mmol/L (20-31); Glucose 166 mg/dL (74-106); Potassium 5.4 mmol/L (3.5-5.1); Sodium 134 mmol/L (136-145)
[2025-02-16] MEDS: SODIUM CHLORIDE 0.9% 500 ML IVB ONE (21:30)
--- NOTE | 2025-02-16 21:45 | DVH ---
EXAM: CT HEAD WITHOUT CONTRAST INDICATION: ALOC TECHNIQUE: CT of the head without intravenous contrast. Radiation Dose Information: CT Dose: CTDI volume is 50.87 mGy. Dose-length product is 900.9 mGy*cm The dose indicators for CT are the volume Computed Tomography (CT) Dose Index (CTDIvol) and the Dose Length Product (DLP), and are measured in units of mGy and mGy-cm, respectively. These indicators are not patient dose, but values generated from the CT scanner acquisition factors. The report includes radiation exposure data for exposures received during this examination. COMPARISON: None FINDINGS: There is no evidence of acute intracranial hemorrhage, extra-axial collection, mass effect, midline shift, herniation or hydrocephalus. The ventricles, sulci and cisterns are age appropriate. The kingston-white differentiation is intact. Patchy periventricular and subcortical white matter hypoattenuation is nonspecific but may be related to small vessel ischemic disease. The visualized paranasal sinuses and mastoid air cells are clear. The surrounding soft tissues and osseous structures are unremarkable. IMPRESSION: No acute intracranial abnormality.
--- NOTE | 2025-02-16 21:47 | DVH ---
CHEST RADIOGRAPH Indication: SOB Technique: Single frontal view of the chest was obtained COMPARISON: XY CHEST PORTABLE on DOS: 06/20/24, XY CHEST PORTABLE on DOS: 06/06/24, CHEST PORTABLE on DOS: 03/29/20 FINDINGS: Lungs and pleural spaces are clear. Cardiac silhouette and ricki are within normal limits. Bones and soft tissues demonstrate no significant abnormality. IMPRESSION: No acute disease.
[2025-02-16] MEDS ORDERED: ONDANSETRON HCL 4 MG/2 ML VIAL IV PRN (23:45)
[2025-02-17] VITALS (8 sets, daily range): BP systolic 96–116; BP diastolic 58–72; PULSE 91–105; RESP 16–20; TEMP 97.3–98.5; O2SAT 1–100
[2025-02-17] MEDS: SODIUM BICARB 8.4% 50Meq/50ml SYR INJ IV ONE
[2025-02-17] MEDS: LACTULOSE 20Gm/30ML SOLN PO ONE (00:07)
--- NOTE | 2025-02-17 00:09 | DVHHP2 ---
Admitting Diagnosis: Hepatic encephalopathy, Metabolic encephalopathy, Hepatorenal syndrome, Ascites, Hyperkalemia History of Present Illness Exam Limitations: Clinical condition HPI Mr. Piero Camilo is a 74-year-old male with a history of End stage liver cirrhosis, CKF, CHF, [place], recurrent ascites presents with altered level of consciousness. Patient was just discharged here 10 days ago, diagnosed with Recurrent ascites status post paracentesis, end-stage liver cirrhosis, hepatorenal syndrome, anemia of chronic disease, CKD iv. Reported by family that is was noted that patient has been acting altered and confused in the past 12 hours, states this usually happens when he is ammonia levels are high. Patient with an ammonia level of 129, K 5.4, BUN 63/2.95. Patient admitted for further evaluation and treatment. Home Meds Active Scripts Furosemide (Furosemide) 20 Mg Tab, 20 MG PO DAILY, #30 TAB Prov:TERRANCE SAM MD 02/06/25 Sucralfate (CARAFATE) 1 Gm Tab, 1 GM PO QID, #120 TAB Prov:TERRANCE SAM MD 02/06/25 Pantoprazole Sodium Sesquihydr (Pantoprazole Sodium) 40 Mg Tab, 40 MG PO BID, #60 TAB Prov:TERRANCE SAM MD 02/06/25 Reported Medications Atorvastatin Calcium (Lipitor) 10 Mg Tab, 1 MG PO DAILY, #90 TAB 1 Refill 06/06/24 Discontinued Reported Medications Cholecalciferol (D3) 25 Mcg Chw, 25 MCG PO DAILY, TAB.CHEW 06/06/24 Magnesium Oxide (MAGNESIUM OXIDE) 400 Mg Tab, 1 TAB PO DAILY, #30 TAB 5 Refills 06/06/24 Tocopheryl Acetate, Dl-Alpha ( (Vitamin E) 90 Mg Cap, 1000 MG PO DAILY, CAP 06/06/24 Tocopherol, Dl-Alpha (Vitamin E) Liq, 1 XX, LIQ 06/06/24 Finasteride (Finasteride) 5 Mg Tab, 5 MG PO DAILY for 30 Days, MG 06/06/24 Multiple Vitamin (Multi-Day Vitamins) Vitamins Tab, 1 TAB PO DAILY, #30 TAB 03/30/20 Past Medical History Cardiac: CHF, [place] Hepatobiliary: Cirrhosis (end stage liver cirrhosis) Renal/: CKD Patient Family History: FH: cancer G8 SISTER Smoker: No Hx (Negative) Alocohol: None Drugs: None Lives with: With family Domestic Violence: Neg Review of Systems Comments unable to do ROS patient ALOC H&P Exam Vital Signs Vital Signs Date Time Temp Pulse Resp B/P (MAP) Pulse Ox O2 Delivery O2 Flow Rate FiO2 02/16/25 22:00 102 12 121/74 (90) 94 02/16/25 20:40 97.6 97.6 02/16/25 20:40 Room Air* 0 21 General Appeara: Other (ill appearing) Head Exam: Normal inspection Neck Exam: Normal inspection, Non-tender, Normal alignment Eye Exam: bilateral eye Normal inspection, bilateral eye PERRL, bilateral eye EOMI Ear Exam: bilateral ear Auricle normal Nasal Exam: Normal inspection Mouth: Dry mouth Pulmonary/Respiratory: Normal inspection, Normal breath sounds, Chest non-t sarina Cardiovascular/Chest: Normal inspection, Regular rate, Normal Rhythm Peripheral Pulses: 2+ dorsalis pedis (R), 2+ dorsalis pedis (L), 2+ Radial (R), 2+ Radial (L) Abdominal Exam: Other (abdominal distention/firm) Tendon/ Neuro: Normal sensation CLINICAL PROJECT MANAGER Exam: Other (ALOC) Neuro/Mental St: Lethargic Appearance: Other (ill appearing) Eye contact/ Speech: Avoids eye contact Skin Exam: Normal inspection, Warm/dry SEPSIS Sepsis Screen Date sepsis recognized/suspect: Feb 16, 2025 Time Sepsis recognized/suspect: 2039 Recent Procedure: Yes On Antibiotic Therapy: No Respiratory Rate >20: No Heart Rate >90: Yes Temp<36 C (96.8 F) or >38.3 C: No SBP <90 or MAP <65 mmHG: No New Acute Mental Status Change: Yes Is the patient on CPAP, BIPAP,: No Physician Orders Chief Operator Lock Tender (02/16/25 20:26) Urinalysis (02/16/25 20:50) Chest Portable (02/16/25 20:50) Head Without Contrast (02/16/25 20:50) Drug Screen (02/16/25 20:50) Chief Operator Lock Tender (02/16/25 20:50) *[facility] (02/16/25 23:23) Hemoglobin A1c (02/16/25 23:23) Type And Screen (02/16/25 23:23) Albumin 25% (Albutein) (02/16/25 23:30) B-Type Natriuretic Peptide (02/16/25 23:34) *[facility] (02/16/25 23:32) Fall Risk Precautions In Place QSHIFT (02/16/25 23:32) Strict Aspiration Precautions (02/16/25 23:32) Swallow Eval Follow Up (02/16/25 23:32) Stat Ekg For Chest Pain (02/16/25 23:32) Notify Md Of Changes From Base (02/16/25 23:32) Financial Sales Manager For 24 Hours (02/16/25 23:32) Emergency Dysrhythmia Protocol (02/16/25:) Rhythm Strips Once Every Shift (02/16/25 23:32) Oxygen By Nasal Cannula (02/16/25 23:32) Lactulose Oral (02/17/25 00:00) Ondansetron Hcl (Zofran) (02/16/25 23:45) Pantoprazole (Protonix) (02/17/25 10:00) Sequential Compression Device (02/16/25 23:32) Basic Metabolic Panel (02/17/25 04:00) Complete Blood Count (02/17/25 04:00) Electrocardigram (02/16/25 23:48) Potassium (02/17/25 03:48) Ammonia (02/17/25 06:00) Ammonia (02/17/25 14:00) Ammonia (02/17/25 22:00) Ammonia (02/18/25 06:00) Admit (02/16/25 23:53) * Lieutenant Firefighter Consult (02/16/25 ) Basic Metabolic Panel (02/18/25 05:00) Basic Metabolic Panel (02/19/25 05:00) Vital Signs Date Time Temp Pulse Resp B/P (MAP) Pulse Ox O2 Delivery O2 Flow Rate FiO2 02/16/25 22:00 102 12 121/74 (90) 94 02/16/25 20:40 97.6 106 14 133/51 (78) 14 97.6 02/16/25 20:40 106 99 Room Air* 0 21 02/16/25 20:30 104 02/16/25 20:22 96.6 103 16 121/65 98 96.6 Laboratory Tests Test 02/16/25 20:42 White Blood Count 7.4 10^3/uL (4.4-10.8) Medications Medications Dose Ordered Sig/Pj Route Start Time Stop Time Status Last Admin Dose Admin Sodium Chloride 500 ml @ 500 mls/hr Q1H ONCE IVB 02/16/25 21:00 02/16/25 21:59 DC 02/16/25 21:30 500 MLS/HR Labs/Xrays Labs Test 02/16/25 21:20 02/16/25 20:42 Range/Units Ammonia 129 *H 11-32 umol/L White Blood Count 7.4 4.4-10.8 10^3/uL Red Blood Count 3.08 L 4.5-5.90 10^6/uL Hemoglobin 8.9 L 13.5-17.5 g/dL Hematocrit 26.9 L 41.0-53.0 % Mean Corpuscular Volume 87.4 80.0-100.0 fL Mean Corpuscular Hemoglobin 28.9 28.0-32.0 pg Mean Corpuscular Hemoglobin Concent 33.1 32.0-36.0 g/dL Red Cell Distribution Width 14.2 11.8-14.3 % Platelet Count 141 140-450 10^3/uL Mean Platelet Volume 6.3 L 6.9-10.8 fL Neutrophils (%) (Auto) 83.7 H 37.0-80.0 % Lymphocytes (%) (Auto) 7.7 L 10.0-50.0 % Monocytes (%) (Auto) 7.8 0.0-12.0 % Eosinophils (%) (Auto) 0.3 0.0-7.0 % Basophils (%) (Auto) 0.5 0.0-2.0 % Neutrophils # (Auto) 6.2 1.6-8.6 10 ^3/uL Lymphocytes # (Auto) 0.6 0.4-5.4 10 ^3/uL Monocytes # (Auto) 0.6 0-1.3 10 ^3/uL Eosinophils # (Auto) 0 0-0.8 10 ^3/uL Basophils # (Auto) 0 0-0.2 10 ^3/uL Nucleated Red Blood Cells 0.0 % Prothrombin Time 10.6 9.3-11.8 sec Prothrombin Time INR 1.00 0.9-1.15 Activated Partial Thromboplast Time 31.0 24.5-34.5 SEC Sodium Level 134 L 136-145 mmol/L Potassium Level 5.4 H 3.5-5.1 mmol/L Chloride Level 105 98-107 mmol/L Carbon Dioxide Level 20 20-31 mmol/L Anion Gap 9 5-15 Blood Urea Nitrogen 63 H 9-23 mg/dL Creatinine 2.95 H 0.700-1.30 mg/dL Glomerular Filtration Rate Calc 21 >90 mL/min BUN/Creatinine Ratio 21.4 H 10.0-20.0 Serum Glucose 166 H 74-106 mg/dL Calcium Level 8.2 L 8.7-10.4 mg/dL Magnesium Level 2.5 1.6-2.6 mg/dL Total Bilirubin 0.6 0.2-1.0 mg/dL Aspartate Amino Transferase (AST) 30 13-40 U/L Alanine Aminotransferase (ALT) 21 7-40 U/L Alkaline Phosphatase 91 46-116 U/L Total Protein 6.9 5.7-8.2 g/dL Albumin 2.6 L 3.2-4.8 g/dL Plasma/Serum Blood Alcohol < 3.0 <10 mg/dL Assessment/Plan Problem List: (1) AMS (altered mental status) (2) Metabolic encephalopathy (3) Hepatorenal syndrome (4) Hepatic encephalopathy (5) Generalized weakness Plan This is a 74 yo male with listed medical history who presents with altered mental status. Patient found to have 1. Acute hepatic encephalopathy 2. Acute metabolic encephalopathy 3. Hepatorenal syndrome 4. Recurrent Ascites 5. Acute Hyperkalemia 6. End stage liver cirrhosis 7. Chronic CHF without exacerbation 8. Hx of [place] Plan Admit Telemetry Nephrology consultation Lactulose Monitor Ammonia level, BMP Hyperkalemia management , repeat K level Fall Precautions, Aspiration precautions Social Service consul Abdominal US Interventional Radiology consultation , ascites Discussed all above with supervising MD. Plan discussed with: Other Code Visit Code Visit Total Time (mins): 45 Additional Comments Additional Comments Additional Comments 74-year-old male with a known history of end-stage liver disease, CKD, recurrent ascites, congestive heart failure who initially presented to the hospital with altered mental status found to have 1. Acute metabolic/hepatic encephalopathy 2. Acute kidney injury with a underlying CKD ruled out hepatorenal syndrome 3. Recurrent ascites need paracentesis 4. Hyperkalemia 5. End-stage liver disease with a recurrent ascites 6. Chronic Congestive heart failure currently not in exacerbation -paracentesis support GI consultation, repeat ammonia level continue lactulose CHARLES SPANGLER Feb 17, 2025 00:09 PARKER VAN MD Feb 17, 2025 14:13
[2025-02-17] MEDS: ALBUTEROL SULF 2.5 MG/0.5ML(0.5%) NEB SOLN NEB ONE (00:10)
[2025-02-17] MEDS: ALBUMIN 25% 100 ML IV ONE (00:20)
[2025-02-17] MEDS: DEXTROSE (50%) 50ML SYRG IV ONE (01:41)
[2025-02-17] MEDS: SODIUM ZIRCONIUM CYCL 10 GM PAK PO ONE (01:44)
[2025-02-17] MEDS: InsuLIN REG 1unit/0.01ml Soln (100units/ml) IV ONE (01:58)
[2025-02-17] MEDS ORDERED: LACTULOSE 20Gm/30ML SOLN PO SCH (02:00)
[2025-02-17] MEDS: LACTULOSE 20Gm/30ML SOLN PO SCH ×2 (06:15)
--- NOTE | 2025-02-17 07:14 | DVH ---
ULTRASOUND ABDOMEN limited, 4 QUADRANTS INDICATION: abdominal distension Evaluate for ascites. TECHNIQUE: The four quadrants of the abdomen were scanned in ahn-scale to assess for the presence of ascites. No solid organ assessment was performed. FINDINGS: Moderate ascites IMPRESSIONS: 1. moderate ascites
[2025-02-17 08:41] LABS: Hemoglobin 7.7 g/dL (13.5-17.5)
[2025-02-17 08:43] LABS: Hematocrit 23.3 % (41.0-53.0); Mean Corpuscular Hemoglobin 28.9 pg (28.0-32.0); Mean Corpuscular Volume 87.5 fL (80.0-100.0); Nucleated Red Blood Cells % 0.1 %
[2025-02-17 08:51] LABS: Chloride 106 mmol/L (98-107); Potassium 4.8 mmol/L (3.5-5.1); Sodium 138 mmol/L (136-145)
[2025-02-17 08:52] LABS: Anion Gap 11 (5-15); Carbon Dioxide 21 mmol/L (20-31)
[2025-02-17 08:56] LABS: Calcium 8.3 mg/dL (8.7-10.4)
[2025-02-17 08:57] LABS: BUN/Creatinine Ratio 25.0 (10.0-20.0)
[2025-02-17 08:59] LABS: Blood Urea Nitrogen 68 mg/dL (9-23); Glucose 125 mg/dL (74-106)
[2025-02-17] MEDS: PANTOPRAZOLE 40 MG/10 ML VIAL INJ IV SCH (10:27)
[2025-02-17] MEDS: ENSURE CLEAR Mixed Berry 8oz Carton PO SCH (18:00)
[2025-02-17] MEDS ORDERED: ATORVASTATIN 20 MG TAB PO SCH (22:00)
[2025-02-18] VITALS (7 sets, daily range): BP systolic 96–122; BP diastolic 57–83; PULSE 68–105; RESP 14–20; TEMP 97.5–98.1; O2SAT 97–100
[2025-02-18 06:03] LABS: Hematocrit 24.3 % (41.0-53.0); Hemoglobin 7.9 g/dL (13.5-17.5); Mean Corpuscular Hemoglobin 28.4 pg (28.0-32.0); Mean Corpuscular Volume 86.9 fL (80.0-100.0); Nucleated Red Blood Cells % 0.0 %
[2025-02-18 06:21] LABS: Anion Gap 10 (5-15); Carbon Dioxide 21 mmol/L (20-31); Potassium 4.6 mmol/L (3.5-5.1); Sodium 140 mmol/L (136-145)
[2025-02-18 06:24] LABS: Calcium 8.1 mg/dL (8.7-10.4); Chloride 109 mmol/L (98-107)
[2025-02-18 06:27] LABS: BUN/Creatinine Ratio 26.4 (10.0-20.0)
[2025-02-18 06:36] LABS: Blood Urea Nitrogen 68 mg/dL (9-23); Glucose 110 mg/dL (74-106)
--- NOTE | 2025-02-18 12:51 | DVHINCON2 ---
Date of service: Feb 18, 2025 Reason for Consultation AMS History of Present Illness 74 year old male hx Cirrhosis , poor historian. He presented with AMS. Nephrology called for CULLEN. Revew of previous admissions. GFR 05/2024 was > 60 % but he presented early jan this year with Ascites and HRS his GFR in the 20s Allergies: Coded Allergies: NO KNOWN ALLERGIES (Unverified , 03/29/20) Home Meds Active Scripts Furosemide (Furosemide) 20 Mg Tab, 20 MG PO DAILY, #30 TAB Prov:TERRANCE SAM MD 02/06/25 Sucralfate (CARAFATE) 1 Gm Tab, 1 GM PO QID, #120 TAB Prov:TERRANCE SAM MD 02/06/25 Pantoprazole Sodium Sesquihydr (Pantoprazole Sodium) 40 Mg Tab, 40 MG PO BID, #60 TAB Prov:TERRANCE SAM MD 02/06/25 Reported Medications Atorvastatin Calcium (Lipitor) 10 Mg Tab, 1 MG PO DAILY, #90 TAB 1 Refill 06/06/24 Discontinued Reported Medications Cholecalciferol (D3) 25 Mcg Chw, 25 MCG PO DAILY, TAB.CHEW 06/06/24 Magnesium Oxide (MAGNESIUM OXIDE) 400 Mg Tab, 1 TAB PO DAILY, #30 TAB 5 Refills 06/06/24 Tocopheryl Acetate, Dl-Alpha ( (Vitamin E) 90 Mg Cap, 1000 MG PO DAILY, CAP 06/06/24 Tocopherol, Dl-Alpha (Vitamin E) Liq, 1 XX, LIQ 06/06/24 Finasteride (Finasteride) 5 Mg Tab, 5 MG PO DAILY for 30 Days, MG 06/06/24 Multiple Vitamin (Multi-Day Vitamins) Vitamins Tab, 1 TAB PO DAILY, #30 TAB 03/30/20 Current Medications Current Medications Medications (Trade) Dose Ordered Sig/Pj Route PRN Reason Start Time Stop Time Status Last Admin Atorvastatin Calcium (Lipitor) 10 mg HS PO 02/17/25 22:00 02/16/25 23:51 DC Enteral Nutritional Formula (Ensure Clear) 240 ml TIDWM PO 02/17/25 18:00 02/17/25 18:00 Family History: FH: cancer G8 SISTER H&P Exam Vital Signs/I&O Vital Sign Date Time Temp Pulse Resp B/P (MAP) Pulse Ox O2 Delivery O2 Flow Rate FiO2 02/18/25 08:39 97.5 94 20 96/57 (70) 100 97.5 02/17/25 20:00 Room Air* 0 21 Intake and Output 02/17/25 02/18/25 19:00 07:00 Intake Total 3 ml Balance 3 ml Intake Oral 3 ml # Voids 5 # Bowel Movements 3 5 Physical Exam elderly male nad frail appearing distended abd no murmur Labs/Diagnostic Data Labs/Diagnostic Data Laboratory Tests Test 02/18/25 05:30 02/17/25 22:06 02/17/25 21:40 02/17/25 14:05 Range/Units White Blood Count 6.2 4.4-10.8 10^3/uL Red Blood Count 2.79 L 4.5-5.90 10^6/uL Hemoglobin 7.9 L 13.5-17.5 g/dL Hematocrit 24.3 L 41.0-53.0 % Mean Corpuscular Volume 86.9 80.0-100.0 fL Mean Corpuscular Hemoglobin 28.4 28.0-32.0 pg Mean Corpuscular Hemoglobin Concent 32.7 32.0-36.0 g/dL Red Cell Distribution Width 14.7 H 11.8-14.3 % Platelet Count 128 L 140-450 10^3/uL Mean Platelet Volume 6.7 L 6.9-10.8 fL Neutrophils (%) (Auto) 74.1 37.0-80.0 % Lymphocytes (%) (Auto) 14.2 10.0-50.0 % Monocytes (%) (Auto) 9.4 0.0-12.0 % Eosinophils (%) (Auto) 1.6 0.0-7.0 % Basophils (%) (Auto) 0.7 0.0-2.0 % Neutrophils # (Auto) 4.6 1.6-8.6 10 ^3/uL Lymphocytes # (Auto) 0.9 0.4-5.4 10 ^3/uL Monocytes # (Auto) 0.6 0-1.3 10 ^3/uL Eosinophils # (Auto) 0.1 0-0.8 10 ^3/uL Basophils # (Auto) 0 0-0.2 10 ^3/uL Nucleated Red Blood Cells 0.0 % Sodium Level 140 136-145 mmol/L Potassium Level 4.6 3.5-5.1 mmol/L Chloride Level 109 H 98-107 mmol/L Carbon Dioxide Level 21 20-31 mmol/L Anion Gap 10 5-15 Blood Urea Nitrogen 68 H 9-23 mg/dL Creatinine 2.58 H 0.700-1.30 mg/dL Glomerular Filtration Rate Calc 25 >90 mL/min BUN/Creatinine Ratio 26.4 H 10.0-20.0 Serum Glucose 110 H 74-106 mg/dL Calcium Level 8.1 L 8.7-10.4 mg/dL Ammonia 24 35 H 91 H 11-32 umol/L Stool Occult Blood Positive x 1 Negative Stool Occult Blood Sample #3 Negative Test 02/17/25 08:23 02/17/25 01:57 02/16/25 21:20 02/16/25 20:42 Range/Units White Blood Count 7.1 7.4 4.4-10.8 10^3/uL Red Blood Count 2.66 L 3.08 L 4.5-5.90 10^6/uL Hemoglobin 7.7 L 8.9 L 13.5-17.5 g/dL Hematocrit 23.3 #L 26.9 L 41.0-53.0 % Mean Corpuscular Volume 87.5 87.4 80.0-100.0 fL Mean Corpuscular Hemoglobin 28.9 28.9 28.0-32.0 pg Mean Corpuscular Hemoglobin Concent 33.0 33.1 32.0-36.0 g/dL Red Cell Distribution Width 14.2 14.2 11.8-14.3 % Platelet Count 117 L 141 140-450 10^3/uL Mean Platelet Volume 7.0 6.3 L 6.9-10.8 fL Neutrophils (%) (Auto) 80.1 H 83.7 H 37.0-80.0 % Lymphocytes (%) (Auto) 10.7 7.7 L 10.0-50.0 % Monocytes (%) (Auto) 8.2 7.8 0.0-12.0 % Eosinophils (%) (Auto) 0.5 0.3 0.0-7.0 % Basophils (%) (Auto) 0.5 0.5 0.0-2.0 % Neutrophils # (Auto) 5.7 6.2 1.6-8.6 10 ^3/uL Lymphocytes # (Auto) 0.8 0.6 0.4-5.4 10 ^3/uL Monocytes # (Auto) 0.6 0.6 0-1.3 10 ^3/uL Eosinophils # (Auto) 0 0 0-0.8 10 ^3/uL Basophils # (Auto) 0 0 0-0.2 10 ^3/uL Nucleated Red Blood Cells 0.1 0.0 % Sodium Level 138 134 L 136-145 mmol/L Potassium Level 4.8 5.4 H 3.5-5.1 mmol/L Chloride Level 106 105 98-107 mmol/L Carbon Dioxide Level 21 20 20-31 mmol/L Anion Gap 11 9 5-15 Blood Urea Nitrogen 68 H 63 H 9-23 mg/dL Creatinine 2.72 H 2.95 H 0.700-1.30 mg/dL Glomerular Filtration Rate Calc 23 21 >90 mL/min BUN/Creatinine Ratio 25.0 H 21.4 H 10.0-20.0 Serum Glucose 125 H 166 H 74-106 mg/dL Calcium Level 8.3 L 8.2 L 8.7-10.4 mg/dL Ammonia 40 H 129 *H 11-32 umol/L POC Glucose 216 H 70-106 mg/dl Prothrombin Time 10.6 9.3-11.8 sec Prothrombin Time INR 1.00 0.9-1.15 Activated Partial Thromboplast Time 31.0 24.5-34.5 SEC Hemoglobin A1c 5.9 H <5.7 % A1C Magnesium Level 2.5 1.6-2.6 mg/dL Total Bilirubin 0.6 0.2-1.0 mg/dL Aspartate Amino Transferase (AST) 30 13-40 U/L Alanine Aminotransferase (ALT) 21 7-40 U/L Alkaline Phosphatase 91 46-116 U/L B-Type Natriuretic Peptide 57.67 0-100 pg/mL Total Protein 6.9 5.7-8.2 g/dL Albumin 2.6 L 3.2-4.8 g/dL Plasma/Serum Blood Alcohol < 3.0 <10 mg/dL Assessment Acute kidney injury HRS hepatic encephalopathy anemia thrombocytopenia obtain UA, urine sodium straight cath IV albumin midodrine schedule paracentesis Plan discussed with: Patient ANDREW BAER MD Feb 18, 2025 12:50
[2025-02-18] MEDS ORDERED: LACTULOSE 20Gm/30ML SOLN PO PRN (14:00)
--- NOTE | 2025-02-18 15:05 | DVHPN2 ---
Subjective Patient is more awake alert and alert today. Ammonia level is trending down. Changes from previous H/P or p: No Changes Objective Vitals Vital Signs Date Time Temp Pulse Resp B/P (MAP) Pulse Ox O2 Delivery O2 Flow Rate FiO2 02/18/25 08:39 97.5 94 20 96/57 (70) 100 97.5 02/18/25 08:00 Room Air* 0 21 Intake/Output Intake and Output 02/18/25 07:00 Intake Total 3 ml Balance 3 ml Intake Oral 3 ml # Voids 5 # Bowel Movements 8 Exam HEENT pupils are reactive Neck is supple CV is S1-S2 regular rate and rhythm Respiratory bilateral clear GI positive bowel sounds positive ascites Extremity trace edema LISW following commands Medications Current Medications Medications Dose Ordered Sig/Pj Route Start Time Stop Time Status Last Admin Dose Admin Ondansetron HCl 4 mg Q6HPRN PRN IV 02/16/25 23:45 Pantoprazole Sodium 40 mg DAILY IV 02/17/25 10:00 02/18/25 09:38 40 MG Enteral Nutritional Formula 240 ml TIDWM PO 02/17/25 18:00 02/17/25 18:00 240 ML Lactulose 30 ml PRN PRN PO 02/18/25 14:00 Laboratory Results Laboratory Tests 02/18/25 05:30 Chemistry Test 02/18/25 05:30 Calcium Level 8.1 mg/dL (8.7-10.4) L Assessment/Plan Assessment/Plan 74-year-old male with a known history of end-stage liver disease, CKD, recurrent ascites, congestive heart failure who initially presented to the hospital with altered mental status found to have 1. Acute metabolic/hepatic encephalopathy , slowly improving 2. Acute kidney injury with a underlying suspected hepatorenal syndrome 3. Recurrent ascites need paracentesis 4. Hyperkalemia , improved 5. End-stage liver disease with a recurrent ascites 6. Chronic Congestive heart failure currently not in exacerbation -paracentesis , GI consultation, repeat ammonia level continue lactulose p.r.n. Plan discussed with: Patient, Spouse My Orders Orders - PARKER VAN MD Procedure Category Date Status Time * Swallow Request ST 02/17/25 Transmitted 15:23 Nutritional PHA 02/17/25 In Process Supplements (Ensure 18:00 Cardiac DIET 02/18/25 Transmitted Diet-2gna,Lofat,Lochol Lunch Lactulose Oral PHA 02/18/25 In Process 14:00 Problem List: (1) Hepatic encephalopathy (2) Hepatorenal syndrome (3) Metabolic encephalopathy (4) Ascites (5) Liver cirrhosis Date of Service: Feb 18, 2025 Billing Provider: PARKER VAN MD Common Visit Codes: NOT BILLABLE PARKER VAN MD Feb 18, 2025 15:05
[2025-02-19] VITALS (8 sets, daily range): BP systolic 92–105; BP diastolic 57–67; PULSE 84–102; RESP 16–18; TEMP 97.9–98.9; O2SAT 95–100
[2025-02-19 05:40] LABS: Hematocrit 22.5 % (41.0-53.0); Hemoglobin 7.1 g/dL (13.5-17.5); Mean Corpuscular Hemoglobin 28.8 pg (28.0-32.0); Mean Corpuscular Volume 90.8 fL (80.0-100.0); Nucleated Red Blood Cells % 0.0 %
[2025-02-19 05:48] LABS: Potassium 4.8 mmol/L (3.5-5.1); Sodium 137 mmol/L (136-145)
[2025-02-19 05:49] LABS: Anion Gap 8 (5-15); Carbon Dioxide 20 mmol/L (20-31); Chloride 109 mmol/L (98-107)
[2025-02-19 05:55] LABS: BUN/Creatinine Ratio 19.5 (10.0-20.0)
[2025-02-19 05:57] LABS: Blood Urea Nitrogen 58 mg/dL (9-23); Calcium 8.2 mg/dL (8.7-10.4); Glucose 124 mg/dL (74-106)
[2025-02-19 05:59] LABS: Iron 28.0 ug/dL (65-175); Total Iron Binding Capacity 225.0 ug/dL (250-425)
--- NOTE | 2025-02-19 08:49 | DVHPN2 ---
Progress Note Date Seen: Feb 19, 2025 Medical Necessity Reason Pt with a Central, PICC or Fol: No Subjective Changes from previous H/P or p: No Changes Objective vital signs Vital Sign Date Time Temp Pulse Resp B/P (MAP) Pulse Ox O2 Delivery O2 Flow Rate FiO2 02/19/25 05:00 98.3 97 18 92/57 (69) 99 98.3 02/18/25 20:00 Room Air* 0 21 Total Intake and Output 02/18/25 02/18/25 02/19/25 15:00 23:00 07:00 Intake Total 1245 ml 210 ml Output Total 0 ml Balance 1245 ml 210 ml medications Current Medications Medications Dose Ordered Sig/Pj Route Start Time Stop Time Status Last Admin Dose Admin Ondansetron HCl 4 mg Q6HPRN PRN IV 02/16/25 23:45 Pantoprazole Sodium 40 mg DAILY IV 02/17/25 10:00 02/18/25 09:38 40 MG Enteral Nutritional Formula 240 ml TIDWM PO 02/17/25 18:00 02/19/25 08:24 240 ML Lactulose 30 ml PRN PRN PO 02/18/25 14:00 Examination: GENERAL:Abnormal, CVS:Normal, ABDOMEN:Abnormal laboratory and microbiology Laboratory Tests 02/19/25 05:25 Test 02/19/25 05:25 Range/Units Serum Glucose 124 H 74-106 mg/dL Problem List/Assessment/Plan Problem List/Assessment/Plan Acute kidney injury HRS hepatic encephalopathy anemia thrombocytopenia obtain UA, urine sodium - nurse reports straight cath but no urine collected IV albumin add saline x 1L midodrine schedule paracentesis rec 1 unit PRBC Plan discussed with: Patient My Orders My Orders Orders - ANDREW BAER MD Procedure Category Date Status Time Urine Sodium LAB 02/18/25 Logged 09:22 Urine Creatinine LAB 02/18/25 Logged 09:22 Strict I & O RIGO 02/18/25 In Process 11:24 Dietary Evaluation Review Comments: Consider a regular diet texure as tolearated after passing a POTTER OR CERAMIC ARTIST eval Moniotr PO intakes, heptorenal syndrome and lab values Reassess PRN Expected Outcomes/Goals: Increase physical strength ANDREW BAER MD Feb 19, 2025 08:49
[2025-02-19 09:11] LABS: Hematocrit 23.7 % (41.0-53.0); Hemoglobin 7.7 g/dL (13.5-17.5)
[2025-02-19] MEDS: SODIUM CHLORIDE 0.9% 1,000 ML IV ONE (10:15)
[2025-02-19] MEDS: ACETAMINOPHEN 325 MG TAB PO PRN (14:49)
--- NOTE | 2025-02-19 16:03 | DVHPN2 ---
Subjective Patient is more awake alert and alert today. Ammonia level is trending down. Changes from previous H/P or p: No Changes Objective Vitals Vital Signs Date Time Temp Pulse Resp B/P (MAP) Pulse Ox O2 Delivery O2 Flow Rate FiO2 02/19/25 13:00 98.2 89 18 105/66 (79) 95 98.2 02/19/25 08:14 Room Air* 0 21 Intake/Output Intake and Output 02/19/25 07:00 Intake Total 1455 ml Output Total 0 ml Balance 1455 ml Intake Oral 1455 ml Output Urine Total 0 ml # Bowel Movements 2 Exam HEENT pupils are reactive Neck is supple CV is S1-S2 regular rate and rhythm Respiratory bilateral clear GI positive bowel sounds positive ascites Extremity trace edema KAI WHAKARURUHAU following commands Medications Current Medications Medications Dose Ordered Sig/Pj Route Start Time Stop Time Status Last Admin Dose Admin Ondansetron HCl 4 mg Q6HPRN PRN IV 02/16/25 23:45 Pantoprazole Sodium 40 mg DAILY IV 02/17/25 10:00 02/19/25 10:15 40 MG Enteral Nutritional Formula 240 ml TIDWM PO 02/17/25 18:00 02/19/25 12:10 240 ML Lactulose 30 ml PRN PRN PO 02/18/25 14:00 Acetaminophen 650 mg Q6HP PRN PO 02/19/25 14:45 02/19/25 14:49 650 MG Laboratory Results Laboratory Tests 02/19/25 05:25 02/19/25 08:46 Chemistry Test 02/19/25 05:25 Calcium Level 8.2 mg/dL (8.7-10.4) L Assessment/Plan Assessment/Plan 74-year-old male with a known history of end-stage liver disease, CKD, recurrent ascites, congestive heart failure who initially presented to the hospital with altered mental status found to have 1. Acute metabolic/hepatic encephalopathy , slowly improving 2. Acute kidney injury with a underlying suspected hepatorenal syndrome 3. Recurrent ascites need paracentesis 4. Hyperkalemia , improved 5. End-stage liver disease with a recurrent ascites 6. Chronic Congestive heart failure currently not in exacerbation -paracentesis , GI consultation, repeat ammonia level continue lactulose p.r.n. -diet as tolerated, repeat PT INR Plan discussed with: Patient, Spouse My Orders Orders - PARKER VAN MD Procedure Category Date Status Time * Gi Dvh Detail Drafter CONS 02/19/25 Transmitted 08:25 Acetaminophen Tablet PHA 02/19/25 In Process (Tylenol Tablet) 14:45 Date of Service: Feb 19, 2025 Billing Provider: PARKER VAN MD Common Visit Codes: NOT BILLABLE PARKER VAN MD Feb 19, 2025 16:03
--- NOTE | 2025-02-19 22:17 | DVHINCON2 ---
Date of service: Feb 19, [address] Chaves Reason for Consultation Heme positive stool History of Present Illness Mr. Piero Camilo is a 74-year-old male with a history of End stage liver cirrhosis, CKF, CHF, MO, recurrent ascites presents with altered level of consciousness. Patient was just discharged here 10 days ago, diagnosed with Recurrent ascites status post paracentesis, end-stage liver cirrhosis, hepatorenal syndrome, anemia of chronic disease, CKD iv. Reported by family that is was noted that patient has been acting altered and confused in the past 12 hours, states this usually happens when he is ammonia levels are high. Patient with an ammonia level of 129, K 5.4, BUN 63/2.95. Patient admitted for further evaluation and treatment. Patient was also found to have heme-positive stool. Patient has a history of chronic pyloric duodenal channel ulceration has last endoscopy was in May of 2024 Operative Report DATE OF OPERATION: 06/07/24 PROCEDURE: Upper Endoscopy with biopsy. PREOPERATIVE INDICATION: The patient is a 73 -year-old male undergoing endoscopy for GI bleed and melena and anemia POSTOPERATIVE DIAGNOSES: 1. Patient had a large 3 cm pyloroduodenal channel ulcer with two visible red dots but no visible vessel and no active GI bleeding. There was some surrounding [id number]-muycjb duodenitis 2. Patient had [id number] gastropathy with hyperemia erythema more prominent in the proximal stomach 3. Trace to 1+ distal esophageal varices which flattened with insufflation and did not have any stigmata of recent bleeding 4. Otherwise essentially completely normal endoscopy examination up to the 2nd and 3rd part of the duodenum with no fresh or old blood in the upper GI tract at this time Past Medical History PAST MEDICAL HISTORY: CHF, CKF, Liver, MO Past Medical History (Other): Liver cirrhosis Past Surgical History Surgical History: Appendectomy, Tonsillectomy Family History: FH: cancer G8 SISTER Allergies: Coded Allergies: NO KNOWN ALLERGIES (Unverified , 03/29/20) Home Meds Active Scripts Furosemide (Furosemide) 20 Mg Tab, 20 MG PO DAILY, #30 TAB Prov:TERRANCE SAM MD 02/06/25 Sucralfate (CARAFATE) 1 Gm Tab, 1 GM PO QID, #120 TAB Prov:TERRANCE SAM MD 11/17/25 Pantoprazole Sodium Sesquihydr (Pantoprazole Sodium) 40 Mg Tab, 40 MG PO BID, #60 TAB Prov:TERRANCE SAM MD 02/06/25 Reported Medications Atorvastatin Calcium (Lipitor) 10 Mg Tab, 1 MG PO DAILY, #90 TAB 1 Refill 06/06/24 Discontinued Reported Medications Cholecalciferol (D3) 25 Mcg Chw, 25 MCG PO DAILY, TAB.CHEW 06/06/24 Magnesium Oxide (MAGNESIUM OXIDE) 400 Mg Tab, 1 TAB PO DAILY, #30 TAB 5 Refills 06/06/24 Tocopheryl Acetate, Dl-Alpha ( (Vitamin E) 90 Mg Cap, 1000 MG PO DAILY, CAP 06/06/24 Tocopherol, Dl-Alpha (Vitamin E) Liq, 1 XX, LIQ 06/06/24 Finasteride (Finasteride) 5 Mg Tab, 5 MG PO DAILY for 30 Days, MG 06/06/24 Multiple Vitamin (Multi-Day Vitamins) Vitamins Tab, 1 TAB PO DAILY, #30 TAB 03/30/20 Current Medications Current Medications Medications (Trade) Dose Ordered Sig/Pj Route PRN Reason Start Time Stop Time Status Last Admin Acetaminophen (Tylenol Tablet) 650 mg Q6HP PRN PO MILD PAIN (1-3 PAIN SCALE) 02/19/25 14:45 02/19/25 14:49 Vital Signs Vital Signs Date Time Temp Pulse Resp B/P (MAP) Pulse Ox O2 Delivery O2 Flow Rate FiO2 02/19/25 21:00 97.9 85 18 98/59 (72) 97 97.9 02/19/25 20:00 Room Air* 0 21 Physical Exam Chronically ill-appearing male sleeping HEENT pupils are reactive Neck is supple CV is S1-S2 regular rate and rhythm Respiratory bilateral clear GI positive bowel sounds positive ascites , moderate distention Extremity trace edema 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 following commands Labs/Diagnostic Data Labs Test 02/19/25 08:46 02/19/25 05:25 02/18/25 05:30 02/17/25 21:40 Range/Units Hemoglobin 7.7 L 13.5-17.5 g/dL Hematocrit 23.7 L 41.0-53.0 % White Blood Count 6.6 4.4-10.8 10^3/uL Red Blood Count 2.48 L 4.5-5.90 10^6/uL Mean Corpuscular Volume 90.8 # 80.0-100.0 fL Mean Corpuscular Hemoglobin 28.8 28.0-32.0 pg Mean Corpuscular Hemoglobin Concent 31.7 L 32.0-36.0 g/dL Red Cell Distribution Width 15.0 H 11.8-14.3 % Platelet Count 129 L 140-450 10^3/uL Mean Platelet Volume 6.6 L 6.9-10.8 fL Neutrophils (%) (Auto) 69.5 37.0-80.0 % Lymphocytes (%) (Auto) 17.7 10.0-50.0 % Monocytes (%) (Auto) 10.7 0.0-12.0 % Eosinophils (%) (Auto) 1.7 0.0-7.0 % Basophils (%) (Auto) 0.4 0.0-2.0 % Neutrophils # (Auto) 4.6 1.6-8.6 10 ^3/uL Lymphocytes # (Auto) 1.2 0.4-5.4 10 ^3/uL Monocytes # (Auto) 0.7 0-1.3 10 ^3/uL Eosinophils # (Auto) 0.1 0-0.8 10 ^3/uL Basophils # (Auto) 0 0-0.2 10 ^3/uL Nucleated Red Blood Cells 0.0 % Sodium Level 137 136-145 mmol/L Potassium Level 4.8 3.5-5.1 mmol/L Chloride Level 109 H 98-107 mmol/L Carbon Dioxide Level 20 20-31 mmol/L Anion Gap 8 5-15 Blood Urea Nitrogen 58 #H 9-23 mg/dL Creatinine 2.98 H 0.700-1.30 mg/dL Glomerular Filtration Rate Calc 21 >90 mL/min BUN/Creatinine Ratio 19.5 10.0-20.0 Serum Glucose 124 H 74-106 mg/dL Calcium Level 8.2 L 8.7-10.4 mg/dL Iron Level 28 L 65-175 ug/dL Total Iron Binding Capacity 225 L 250-425 ug/dL Percent Iron Saturation 12.4 L 20-55 % Ferritin 36.6 22-322 ng/mL Ammonia 24 11-32 umol/L Stool Occult Blood Positive x 1 Negative Stool Occult Blood Sample #3 Negative Test 02/17/25 01:57 02/16/25 20:42 Range/Units POC Glucose 216 H 70-106 mg/dl Prothrombin Time 10.6 9.3-11.8 sec Prothrombin Time INR 1.00 0.9-1.15 Activated Partial Thromboplast Time 31.0 24.5-34.5 SEC Hemoglobin A1c 5.9 H <5.7 % A1C Magnesium Level 2.5 1.6-2.6 mg/dL Total Bilirubin 0.6 0.2-1.0 mg/dL Aspartate Amino Transferase (AST) 30 13-40 U/L Alanine Aminotransferase (ALT) 21 7-40 U/L Alkaline Phosphatase 91 46-116 U/L B-Type Natriuretic Peptide 57.67 0-100 pg/mL Total Protein 6.9 5.7-8.2 g/dL Albumin 2.6 L 3.2-4.8 g/dL Plasma/Serum Blood Alcohol < 3.0 <10 mg/dL USG Moderate ascites CT SCAN ABD 02/04 IMPRESSION: Cirrhotic appearing liver with large volume ascites. Wall thickening of proximal and mid small bowel loops which are be from the surrounding ascites versus portal hypertensive enteropathy with enteritis not completely excluded. 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 Heavy atherosclerotic calcification of the aorta and bilateral iliacs. Cholelithiasis with Limited evaluation for acute cholecystitis given surrounding ascites. Problems(with codes): (1) Altered awareness, transient (2) Generalized weakness (3) Anemia (4) Cholelithiasis (5) GI bleed (6) Liver cirrhosis (7) Ascites (8) Metabolic encephalopathy (9) Chronic pyloric channel ulcer Plan/Recommendation Plan Continue supportive care; meld score is 17 points suggestive of fair short-term prognosis Overall portions patient's condition is poor and long-term prognosis is guarded Hepatic encephalopathy is improving with oral lactulose Arrange image guided ultrasound guided paracentesis Maintained on Protonix 40 mg IV q.12 hours Carafate suspension 1 g 4 times a day Continue supportive treatment of chronic pyloric duodenal channel ulcer Avoid aspirin NSAIDs blood thinners smoking alcohol Monitor kidney function, impending hepatorenal syndrome Plan discussed with: Patient BEV TAVAREZ MD Feb 19, 2025 22:17
[2025-02-20] VITALS (7 sets, daily range): BP systolic 95–123; BP diastolic 57–72; PULSE 64–92; RESP 15–18; TEMP 97.6–98.6; O2SAT 94–99
[2025-02-20 02:12] LABS: Urine Protein, UAD Negative (Negative)
[2025-02-20 06:15] LABS: Hematocrit 24.4 % (41.0-53.0); Hemoglobin 8.0 g/dL (13.5-17.5); Mean Corpuscular Hemoglobin 28.7 pg (28.0-32.0); Mean Corpuscular Volume 87.4 fL (80.0-100.0); Nucleated Red Blood Cells % 0.2 %
[2025-02-20 06:30] LABS: Anion Gap 9 (5-15); Carbon Dioxide 21 mmol/L (20-31); Chloride 107 mmol/L (98-107); Potassium 4.8 mmol/L (3.5-5.1); Sodium 137 mmol/L (136-145)
[2025-02-20 06:36] LABS: BUN/Creatinine Ratio 24.1 (10.0-20.0)
[2025-02-20 06:45] LABS: Blood Urea Nitrogen 61 mg/dL (9-23); Calcium 8.0 mg/dL (8.7-10.4); Glucose 121 mg/dL (74-106)
--- NOTE | 2025-02-20 11:02 | DVHPN2 ---
Progress Note Date Seen: Feb 20, 2025 Medical Necessity Reason Pt with a Central, PICC or Fol: No Subjective Patient reports: No new complaints Other Systems: Patient seen and examined by myself today in follow-up Objective vital signs Vital Sign Date Time Temp Pulse Resp B/P (MAP) Pulse Ox O2 Delivery O2 Flow Rate FiO2 02/20/25 09:00 97.6 64 15 95/64 (74) 94 97.6 02/19/25 20:00 Room Air* 0 21 Total Intake and Output 02/19/25 02/19/25 02/20/25 15:00 23:00 07:00 Intake Total 825 ml 1300 ml Output Total 450 ml 200 ml Balance 375 ml 1100 ml medications Current Medications Medications Dose Ordered Sig/Pj Route Start Time Stop Time Status Last Admin Dose Admin Ondansetron HCl 4 mg Q6HPRN PRN IV 02/16/25 23:45 Pantoprazole Sodium 40 mg DAILY IV 02/17/25 10:00 02/20/25 10:21 40 MG Enteral Nutritional Formula 240 ml TIDWM PO 02/17/25 18:00 02/19/25 18:02 240 ML Lactulose 30 ml PRN PRN PO 02/18/25 14:00 Acetaminophen 650 mg Q6HP PRN PO 02/19/25 14:45 02/19/25 14:49 650 MG Examination: LUNGS:Normal, CVS:Normal, MSK:Normal laboratory and microbiology Laboratory Tests 02/20/25 05:15 Test 02/20/25 05:15 Range/Units Serum Glucose 121 H 74-106 mg/dL Problem List/Assessment/Plan Problem List/Assessment/Plan Acute kidney injury secondary hemodynamic mediated, FeNa < 1% Hepatorenal syndrome hepatic encephalopathy Hypoalbuminemia anemia due to GI bleeding thrombocytopenia Recommendations Kidney function slightly improving Increased urine output Strict I&Os Midodrine 10 mg p.o. t.i.d. Octreotide 100 mcg subQ q.8 hours Albumin 25% IV piggyback GI consult We will continue to follow up Plan discussed with: Patient My Orders My Orders Orders - RISHABH HUNTER MD Procedure Category Date Status Time Midodrine Tablet PHA 02/20/25 Transmitted (Proamatine Tablet) 12:00 Octreotide Acetate PHA 02/20/25 Transmitted (Sandostatin) 14:00 Dietary Evaluation Review Comments: Consider a regular diet texure as tolearated after passing a DRILLER HAND eval Moniotr PO intakes, heptorenal syndrome and lab values Reassess PRN Expected Outcomes/Goals: Increase physical strength RISHABH HUNTER MD Feb 20, 2025 11:02
[2025-02-20] MEDS: MIDODRINE HCL 10 MG TAB PO SCH (12:14)
--- NOTE | 2025-02-20 13:19 | DVH ---
US PARACENTESIS, HISTORY: ASCITES PROCEDURE: Informed consent was obtained. The patient was placed in supine position. A limited localization ultrasound of the abdomen was obtained, and the skin site over the largest pocket of fluid was marked and entry site was prepped with chlorhexidine which was allowed to dry and draped in the usual sterile fashion. Time out was performed. Following administration of 1% lidocaine local anesthetic, a 5 [place] centesis needle catheter was percutaneously inserted into the peritoneal collection until fluid was aspirated. The catheter was advanced into the fluid collection and the needle removed. About 24465 cc of fluid was aspirated and specimen sent for appropriate cultures/cytology/cultures and c ytology. The catheter was then removed and a sterile dressing applied. No immediate complication was identified. FINDINGS: Limited ultrasound imaging demonstrates moderate ascites. Aspirated fluid was clear and serous. IMPRESSION: US-guided paracentesis with 10.1L removed.
[2025-02-20] MEDS: ALBUMIN 25% 100 ML IV SCH (13:26)
--- NOTE | 2025-02-20 14:20 | DVHPN2 ---
Progress Note - Dictate Date Seen: Feb 20, 2025 Medical Necessity Reason Pt with a Central, PICC or Fol: No Subjective Comfortable in bed. No complaints. Nurse at bedside. vital signs Vital Sign Date Time Temp Pulse Resp B/P (MAP) Pulse Ox O2 Delivery O2 Flow Rate FiO2 02/20/25 09:00 97.6 64 15 95/64 (74) 94 97.6 02/20/25 08:00 Room Air* 0 21 Total Intake and Output 02/19/25 02/19/25 02/20/25 15:00 23:00 07:00 Intake Total 825 ml 1300 ml Output Total 450 ml 200 ml Balance 375 ml 1100 ml medications Current Medications Medications Dose Ordered Sig/Pj Route Start Time Stop Time Status Last Admin Dose Admin Ondansetron HCl 4 mg Q6HPRN PRN IV 02/16/25 23:45 Pantoprazole Sodium 40 mg DAILY IV 02/17/25 10:00 02/20/25 10:21 40 MG Enteral Nutritional Formula 240 ml TIDWM PO 02/17/25 18:00 02/19/25 18:02 240 ML Lactulose 30 ml PRN PRN PO 02/18/25 14:00 Acetaminophen 650 mg Q6HP PRN PO 02/19/25 14:45 02/19/25 14:49 650 MG Midodrine 10 mg TID@0600,1200,1800 PO 02/20/25 12:00 02/20/25 12:14 10 MG Octreotide Acetate 100 mcg TID SUBCUT 02/20/25 14:00 Albumin Human 100 ml @ 100 mls/hr Q8H IV 02/20/25 11:00 02/21/25 03:59 02/20/25 13:26 100 MLS/HR objective Clinically stable. Feels better post paracentesis. No complaints. HEENT neck supple no JVD. Heart regular rate rhythm S1-S2. Lungs fair air movement without rales wheezes. Abdomen soft nontender nondistended positive bowel sounds. Extremities no edema laboratory and microbiology Laboratory Tests 02/20/25 05:15 Test 02/20/25 05:15 Range/Units Serum Glucose 121 H 74-106 mg/dL Assessment/Plan 1. Acute metabolic/hepatic encephalopathy , slowly improving 2. Acute kidney injury with a underlying suspected hepatorenal syndrome 3. Recurrent ascites need paracentesis 4. Hyperkalemia , improved 5. End-stage liver disease with a recurrent ascites 6. Chronic Congestive heart failure currently not in exacerbation He underwent a successful large volume about 10 L paracentesis earlier today. We will continue three dose of IV albumin every 8 hours overnight. If he remains stable plan to discharge him home in the morning. Meantime continue rest of supportive care and treatment. Discussed with the patient as well as nurse at bedside regarding care plan. Dietary Evaluation Review Comments: Consider a regular diet texure as tolearated after passing a NEUROSURGICAL NURSE PRACTITIONER eval Moniotr PO intakes, heptorenal syndrome and lab values Reassess PRN Expected Outcomes/Goals: Increase physical strength Plan discussed with: Patient, Other TERRANCE SAM MD Feb 20, 2025 14:20
[2025-02-20] MEDS: OCTREOTIDE ACETATE 100 MCG/ML VL SUBCUT SCH (14:49)
[2025-02-21] VITALS (8 sets, daily range): BP systolic 91–108; BP diastolic 56–67; PULSE 83–98; RESP 14–18; TEMP 97.1–98.5; O2SAT 92–99
[2025-02-21 08:52] LABS: Base Excess -5.2 mmol/L (-2.0-3.0)
--- NOTE | 2025-02-21 09:04 | DVH ---
CHEST RADIOGRAPH Indication: sob Technique: Single frontal view of the chest was obtained COMPARISON: XY CHEST PORTABLE on DOS: 02/16/25, XR CHEST 2 VIEW on DOS: 08/19/24, XY CHEST PORTABLE on DOS: 06/20/24, XY CHEST PORTABLE on DOS: 06/06/24, CHEST PORTABLE on DOS: 03/29/20 FINDINGS: Lines and Tubes: None Lungs: Congestion Pleura: No effusion. No pneumothorax. Cardiomediastinal contours: Unremarkable Bones: Unremarkable IMPRESSION: Increased interstital prominence. This may represent pulmonary vascular congestion and/or viral pneumonia. Clinical correlation advised.
[2025-02-21 09:12] LABS: Hemoglobin 7.5 g/dL (13.5-17.5)
[2025-02-21 09:14] LABS: Hematocrit 22.7 % (41.0-53.0); Mean Corpuscular Hemoglobin 28.7 pg (28.0-32.0); Mean Corpuscular Volume 86.9 fL (80.0-100.0); Nucleated Red Blood Cells % 0.0 %
[2025-02-21 09:30] LABS: Alanine Aminotransferase 15 U/L (7-40); Alkaline Phosphatase 62 U/L (46-116); Anion Gap 10 (5-15); BUN/Creatinine Ratio 25.9 (10.0-20.0); Carbon Dioxide 21 mmol/L (20-31); Potassium 4.8 mmol/L (3.5-5.1); Sodium 139 mmol/L (136-145); Total Protein 5.9 g/dL (5.7-8.2)
[2025-02-21 09:31] LABS: Bilirubin, Total 0.6 mg/dL (0.2-1.0)
[2025-02-21 09:33] LABS: Albumin 3.0 g/dL (3.2-4.8); Blood Urea Nitrogen 57 mg/dL (9-23); Calcium 8.4 mg/dL (8.7-10.4); Chloride 108 mmol/L (98-107); Glucose 142 mg/dL (74-106)
[2025-02-21] MEDS: LACTULOSE 10g/15ml SOLN 473ML PR ONE (11:24)
[2025-02-21 12:07] LABS: Glucose, Body Fluid 146.0 mg/dL (.); LD, Body Fluid 65.0 IU/L (.)
--- NOTE | 2025-02-21 13:49 | DVHPN2 ---
Progress Note - Dictate Date Seen: Feb 21, 2025 Medical Necessity Reason Pt with a Central, PICC or Fol: No Subjective Patient apparently drowsy this morning. Ammonia level checked came back elevated around 129. Currently he is bit more awake. His is at bedside. vital signs Vital Sign Date Time Temp Pulse Resp B/P (MAP) Pulse Ox O2 Delivery O2 Flow Rate FiO2 02/21/25 12:48 97.4 92 18 101/58 (72) 92 97.4 02/21/25 08:00 Room Air* 0 21 Total Intake and Output 02/20/25 02/20/25 02/21/25 15:00 23:00 07:00 Intake Total 100 ml 1090 ml 150 ml Output Total 300 ml 300 ml Balance 100 ml 790 ml -150 ml medications Current Medications Medications Dose Ordered Sig/Pj Route Start Time Stop Time Status Last Admin Dose Admin Ondansetron HCl 4 mg Q6HPRN PRN IV 02/16/25 23:45 Pantoprazole Sodium 40 mg DAILY IV 02/17/25 10:00 02/20/25 10:21 40 MG Enteral Nutritional Formula 240 ml TIDWM PO 02/17/25 18:00 02/20/25 14:48 240 ML Lactulose 30 ml PRN PRN PO 02/18/25 14:00 Acetaminophen 650 mg Q6HP PRN PO 02/19/25 14:45 02/19/25 14:49 650 MG Midodrine 10 mg TID@0600,1200,1800 PO 02/20/25 12:00 02/21/25 05:43 10 MG Octreotide Acetate 100 mcg TID SUBCUT 02/20/25 14:00 02/21/25 05:43 100 MCG objective at bedside. Alert and awake knows his name. Appears weak tired and frail. HEENT neck supple no JVD. Heart regular rate rhythm S1-S2. Lungs fair air movement without rales wheezes. Abdomen soft nontender nondistended positive bowel sounds. Extremities no edema laboratory and microbiology Laboratory Tests 02/21/25 08:21 Test 02/21/25 08:21 Range/Units Serum Glucose 142 H 74-106 mg/dL Assessment/Plan 1. Acute metabolic/hepatic encephalopathy , slowly improving 2. Acute kidney injury with a underlying suspected hepatorenal syndrome 3. Recurrent ascites need paracentesis 4. Hyperkalemia , improved 5. End-stage liver disease with a recurrent ascites 6. Chronic Congestive heart failure currently not in exacerbation I will resume his lactulose. Apparently it was discontinued due to significant diarrhea. Give him rectal enema till his mentation improves and transitioned to oral lactulose. If he is unable to take orally then we will consider placing a NG tube and give him lactulose till his mentation improves. is requesting about placing a permanent paracentesis catheter in his abdomen so that he could have drainage at home. However I have told her the option of permanent catheter is recommended for patients with a end of life care with hospice services. Patient appears to be hospice appropriate given his end-stage liver cirrhosis with a need for paracentesis every 5-7 days per his . For now continue present management and further clinical management per clinical course. Overall prognosis remains poor. Discussed with the patient's as well as nurse at bedside regarding care plan. Dietary Evaluation Review Comments: Consider a regular diet texure as tolearated after passing a BOTTOM CEMENTER eval Moniotr PO intakes, heptorenal syndrome and lab values Reassess PRN Expected Outcomes/Goals: Increase physical strength Plan discussed with: Patient, Spouse, Other TERRANCE SAM MD Feb 21, 2025 13:49
[2025-02-21] MEDS: LACTULOSE 20Gm/30ML SOLN PO SCH (14:00)
--- NOTE | 2025-02-21 15:38 | DVHPN2 ---
Progress Note Date Seen: Feb 21, 2025 Medical Necessity Reason Pt with a Central, PICC or Fol: No Subjective Patient reports: No new complaints Other Systems: Patient seen and examined by myself today in follow-up Objective vital signs Vital Sign Date Time Temp Pulse Resp B/P (MAP) Pulse Ox O2 Delivery O2 Flow Rate FiO2 02/21/25 12:48 97.4 92 18 101/58 (72) 92 97.4 02/21/25 08:00 Room Air* 0 21 Total Intake and Output 02/20/25 02/20/25 02/21/25 15:00 23:00 07:00 Intake Total 100 ml 1090 ml 150 ml Output Total 300 ml 300 ml Balance 100 ml 790 ml -150 ml medications Current Medications Medications Dose Ordered Sig/Pj Route Start Time Stop Time Status Last Admin Dose Admin Ondansetron HCl 4 mg Q6HPRN PRN IV 02/16/25 23:45 Pantoprazole Sodium 40 mg DAILY IV 02/17/25 10:00 02/21/25 14:17 40 MG Enteral Nutritional Formula 240 ml TIDWM PO 02/17/25 18:00 02/21/25 13:54 240 ML Acetaminophen 650 mg Q6HP PRN PO 02/19/25 14:45 02/19/25 14:49 650 MG Midodrine 10 mg TID@0600,1200,1800 PO 02/20/25 12:00 02/21/25 05:43 10 MG Octreotide Acetate 100 mcg TID SUBCUT 02/20/25 14:00 02/21/25 14:41 100 MCG Lactulose 30 ml TID PO 02/21/25 14:00 Examination: LUNGS:Normal, CVS:Normal, MSK:Normal laboratory and microbiology Laboratory Tests 02/21/25 08:21 Test 02/21/25 08:21 Range/Units Serum Glucose 142 H 74-106 mg/dL Microbiology Date/Time Source Procedure Growth Status 02/20/25 13:15 Ascities Fluid Gram Stain - Final Resulted 02/20/25 13:15 Ascities Fluid Body Fluid Culture - Preliminary No growth Resulted Problem List/Assessment/Plan Problem List/Assessment/Plan Acute kidney injury secondary hemodynamic mediated, FeNa < 1% Hepatorenal syndrome hepatic encephalopathy Hypoalbuminemia anemia due to GI bleeding thrombocytopenia Recommendations Kidney function slightly improving Increased urine output Strict I&Os Midodrine 10 mg p.o. t.i.d. Octreotide 100 mcg subQ q.8 hours Albumin 25% IV piggyback GI consult We will continue to follow up Plan discussed with: Patient Dietary Evaluation Review Comments: Consider a regular diet texure as tolearated after passing a PELLET MILL OPERATOR eval Moniotr PO intakes, heptorenal syndrome and lab values Reassess PRN Expected Outcomes/Goals: Increase physical strength RISHABH HUNTER MD Feb 21, 2025 15:38
--- NOTE | 2025-02-21 17:09 | DVHPN2 ---
Progress Note Date Seen: Feb 21, 2025 Resident Creating Document: CHASE PASCUAL RESIDENT Medical Necessity Reason Pt with a Central, PICC or Fol: No Subjective Review of Systems Patient seen and examined. Abdomen soft, nontender. Patient had a bowel movement per , after lactulose enema. Reports EGD earlier this year. No history of colonoscopy. Objective vital signs Vital Sign Date Time Temp Pulse Resp B/P (MAP) Pulse Ox O2 Delivery O2 Flow Rate FiO2 02/21/25 16:49 97.1 91 18 104/67 (79) 98 97.1 02/21/25 08:00 Room Air* 0 21 Total Intake and Output 02/20/25 02/20/25 02/21/25 15:00 23:00 07:00 Intake Total 100 ml 1090 ml 150 ml Output Total 300 ml 300 ml Balance 100 ml 790 ml -150 ml medications Current Medications Medications Dose Ordered Sig/Pj Route Start Time Stop Time Status Last Admin Dose Admin Ondansetron HCl 4 mg Q6HPRN PRN IV 02/16/25 23:45 Pantoprazole Sodium 40 mg DAILY IV 02/17/25 10:00 02/21/25 14:17 40 MG Enteral Nutritional Formula 240 ml TIDWM PO 02/17/25 18:00 02/21/25 13:54 240 ML Acetaminophen 650 mg Q6HP PRN PO 02/19/25 14:45 02/19/25 14:49 650 MG Midodrine 10 mg TID@0600,1200,1800 PO 02/20/25 12:00 02/21/25 05:43 10 MG Octreotide Acetate 100 mcg TID SUBCUT 02/20/25 14:00 02/21/25 14:41 100 MCG Lactulose 30 ml TID PO 02/21/25 14:00 Examination Patient lying in bed, in no acute distress General: Thin-appearing, afebrile, palor, mucosae are moist Cardiovascular: Regular S1 and S2. No murmurs, gallops or rubs. No JVD elevation. No pedal edema Respiratory: Normal B/L air entry on room air. Clear lung sounds on auscultation Abdomen: Soft, nontender, nondistended, normoactive bowel sounds, no rebound tenderness, no organomegaly, no masses Genitourinary: Deferred laboratory and microbiology Laboratory Tests 02/21/25 08:21 Test 02/21/25 08:21 Range/Units Serum Glucose 142 H 74-106 mg/dL Microbiology Date/Time Source Procedure Growth Status 02/20/25 13:15 Ascities Fluid Gram Stain - Final Resulted 02/20/25 13:15 Ascities Fluid Body Fluid Culture - Preliminary No growth Resulted Labs and/or images reviewed: Labs reviewed by me, Image(s) reviewed by me Problem List/Assessment/Plan Problem List/Assessment/Plan Acute metabolic encephalopathy likely hepatic encephalopathy Hyperammonemia Likely cirrhosis Former alcoholic dependence Anemia likely anemia of chronic disease Thrombocytopenia Upper EGD 06/07/2024n 1. Patient had a large 3 cm pyloroduodenal channel ulcer with two visible red dots but no visible vessel and no active GI bleeding. There was some surrounding shuvfdvn-ch-grsoix duodenitis 2. Patient had hqkudxsi-wq-[id number] gastropathy with hyperemia erythema more prominent in the proximal stomach 3. Trace to 1+ distal esophageal varices which flattened with insufflation and did not have any stigmata of recent bleeding 4. Otherwise essentially completely normal endoscopy examination up to the 2nd and 3rd part of the duodenum with no fresh or old blood in the upper GI tract at this time Reports using alcohol young age, quit 15 years back, drink 3-4 beers a day Plan: Recommendation: Ammonia 122, continue lactulose and rifaximin, follow up ammonia Status post paracentesis-fever RBCs, few WBCs, no organism preliminary Continue supportive care; meld score is 17 points suggestive of fair short-term prognosis Overall portions patient's condition is poor and long-term prognosis is guarded Hepatic encephalopathy is improving with oral lactulose Arrange image guided ultrasound guided paracentesis Maintained on Protonix 40 mg IV q.12 hours Carafate suspension 1 g 4 times a day 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 Webb Plan discussed with: Patient Dietary Evaluation Review Comments: Consider a regular diet texure as tolearated after passing a PHONE MANAGER eval Moniotr PO intakes, heptorenal syndrome and lab values Reassess PRN Expected Outcomes/Goals: Increase physical strength CHASE PASCUAL RESIDENT Feb 21, 2025 17:09
[2025-02-21] MEDS: PANTOPRAZOLE 40 MG/10 ML VIAL INJ IV SCH (21:24)
[2025-02-22] MEDS: LACTULOSE 20Gm/30ML SOLN PO SCH ×2 (00:51→12:03)
[2025-02-22 06:17] LABS: Anion Gap 10 (5-15); Potassium 4.7 mmol/L (3.5-5.1); Sodium 138 mmol/L (136-145)
[2025-02-22 06:20] LABS: Calcium 8.2 mg/dL (8.7-10.4); Carbon Dioxide 19 mmol/L (20-31); Chloride 109 mmol/L (98-107)
[2025-02-22 06:24] LABS: BUN/Creatinine Ratio 25.1 (10.0-20.0)
[2025-02-22 06:29] LABS: Blood Urea Nitrogen 59 mg/dL (9-23); Glucose 150 mg/dL (74-106)
[2025-02-22 08:00] VITALS: PULSE 87
[2025-02-22 09:00] VITALS: BP 100/68; PULSE 89; RESP 20; TEMP 97.8; O2SAT 99
[2025-02-22 13:00] VITALS: BP 101/58; PULSE 82; RESP 20; O2SAT 99
[2025-02-22] MEDS ORDERED: LACT10SO3 PO (13:36)
[2025-02-22] MEDS ORDERED: RIFA550T PO (13:36)
--- NOTE | 2025-02-22 13:39 | DVHDS2 ---
Discharge Summary Date of Admission Feb 16, 2025 at 23:32 Date of Discharge: Feb 23, 2025 Labs/Diagnostic Data: Laboratory Results Test 02/22/25 05:36 02/21/25 08:28 02/21/25 08:21 02/20/25 13:15 Sodium Level 138 mmol/L (136-145) Potassium Level 4.7 mmol/L (3.5-5.1) Chloride Level 109 mmol/L (98-107) Carbon Dioxide Level 19 mmol/L (20-31) Anion Gap 10 (5-15) Blood Urea Nitrogen 59 mg/dL (9-23) Creatinine 2.35 mg/dL (0.700-1.30) Glomerular Filtration Rate Calc 28 mL/min (>90) BUN/Creatinine Ratio 25.1 (10.0-20.0) Serum Glucose 150 mg/dL (74-106) Calcium Level 8.2 mg/dL (8.7-10.4) Ammonia 119 umol/L (11-32) Blood Gas Specimen Type Arterial Blood Gas Sample Site Left radial Blood Gas Patient Temperature 37.0 Arterial Blood Date Drawn [id number] Arterial Blood pH 7.440 (7.350-7.450) Arterial Blood Partial Pressure CO2 27.3 mmHg (35.0-48.0) Arterial Blood Partial Pressure O2 92.3 mmHg (83.0-108.0) Arterial Blood HCO3 18.1 mmol/L (21.0-28.0) Arterial Blood Oxygen Saturation 96.1 % (94.0-98.0) Arterial Blood Base Excess -5.2 mmol/L (-2.0-3.0) Arterial Blood Oxyhemoglobin 94.9 % (94.0-98.0) Arterial Blood Carboxyhemoglobin 1.0 % (0.5-1.5) Arterial Blood Methemoglobin 0.3 % (0.0-1.5) Arterial Blood Deoxyhemoglobin 3.8 % (0.0-5.0) Candelario Test Yes Blood Gas Total Hemoglobin 8.10 g/dL (13.5-17.5) Blood Gas Modality Room air FiO2 % 21.0 White Blood Count 6.7 10^3/uL (4.4-10.8) Red Blood Count 2.61 10^6/uL (4.5-5.90) Hemoglobin 7.5 g/dL (13.5-17.5) Hematocrit 22.7 % (41.0-53.0) Mean Corpuscular Volume 86.9 fL (80.0-100.0) Mean Corpuscular Hemoglobin 28.7 pg (28.0-32.0) Mean Corpuscular Hemoglobin Concent 33.0 g/dL (32.0-36.0) Red Cell Distribution Width 14.4 % (11.8-14.3) Platelet Count 107 10^3/uL (140-450) Mean Platelet Volume 6.4 fL (6.9-10.8) Neutrophils (%) (Auto) 71.3 % (37.0-80.0) Lymphocytes (%) (Auto) 15.2 % (10.0-50.0) Monocytes (%) (Auto) 11.1 % (0.0-12.0) Eosinophils (%) (Auto) 2.0 % (0.0-7.0) Basophils (%) (Auto) 0.4 % (0.0-2.0) Neutrophils # (Auto) 4.8 10 ^3/uL (1.6-8.6) Lymphocytes # (Auto) 1.0 10 ^3/uL (0.4-5.4) Monocytes # (Auto) 0.7 10 ^3/uL (0-1.3) Eosinophils # (Auto) 0.1 10 ^3/uL (0-0.8) Basophils # (Auto) 0 10 ^3/uL (0-0.2) Nucleated Red Blood Cells 0.0 % Total Bilirubin 0.6 mg/dL (0.2-1.0) Aspartate Amino Transferase (AST) 24 U/L (13-40) Alanine Aminotransferase (ALT) 15 U/L (7-40) Alkaline Phosphatase 62 U/L (46-116) Total Protein 5.9 g/dL (5.7-8.2) Albumin 3.0 g/dL (3.2-4.8) Body Fluid Source Peritoneal fluid Body Fluid pH 8.0 Body Fluid WBC (Manual) 121 CUMM (0-200) Body Fluid RBC (Manual) 121 CUMM (0-2000) Body Fluid Mononuclear Cells 80 % Body Fluid Polymorphonuclear Cells 20 % (0-25) Body Fluid Glucose 146 mg/dL (.) Body Fluid Total Protein 1.2 g/dL (.) Body Fluid Lactate Dehydrogenase 65 IU/L (.) Test 02/20/25 01:52 02/19/25 05:25 02/17/25 21:40 02/17/25 01:57 Urine Color Light-yellow (Yellow) Urine Clarity Clear (Clear) Urine pH 5.5 (5.0-9.0) Urine Specific [place] 1.016 (1.001-1.035) Urine Protein Negative (Negative) Urine Ketones Negative (Negative) Urine Blood Negative /uL (Negative) Urine Nitrite Negative (Negative) Urine Bilirubin Negative (Negative) Urine Urobilinogen Normal mg/dL (Negative) Urine Leukocyte Esterase 2+ /uL (Negative) Urine RBC 1 /hpf (0 - 3) Urine Microscopic WBC 15 /HPF (0-3) Urine Squamous Epithelial Cells None seen /hpf (<5) Urine Bacteria Few /hpf (None Seen) Urine Creatinine 134.62 mg/dL (30.0-125.0) Urine Sodium < 10 mmol/L (40-220) Urine Glucose Normal mg/dL (Normal) Iron Level 28 ug/dL (65-175) Total Iron Binding Capacity 225 ug/dL (250-425) Percent Iron Saturation 12.4 % (20-55) Ferritin 36.6 ng/mL (22-322) Stool Occult Blood Positive x 1 (Negative) Stool Occult Blood Sample #3 (Negative) POC Glucose 216 mg/dl (70-106) Test 02/16/25 20:42 Prothrombin Time 10.6 sec (9.3-11.8) Prothrombin Time INR 1.00 (0.9-1.15) Activated Partial Thromboplast Time 31.0 SEC (24.5-34.5) Hemoglobin A1c 5.9 % A1C (<5.7) Magnesium Level 2.5 mg/dL (1.6-2.6) B-Type Natriuretic Peptide 57.67 pg/mL (0-100) Plasma/Serum Blood Alcohol < 3.0 mg/dL (<10) Other Laboratory Tests 02/22/25 05:36 02/21/25 08:21 Brief Hx & Hospital Course: Mr. Piero Camilo is a 74-year-old male with a history of End stage liver cirrhosis, CKF, CHF, NV, recurrent ascites presents with altered level of consciousness. Patient was just discharged here 10 days ago, diagnosed with Recurrent ascites status post paracentesis, end-stage liver cirrhosis, hepatorenal syndrome, anemia of chronic disease, CKD iv. Reported by family that is was noted that patient has been acting altered and confused in the past 12 hours, states this usually happens when he is ammonia levels are high. Patient with an ammonia level of 129, K 5.4, BUN 63/2.95. Patient admitted for further evaluation and treatment. He is admitted and evaluated by it manager. Patient had a therapeutic large volume 10 L paracentesis. Patient received IV albumin. Patient noted to be hepatic encephalopathy with a significantly elevated ammonia level in the 120s. Therefore he is started on lactulose and rifamaxin and advised to continue these at home. I have talked to patient's on multiple occasions during hospitalization regarding his encephalopathy, end-stage liver cirrhosis and large volume ascites and need for frequent paracentesis. At present patient mentation is normalized and ammonia levels have normalized. Patient is having good bowel movements with the lactulose and therefore felt he could be safely discharged home. However I have told the patient and the that his overall prognosis very poor with poor quality of life therefore to consider palliative/hospice services with a permanent catheter in his abdomen for paracentesis at home with hospice services. we will be discussing further at home with the patient and family members and decide. Meantime given patient is clinically stable in the hospital he has been discharged home with instructions to continue the medications as he is prescribed. Patient and verbalized understanding of this and agree with the discharge care plan as outlined. Consults/Reason for consult Problem List/Assessment/Plan Problem List/Assessment/Plan Acute metabolic encephalopathy likely hepatic encephalopathy Hyperammonemia Likely cirrhosis Former alcoholic dependence Anemia likely anemia of chronic disease Thrombocytopenia Upper EGD 06/07/2024n 1. Patient had a large 3 cm pyloroduodenal channel ulcer with two visible red dots but no visible vessel and no active GI bleeding. There was some surrounding rimitows-tv-dmlbih duodenitis 2. Patient had uilqycbo-mi-chfyuj gastropathy with hyperemia erythema more prominent in the proximal stomach 3. Trace to 1+ distal esophageal varices which flattened with insufflation and did not have any stigmata of recent bleeding 4. Otherwise essentially completely normal endoscopy examination up to the 2nd and 3rd part of the duodenum with no fresh or old blood in the upper GI tract at this time Reports using alcohol young age, quit 15 years back, drink 3-4 beers a day Plan: Recommendation: Ammonia downtrended to 32, continue lactulose 60 mL Q 8 hour, rifaximin 550 mg b.i.d. 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 Webb Plan discussed with: Spouse, Daughter Condition at Discharge: Stable Final Diagnosis/Problems List Advanced/end-stage liver cirrhosis, recurrent ascites with the frequent paracentesis, hepatic encephalopathy with elevated ammonia level, adult failure to thrive due to end-stage liver cirrhosis, general physical deconditioning Discharge Disposition: Home with Health Services Discharge Instruct/Medications Diet: Consistent carbohydrate, Cardiac 2g Na,low cholest Activity: No Restrictions, As Tolerated Activity comment: With the assistance Follow Up/Referral: Primary care physician next week and to discuss palliative/hospice services Medications: To take lactulose as ordered and other medications as ordered per discharge med reconciliation list. Scheduled Atorvastatin Calcium (Lipitor), 1 MG PO DAILY, (Reported) Furosemide (Furosemide), 20 MG PO DAILY Lactulose (Lactulose), 40 GM PO TID Pantoprazole Sodium Sesquihydr (Pantoprazole Sodium), 40 MG PO BID Rifaximin (Xifaxan), 1 TAB PO BID Sucralfate (Carafate), 1 GM PO QID Discontinued Medications Cholecalciferol (D3), 25 MCG PO DAILY, (Reported) Finasteride (Finasteride), 5 MG PO DAILY, (Reported) Magnesium Oxide (Magnesium Oxide), 1 TAB PO DAILY, (Reported) Multiple Vitamin (Multi-Day Vitamins), 1 TAB PO DAILY, (Reported) Tocopherol, Dl-Alpha (Vitamin E), 1 XX, (Reported) Tocopheryl Acetate, Dl-Alpha ( (Vitamin E), 1,000 MG PO DAILY, (Reported) Discharge Statement: "Patient was advised to return to the ER or call 911 if any headaches, dizziness, shortness of breath, chest pain, abdominal pain, bleeding, fevers, or worsening of medical condition. Patient was counseled about treatment plan, medications, possible side effects, patientverbalized understanding. All questions were answered to the best of my ability. This discharge took greater then 30 minutes in planning, reviewing documentation, counseling the patient, and discussing with other team members." ASSESSMENT ASSESSMENT Assessment Advanced/end-stage liver cirrhosis, recurrent ascites with the frequent paracentesis, hepatic encephalopathy with elevated ammonia level, adult failure to thrive due to end-stage liver cirrhosis, general physical deconditioning TERRANCE SAM MD Feb 22, 2025 13:39
[2025-02-22] MEDS: PANTOPRAZOLE 40 MG TAB PO SCH (15:37)
--- NOTE | 2025-02-22 16:36 | DVHPN2 ---
Progress Note Date Seen: Feb 22, 2025 Medical Necessity Reason Pt with a Central, PICC or Fol: No Subjective Patient reports: No new complaints Other Systems: Patient seen and examined by myself today in f/u Objective vital signs Vital Sign Date Time Temp Pulse Resp B/P (MAP) Pulse Ox O2 Delivery O2 Flow Rate FiO2 02/22/25 08:30 Room Air* 0 21 02/22/25 08:00 87 02/21/25 21:00 98.3 17 108/67 (81) 99 98.3 Total Intake and Output 02/21/25 02/21/25 02/22/25 15:00 23:00 07:00 Intake Total 0 ml 100 ml Balance 0 ml 100 ml medications Current Medications Medications Dose Ordered Sig/Pj Route Start Time Stop Time Status Last Admin Dose Admin Ondansetron HCl 4 mg Q6HPRN PRN IV 02/16/25 23:45 Enteral Nutritional Formula 240 ml TIDWM PO 02/17/25 18:00 02/22/25 12:27 240 ML Acetaminophen 650 mg Q6HP PRN PO 02/19/25 14:45 02/21/25 17:45 650 MG Midodrine 10 mg TID@0600,1200,1800 PO 02/20/25 12:00 02/22/25 12:03 10 MG Octreotide Acetate 100 mcg TID SUBCUT 02/20/25 14:00 02/22/25 15:38 100 MCG Rifaximin 550 mg BID PO 02/22/25 22:00 Pantoprazole Sodium 40 mg BID@0600,1700 PO 02/22/25 17:00 Lactulose 60 ml Q8HR PO 02/22/25 11:45 02/22/25 12:03 60 ML Examination: LUNGS:Normal, CVS:Normal, MSK:Normal laboratory and microbiology Laboratory Tests 02/22/25 05:36 02/21/25 08:21 Test 02/22/25 05:36 Range/Units Serum Glucose 150 H 74-106 mg/dL Microbiology Date/Time Source Procedure Growth Status 02/20/25 13:15 Ascities Fluid Gram Stain - Final Resulted 02/20/25 13:15 Ascities Fluid Body Fluid Culture - Preliminary No growth Resulted Problem List/Assessment/Plan Problem List/Assessment/Plan Acute kidney injury secondary hemodynamic mediated, FeNa < 1% Hepatorenal syndrome hepatic encephalopathy Hypoalbuminemia anemia due to GI bleeding thrombocytopenia Recommendations Kidney function slightly improving Increased urine output Strict I&Os Midodrine 10 mg p.o. t.i.d. Octreotide 100 mcg subQ q.8 hours Albumin 25% IV piggyback GI consult We will continue to follow up Plan discussed with: Patient Dietary Evaluation Review Comments: Consider a regular diet texure as tolearated after passing a UNDERWRITING ANALYST eval Moniotr PO intakes, heptorenal syndrome and lab values Reassess PRN Expected Outcomes/Goals: Increase physical strength RISHABH HUNTER MD Feb 22, 2025 16:36
--- NOTE | 2025-02-22 17:19 | DVHPN2 ---
Progress Note Date Seen: Feb 22, 2025 Resident Creating Document: CHASE PASCUAL RESIDENT Medical Necessity Reason Pt with a Central, PICC or Fol: No Subjective Review of Systems 02/21-Patient seen and examined. Abdomen soft, nontender. Patient had a bowel movement per , after lactulose enema. Reports EGD earlier this year. No history of colonoscopy. 02/22-1 bowel movement Objective vital signs Vital Sign Date Time Temp Pulse Resp B/P (MAP) Pulse Ox O2 Delivery O2 Flow Rate FiO2 02/22/25 08:30 Room Air* 0 21 02/22/25 08:00 87 02/21/25 21:00 98.3 17 108/67 (81) 99 98.3 Total Intake and Output 02/21/25 02/21/25 02/22/25 15:00 23:00 07:00 Intake Total 0 ml 100 ml Balance 0 ml 100 ml medications Current Medications Medications Dose Ordered Sig/Pj Route Start Time Stop Time Status Last Admin Dose Admin Ondansetron HCl 4 mg Q6HPRN PRN IV 02/16/25 23:45 Enteral Nutritional Formula 240 ml TIDWM PO 02/17/25 18:00 02/22/25 12:27 240 ML Acetaminophen 650 mg Q6HP PRN PO 02/19/25 14:45 02/21/25 17:45 650 MG Midodrine 10 mg TID@0600,1200,1800 PO 02/20/25 12:00 02/22/25 12:03 10 MG Octreotide Acetate 100 mcg TID SUBCUT 02/20/25 14:00 02/22/25 15:38 100 MCG Rifaximin 550 mg BID PO 02/22/25 22:00 Pantoprazole Sodium 40 mg BID@0600,1700 PO 02/22/25 17:00 Lactulose 60 ml Q8HR PO 02/22/25 11:45 02/22/25 12:03 60 ML Examination Patient lying in bed, in no acute distress General: Thin-appearing, afebrile, palor, mucosae are moist Cardiovascular: Regular S1 and S2. No murmurs, gallops or rubs. No JVD elevation. No pedal edema Respiratory: Normal B/L air entry on room air. Clear lung sounds on auscultation Abdomen: Soft, nontender, nondistended, normoactive bowel sounds, no rebound tenderness, no organomegaly, no masses Genitourinary: Deferred laboratory and microbiology Laboratory Tests 02/22/25 05:36 02/21/25 08:21 Test 02/22/25 05:36 Range/Units Serum Glucose 150 H 74-106 mg/dL Microbiology Date/Time Source Procedure Growth Status 02/20/25 13:15 Ascities Fluid Gram Stain - Final Resulted 02/20/25 13:15 Ascities Fluid Body Fluid Culture - Preliminary No growth Resulted Labs and/or images reviewed: Labs reviewed by me, Image(s) reviewed by me Problem List/Assessment/Plan Problem List/Assessment/Plan Acute metabolic encephalopathy likely hepatic encephalopathy Hyperammonemia Likely cirrhosis Former alcoholic dependence Anemia likely anemia of chronic disease Thrombocytopenia Upper EGD 06/07/2024n 1. Patient had a large 3 cm pyloroduodenal channel ulcer with two visible red dots but no visible vessel and no active GI bleeding. There was some surrounding jnkmevov-pa-eimlbj duodenitis 2. Patient had cuujnfte-rt-vvonip gastropathy with hyperemia erythema more prominent in the proximal stomach 3. Trace to 1+ distal esophageal varices which flattened with insufflation and did not have any stigmata of recent bleeding 4. Otherwise essentially completely normal endoscopy examination up to the 2nd and 3rd part of the duodenum with no fresh or old blood in the upper GI tract at this time Reports using alcohol young age, quit 15 years back, drink 3-4 beers a day Plan: Recommendation: Ammonia downtrended to 32, continue lactulose 60 mL Q 8 hour, rifaximin 550 mg b.i.d. 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 Webb Plan discussed with: Spouse, Daughter Dietary Evaluation Review Comments: Consider a regular diet texure as tolearated after passing a SERVER ASSISTANT eval Moniotr PO intakes, heptorenal syndrome and lab values Reassess PRN Expected Outcomes/Goals: Increase physical strength CHASE PASCUAL RESIDENT Feb 22, 2025 17:19
[2025-02-22 20:00] VITALS: PULSE 108
[2025-02-22 21:00] VITALS: BP 126/79; PULSE 106; RESP 18; TEMP 98.5; O2SAT 99
[2025-02-23] MEDS ORDERED: LACTULOSE 20Gm/30ML SOLN PO ONE
[2025-02-23 05:00] VITALS: BP 107/63; PULSE 117; RESP 17; TEMP 98.4; O2SAT 96
[2025-02-23 08:00] VITALS: PULSE 110
--- NOTE | 2025-02-23 11:38 | DVHPN2 ---
Progress Note Date Seen: Feb 23, 2025 Resident Creating Document: CHASE PASCUAL RESIDENT Medical Necessity Reason Pt with a Central, PICC or Fol: No Subjective Review of Systems 02/21-Patient seen and examined. Abdomen soft, nontender. Patient had a bowel movement per , after lactulose enema. Reports EGD earlier this year. No history of colonoscopy. 02/22-1 bowel movement 02/23-multiple bowel movements overnight. Ammonia less than 10. Stable to be discharged. Objective vital signs Vital Sign Date Time Temp Pulse Resp B/P (MAP) Pulse Ox O2 Delivery O2 Flow Rate FiO2 02/23/25 05:00 98.4 117 17 107/63 (78) 96 98.4 02/22/25 20:00 Room Air* 0 21 Total Intake and Output 02/22/25 02/22/25 02/23/25 15:00 23:00 07:00 Intake Total 580 ml 400 ml Output Total 450 ml Balance 130 ml 400 ml medications Current Medications Medications Dose Ordered Sig/Pj Route Start Time Stop Time Status Last Admin Dose Admin Ondansetron HCl 4 mg Q6HPRN PRN IV 02/16/25 23:45 Enteral Nutritional Formula 240 ml TIDWM PO 02/17/25 18:00 02/23/25 08:00 240 ML Acetaminophen 650 mg Q6HP PRN PO 02/19/25 14:45 02/21/25 17:45 650 MG Midodrine 10 mg TID@0600,1200,1800 PO 02/20/25 12:00 02/23/25 11:31 10 MG Octreotide Acetate 100 mcg TID SUBCUT 02/20/25 14:00 02/23/25 05:20 100 MCG Rifaximin 550 mg BID PO 02/22/25 22:00 02/23/25 09:30 550 MG Pantoprazole Sodium 40 mg BID@0600,1700 PO 02/22/25 17:00 02/23/25 05:20 40 MG Lactulose 60 ml Q8HR PO 02/22/25 11:45 02/23/25 05:18 60 ML Examination Patient lying in bed, in no acute distress General: Thin-appearing, afebrile, palor, mucosae are moist Cardiovascular: Regular S1 and S2. No murmurs, gallops or rubs. No JVD elevation. No pedal edema Respiratory: Normal B/L air entry on room air. Clear lung sounds on auscultation Abdomen: Soft, nontender, nondistended, normoactive bowel sounds, no rebound tenderness, no organomegaly, no masses Genitourinary: Deferred laboratory and microbiology Laboratory Tests 02/22/25 05:36 02/21/25 08:21 Test 02/22/25 05:36 Range/Units Serum Glucose 150 H 74-106 mg/dL Microbiology Date/Time Source Procedure Growth Status 02/20/25 13:15 Ascities Fluid Gram Stain - Final Resulted 02/20/25 13:15 Ascities Fluid Body Fluid Culture - Preliminary No growth Resulted Labs and/or images reviewed: Labs reviewed by me, Image(s) reviewed by me Problem List/Assessment/Plan Problem List/Assessment/Plan Acute metabolic encephalopathy likely hepatic encephalopathy Hyperammonemia Likely cirrhosis Former alcoholic dependence Anemia likely anemia of chronic disease Thrombocytopenia Upper EGD 06/07/2024n 1. Patient had a large 3 cm pyloroduodenal channel ulcer with two visible red dots but no visible vessel and no active GI bleeding. There was some surrounding pswcpylt-sh-yrmpdj duodenitis 2. Patient had gtnlaxas-to-ptxino gastropathy with hyperemia erythema more prominent in the proximal stomach 3. Trace to 1+ distal esophageal varices which flattened with insufflation and did not have any stigmata of recent bleeding 4. Otherwise essentially completely normal endoscopy examination up to the 2nd and 3rd part of the duodenum with no fresh or old blood in the upper GI tract at this time Reports using alcohol young age, quit 15 years back, drink 3-4 beers a day Plan: Recommendation: Ammonia downtrended to <10, continue lactulose 60 mL Q 8 hour, rifaximin 550 mg b.i.d. stable to be discharged from GI point of view. 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 Webb Plan discussed with: Patient Dietary Evaluation Review Comments: Consider a regular diet texure as tolearated after passing a ROADABILITY MACHINE OPERATOR eval Moniotr PO intakes, heptorenal syndrome and lab values Reassess PRN Expected Outcomes/Goals: Increase physical strength CHASE PASCUAL RESIDENT Feb 23, 2025 11:37
[2025-02-23] MEDS ORDERED: LACT10SO3 PO (13:31)
[2025-02-23] MEDS ORDERED: RIFA550T PO (13:31)
--- NOTE | 2025-02-23 14:16 | DVHPN2 ---
Progress Note Date Seen: Feb 23, 2025 Medical Necessity Reason Pt with a Central, PICC or Fol: No Subjective Other Systems: Patient seen and examined by myself today in follow-up Objective vital signs Vital Sign Date Time Temp Pulse Resp B/P (MAP) Pulse Ox O2 Delivery O2 Flow Rate FiO2 02/23/25 08:00 110 02/23/25 08:00 Room Air* 0 21 02/23/25 05:00 98.4 17 107/63 (78) 96 98.4 Total Intake and Output 02/22/25 02/22/25 02/23/25 15:00 23:00 07:00 Intake Total 580 ml 400 ml Output Total 450 ml Balance 130 ml 400 ml medications Current Medications Medications Dose Ordered Sig/Pj Route Start Time Stop Time Status Last Admin Dose Admin Ondansetron HCl 4 mg Q6HPRN PRN IV 02/16/25 23:45 Enteral Nutritional Formula 240 ml TIDWM PO 02/17/25 18:00 02/23/25 12:00 240 ML Acetaminophen 650 mg Q6HP PRN PO 02/19/25 14:45 02/21/25 17:45 650 MG Midodrine 10 mg TID@0600,1200,1800 PO 02/20/25 12:00 02/23/25 11:31 10 MG Octreotide Acetate 100 mcg TID SUBCUT 02/20/25 14:00 02/23/25 05:20 100 MCG Rifaximin 550 mg BID PO 02/22/25 22:00 02/23/25 09:30 550 MG Pantoprazole Sodium 40 mg BID@0600,1700 PO 02/22/25 17:00 02/23/25 05:20 40 MG Lactulose 60 ml Q8HR PO 02/22/25 11:45 02/23/25 05:18 60 ML laboratory and microbiology Laboratory Tests 02/22/25 05:36 02/21/25 08:21 Test 02/22/25 05:36 Range/Units Serum Glucose 150 H 74-106 mg/dL Microbiology Date/Time Source Procedure Growth Status 02/20/25 13:15 Ascities Fluid Gram Stain - Final Resulted 02/20/25 13:15 Ascities Fluid Body Fluid Culture - Preliminary No growth Resulted Problem List/Assessment/Plan Problem List/Assessment/Plan Acute kidney injury secondary hemodynamic mediated, FeNa < 1% Hepatorenal syndrome hepatic encephalopathy Hypoalbuminemia anemia due to GI bleeding thrombocytopenia Recommendations Kidney function slightly improving Increased urine output Strict I&Os Midodrine 10 mg p.o. t.i.d. Octreotide 100 mcg subQ q.8 hours Albumin 25% IV piggyback GI consult We will continue to follow up Plan discussed with: Patient Dietary Evaluation Review Comments: Consider a regular diet texure as tolearated after passing a ONLINE CONTENT COORDINATOR eval Moniotr PO intakes, heptorenal syndrome and lab values Reassess PRN Expected Outcomes/Goals: Increase physical strength RISHABH HUNTER MD Feb 23, 2025 14:16
== END 2025-02-23 13:00 | disposition home or self-care (01) | DRG 432 ==
LOC: ER 20:19 → EDBD 20:19 → OVERFLOW 23:32 → TELE-EAST 02-17 03:06
PROVIDERS: ADMIT Hospitalist; ATTEND Hospitalist
PROC: 0W9G3ZZ Drainage of Peritoneal Cavity, Percutaneous Approach (ICD-10-PCS; principal; 2025-02-20)
DX: K74.60 Unspecified cirrhosis of liver (principal); G93.41 Metabolic encephalopathy; K76.7 Hepatorenal syndrome; K92.2 Gastrointestinal hemorrhage, unspecified; N17.9 Acute kidney failure, unspecified; N18.4 Chronic kidney disease, stage 4 (severe); R18.8 Other ascites; K72.10 Chronic hepatic failure without coma; D63.8 Anemia in other chronic diseases classified elsewhere; E88.09 Other disorders of plasma-protein metabolism, not elsewhere classified; D69.6 Thrombocytopenia, unspecified; F10.21 Alcohol dependence, in remission; I50.9 Heart failure, unspecified; Z68.1 Body mass index [BMI] 19.9 or less, adult; K76.82 Hepatic encephalopathy; E87.5 Hyperkalemia; F17.210 Nicotine dependence, cigarettes, uncomplicated; R62.7 Adult failure to thrive; I25.2 Old myocardial infarction; Z90.49 Acquired absence of other specified parts of digestive tract; Z80.9 Family history of malignant neoplasm, unspecified; Y90.9 Presence of alcohol in blood, level not specified
CPT/HCPCS: 36415; 36600; 49083; 70450; 71045; 76705; 76942; 80048; 80053; 80320; 81001; 82140; 82270; 82570; 82728; 82805; 82962; 83036; 83540; 83550; 83735; 83880; 83986; 84300; 85014; 85018; 85025; 85610; 85730; 86850; 86900; 86901; 87071; 87205; 89051; 93005; 94640; 96365; 97110; 97116; 97163; 97530; 99291; G0378; J1815; J2470; P9047